=== PATIENT | female | born 1940 | race African-American/Black ===

== ENCOUNTER 2016-10-01 13:56 | Inpatient (IN) | payer MEDICARE, OTHER ==
[~2016-10-01] VITALS: Ht 165.1 cm; Wt 90.7 kg
[~2016-10-01 13:56] MED LIST: ASPIRIN81 MG ORAL; CATAPRES0.1 MG ORAL; CATAPRES0.3 MG ORAL; FUROSEMIDE40 MG ORAL; LANTUS5 UNITS SUBQ; NORVASC5 MG ORAL; NOVOLOG100 UNIT/3 SUBQ; PLAVIX75 MG ORAL
[2016-10-01 14:00] VITALS: BP 182/71
--- NOTE | 2016-10-01 14:10 | Emergency Room Report ---
History of Present Illness General Chief Complaint: Abdominal Pain Source: EMS Present Illness HPI Patient presents from what appears to be a rehabilitation facility Patient herself is a very poor historian Does point to her abdominal region to complain of pain she also has evidence of vomitus on her outfit History of present illness is significantly limited I am attempting to contact the facility along with the patient's PMD There is a medication list showing likely previous diagnoses of heart disease and diabetes Unknown duration of pain Unknown regarding diarrhea Allergies: Coded Allergies: PENICILLINS (Verified Allergy, Severe, 03/10/14) SKIN RASH AMOXICILLIN (Verified Allergy, Mild, 03/09/14) ERYTHROMYCIN BASE (Verified Allergy, Mild, 03/09/14) Patient History Past Medical History: see triage record Pertinent Family History: none Reviewed Nursing Documentation: PMH: Agreed, PSxH: Agreed Nursing Documentation-PMH Past Medical History: No History, Except For Hx Hypertension: Yes Hx Diabetes: Yes Hx Cancer: No Hx Gastrointestinal Problems: Yes Hx Neurological Problems: Yes Hx Cerebrovascular Accident: Yes - 2003 Review of Systems All Other Systems: limited - Other than the ones mentioned in the history of present illness all others are reviewed however they do stay limited due to the patient's mental status Physical Exam Vital Signs Date Time Temp Pulse Resp B/P Pulse Ox O2 Delivery O2 Flow Rate FiO2 10/01/16 13:36 97.9 92 18 184/ 100 Room Air Sp02 EP Interpretation: reviewed, normal General Appearance: mild distress - Patient appears ill, uncomfortable Head: normocephalic, atraumatic Eyes: bilateral eye EOMI, bilateral eye PERRL ENT: hearing grossly normal, normal pharynx, TMs + canals normal, uvula midline Neck: full range of motion, supple, no meningismus, no bony tend Respiratory: no respiratory distress, no retraction, no accessory muscle use, crackles - diffusely Cardiovascular #1: normal peripheral pulses, regular rate, rhythm, no edema, no gallop, no JVD, no murmur Gastrointestinal: no organomegaly, non-distended, no guarding, no hernia, no pulsatile mass, no rebound, other - Patient has a mildly distended abdomen is uncomfortable on palpation Genitourinary: no CVA tenderness Musculoskeletal: other - Patient does not follow commands however moves both upper extremities without focal deficit Neurologic: responsive - To physical and verbal stimuli Psychiatric: mood/affect normal Skin: normal color, no rash, warm/dry, palpation normal Lymphatic: normal inspection, no adenopathy Medical Decision Making Diagnostic Impression: Primary Impression: Hypertensive emergency Additional Impression: Abdominal pain ER Course Patient is a fairly complex patient with multiple differential to consideration including but not limited to cardiac cardiopulmonary and vascular emergencies CAT scan does not show any obvious obstruction the patient received pain medications on significantly better I spoke to the patient's primary physician Who reports of the patient does have gastroparesis And the patient was admitted for further care Labs Test 10/01/16 14:30 10/01/16 15:15 10/01/16 15:18 10/01/16 16:35 White Blood Count 16.2 K/UL (4.8-10.8) Red Blood Count 4.53 M/UL (4.20-5.40) Hemoglobin 13.6 G/DL (12.0-16.0) Hematocrit 41.9 % (37.0-47.0) Mean Corpuscular Volume 93 FL (80-99) Mean Corpuscular Hemoglobin 30.1 PG (27.0-31.0) Mean Corpuscular Hemoglobin Concent 32.5 G/DL (32.0-36.0) Red Cell Distribution Width 14.2 % (11.6-14.8) Platelet Count 416 K/UL (150-450) Mean Platelet Volume 7.0 FL (6.5-10.1) Neutrophils (%) (Auto) % (45.0-75.0) Lymphocytes (%) (Auto) % (20.0-45.0) Monocytes (%) (Auto) % (1.0-10.0) Eosinophils (%) (Auto) % (0.0-3.0) Basophils (%) (Auto) % (0.0-2.0) Differential Total Cells Counted 100 Neutrophils % (Manual) 85 % (45-75) Lymphocytes % (Manual) 9 % (20-45) Monocytes % (Manual) 6 % (1-10) Eosinophils % (Manual) 0 % (0-3) Basophils % (Manual) 0 % (0-2) Band Neutrophils 0 % (0-8) Platelet Estimate Adequate Platelet Morphology Normal Red Blood Cell Morphology Normal Lactic Acid Level 2.70 mmol/L (0.66-2.22) 2.00 mmol/L (0.66-2.22) Prothrombin Time 10.6 SEC (9.30-11.50) Prothromb Time International Ratio 1.0 (0.9-1.1) Activated Partial Thromboplast Time 23 SEC (23-33) Sodium Level 140 mEQ/L (135-145) Potassium Level 3.3 mEQ/L (3.4-4.9) Chloride Level 99 mEQ/L (98-107) Carbon Dioxide Level 20 mEQ/L (20-30) Anion Gap 21 (5-15) Blood Urea Nitrogen 31 mg/dL (7-23) Creatinine 2.0 mg/dL (0.5-0.9) Estimat Glomerular Filtration Rate mL/min (>60) Glucose Level 282 mg/dL (74-106) Calcium Level 9.5 mg/dL (8.6-10.2) Total Bilirubin 0.3 mg/dL (0.0-1.2) Aspartate Amino Transf (AST/SGOT) 47 U/L (5-40) Alanine Aminotransferase (ALT/SGPT) 39 U/L (3-33) Alkaline Phosphatase 126 U/L (35-104) Total Creatine Kinase 280 U/L (26-140) Creatine Kinase MB 6.8 ng/mL (< 3.8) Creatine Kinase MB Relative Index 2.4 Troponin I < 0.30 ng/mL (<=0.30) Pro-B-Type Natriuretic Peptide 4291 pg/mL (0-450) Total Protein 8.0 g/dL (6.6-8.7) Albumin 3.3 g/dL (3.5-5.2) Globulin 4.7 g/dL Albumin/Globulin Ratio 0.7 (1.0-2.7) Triglycerides Level 66 mg/dL (< 150) Cholesterol Level 116 mg/dL (< 200) LDL Cholesterol 41 mg/dL (60-99) HDL Cholesterol 62 mg/dL (> 60) Cholesterol/HDL Ratio 1.9 (3.3-4.4) Lipase 13 U/L (< 60) Arterial Blood pH 7.406 (7.350-7.450) Arterial Blood Partial Pressure CO2 37.0 mmHg (35.0-45.0) Arterial Blood Partial Pressure O2 100.6 mmHg (75.0-100.0) Arterial Blood HCO3 22.7 mmol/L (22.0-26.0) Arterial Blood Oxygen Saturation 97.6 % (92.0-98.0) Arterial Blood Base Excess -1.6 Steve Test Positive Urine Color Yellow Urine Appearance Cloudy Urine pH 8.0 (4.5-8.0) Urine Specific [place] 1.010 (1.005-1.035) Urine Protein 3+ (NEGATIVE) Urine Glucose (UA) 4+ (NEGATIVE) Urine Ketones 1+ (NEGATIVE) Urine Occult Blood 3+ (NEGATIVE) Urine Nitrite Negative (NEGATIVE) Urine Bilirubin Negative (NEGATIVE) Urine Urobilinogen Normal MG/DL (0.0-1.0) Urine Leukocyte Esterase Negative (NEGATIVE) Urine RBC 2-4 /HPF (0 - 2) Urine WBC 0-2 /HPF (0 - 2) Urine Squamous Epithelial Cells Few /LPF (NONE/OCC) Urine Bacteria Many /HPF (NONE) Test 10/02/16 06:50 White Blood Count 13.5 K/UL (4.8-10.8) Red Blood Count 4.10 M/UL (4.20-5.40) Hemoglobin 12.0 G/DL (12.0-16.0) Hematocrit 39.5 % (37.0-47.0) Mean Corpuscular Volume 96 FL (80-99) Mean Corpuscular Hemoglobin 29.4 PG (27.0-31.0) Mean Corpuscular Hemoglobin Concent 30.5 G/DL (32.0-36.0) Red Cell Distribution Width 14.2 % (11.6-14.8) Platelet Count 393 K/UL (150-450) Mean Platelet Volume 6.0 FL (6.5-10.1) Neutrophils (%) (Auto) % (45.0-75.0) Lymphocytes (%) (Auto) % (20.0-45.0) Monocytes (%) (Auto) % (1.0-10.0) Eosinophils (%) (Auto) % (0.0-3.0) Basophils (%) (Auto) % (0.0-2.0) Differential Total Cells Counted 100 Neutrophils % (Manual) 90 % (45-75) Lymphocytes % (Manual) 7 % (20-45) Monocytes % (Manual) 3 % (1-10) Eosinophils % (Manual) 0 % (0-3) Basophils % (Manual) 0 % (0-2) Band Neutrophils 0 % (0-8) Platelet Estimate Adequate Platelet Morphology Normal Red Blood Cell Morphology Normal Sodium Level 142 mEQ/L (135-145) Potassium Level 4.3 mEQ/L (3.4-4.9) Chloride Level 101 mEQ/L (98-107) Carbon Dioxide Level 22 mEQ/L (20-30) Anion Gap 19 (5-15) Blood Urea Nitrogen 30 mg/dL (7-23) Creatinine 2.3 mg/dL (0.5-0.9) Estimat Glomerular Filtration Rate mL/min (>60) Glucose Level 470 mg/dL (74-106) Calcium Level 9.3 mg/dL (8.6-10.2) Total Bilirubin 0.2 mg/dL (0.0-1.2) Aspartate Amino Transf (AST/SGOT) 25 U/L (5-40) Alanine Aminotransferase (ALT/SGPT) 28 U/L (3-33) Alkaline Phosphatase 109 U/L (35-104) Total Protein 6.9 g/dL (6.6-8.7) Albumin 2.9 g/dL (3.5-5.2) Globulin 4.0 g/dL Albumin/Globulin Ratio 0.7 (1.0-2.7) Rhythm Strip Diag. Results EP Interpretation: yes Rate: 76 Rhythm: NSR, no PVC's, no ectopy Chest X-Ray Diagnostic Results EP Interpretation: Yes Findings: no consolidation, no effusion, no pneumothorax Number of Views: 1 CT/MRI/US Diagnostic Results CT/MRI/US Diagnostic Results : Impression CT abdomen pelvis: No obvious acute disease Last Vital Signs Date Time Temp Pulse Resp B/P Pulse Ox O2 Delivery O2 Flow Rate FiO2 10/01/16 13:36 97.9 92 18 184/ 100 Room Air Status: improved Disposition: ADMITTED INPATIENT Condition: Serious CATIA MUÑIZ D.O. Oct 01, 2016 14:10
[2016-10-01] MEDS: Morphine Sulfate 4mg/ml Inj IVP ONE ×2 (14:37→14:45)
[2016-10-01] MEDS ORDERED: LORAZEPAM0.5 MG ORAL (14:48)
[2016-10-01] MEDS ORDERED: LISINOPRIL40 MG ORAL (14:48)
[2016-10-01] MEDS ORDERED: CALCITRIOL0.5 MCG PO (14:48)
[2016-10-01] MEDS ORDERED: AMBIEN5 MG ORAL (14:49)
[2016-10-01 14:51] LABS: MEAN CORPUSCULAR HEMOGLOBIN 30.1 PG (27.0-31.0); MEAN CORPUSCULAR HGB CONC 32.5 G/DL (32.0-36.0); MEAN CORPUSCULAR VOLUME 93 FL (80-99); PLATELET COUNT 416 K/UL (150-450); RED BLOOD COUNT 4.53 M/UL (4.20-5.40); RED CELL DISTRIBUTION WIDTH 14.2 % (11.6-14.8); WHITE BLOOD COUNT 16.2 K/UL (4.8-10.8)
[2016-10-01] MEDS ORDERED: DILAUDID4 MG ORAL (14:54)
[2016-10-01] MEDS ORDERED: LORATADINE10 M2 PO (14:54)
[2016-10-01] MEDS ORDERED: FAMOTIDINE20 MG ORAL (14:54)
[2016-10-01 15:10] LABS: REFLEX LACTIC ACID YES OR NO YES
[2016-10-01] MEDS ORDERED: metroNIDAZOLE 500mg 100 ML IVPB ONE (15:15)
[2016-10-01 15:26] LABS: PROTHROMBIN TIME 10.6 SEC (9.30-11.50)
[2016-10-01 15:26] LABS: ABG BASE EXCESS -1.6
[2016-10-01 15:27] LABS: ABG ALLEN TEST POSITIVE
--- NOTE | 2016-10-01 15:54 | Diagnostic Imaging Report ---
Indication: : Technique: One view of the chest Comparison: none Findings: There is suggestion of mild interstitial congestion. No focal airspace consolidation. No effusions. The heart is borderline enlarged Impression: Mild interstitial congestion. Correlate with clinical findings
[2016-10-01 15:55] LABS: ALANINE AMINOTRANSFERASE 39 U/L (3-33); ALBUMIN/GLOBULIN RATIO 0.7 (1.0-2.7); ANION GAP 21 (5-15); ASPARTATE AMINO TRANSFERASE 47 U/L (5-40); CALCIUM 9.5 mg/dL (8.6-10.2); CARBON DIOXIDE 20 mEQ/L (20-30); CHLORIDE 99 mEQ/L (98-107); CHOLESTEROL 116 mg/dL (< 200); CHOLESTEROL/HDL RATIO 1.9 (3.3-4.4); HEMOLYSIS 24; LDL CHOLESTEROL (CALC.) 41 mg/dL (60-99); LIPASE 13 U/L (< 60); POTASSIUM 3.3 mEQ/L (3.4-4.9); SODIUM 140 mEQ/L (135-145)
[2016-10-01 15:58] LABS: BAND NEUTROPHILS % (MANUAL) 0 % (0-8); BASOPHILS % (MANUAL) 0 % (0-2); EOSINOPHILS % (MANUAL) 0 % (0-3); LYMPHOCYTES % (MANUAL) 9 % (20-45); NEUTROPHILS % (MANUAL) 85 % (45-75); PLATELET ESTIMATE ADEQUATE; TOTAL CELLS COUNTED 100
[2016-10-01 15:59] LABS: PLATELET MORPHOLOGY NORMAL
[2016-10-01 16:06] LABS: CKMB 6.8 ng/mL (< 3.8)
[2016-10-01 16:10] LABS: TROPONIN I < 0.30 ng/mL (<=0.30)
[2016-10-01 16:24] VITALS: BP 167/94
[2016-10-01] MEDS ORDERED: HYDROmorphone 1 MG, DiphenhydrAMINE 25 MG in NS 55 ML IVPB ONE (16:45)
--- NOTE | 2016-10-01 16:45 | Diagnostic Imaging Report ---
Indication: Abdominal pain, nausea, vomiting Technique: Spiral acquisitions obtained through the abdomen and pelvis. No oral contrast utilized, per emergency room physician request No IV contrast utilized, per referring physician request.. Multiplanar reconstructions were generated. Total dose length product 950 mGycm. CTDIvol(s) 19 mGy Comparison: None Findings: There is a slight degree of image degradation due to motion artifact The appendix is normal. There is no evidence of diverticulosis or diverticulitis. No small bowel distention. No free or loculated intraperitoneal air or fluid is evident. There is a small sliding-type hiatal hernia. The stomach is otherwise unremarkable. The duodenum is unremarkable. Lack of IV contrast limits assessment of the solid organs. There are are cholecystectomy clips. These create some streak artifact which may obscure pathology in the adjacent area. There is mild ectasia of the extrahepatic bile ducts, common bile duct measuring 8 mm diameter. The pancreas, spleen, are unremarkable. There is relative atrophy and lobulated contour of the left kidney, suggesting chronic post inflammatory scarring. There is also very slightly lobulated contour of the right kidney. No definite renal or ureteral calculi, hydronephrosis or hydroureter. No definite renal mass. The uterus is absent, presumably postsurgically. The bladder is unremarkable. No pelvic mass or adenopathy. The lung bases demonstrate bilateral diffuse groundglass opacities. The heart is enlarged. The bones demonstrate fairly extensive degenerative proliferative change of the lower thoracic and lower lumbar spine. Impression: Cardiomegaly. Bilateral basilar pulmonary parenchymal parenchymal groundglass opacities are nonspecific, but given the presence of cardiomegaly likely reflect pulmonary edema. With clinical findings No acute abdominal process Small sliding-type hiatal hernia Evidence of prior cholecystectomy. Mild ectasia of the extrahepatic bile ducts is probably related to age and postcholecystectomy state, but correlation with liver function tests is recommended. Evidence of postinflammatory changes of the kidneys, left greater than right Absence of the uterus, presumed prior hysterectomy Degenerative spondylosis The CT scanner at [facility] is accredited by the [employer] and the scans are performed using protocols designed to limit radiation exposure to as low as reasonably achievable to attain images of sufficient resolution adequate for diagnostic evaluation.
[2016-10-01] MEDS ORDERED: DiphenhydrAMINE 50mg/ml Inj ONE (17:00)
[2016-10-01] MEDS ORDERED: HYDROmorphone 1mg/ml Carpuject ONE (17:00)
[2016-10-01 17:53] LABS: APPEARANCE,URINE CLOUDY; KETONES,URINE 1+ (NEGATIVE); LEUKOCYTE ESTERASE ,URINE NEGATIVE (NEGATIVE); NITRITE,URINE NEGATIVE (NEGATIVE); PROTEIN,URINE 3+ (NEGATIVE); UROBILINOGEN,URINE NORMAL MG/DL (0.0-1.0)
[2016-10-01 18:18] LABS: BACTERIA,URINE MANY /HPF; SQUAMOUS EPITHELIAL CELL,UR FEW /LPF (NONE/OCC); WBC,URINE 0-2 /HPF (0 - 2)
[2016-10-01 18:19] VITALS: BP 159/89
[2016-10-01] MEDS: HYDROmorphone 1mg/ml Carpuject IVP PRN (19:57)
--- NOTE | 2016-10-01 19:57 | Consultation ---
Consult Note Assessment/Plan Brief nephrology consult: Impression: 1) MONICO on CKD 2) No clinical msign of CHF 3) Abdominal pain with N/V ? due to gastroparesis, No obvious pancreatitis 4) HX of chronic pancreatitis 5) Leukocytosis R/O Colitis, infectious vs ischemic Plan: IV fluid x 1 L IV ATB Check C.diff, also stool cx FERMIN BRIGHT Oct 01, 2016 19:57
[2016-10-01 20:00] VITALS: BP 159/76
[2016-10-01] MEDS ORDERED: LORazepam 0.5mg tab ORAL PRN (20:45)
[2016-10-01] MEDS ORDERED: Zolpidem 5mg tab ORAL PRN (20:45)
[2016-10-01] MEDS ORDERED: Miralax 17gm pkt ORAL PRN (20:45)
[2016-10-01] MEDS: Heparin 5000 units/ml inj SUBQ SCH (22:23)
[2016-10-01] MEDS: Losartan 50mg tab ORAL SCH (22:28)
[2016-10-01] MEDS ORDERED: NovoLOG Insulin Flexpen SUBQ SCH (22:30)
[2016-10-01] MEDS: metroNIDAZOLE 500mg 100 ML IVPB SCH (22:40)
[2016-10-01] MEDS ORDERED: Nitroglycerin Patch 0.4mg TDERMAL SCH (23:00)
[2016-10-02] VITALS (8 sets, daily range): BP systolic 96–212; BP diastolic 45–126
[2016-10-02] MEDS: HYDROmorphone 1mg/ml Carpuject IVP PRN (00:04)
[2016-10-02] MEDS ORDERED: Levemir Flexpen SUBQ ONE (01:00)
[2016-10-02] MEDS: NS w/KCl 20mEq 1,000 ML IV SCH ×2 (01:33→23:29)
--- NOTE | 2016-10-02 05:09 | Consultation ---
DATE OF CONSULTATION: 10/01/2016 CARDIOLOGY CONSULTATION REQUESTING PHYSICIAN: 1. Pa Acuña M.D. 2. Jim Norwood M.D. REASON FOR CONSULTATION: Coronary artery disease. HISTORY OF PRESENT ILLNESS: The patient is known to me from prior care. This is an elderly female with single-vessel coronary artery disease, who has had multiple coronary stents to the right coronary distribution. She presented to the emergency room today with abdominal pain, nausea and recurring vomiting. She has not been able to tolerate any oral intake or her medications. She is being admitted for further management of pancreatitis and I have been asked to assist with cardiovascular care. The patient was hospitalized approximately a month ago at [facility] with an non-ST elevation myocardial infarction. She had a myocardial perfusion scan revealing a minimal amount of ischemia in the right coronary distribution. She has had multiple prior cardiac catheterizations and stent into the right coronary vessel. It was decided to be managed medically at that time especially in view of her worsening renal failure. She has not had any recurring. The patient has had a stable anginal pattern in the past week requiring nitroglycerin on one to two occasions and responding promptly. PAST MEDICAL HISTORY: 1. Coronary artery disease. 2. History of coronary stent. 3. Hypertensive heart disease. 4. Diastolic dysfunction with history of congestive heart failure. 5. Paroxysmal atrial ectopy. 6. Paroxysmal atrial fibrillation. 7. Premature atrial contractions. 8. Insulin-requiring diabetes mellitus. 9. Diabetic nephropathy. 10. Chronic kidney disease, stage 5. 11. Peripheral artery disease. 12. Obesity. 13. Chronic pancreatitis. 14. Hyperlipidemia. 15. Cerebrovascular disease with history of cerebrovascular accident. MEDICATIONS: Reviewed and reconciled. ALLERGIES: Include penicillin. SOCIAL HISTORY: No active smoking, alcohol, or substance abuse. REVIEW OF SYSTEMS: No fevers. No cough. She does have leg swelling and adjust her diuretic dose accordingly. She has had a prior stroke. She has not had any congestion or wheezing. She has not had any change in bowel habits. She has had progressive renal failure over the past year. PHYSICAL EXAMINATION: VITAL SIGNS: Blood pressure 184/80, heart rate 92, respiratory rate 18, and afebrile. HEENT: Normocephalic and atraumatic. Conjunctivae pink. Arcus senilis. Sclerae are anicteric. Oropharynx is clear. Mucous membranes moist. NECK: Supple. Jugular venous pressure difficult to assess. LUNGS: Coarse breath sounds. No wheezing. CARDIAC: Regular rhythm and rate. Normal S1 and S2 with a fourth heart sound. ABDOMEN: Distended, soft and tender diffusely. EXTREMITIES: Reveal 1+ dependent edema. LABORATORY DATA: White count 16.2 and hemoglobin 13.6. Lactic acid is 2.7. BUN 31, creatinine 2.0, potassium 3.3, and bicarbonate 20. CK is 280. Troponin is negative. Pro-natriuretic peptide is 4291. Total cholesterol is 116. Lipase is 13. IMPRESSION: 1. Lactic acidosis. 2. Leukocytosis. 3. Probable sepsis. 4. Acute on chronic renal failure. 5. Hypokalemia. 6. Acute on chronic diastolic congestive heart failure. 7. Ischemic cardiomyopathy. 8. Chronic stable angina, class II. 9. Mild protein-calorie malnutrition. 10. Transaminitis. PLAN: 1. Panculture. 2. IV fluid hydration. 3. Hold diuretics and angiotensin-converting enzyme inhibitor. 4. Maintain antiplatelet and antianginal regimen otherwise without change. 5. DVT prophylaxis. 6. Hepatobiliary studies. 7. Serial lactic acid levels. 8. Check magnesium. 9. Remains high risk. Amando Blanco M.D. DR: MELVIN JOB#: [id number] CC:
[2016-10-02] MEDS: metroNIDAZOLE 500mg 100 ML IVPB SCH ×3 (06:16→21:21)
[2016-10-02] MEDS: NovoLOG Insulin Flexpen SUBQ SCH ×4 (06:17→21:20)
[2016-10-02 07:46] LABS: MEAN CORPUSCULAR HEMOGLOBIN 29.4 PG (27.0-31.0); MEAN CORPUSCULAR HGB CONC 30.5 G/DL (32.0-36.0); MEAN CORPUSCULAR VOLUME 96 FL (80-99); PLATELET COUNT 393 K/UL (150-450); RED CELL DISTRIBUTION WIDTH 14.2 % (11.6-14.8); WHITE BLOOD COUNT 13.5 K/UL (4.8-10.8)
[2016-10-02 08:16] LABS: ALANINE AMINOTRANSFERASE 28 U/L (3-33); ALBUMIN/GLOBULIN RATIO 0.7 (1.0-2.7); ANION GAP 19 (5-15); ASPARTATE AMINO TRANSFERASE 25 U/L (5-40); CALCIUM 9.3 mg/dL (8.6-10.2); CARBON DIOXIDE 22 mEQ/L (20-30); CHLORIDE 101 mEQ/L (98-107); CREATININE 2.3 mg/dL (0.5-0.9); HEMOLYSIS 1; POTASSIUM 4.3 mEQ/L (3.4-4.9); SODIUM 142 mEQ/L (135-145); TOTAL PROTEIN 6.9 g/dL (6.6-8.7)
[2016-10-02] MEDS: cloNIDine 0.2mg Tab ORAL SCH ×3 (08:24→22:00)
[2016-10-02] MEDS: Aspirin Baby 81mg ORAL SCH (08:24)
[2016-10-02] MEDS: Calcitriol 0.5mcg Cap ORAL SCH (08:24)
[2016-10-02] MEDS: Sucralfate 1gm tab ORAL SCH ×2 (08:25→17:18)
[2016-10-02] MEDS: Nitroglycerin Patch 0.4mg TDERMAL SCH (08:25)
[2016-10-02] MEDS: Losartan 50mg tab ORAL SCH ×2 (08:26→20:41)
[2016-10-02] MEDS: Heparin 5000 units/ml inj SUBQ SCH ×2 (08:27→21:19)
[2016-10-02 08:30] LABS: BAND NEUTROPHILS % (MANUAL) 0 % (0-8); BASOPHILS % (MANUAL) 0 % (0-2); EOSINOPHILS % (MANUAL) 0 % (0-3); LYMPHOCYTES % (MANUAL) 7 % (20-45); NEUTROPHILS % (MANUAL) 90 % (45-75); PLATELET ESTIMATE ADEQUATE; PLATELET MORPHOLOGY NORMAL; TOTAL CELLS COUNTED 100
[2016-10-02] MEDS ORDERED: Pantoprazole Inj IVP SCH (09:00)
--- NOTE | 2016-10-02 16:38 | History and Physical Report ---
DATE OF ADMISSION: 10/01/2016 CHIEF COMPLAINT: Hypertensive urgency and abdominal pain. HISTORY OF PRESENT ILLNESS: The patient is a 76-year-old -[place] female. She has a history of ischemic cardiomyopathy, status post stent; hypertension; chronic kidney disease; paroxysmal atrial fibrillation; diabetes; obesity; and chronic pancreatitis who presented from home with complaints of abdominal pain and hypertensive urgency. The patient currently is moaning. She is unable to give any history. According to the emergency room, the patient was markedly hypertensive. She had an elevated white count. She had a CT scan of the abdomen to further evaluate her abdominal pain, which was relatively unremarkable. She was pancultured and started on antibiotics and is now admitted for further evaluation and care. PAST MEDICAL HISTORY: As above. PAST SURGICAL HISTORY: History of a stent. CURRENT MEDICATIONS: Reconciled and reviewed. ALLERGIES: Penicillin and erythromycin. FAMILY HISTORY: Noncontributory. SOCIAL HISTORY: There is no known history of tobacco, ethanol, or drugs. REVIEW OF SYSTEMS: Unobtainable as the patient is currently moaning and is unable to cooperate with the history. PHYSICAL EXAMINATION: VITAL SIGNS: Temperature is 101, pulse 108, respirations 18, and blood pressure 149/87. GENERAL: The patient is a chronically ill-appearing female. She is awake, but moaning. Her oropharynx shows mucous membranes are dry. NECK: Supple. HEART: Regular rate and rhythm. LUNGS: Clear anteriorly. ABDOMEN: Soft. Mildly tender throughout, but there is no rebound or guarding. EXTREMITIES: No clubbing, cyanosis, or edema. LABORATORY DATA: White count was 16,000, hemoglobin 13, hematocrit 41, and platelets 416,000. Coags are normal. Lactic acid was 2.7. Sodium 140, potassium 3.3, chloride 99, BUN of 31, and creatinine was 2. AST was 47, ALT 39, and alkaline phosphatase of 126. Total CK of 280 and CK-MB of 6.8. Troponin was negative. Natriuretic peptide level was 4200. Lipase was 13. ASSESSMENT: This is a 76-year-old female with multiple medical problems, who complains of hypertensive urgency, abdominal pain, leukocytosis, and fever of unclear etiology. PROBLEM LIST: 1. Abdominal pain, unclear etiology. The patient states that the pain is similar to her prior episodes of pancreatitis though. 2. Fevers and leukocytosis. 3. Ischemic cardiomyopathy. 4. Hypertension. 5. Acute on chronic renal failure. 6. Diabetes. PLAN: Empiric antibiotic therapy for sepsis. ID consultation. GI evaluations. Follow up pending cultures. Continue hydration. Monitor renal function. Monitor Accu-Cheks. Continue anti-platelet therapy. A message has been left to the son to obtain further history and to obtain the patient's status. Jim Norwood M.D. DR: STONE JOB#: [id number] CC:
--- NOTE | 2016-10-02 18:38 | Consultation ---
DATE OF CONSULTATION: 10/02/2016 INFECTIOUS DISEASES CONSULTATION CONSULTING PHYSICIAN: Dennis Rose M.D. REFERRING PHYSICIAN: Jim Norwood M.D. REASON FOR CONSULTATION: Leukocytosis. HISTORY OF PRESENTING ILLNESS: This is a 76-year-old lady with history of coronary artery disease, status post stent placement; hypertension; and congestive heart failure, who came in with nausea, vomiting, as well as abdominal pain. She was recently at [facility] with myocardial infarction. An Infectious Diseases consultation has been obtained for antibiotics and for leukocytosis. PAST MEDICAL HISTORY: 1. History of coronary artery disease, status post stent placement. 2. Hypertension. 3. Congestive heart failure. 4. Atrial fibrillation. 5. Diabetes. 6. Diabetic nephropathy. 7. Chronic kidney disease. 8. Peripheral arterial disease. 9. Chronic pancreatitis. 10. Hyperlipidemia. 11. CVA. SOCIAL HISTORY: No history of smoking, alcohol, or drug use. FAMILY HISTORY: Unknown. REVIEW OF SYSTEMS: Unable to obtain currently. MEDICATIONS: As an inpatient, the patient is on Levaquin, Neurontin, Carafate, clonidine, metoprolol, Protonix, calcitriol, Plavix, Norvasc, aspirin, nitroglycerin, Tylenol, Dilaudid, Reglan, insulin, Zofran, Flagyl, atorvastatin, Cozaar, subcutaneous heparin, MiraLAX, Benadryl, Ambien, and Ativan. ALLERGIES: 1. Amoxicillin 2. Erythromycin. 3. Penicillin. PHYSICAL EXAMINATION: VITAL SIGNS: Temperature of 100 degrees, T-max 101.1, pulse of 124, respiratory rate of 18, blood pressure 149/87, and O2 saturation of 96%. HEENT: Pupils are equally reactive to light and accommodation. Mouth appears clean without thrush. NECK: Supple. No adenopathy. No JVD. CARDIOVASCULAR: Regular rate and rhythm. No murmurs. LUNGS: Clear to auscultation bilaterally. No crackles. No wheezes. ABDOMEN: Soft and nontender. No organomegaly. EXTREMITIES: No cyanosis, no clubbing, no edema. LABORATORY DATA: White count of 16.2 yesterday, white count of 13.5 today, hemoglobin 12, hematocrit 39.5, MCV 96, and platelet count of 393,000 with neutrophils of 90%. Sodium 142, potassium 4.3, chloride 101, bicarbonate 22, BUN 30, creatinine 2.3, glucose 470, and calcium 9.3. Total bilirubin 0.2, AST 25, ALT 28, alkaline phosphatase 109, total protein 6.9, and albumin 2.9. UA showing 0 to 2 white cells. Urine cultures are negative from 10/01/2016. Chest x-ray showed mild interstitial congestion. CT abdomen and pelvis showing cardiomegaly, bilateral bibasilar pulmonary parenchymal ground-glass opacities noted. ASSESSMENT: This is a 76-year-old lady with history of hypertension and diabetes who comes in with, 1. Possible community-acquired pneumonia versus atypical pneumonia. 2. Leukocytosis. 3. Coronary artery disease. 4. Renal failure. 5. We would like to rule out Clostridium difficile colitis as a possibility. PLAN: 1. Continue Levaquin and Flagyl given the patient's penicillin allergy. 2. We will follow up cultures. 3. We will order sputum for Gram stain and culture. 4. We will order stool for C. difficile colitis. 5. We will follow up cultures and adjust antibiotics accordingly. I would like to thank Dr. Norwood for this consultation. Dennis Rose M.D. DR: AYAH JOB#: [id number] CC: Jim Norwood M.D.
[2016-10-02] MEDS: Levemir Flexpen SUBQ SCH (20:38)
--- NOTE | 2016-10-02 21:13 | Nephrology Progress Note ---
Assessment/Plan Assessment 1) HTN 2) Abdominal pain 3) Gastropaeresis 4) Chronic pancreatitis Plan: Will stop Cozaar Will increase clonidine to 0.6 mg po tid Norvasc 5 mg po bid Subjective Subjective She is still having epigastric tenderness, no c/p or sob, started on cozaar, creat is up to 2.3 Objective Objective Last 24 Hour Vital Signs Date Time Temp Pulse Resp B/P Pulse Ox O2 Delivery O2 Flow Rate FiO2 10/02/16 20:41 212/98 10/02/16 20:40 212/98 10/02/16 20:00 97.0 80 21 212/98 98 Nasal Cannula 2.0 10/02/16 16:00 97.5 73 20 157/99 99 Nasal Cannula 2.0 10/02/16 13:26 73 148/63 10/02/16 11:45 82 10/02/16 11:31 98.4 82 18 96/45 99 Nasal Cannula 2.0 10/02/16 09:50 100.0 10/02/16 09:40 98.9 10/02/16 08:26 149/87 10/02/16 08:25 149/87 10/02/16 08:25 124 149/87 10/02/16 08:25 124 149/87 10/02/16 08:24 149/87 10/02/16 08:07 101.1 108 18 149/87 96 Room Air 10/02/16 07:43 105 10/02/16 04:00 98.6 110 22 107/62 99 Room Air 10/02/16 04:00 109 10/02/16 00:00 107 10/02/16 00:00 97.2 108 24 160/68 97 Room Air 10/01/16 22:54 163/58 10/01/16 22:28 159/76 Intake and Output 10/01/16 10/02/16 19:00 07:00 Intake Total 322.5 ml Balance 322.5 ml Intake IV Total 322.5 ml # Voids 1 2 Laboratory Tests 10/02/16 06:50: White Blood Count 13.5H, Red Blood Count 4.10L, Hemoglobin 12.0, Hematocrit 39.5 , Mean Corpuscular Volume 96, Mean Corpuscular Hemoglobin 29.4, Mean Corpuscular Hemoglobin Concent 30.5L, Red Cell Distribution Width 14.2, Platelet Count 393, Mean Platelet Volume 6.0L, Neutrophils (%) (Auto) , Lymphocytes (%) (Auto) , Monocytes (%) (Auto) , Eosinophils (%) (Auto) , Basophils (%) (Auto) , Differential Total Cells Counted 100, Neutrophils % ( Manual) 90H, Lymphocytes % (Manual) 7L, Monocytes % (Manual) 3, Eosinophils % ( Manual) 0, Basophils % (Manual) 0, Band Neutrophils 0, Platelet Estimate Adequate, Platelet Morphology Normal, Red Blood Cell Morphology Normal, Sodium Level 142, Potassium Level 4.3, Chloride Level 101, Carbon Dioxide Level 22, Anion Gap 19H, Blood Urea Nitrogen 30H, Creatinine 2.3H, Estimat Glomerular Filtration Rate , Glucose Level 470#H, Calcium Level 9.3, Total Bilirubin 0.2, Aspartate Amino Transf (AST/SGOT) 25, Alanine Aminotransferase (ALT/SGPT) 28, Alkaline Phosphatase 109H, Total Protein 6.9, Albumin 2.9L, Globulin 4.0, Albumin/Globulin Ratio 0.7L Height (Feet): 5 Height (Inches): 5.00 Weight (Pounds): 200 General Appearance: WD/WN, no apparent distress EENT: PERRL/EOMI, TMs normal Neck: non-tender Cardiovascular: normal rate, regular rhythm Respiratory/Chest: lungs clear Abdomen: tender 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
[2016-10-03] VITALS (7 sets, daily range): BP systolic 92–144; BP diastolic 38–56
--- NOTE | 2016-10-03 01:47 | Progress Note ---
DATE: 10/02/2016 SUBJECTIVE: The patient is awake and alert, more interactive, but still somnolent lethargic compared to her baseline. She remains NPO. Monitored rhythm sinus with atrial and ventricular ectopics. No chest pain or shortness of breath. No vomiting today or diarrhea. OBJECTIVE: VITAL SIGNS: Blood pressure 105/79, earlier up to 212/98, heart rate 80, respiratory rate 21, and afebrile. LUNGS: Bilateral breath sounds. No wheezing or rales. HEART: Regular rhythm and rate. Normal S1 and S2 with a fourth heart sound. ABDOMEN: Distended, but soft. No guarding or rebound. EXTREMITIES: With trace edema. LABORATORY DATA: Urine culture negative. White count 13.5 and hemoglobin 12. Potassium 4.3, BUN 30, creatinine 2.3, glucose 470, and albumin 2.9. IMPRESSION: 1. Abdominal pain, gastroparesis, pancreatitis. 2. Hypertensive heart disease. 3. Ischemic cardiomyopathy. 4. Insulin-requiring diabetes mellitus. 5. Acute on chronic renal failure. 6. Paroxysmal atrial and ventricular ectopy. 7. Accelerated hypertension. PLAN: 1. Hydration. 2. Titrate antihypertensives. 3. Pain control. 4. Antiplatelet therapy. 5. DVT prophylaxis. Amando Blanco M.D. DR: MICHEAL JOB#: [id number] CC:
[2016-10-03] MEDS: metroNIDAZOLE 500mg 100 ML IVPB SCH ×3 (05:46→23:10)
[2016-10-03] MEDS: cloNIDine 0.2mg Tab ORAL SCH ×3 (06:00→22:00)
[2016-10-03] MEDS: NovoLOG Insulin Flexpen SUBQ SCH ×4 (06:30→20:53)
[2016-10-03] MEDS: Levemir Flexpen SUBQ SCH ×2 (06:58→17:48)
--- NOTE | 2016-10-03 08:50 | General Progress Note ---
Assessment/Plan Problem List: (1) Acute renal failure (ARF) ICD Codes: N17.9 - Acute kidney failure, unspecified SNOMED: 58325032 (2) Sepsis ICD Codes: A41.9 - Sepsis, unspecified organism SNOMED: 86738091 (3) Vomiting ICD Codes: R11.10 - Vomiting, unspecified SNOMED: 293676364 (4) Abdominal pain ICD Codes: R10.9 - Unspecified abdominal pain SNOMED: 89461676 (5) Hypertensive emergency ICD Codes: I16.1 - Hypertensive emergency SNOMED: 536350097432187 Status: stable, progressing Assessment/Plan cont iv abx ivf pain rx and antiemetics monitor labs and renal fxn increase insulin rx clears Subjective ROS Limited/Unobtainable: No Constitutional: Reports: malaise, weakness HEENT: Reports: no symptoms Cardiovascular: Reports: no symptoms Respiratory: Reports: no symptoms Gastrointestinal/Abdominal: Reports: abdominal pain, nausea, vomiting Genitourinary: Reports: no symptoms Neurologic/Psychiatric: Reports: no symptoms Endocrine: Reports: no symptoms Hematologic/Lymphatic: Reports: anemia Allergies: Coded Allergies: PENICILLINS (Verified Allergy, Severe, 03/10/14) SKIN RASH AMOXICILLIN (Verified Allergy, Mild, 03/09/14) ERYTHROMYCIN BASE (Verified Allergy, Mild, 03/09/14) All Systems: reviewed and negative except above Subjective abd pain nausea and vomiting last night. pain is improved today. wants to eat. labs noted. deniescp/sob. bp trend improved. Objective Last 24 Hour Vital Signs Date Time Temp Pulse Resp B/P Pulse Ox O2 Delivery O2 Flow Rate FiO2 10/03/16 08:17 97.0 67 20 126/47 96 Nasal Cannula 2.0 10/03/16 06:00 108/55 10/03/16 04:00 63 10/03/16 04:00 97.0 58 18 144/56 96 Room Air 10/03/16 01:17 99 Nasal Cannula 2.0 10/03/16 01:17 Nasal Cannula 2.0 28 10/03/16 00:00 97.5 79 16 92/45 100 Nasal Cannula 2.0 10/03/16 00:00 61 10/02/16 22:00 79 105/39 10/02/16 22:00 105/39 10/02/16 21:15 169/126 10/02/16 20:41 212/98 10/02/16 20:40 212/98 10/02/16 20:00 97.0 80 21 212/98 98 Nasal Cannula 2.0 10/02/16 20:00 77 10/02/16 16:00 79 10/02/16 16:00 97.5 73 20 157/99 99 Nasal Cannula 2.0 10/02/16 13:26 73 148/63 10/02/16 11:45 82 10/02/16 11:31 98.4 82 18 96/45 99 Nasal Cannula 2.0 10/02/16 09:50 100.0 10/02/16 09:40 98.9 Intake and Output 10/02/16 10/03/16 19:00 07:00 Intake Total 600 ml 1015 ml Balance 600 ml 1015 ml Intake Oral 240 ml IV Total 600 ml 775 ml # Voids 1 4 Height (Feet): 5 Height (Inches): 5.00 Weight (Pounds): 200 General Appearance: WD/WN, alert Neck: supple Cardiovascular: regular rhythm Respiratory/Chest: lungs clear, normal breath sounds, no respiratory distress Abdomen: normal bowel sounds, non tender, soft, no organomegaly, no mass Edema: no edema noted Arm (L), no edema noted Arm (R), no edema noted Leg (L), no edema noted Leg (R), no edema noted Pedal (L), no edema noted Pedal (R), no edema noted Generalized MAYITO MARION Oct 03, 2016 08:50
[2016-10-03] MEDS: Pantoprazole Inj IVP SCH ×2 (09:16→17:46)
[2016-10-03] MEDS: Nitroglycerin Patch 0.4mg TDERMAL SCH (09:22)
[2016-10-03] MEDS: Sucralfate 1gm tab ORAL SCH ×2 (09:22→17:47)
[2016-10-03] MEDS: Aspirin Baby 81mg ORAL SCH (09:22)
[2016-10-03] MEDS: Heparin 5000 units/ml inj SUBQ SCH ×2 (09:23→20:53)
[2016-10-03] MEDS: Calcitriol 0.5mcg Cap ORAL SCH (09:24)
--- NOTE | 2016-10-03 09:53 | General Progress Note ---
Assessment/Plan Assessment/Plan Assessment - abd pain - improved - lactic acidosis - resolved - N/V/D - resolved - h/o SOD related recurrent pancreatitis, s/p sphincterotomy Recommendations - NPO - EGD tomorrow - surgical opinion - vascular u/s of mesenteric vessels - check stool cultures - abx per ID - PPI Thank you Dulce Maria Cormier MD Subjective Allergies: Coded Allergies: PENICILLINS (Verified Allergy, Severe, 03/10/14) SKIN RASH AMOXICILLIN (Verified Allergy, Mild, 03/09/14) ERYTHROMYCIN BASE (Verified Allergy, Mild, 03/09/14) Objective Last 24 Hour Vital Signs Date Time Temp Pulse Resp B/P Pulse Ox O2 Delivery O2 Flow Rate FiO2 10/03/16 09:25 67 126/47 10/03/16 09:22 126/47 10/03/16 09:22 67 126/47 10/03/16 08:17 97.0 67 20 126/47 96 Nasal Cannula 2.0 10/03/16 07:49 Nasal Cannula 2.0 28 10/03/16 07:48 99 Nasal Cannula 2.0 10/03/16 06:00 108/55 10/03/16 04:00 63 10/03/16 04:00 97.0 58 18 144/56 96 Room Air 10/03/16 01:17 99 Nasal Cannula 2.0 10/03/16 01:17 Nasal Cannula 2.0 28 10/03/16 00:00 97.5 79 16 92/45 100 Nasal Cannula 2.0 10/03/16 00:00 61 10/02/16 22:00 79 105/39 10/02/16 22:00 105/39 10/02/16 21:15 169/126 10/02/16 20:41 212/98 10/02/16 20:40 212/98 10/02/16 20:00 97.0 80 21 212/98 98 Nasal Cannula 2.0 10/02/16 20:00 77 10/02/16 16:00 79 10/02/16 16:00 97.5 73 20 157/99 99 Nasal Cannula 2.0 10/02/16 13:26 73 148/63 10/02/16 11:45 82 10/02/16 11:31 98.4 82 18 96/45 99 Nasal Cannula 2.0 2/7/17 09:50 100.0 Intake and Output 10/02/16 10/03/16 19:00 07:00 Intake Total 600 ml 1015 ml Balance 600 ml 1015 ml Intake Oral 240 ml IV Total 600 ml 775 ml # Voids 1 4 Height (Feet): 5 Height (Inches): 5.00 Weight (Pounds): 200 DULCE MARIA CORMIER Oct 03, 2016 09:53
--- NOTE | 2016-10-03 11:58 | Infectious Diseases Prog Note ---
Assessment/Plan Assessment/Plan A; Leukocytosis Pneumonia/ congestion DM with hyperglycemia Lactic acidosis Chronic pancreatitis CKD P; continue Levaquin Subjective ROS Limited/Unobtainable: No Constitutional: Reports: no symptoms HEENT: Reports: coryza Respiratory: Reports: no symptoms Cardiovascular: Reports: no symptoms Gastrointestinal/Abdominal: Reports: no symptoms Genitourinary: Reports: no symptoms Neurologic: Reports: no symptoms Musculoskeletal: Reports: no symptoms Allergies: Coded Allergies: PENICILLINS (Verified Allergy, Severe, 03/10/14) SKIN RASH AMOXICILLIN (Verified Allergy, Mild, 03/09/14) ERYTHROMYCIN BASE (Verified Allergy, Mild, 03/09/14) Objective Vital Signs Last 24 Hour Vital Signs Date Time Temp Pulse Resp B/P Pulse Ox O2 Delivery O2 Flow Rate FiO2 10/03/16 10:24 97.0 10/03/16 10:24 97.0 10/03/16 09:25 67 126/47 10/03/16 09:22 126/47 10/03/16 09:22 67 126/47 10/03/16 08:17 97.0 67 20 126/47 96 Nasal Cannula 2.0 10/03/16 08:00 66 10/03/16 07:49 Nasal Cannula 2.0 28 10/03/16 07:48 99 Nasal Cannula 2.0 10/03/16 06:00 108/55 10/03/16 04:00 63 10/03/16 04:00 97.0 58 18 144/56 96 Room Air 10/03/16 01:17 99 Nasal Cannula 2.0 10/03/16 01:17 Nasal Cannula 2.0 28 10/03/16 00:00 97.5 79 16 92/45 100 Nasal Cannula 2.0 10/03/16 00:00 61 10/02/16 22:00 79 105/39 10/02/16 22:00 105/39 10/02/16 21:15 169/126 10/02/16 20:41 212/98 10/02/16 20:40 212/98 10/02/16 20:00 97.0 80 21 212/98 98 Nasal Cannula 2.0 10/02/16 20:00 77 10/02/16 16:00 79 10/02/16 16:00 97.5 73 20 157/99 99 Nasal Cannula 2.0 10/02/16 13:26 73 148/63 Height (Feet): 5 Height (Inches): 5.00 Weight (Pounds): 200 General Appearance: no acute distress HEENT: mucous membranes moist Respiratory/Chest: lungs clear Cardiovascular: normal rate Abdomen: soft, non tender Extremities: no edema, other - scar of bilateral knee surgeries Microbiology Date/Time Source Procedure Growth Status 10/01/16 14:50 Blood Blood Culture - Preliminary NO GROWTH AFTER 24 HOURS Resulted 10/01/16 14:30 Blood Blood Culture - Preliminary NO GROWTH AFTER 24 HOURS Resulted 10/01/16 16:35 Urine,Clean Catch Urine Culture - Preliminary Mixed Urogenital Contaminants Resulted Current Medications Medications (Trade) Dose Ordered Sig/Adelia Route PRN Reason Start Time Stop Time Status Last Admin Dose Admin Acetaminophen (Tylenol) 650 mg Q4H PRN ORAL Mild Pain/Temp > 100.5 10/02/16 08:30 11/01/16 08:29 10/02/16 08:41 Al Hydroxide/Mg Hydroxide (Mylanta) 30 ml TIDPRN PRN ORAL ACID REFLUX 10/02/16 21:00 11/01/16 20:59 10/02/16 21:02 Amlodipine Besylate (Norvasc) 5 mg BID ORAL 10/02/16 22:00 11/01/16 21:59 10/03/16 09:25 Aspirin 81 mg 81 mg DAILY ORAL 10/02/16 09:00 11/01/16 08:59 10/03/16 09:22 Atorvastatin Calcium (Lipitor) 40 mg BEDTIME ORAL 10/01/16 22:30 10/31/16 22:29 10/02/16 20:40 Calcitriol (Rocaltrol) 0.5 mcg DAILY ORAL 10/02/16 09:00 11/01/16 08:59 10/03/16 09:24 Clonidine HCl (Catapres) 0.6 mg Q8HR ORAL 10/02/16 22:00 11/01/16 21:59 Clopidogrel Bisulfate (Plavix) 75 mg DAILY ORAL 10/02/16 09:00 11/01/16 08:59 10/03/16 09:22 Dextrose (Dextrose 50%) STAT PRN IV Hypoglycemia 10/01/16 20:45 10/31/16 20:44 Diphenhydramine HCl (Benadryl) 25 mg Q6H PRN ORAL Itching 10/01/16 20:45 10/31/16 20:44 Gabapentin (Neurontin) 600 mg BID ORAL 10/02/16 09:00 11/01/16 08:59 10/03/16 09:25 Heparin Sodium (Porcine) (Heparin 5000 units/ml) 5,000 units EVERY 12 HOURS SUBQ 10/01/16 22:00 10/31/16 21:59 10/03/16 09:23 Hydralazine HCl (Apresoline) 10 mg Q4H PRN IV for SBP >160 10/02/16 21:15 11/01/16 21:14 Hydromorphone HCl (Dilaudid) 1 mg Q4H PRN IVP Moderate Pain (Pain Scale 4-6) 10/02/16 08:29 10/08/16 19:44 Hydromorphone HCl (Dilaudid) 2 mg Q4H PRN IVP Severe Pain (Pain Scale 7-10) 10/02/16 08:29 10/09/16 03:59 10/03/16 10:12 Insulin Aspart BEFORE MEALS AND HS SUBQ 10/02/16 06:30 11/01/16 06:29 10/03/16 11:37 Insulin Detemir (Levemir) 40 units Q12HR@0630,1830 SUBQ 10/03/16 18:30 11/02/16 18:29 Levofloxacin (Levaquin) 50 ml @ 50 mls/hr Q24H IVPB 10/02/16 16:00 10/08/16 15:59 10/02/16 16:24 Lorazepam (Ativan) 0.5 mg TIDPRN PRN ORAL For Anxiety 10/01/16 20:45 10/08/16 20:44 Metoclopramide HCl (Reglan) 5 mg BEFORE MEALS ORAL 10/02/16 06:30 11/01/16 06:29 10/03/16 11:34 Metoclopramide HCl (Reglan) 5 mg QHS ORAL 10/01/16 22:30 10/31/16 22:29 10/02/16 20:41 Metoprolol Succinate (Toprol XL) 50 mg DAILY ORAL 10/02/16 09:00 11/01/16 08:59 10/03/16 09:22 Metronidazole 100 ml @ 100 mls/hr Q8HR IVPB 10/01/16 23:00 10/08/16 22:59 10/03/16 05:46 Nitroglycerin (Ntg) 1 patch Q24H TDERMAL 10/02/16 09:00 11/01/16 08:59 10/03/16 09:22 Ondansetron HCl (Zofran) 4 mg Q4HR PRN IVP Nausea & Vomiting 10/02/16 05:00 11/01/16 04:59 10/02/16 20:23 Pantoprazole (Protonix) 40 mg BID IVP 10/03/16 09:00 11/02/16 08:59 10/03/16 09:16 Polyethylene Glycol (Miralax) 17 gm DAILY PRN ORAL Constipation 10/01/16 20:45 10/31/16 20:44 Sodium Chloride (NS w/KCl 20mEq) 1,000 ml @ 50 mls/hr Q20H IV 10/02/16 01:00 11/01/16 00:59 10/02/16 23:29 Sucralfate (Carafate) 1 gm BID ORAL 10/02/16 09:00 11/01/16 08:59 10/03/16 09:22 Zolpidem Tartrate (Ambien) 5 mg HSPRN PRN ORAL Insomnia 10/01/16 20:45 10/31/16 20:44 PERFECTO MOREL Oct 03, 2016 11:58
--- NOTE | 2016-10-03 15:45 | Diagnostic Imaging Report ---
Indications: Abdominal pain Technique: Real-time grayscale and duplex Doppler imaging of the abdominal aorta, celiac axis, superior mesenteric artery attempted Findings: Comparison: CT abdomen pelvis 10/01/16 Patient uncooperative, unable to hold breath. Target vessels could not be adequately demonstrated. IMPRESSION: Nondiagnostic exam
[2016-10-03] MEDS: NS w/KCl 20mEq 1,000 ML IV SCH (17:46)
[2016-10-03] MEDS ORDERED: Vancomycin 1250mg in D5W 275ml IVPB ONE (18:00)
--- NOTE | 2016-10-03 23:09 | Nephrology Progress Note ---
Assessment/Plan Assessment 1) HTN 2) Abdominal pain 3) Gastropaeresis 4) Chronic pancreatitis Plan: labs tomorrow Advance diet Subjective Subjective She is feeling better, no more epigastric tenderness, started on clear liquid Objective Objective Last 24 Hour Vital Signs Date Time Temp Pulse Resp B/P Pulse Ox O2 Delivery O2 Flow Rate FiO2 10/03/16 22:00 108/52 10/03/16 20:00 96.8 60 18 110/55 93 Room Air 10/03/16 18:46 96.8 10/03/16 17:50 60 106/49 10/03/16 16:37 106/49 10/03/16 16:00 97.4 60 21 95/38 98 Room Air 10/03/16 14:03 131/44 10/03/16 12:08 98.1 64 20 131/44 96 Nasal Cannula 2.0 10/03/16 10:24 97.0 10/03/16 09:25 67 126/47 10/03/16 09:22 126/47 10/03/16 09:22 67 126/47 10/03/16 08:17 97.0 67 20 126/47 96 Nasal Cannula 2.0 10/03/16 08:00 66 10/03/16 07:49 Nasal Cannula 2.0 28 10/03/16 07:48 99 Nasal Cannula 2.0 10/03/16 06:00 108/55 10/03/16 04:00 63 10/03/16 04:00 97.0 58 18 144/56 96 Room Air 10/03/16 01:17 99 Nasal Cannula 2.0 10/03/16 01:17 Nasal Cannula 2.0 28 10/03/16 00:00 97.5 79 16 92/45 100 Nasal Cannula 2.0 10/03/16 00:00 61 Intake and Output 10/02/16 10/03/16 19:00 07:00 Intake Total 600 ml 1015 ml Balance 600 ml 1015 ml Intake Oral 240 ml IV Total 600 ml 775 ml # Voids 1 4 Height (Feet): 5 Height (Inches): 5.00 Weight (Pounds): 200 General Appearance: WD/WN EENT: PERRL/EOMI Neck: non-tender, normal alignment Cardiovascular: normal peripheral pulses, normal rate Respiratory/Chest: chest wall non-tender, lungs clear Abdomen: normal bowel sounds, non tender 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
--- NOTE | 2016-10-03 23:37 | Consultation ---
DATE OF CONSULTATION: 10/03/2016 NOTE: POOR AUDIO QUALITY GASTROLOGY CONSULTATION CHIEF COMPLAINT: I have asked to see this patient by Dr. Jim Norwood for evaluation of abdominal pain. HISTORY OF PRESENT ILLNESS: The patient is a pleasant 76-year-old woman, who had noticed two days of severe abdominal pain with nausea, vomiting and diarrhea. The pain is somewhat diffuse, but more concentrated in the epigastric region she feels better, but no nausea, vomiting or diarrhea, but is still persistent pain. She was previously seen at [facility] a few years ago for recurrent pancreatitis. She underwent a early sphincterotomy and her symptoms apparently resolved. Prior to that, she had recurrent pancreatitis and her last colonoscopy about 10 years ago and she does not drink alcohol. PAST MEDICAL HISTORY: History of coronary artery disease status post coronary artery stent, hypertension, diastolic dysfunction, history of atrial fibrillation, diabetes and diabetic nephropathy, chronic kidney disease, , obesity, history of recurrent chronic pancreatitis, hyperlipidemia, and history of stroke. PAST SURGICAL HISTORY: Status post , bilateral knee surgery, coronary artery surgery, and pancreatic duct sphincterotomy. ALLERGIES: Penicillin. SOCIAL HISTORY: The patient does not smoke or drink alcohol. FAMILY HISTORY: Noncontributory. REVIEW OF SYSTEMS: Otherwise negative. PHYSICAL EXAMINATION: GENERAL: This is a pleasant woman, seen in her room. HEENT: Normocephalic and atraumatic. Sclerae anicteric. Oropharynx clear. NECK: Supple. CHEST: Clear to auscultation. CARDIOVASCULAR: Regular rate. ABDOMEN: Soft with some mild epigastric tenderness to palpation without guarding or rebound. EXTREMITIES: Revealed no edema. . ASSESSMENT: This patient presents with some epigastric abdominal pain of unclear etiology , which is improved today. She does have possible liver related disorders, however, the patient is not , which makes this likely. The patient also some diarrhea, which is also improved and should be checked for various infectious pathologies. The patient also had some mild degree of lactic acidosis, which is resolved. History of possible or ischemic bowel. The patient however has significantly improved. I would perform an upper endoscopy to see in the upper gastrointestinal tract. Surgical consultation can also be obtained to follow the patient for that matter. The patient has elevated creatinine and therefore CT angio , however, I will order vascular also with the blood supply. RECOMMENDATIONS: Per above discussion and orders written in the chart. Thank you for asking me to participate in care this patient. Dulce Maria Cormier M.D. DR: CHAD JOB#: [id number] CC:
[2016-10-04] VITALS (10 sets, daily range): BP systolic 112–170; BP diastolic 44–83
--- NOTE | 2016-10-04 02:48 | Progress Note ---
DATE: 10/03/2016 CARDIOLOGY PROGRESS NOTE SUBJECTIVE: The patient has no chest pain. No shortness of breath. Abdominal pain has decreased. She is no longer vomiting. OBJECTIVE: GENERAL: Afebrile. VITAL SIGNS: Blood pressure 126/47, pulse 67, and respirations 20. LUNGS: Clear. CARDIAC: Regular rhythm and rate. Normal S1 and S2 with a fourth heart sound. ABDOMEN: Distended and mildly tender. No guarding. EXTREMITIES: No edema. LABORATORY DATA: Labs are pending today. IMPRESSION: 1. Chronic pancreatitis. 2. Resolving nausea, vomiting, and abdominal pain. 3. Ischemic cardiomyopathy with stable angina. 4. Recent myocardial infarction. 5. History of multiple coronary stents to the right coronary distribution. 6. Hypertensive heart disease. 7. Paroxysmal atrial arrhythmias. 8. Nonsustained ventricular arrhythmias. PLAN: 1. Resume diet for GI attending. 2. Holding diuretics. 3. Maintain adequate hydration for now. 4. Monitor volume status and cardiorenal parameters. 5. Follow up electrolytes and replace accordingly. 6. Continue dual anti-platelet therapy. 7. Titrate anti-failure and antianginal regimen based on clinical parameters. 8. Avoid hypotension in this clinical setting. Amando Blanco M.D. DR: MELVIN JOB#: [id number] CC:
[2016-10-04] MEDS: NovoLOG Insulin Flexpen SUBQ SCH ×4 (05:59→21:22)
[2016-10-04] MEDS: Levemir Flexpen SUBQ SCH ×2 (05:59→18:27)
[2016-10-04] MEDS: metroNIDAZOLE 500mg 100 ML IVPB SCH ×3 (06:01→21:19)
--- NOTE | 2016-10-04 08:03 | General Progress Note ---
Assessment/Plan Problem List: (1) Acute renal failure (ARF) ICD Codes: N17.9 - Acute kidney failure, unspecified SNOMED: 72571253 (2) Sepsis ICD Codes: A41.9 - Sepsis, unspecified organism SNOMED: 52638252 (3) Vomiting ICD Codes: R11.10 - Vomiting, unspecified SNOMED: 693262737 (4) Abdominal pain ICD Codes: R10.9 - Unspecified abdominal pain SNOMED: 49002897 (5) Hypertensive emergency ICD Codes: I16.1 - Hypertensive emergency SNOMED: 796086299926155 Status: stable, progressing Assessment/Plan cont iv abx ivf pain rx and antiemetics monitor labs and renal fxn egd message left with surgery to eval for possible ischemic bowel. Subjective ROS Limited/Unobtainable: No Constitutional: Reports: malaise, weakness HEENT: Reports: no symptoms Cardiovascular: Reports: no symptoms Respiratory: Reports: no symptoms Gastrointestinal/Abdominal: Reports: abdominal pain Genitourinary: Reports: no symptoms Neurologic/Psychiatric: Reports: no symptoms Endocrine: Reports: no symptoms Hematologic/Lymphatic: Reports: no symptoms Allergies: Coded Allergies: PENICILLINS (Verified Allergy, Severe, 03/10/14) SKIN RASH AMOXICILLIN (Verified Allergy, Mild, 03/09/14) ERYTHROMYCIN BASE (Verified Allergy, Mild, 03/09/14) All Systems: reviewed and negative except above Subjective pain is improved today. wants to eat. still npo. going for egd. labs noted. deniescp/sob. bp trend improved. Objective Last 24 Hour Vital Signs Date Time Temp Pulse Resp B/P Pulse Ox O2 Delivery O2 Flow Rate FiO2 10/04/16 04:09 98.8 56 19 112/53 99 Nasal Cannula 2.0 10/04/16 04:00 47 10/04/16 00:37 98.4 68 18 113/44 96 Nasal Cannula 2.0 10/04/16 00:00 64 10/03/16 22:00 108/52 10/03/16 20:00 65 10/03/16 20:00 96.8 60 18 110/55 93 Room Air 10/03/16 19:00 98 Nasal Cannula 2.0 10/03/16 19:00 Nasal Cannula 2.0 28 10/03/16 18:46 96.8 10/03/16 17:50 60 106/49 10/03/16 16:37 106/49 10/03/16 16:00 68 10/03/16 16:00 97.4 60 21 95/38 98 Room Air 10/03/16 14:03 131/44 10/03/16 12:08 98.1 64 20 131/44 96 Nasal Cannula 2.0 10/03/16 10:24 97.0 10/03/16 09:25 67 126/47 10/03/16 09:22 126/47 10/03/16 09:22 67 126/47 10/03/16 08:17 97.0 67 20 126/47 96 Nasal Cannula 2.0 10/03/16 08:00 66 Intake and Output 10/03/16 10/04/16 19:00 07:00 Intake Total 120 ml Balance 120 ml Intake Oral 120 ml # Voids 2 Height (Feet): 5 Height (Inches): 5.00 Weight (Pounds): 200 General Appearance: WD/WN, alert Neck: supple Cardiovascular: normal rate, regular rhythm Respiratory/Chest: lungs clear, normal breath sounds Abdomen: normal bowel sounds, non tender, soft, no organomegaly Edema: no edema noted Arm (L), no edema noted Arm (R), no edema noted Leg (L), no edema noted Leg (R), no edema noted Pedal (L), no edema noted Pedal (R), no edema noted Generalized Neurologic: alert, oriented x 3 MAYITO MARION Oct 04, 2016 08:03
[2016-10-04] MEDS: Nitroglycerin Patch 0.4mg TDERMAL SCH (08:10)
[2016-10-04] MEDS: Pantoprazole Inj IVP SCH ×2 (08:10→18:25)
[2016-10-04] MEDS: Heparin 5000 units/ml inj SUBQ SCH ×2 (08:19→21:21)
[2016-10-04 08:20] LABS: BASOPHILS % (AUTO) 1.5 % (0.0-2.0); EOSINOPHILS % (AUTO) 2.6 % (0.0-3.0); LYMPHOCYTES % (AUTO) 19.7 % (20.0-45.0); MEAN CORPUSCULAR HEMOGLOBIN 29.9 PG (27.0-31.0); MEAN CORPUSCULAR HGB CONC 30.5 G/DL (32.0-36.0); MEAN CORPUSCULAR VOLUME 98 FL (80-99); MEAN PLATELET VOLUME 6.1 FL (6.5-10.1); MONOCYTES % (AUTO) 9.6 % (1.0-10.0); NEUTROPHILS % (AUTO) 66.7 % (45.0-75.0); PLATELET COUNT 300 K/UL (150-450); RED BLOOD COUNT 3.51 M/UL (4.20-5.40); RED CELL DISTRIBUTION WIDTH 14.4 % (11.6-14.8)
[2016-10-04 08:34] LABS: ALANINE AMINOTRANSFERASE 18 U/L (3-33); ALBUMIN/GLOBULIN RATIO 0.6 (1.0-2.7); ANION GAP 13 (5-15); ASPARTATE AMINO TRANSFERASE 23 U/L (5-40); CALCIUM 8.6 mg/dL (8.6-10.2); CARBON DIOXIDE 24 mEQ/L (20-30); CHLORIDE 103 mEQ/L (98-107); CREATININE 3.6 mg/dL (0.5-0.9); HEMOLYSIS 20; POTASSIUM 3.7 mEQ/L (3.4-4.9); SODIUM 140 mEQ/L (135-145); TOTAL PROTEIN 6.3 g/dL (6.6-8.7)
[2016-10-04] MEDS: cloNIDine 0.2mg Tab ORAL SCH ×2 (08:37→21:19)
[2016-10-04] MEDS: Aspirin Baby 81mg ORAL SCH (08:37)
[2016-10-04] MEDS: Sucralfate 1gm tab ORAL SCH ×2 (08:37→18:24)
[2016-10-04] MEDS: Calcitriol 0.5mcg Cap ORAL SCH (08:41)
[2016-10-04] MEDS ORDERED: NS 550ML IV ONE (10:15)
--- NOTE | 2016-10-04 10:29 | Anethesia Preoperative Eval ---
Anesthesia Pre-op PMH/ROS General Date of Evaluation: Oct 04, 2016 Time of Evaluation: 10:27 Anesthesiologist: Sanchez ASA Score: ASA 3 Mallampati Score Class I : Soft palate, uvula, fauces, pillars visible Class II: Soft palate, uvula, fauces visible Class III: Soft palate, base of uvula visible Class IV: Only hard plate visible Mallampati Classification: Class III Surgeon: Genia Diagnosis: PUD Surgical Procedure: EGD Anesthesia History: none Allergies: Coded Allergies: PENICILLINS (Verified Allergy, Severe, 03/10/14) SKIN RASH AMOXICILLIN (Verified Allergy, Mild, 03/09/14) ERYTHROMYCIN BASE (Verified Allergy, Mild, 03/09/14) Past Medical History Cardiovascular: Reports: CAD, HTN Pulmonary: Reports: COPD Gastrointestinal/Genitourinary: Reports: GERD Neurologic/Psychiatric: Reports: CVA Endocrine: Reports: DM HEENT: Denies: [place] (L), [place] (R), cataract (L), cataract (R), glaucoma, other Hematology/Immune: Denies: DVT, anemia, bleeding disorder, other Musculoskeletal/Integumentary: Reports: DJD Other: obesity Anesthesia Pre-op Phys. Exam Physician Exam Last Vital Signs Date Time Temp Pulse Resp B/P Pulse Ox O2 Delivery O2 Flow Rate FiO2 10/04/16 08:40 97.0 10/04/16 08:37 140/58 10/04/16 08:12 60 20 99 Nasal Cannula 2.0 10/03/16 19:00 28 Constitutional: NAD Neurologic: CN 2-12 intact Cardiovascular: RRR Gastrointestinal: S/NT/ND Airway Exam Mallampati Score: Class III Anesthesia Pre-op A/P Labs Hematology Test 10/04/16 07:25 White Blood Count 12.0 K/UL (4.8-10.8) H Red Blood Count 3.51 M/UL (4.20-5.40) L Hemoglobin 10.5 G/DL (12.0-16.0) L Hematocrit 34.4 % (37.0-47.0) L Mean Corpuscular Volume 98 FL (80-99) Mean Corpuscular Hemoglobin 29.9 PG (27.0-31.0) Mean Corpuscular Hemoglobin Concent 30.5 G/DL (32.0-36.0) L Red Cell Distribution Width 14.4 % (11.6-14.8) Platelet Count 300 K/UL (150-450) Mean Platelet Volume 6.1 FL (6.5-10.1) L Neutrophils (%) (Auto) 66.7 % (45.0-75.0) Lymphocytes (%) (Auto) 19.7 % (20.0-45.0) L Monocytes (%) (Auto) 9.6 % (1.0-10.0) Eosinophils (%) (Auto) 2.6 % (0.0-3.0) Basophils (%) (Auto) 1.5 % (0.0-2.0) Chemistry Test 10/04/16 07:25 Sodium Level 140 mEQ/L (135-145) Potassium Level 3.7 mEQ/L (3.4-4.9) Chloride Level 103 mEQ/L (98-107) Carbon Dioxide Level 24 mEQ/L (20-30) Anion Gap 13 (5-15) Blood Urea Nitrogen 51 mg/dL (7-23) H Creatinine 3.6 mg/dL (0.5-0.9) H Estimat Glomerular Filtration Rate mL/min (>60) Glucose Level 94 mg/dL (74-106) Lactic Acid Level 1.30 mmol/L (0.66-2.22) Calcium Level 8.6 mg/dL (8.6-10.2) Magnesium Level 2.1 mg/dL (1.7-2.5) Total Bilirubin 0.2 mg/dL (0.0-1.2) Aspartate Amino Transf (AST/SGOT) 23 U/L (5-40) Alanine Aminotransferase (ALT/SGPT) 18 U/L (3-33) Alkaline Phosphatase 81 U/L (35-104) Total Protein 6.3 g/dL (6.6-8.7) L Albumin 2.5 g/dL (3.5-5.2) L Globulin 3.8 g/dL Albumin/Globulin Ratio 0.6 (1.0-2.7) SANDRO WOOD M.D. Oct 04, 2016 10:29
[2016-10-04] MEDS ORDERED: Propofol 10mg/ml 20ml IV ONE (10:30)
[2016-10-04] MEDS ORDERED: Norco 5mg/325mg tab ORAL PRN (10:30)
[2016-10-04] MEDS ORDERED: fentaNYL 100 mcg/2 mL IV PRN (10:30)
[2016-10-04] MEDS ORDERED: Hydromorphone 0.5mg/0.5ml inj IVP PRN (10:30)
[2016-10-04] MEDS ORDERED: Lidocaine 1% MPF 10mg/ml 5ml ONE (10:30)
--- NOTE | 2016-10-04 10:31 | Immediate Post-Op Evaluation ---
Immediate Post-Op Evalulation Immediate Post-Op Evalulation Procedure: EGD Date of Evaluation: Oct 04, 2016 Time of Evaluation: 11:00 IV Fluids: 300 Blood Products: 0 Estimated Blood Loss: 0 Urinary Output: 0 Blood Pressure Systolic: 160 Blood Pressure Diastolic: 85 Pulse Rate: 70 Respiratory Rate: 20 O2 Sat by Pulse Oximetry: 95 Temperature (Fahrenheit): 98 Pain Score (1-10): 1 Nausea: No Vomiting: No Complications na Patient Status: awake Hydration Status: adequate Given Within 1 Hr of Incision: SANDRO Parikh M.D. Oct 04, 2016 10:30
--- NOTE | 2016-10-04 10:32 | 48 Hour Post Anesthesia Eval ---
Post Anesthesia Evaluation Procedure: EGD Date of Evaluation: Oct 04, 2016 Time of Evaluation: 12:00 Blood Pressure Systolic: 160 0: 80 Pulse Rate: 65 Respiratory Rate: 20 Temperature (Fahrenheit): 98 O2 Sat by Pulse Oximetry: 96 Airway: patent Nausea: No Vomiting: No Pain Intensity: 4 Hydration Status: adequate Cardiopulmonary Status: stable Mental Status/LOC: patient returned to baseline Follow-up Care/Observations: na Post-Anesthesia Complications: na Follow-up care needed: N/A SANDRO SUGGS M.D. Oct 04, 2016 10:32
[2016-10-04] MEDS: NS w/KCl 20mEq 1,000 ML IV SCH (13:00)
--- NOTE | 2016-10-04 14:19 | Nephrology Progress Note ---
Assessment/Plan Assessment 1) HTN 2) Abdominal pain 3) Gastropaeresis 4) Chronic pancreatitis 5) MONICO worsening ? due to ATN caused by some hypotension Plan: Will check urine lytes Urine protein to creat ratio and Upep Check renal US Subjective Subjective She is feeling better, no more epigastric tenderness, creatinine up to 3.6, BP from 170-180's dropped to 100's systolic Objective Objective Last 24 Hour Vital Signs Date Time Temp Pulse Resp B/P Pulse Ox O2 Delivery O2 Flow Rate FiO2 10/04/16 12:09 97.7 64 20 129/83 96 Nasal Cannula 2.0 10/04/16 11:13 97.4 62 16 170/52 96 Nasal Cannula 3.0 10/04/16 11:00 58 14 164/44 95 Nasal Cannula 3.0 10/04/16 10:55 61 16 157/46 98 Nasal Cannula 3.0 10/04/16 10:50 97.5 62 14 151/53 99 Simple Mask 6.0 10/04/16 10:32 65 20 96 10/04/16 10:30 70 20 95 10/04/16 08:40 97.0 10/04/16 08:37 140/58 10/04/16 08:12 97.0 60 20 140/58 99 Nasal Cannula 2.0 10/04/16 08:10 112/53 10/04/16 08:00 89 10/04/16 04:09 98.8 56 19 112/53 99 Nasal Cannula 2.0 10/04/16 04:00 47 10/04/16 00:37 98.4 68 18 113/44 96 Nasal Cannula 2.0 10/04/16 00:00 64 10/03/16 22:00 108/52 10/03/16 20:00 65 10/03/16 20:00 96.8 60 18 110/55 93 Room Air 10/03/16 19:00 98 Nasal Cannula 2.0 10/03/16 19:00 Nasal Cannula 2.0 28 10/03/16 18:46 96.8 10/03/16 17:50 60 106/49 10/03/16 16:37 106/49 10/03/16 16:00 68 10/03/16 16:00 97.4 60 21 95/38 98 Room Air Intake and Output 10/03/16 10/04/16 19:00 07:00 Intake Total 120 ml Balance 120 ml Intake Oral 120 ml # Voids 2 Laboratory Tests 10/04/16 07:25: White Blood Count 12.0H, Red Blood Count 3.51L, Hemoglobin 10.5L, Hematocrit 34.4L, Mean Corpuscular Volume 98, Mean Corpuscular Hemoglobin 29.9, Mean Corpuscular Hemoglobin Concent 30.5L, Red Cell Distribution Width 14.4, Platelet Count 300, Mean Platelet Volume 6.1L, Neutrophils (%) (Auto) 66.7, Lymphocytes (%) (Auto) 19.7L, Monocytes (%) (Auto) 9.6, Eosinophils (%) (Auto) 2.6, Basophils (%) (Auto) 1.5, Sodium Level 140, Potassium Level 3.7, Chloride Level 103, Carbon Dioxide Level 24, Anion Gap 13, Blood Urea Nitrogen 51H, Creatinine 3.6H, Estimat Glomerular Filtration Rate , Glucose Level 94, Lactic Acid Level 1.30, Calcium Level 8.6, Magnesium Level 2.1, Total Bilirubin 0.2, Aspartate Amino Transf (AST/SGOT) 23, Alanine Aminotransferase (ALT/SGPT) 18, Alkaline Phosphatase 81, Total Protein 6.3L, Albumin 2.5L, Globulin 3.8, Albumin /Globulin Ratio 0.6L Height (Feet): 5 Height (Inches): 5.00 Weight (Pounds): 200 General Appearance: WD/WN, no apparent distress EENT: PERRL/EOMI Neck: non-tender, normal alignment Cardiovascular: normal rate, regular rhythm Respiratory/Chest: lungs clear Abdomen: normal bowel sounds, non tender, soft Extremities: normal range of motion Neurologic: cigarette making examiner II-XII grossly normal FERMIN BRIGHT Oct 04, 2016 14:19
--- NOTE | 2016-10-04 15:05 | Infectious Diseases Prog Note ---
Assessment/Plan Assessment/Plan A; Positive blood culture/ bacteremia Leukocytosis Pneumonia/ congestion DM with hyperglycemia Lactic acidosis Gastritis CKD P; continue Levaquin & Vancomycin Will f/u cultures Subjective ROS Limited/Unobtainable: No Constitutional: Reports: no symptoms Respiratory: Reports: no symptoms Gastrointestinal/Abdominal: Reports: no symptoms, other - had EGD today Genitourinary: Reports: no symptoms Allergies: Coded Allergies: PENICILLINS (Verified Allergy, Severe, 03/10/14) SKIN RASH AMOXICILLIN (Verified Allergy, Mild, 03/09/14) ERYTHROMYCIN BASE (Verified Allergy, Mild, 03/09/14) Objective Vital Signs Last 24 Hour Vital Signs Date Time Temp Pulse Resp B/P Pulse Ox O2 Delivery O2 Flow Rate FiO2 10/04/16 12:09 97.7 64 20 129/83 96 Nasal Cannula 2.0 10/04/16 11:13 97.4 62 16 170/52 96 Nasal Cannula 3.0 10/04/16 11:00 58 14 164/44 95 Nasal Cannula 3.0 10/04/16 10:55 61 16 157/46 98 Nasal Cannula 3.0 10/04/16 10:50 97.5 62 14 151/53 99 Simple Mask 6.0 10/04/16 10:32 65 20 96 10/04/16 10:30 70 20 95 10/04/16 08:40 97.0 10/04/16 08:37 140/58 10/04/16 08:12 97.0 60 20 140/58 99 Nasal Cannula 2.0 10/04/16 08:10 112/53 10/04/16 08:00 89 10/04/16 04:09 98.8 56 19 112/53 99 Nasal Cannula 2.0 10/04/16 04:00 47 10/04/16 00:37 98.4 68 18 113/44 96 Nasal Cannula 2.0 10/04/16 00:00 64 10/03/16 22:00 108/52 10/03/16 20:00 65 10/03/16 20:00 96.8 60 18 110/55 93 Room Air 10/03/16 19:00 98 Nasal Cannula 2.0 10/03/16 19:00 Nasal Cannula 2.0 28 10/03/16 18:46 96.8 10/03/16 17:50 60 106/49 10/03/16 16:37 106/49 10/03/16 16:00 68 10/03/16 16:00 97.4 60 21 95/38 98 Room Air Height (Feet): 5 Height (Inches): 5.00 Weight (Pounds): 200 General Appearance: no acute distress HEENT: mucous membranes moist Respiratory/Chest: lungs clear, other - O2 by cannula Cardiovascular: normal rate Abdomen: soft, non tender, other - obese Extremities: other - trace edema Neurologic/Psychiatric: alert, oriented x 3, responsive Microbiology Date/Time Source Procedure Growth Status 10/03/16 06:19 Sputum Gram Stain - Final Resulted 10/03/16 06:19 Sputum Sputum Culture Pending Resulted 10/01/16 16:35 Urine,Clean Catch Urine Culture - Final Mixed Urogenital Contaminants Complete Laboratory Tests Test 10/04/16 07:25 White Blood Count 12.0 K/UL (4.8-10.8) H Red Blood Count 3.51 M/UL (4.20-5.40) L Hemoglobin 10.5 G/DL (12.0-16.0) L Hematocrit 34.4 % (37.0-47.0) L Mean Corpuscular Volume 98 FL (80-99) Mean Corpuscular Hemoglobin 29.9 PG (27.0-31.0) Mean Corpuscular Hemoglobin Concent 30.5 G/DL (32.0-36.0) L Red Cell Distribution Width 14.4 % (11.6-14.8) Platelet Count 300 K/UL (150-450) Mean Platelet Volume 6.1 FL (6.5-10.1) L Neutrophils (%) (Auto) 66.7 % (45.0-75.0) Lymphocytes (%) (Auto) 19.7 % (20.0-45.0) L Monocytes (%) (Auto) 9.6 % (1.0-10.0) Eosinophils (%) (Auto) 2.6 % (0.0-3.0) Basophils (%) (Auto) 1.5 % (0.0-2.0) Sodium Level 140 mEQ/L (135-145) Potassium Level 3.7 mEQ/L (3.4-4.9) Chloride Level 103 mEQ/L (98-107) Carbon Dioxide Level 24 mEQ/L (20-30) Anion Gap 13 (5-15) Blood Urea Nitrogen 51 mg/dL (7-23) H Creatinine 3.6 mg/dL (0.5-0.9) H Estimat Glomerular Filtration Rate mL/min (>60) Glucose Level 94 mg/dL (74-106) Lactic Acid Level 1.30 mmol/L (0.66-2.22) Calcium Level 8.6 mg/dL (8.6-10.2) Magnesium Level 2.1 mg/dL (1.7-2.5) Total Bilirubin 0.2 mg/dL (0.0-1.2) Aspartate Amino Transf (AST/SGOT) 23 U/L (5-40) Alanine Aminotransferase (ALT/SGPT) 18 U/L (3-33) Alkaline Phosphatase 81 U/L (35-104) Total Protein 6.3 g/dL (6.6-8.7) L Albumin 2.5 g/dL (3.5-5.2) L Globulin 3.8 g/dL Albumin/Globulin Ratio 0.6 (1.0-2.7) L Current Medications Medications (Trade) Dose Ordered Sig/Adelia Route PRN Reason Start Time Stop Time Status Last Admin Dose Admin Acetaminophen (Tylenol) 650 mg Q4H PRN ORAL Mild Pain/Temp > 100.5 10/02/16 08:30 11/01/16 08:29 10/02/16 08:41 Al Hydroxide/Mg Hydroxide (Mylanta) 30 ml TIDPRN PRN ORAL ACID REFLUX 10/02/16 21:00 11/01/16 20:59 10/02/16 21:02 Amlodipine Besylate (Norvasc) 5 mg BID ORAL 10/02/16 22:00 11/01/16 21:59 10/03/16 09:25 Aspirin 81 mg 81 mg DAILY ORAL 10/02/16 09:00 11/01/16 08:59 10/03/16 09:22 Atorvastatin Calcium (Lipitor) 40 mg BEDTIME ORAL 10/01/16 22:30 10/31/16 22:29 10/03/16 20:41 Calcitriol (Rocaltrol) 0.5 mcg DAILY ORAL 10/02/16 09:00 11/01/16 08:59 10/03/16 09:24 Clonidine HCl (Catapres) 0.6 mg BID@0900,2100 ORAL 10/04/16 09:00 11/03/16 08:59 Clopidogrel Bisulfate (Plavix) 75 mg DAILY ORAL 10/02/16 09:00 11/01/16 08:59 10/03/16 09:22 Dextrose (Dextrose 50%) STAT PRN IV Hypoglycemia 10/01/16 20:45 10/31/16 20:44 10/04/16 05:55 Diphenhydramine HCl (Benadryl) 25 mg Q6H PRN ORAL Itching 10/01/16 20:45 10/31/16 20:44 Gabapentin (Neurontin) 600 mg BID ORAL 10/02/16 09:00 11/01/16 08:59 10/03/16 17:47 Heparin Sodium (Porcine) (Heparin 5000 units/ml) 5,000 units EVERY 12 HOURS SUBQ 10/01/16 22:00 10/31/16 21:59 10/04/16 08:19 Hydralazine HCl (Apresoline) 10 mg Q4H PRN IV for SBP >160 10/02/16 21:15 11/01/16 21:14 Hydromorphone HCl (Dilaudid) 1 mg Q4H PRN IVP Moderate Pain (Pain Scale 4-6) 10/02/16 08:29 10/08/16 19:44 Hydromorphone HCl (Dilaudid) 2 mg Q4H PRN IVP Severe Pain (Pain Scale 7-10) 10/02/16 08:29 10/09/16 03:59 10/04/16 08:10 Insulin Aspart BEFORE MEALS AND HS SUBQ 10/02/16 06:30 11/01/16 06:29 10/03/16 20:53 Insulin Detemir (Levemir) 40 units Q12HR@0630,1830 SUBQ 10/03/16 18:30 11/02/16 18:29 10/03/16 17:48 Levofloxacin (Levaquin) 50 ml @ 50 mls/hr Q24H IVPB 10/02/16 16:00 10/08/16 15:59 10/03/16 16:22 Lorazepam (Ativan) 0.5 mg TIDPRN PRN ORAL For Anxiety 10/01/16 20:45 10/08/16 20:44 Metoclopramide HCl (Reglan) 5 mg BEFORE MEALS ORAL 10/02/16 06:30 11/01/16 06:29 10/04/16 06:01 Metoclopramide HCl (Reglan) 5 mg QHS ORAL 10/01/16 22:30 10/31/16 22:29 10/03/16 20:41 Metoprolol Succinate (Toprol XL) 50 mg DAILY ORAL 10/02/16 09:00 11/01/16 08:59 10/03/16 09:22 Metronidazole 100 ml @ 100 mls/hr Q8HR IVPB 10/01/16 23:00 10/08/16 22:59 10/04/16 13:21 Nitroglycerin (Ntg) 1 patch Q24H TDERMAL 10/02/16 09:00 11/01/16 08:59 10/04/16 08:10 Ondansetron HCl (Zofran) 4 mg Q4HR PRN IVP Nausea & Vomiting 10/02/16 05:00 11/01/16 04:59 10/02/16 20:23 Pantoprazole (Protonix) 40 mg BID IVP 10/03/16 09:00 11/02/16 08:59 10/04/16 08:10 Polyethylene Glycol (Miralax) 17 gm DAILY PRN ORAL Constipation 10/01/16 20:45 10/31/16 20:44 Sodium Chloride (NS w/KCl 20mEq) 1,000 ml @ 50 mls/hr Q20H IV 10/02/16 01:00 11/01/16 00:59 10/03/16 17:46 Sucralfate (Carafate) 1 gm BID ORAL 10/02/16 09:00 11/01/16 08:59 10/03/16 17:47 Vancomycin HCl (Vanco rx to dose) 1 ea DAILY PRN MISC Per rx protocol 10/03/16 16:15 11/02/16 16:14 Zolpidem Tartrate (Ambien) 5 mg HSPRN PRN ORAL Insomnia 10/01/16 20:45 10/31/16 20:44 PERFECTO MOREL Oct 04, 2016 15:05
[2016-10-04] MEDS ORDERED: Tubing IV Secondary IV ONE (15:42)
[2016-10-04] MEDS ORDERED: NS 275ml ONE (15:42)
--- NOTE | 2016-10-04 17:08 | Procedure Note ---
DATE OF PROCEDURE: 10/04/2016 SURGEON: Dulce Maria Cormier M.D. PROCEDURE: Upper gastrointestinal endoscopy with biopsy. ANESTHESIA: Please see the separate anesthesiologist notes for details. PRE-ENDOSCOPIC DIAGNOSIS: Abdominal pain. POST-ENDOSCOPIC DIAGNOSIS: Normal upper endoscopy, status post random biopsy of the antrum. DESCRIPTION OF PROCEDURE: The procedure, its risks, indications, alternatives, and possible complications were explained to the patient and informed consent was obtained. The patient was then sedated. A diagnostic upper endoscope was introduced through the oropharynx and advanced to the fourth portion of duodenum without difficulty. The endoscope was then gradually withdrawn and the mucosa was examined carefully. Examination of the upper gastric mucosa did not reveal any abnormalities. Photo documentation was obtained. Biopsy of the antrum was sent to pathology for review. The endoscope was removed. The patient was sent to recovery in good condition. COMPLICATIONS: None. RECOMMENDATIONS: 1. Follow up biopsy results. 2. Resume oral diet. 3. Follow the patient's symptoms. 4. Further recommendations per chart notes. Dulce Maria Cormier M.D. DR: JEN JOB#: [id number] CC:
--- NOTE | 2016-10-04 17:35 | General Progress Note ---
Assessment/Plan Assessment/Plan Assessment - abd pain - improved - lactic acidosis - resolved - abnormal LFT - ? ischemic injury - improved - N/V/D - resolved - h/o SOD related recurrent pancreatitis, s/p sphincterotomy Recommendations - po diet - vascular u/s of mesenteric vessels - not possible - check stool cultures - abx per ID - PPI Subjective Allergies: Coded Allergies: PENICILLINS (Verified Allergy, Severe, 03/10/14) SKIN RASH AMOXICILLIN (Verified Allergy, Mild, 03/09/14) ERYTHROMYCIN BASE (Verified Allergy, Mild, 03/09/14) Subjective Feels better abd pain much less seen earlier this am Objective Last 24 Hour Vital Signs Date Time Temp Pulse Resp B/P Pulse Ox O2 Delivery O2 Flow Rate FiO2 10/04/16 16:00 98.8 82 18 127/50 91 Room Air 10/04/16 15:33 97.7 10/04/16 12:09 97.7 64 20 129/83 96 Nasal Cannula 2.0 10/04/16 11:13 97.4 62 16 170/52 96 Nasal Cannula 3.0 10/04/16 11:00 58 14 164/44 95 Nasal Cannula 3.0 10/04/16 10:55 61 16 157/46 98 Nasal Cannula 3.0 10/04/16 10:50 97.5 62 14 151/53 99 Simple Mask 6.0 10/04/16 10:32 65 20 96 10/04/16 10:30 70 20 95 10/04/16 08:37 140/58 10/04/16 08:12 97.0 60 20 140/58 99 Nasal Cannula 2.0 10/04/16 08:10 112/53 10/04/16 08:00 89 10/04/16 04:09 98.8 56 19 112/53 99 Nasal Cannula 2.0 10/04/16 04:00 47 10/04/16 00:37 98.4 68 18 113/44 96 Nasal Cannula 2.0 10/04/16 00:00 64 10/03/16 22:00 108/52 10/03/16 20:00 65 10/03/16 20:00 96.8 60 18 110/55 93 Room Air 10/03/16 19:00 98 Nasal Cannula 2.0 10/03/16 19:00 Nasal Cannula 2.0 28 10/03/16 18:46 96.8 2/8/17 17:50 60 106/49 Intake and Output 10/03/16 10/04/16 19:00 07:00 Intake Total 120 ml Balance 120 ml Intake Oral 120 ml # Voids 2 Laboratory Tests 10/04/16 07:25: White Blood Count 12.0H, Red Blood Count 3.51L, Hemoglobin 10.5L, Hematocrit 34.4L, Mean Corpuscular Volume 98, Mean Corpuscular Hemoglobin 29.9, Mean Corpuscular Hemoglobin Concent 30.5L, Red Cell Distribution Width 14.4, Platelet Count 300, Mean Platelet Volume 6.1L, Neutrophils (%) (Auto) 66.7, Lymphocytes (%) (Auto) 19.7L, Monocytes (%) (Auto) 9.6, Eosinophils (%) (Auto) 2.6, Basophils (%) (Auto) 1.5, Sodium Level 140, Potassium Level 3.7, Chloride Level 103, Carbon Dioxide Level 24, Anion Gap 13, Blood Urea Nitrogen 51H, Creatinine 3.6H, Estimat Glomerular Filtration Rate , Glucose Level 94, Lactic Acid Level 1.30, Calcium Level 8.6, Magnesium Level 2.1, Total Bilirubin 0.2, Aspartate Amino Transf (AST/SGOT) 23, Alanine Aminotransferase (ALT/SGPT) 18, Alkaline Phosphatase 81, Total Protein 6.3L, Albumin 2.5L, Globulin 3.8, Albumin /Globulin Ratio 0.6L Height (Feet): 5 Height (Inches): 5.00 Weight (Pounds): 200 Objective WDWN NCAT Supple CTA RRR Soft NT ND No edema non focal KIKI AGUSTIN Oct 04, 2016 17:35
[2016-10-04] MEDS ORDERED: Vancomycin 500mg/D5W 110ml IVPB ONE ×2 (20:00)
[2016-10-04 21:09] LABS: CREATININE, RANDOM URINE 77.4 mg/dL
--- NOTE | 2016-10-04 21:17 | Consultation ---
DATE OF CONSULTATION: 10/04/2016 NEPHROLOGY CONSULTATION CONSULTING PHYSICIAN: Collin Hsu M.D. REFERRING PHYSICIAN: Jim Norwood M.D. REASON FOR CONSULT: Underlying kidney dysfunction and hypertensive urgency. HISTORY OF PRESENT ILLNESS: This is a very pleasant 76-year-old, female with a history of ischemic cardiomyopathy, status post previous stent, hypertension, chronic kidney disease, and paroxysmal atrial fibrillation, also has had chronic pancreatitis has been brought to the emergency room of [facility] with significant abdominal pain. This started on 10/01/2016 associated with some nausea, vomiting, and diarrhea. CAT scan of the abdomen and pelvis in the emergency room did not show any signs of acute pancreatitis. Lipase was negative. However, her white counts were elevated in the range of 16,000 has been empirically started on Levaquin and Flagyl, and admitted to the hospital. She had a serum creatinine has been in the range of 2.0 mg/dL. I have been asked to see her and follow her during the course of hospitalization. She is not able to give me a very good and fruitful history at this point, she is in a lot of pain in the abdomen. PAST MEDICAL HISTORY: Significant for type 2 diabetes mellitus, obesity, chronic kidney disease, paroxysmal atrial fibrillation, hypertension, hyperlipidemia, chronic pancreatitis, and ischemic cardiomyopathy status post cardiac stent placement. MEDICATIONS: Prior to admission has been on amlodipine, aspirin, calcitriol, clonidine, Plavix, famotidine, Lasix, Dilaudid, NovoLog insulin, Lantus insulin, lisinopril, loratadine, lorazepam and Ambien. SOCIAL HISTORY: Does not smoke. Does not drink alcohol. No drugs. REVIEW OF SYSTEMS: She is somewhat sketchy. She is not able to give me much history at this point. PHYSICAL EXAMINATION: GENERAL: This is an obese lady does not seem to be in much acute. She is complaining of a lot of pain. VITAL SIGNS: Blood pressure is 149/87, pulse 108, respiration 18, and temperature 98.6 degrees. HEENT: Head is atraumatic. Eyes, pupils reactive to light. No evidence of papilledema. Ears canals are clear. Tympanic membranes are intact. Nose, nares are patent without any nasal discharge. Throat without inflammation or exudate. NECK: Supple. Jugular venous distention is low normal. No cervical adenopathy. No thyromegaly. HEART: Irregularly irregular. LUNGS: Decreased air excursion bilaterally. ABDOMEN: Diffusely tender mostly in the epigastric area. Some guarding. EXTREMITIES: Lower extremity shows trace pedal edema. NEUROLOGICAL: Cranial nerves grossly intact. Deep tendon reflexes are symmetrically decreased in both lower extremities. LABORATORY DATA: Showing a sodium of 140, potassium 3.3, chloride 99, carbon dioxide 20, BUN 31, creatinine 2.0, and glucose 282. Lactic acid is 2.7. Albumin is 3.3. AST 47, ALT 39, and alkaline phosphate is 126. Troponin is less than 0.30 and a lipase of 13. CBC showing a WBC of 16.2, hemoglobin 13.6, hematocrit 41.9, and platelets of 416,000. Urinalysis showing a specific gravity of 1.010, 3+ protein, 4+ glucose, 2 to 4 RBCs and 0 to 2 WBCs per high-power field. IMPRESSION: 1. Acute kidney injury on chronic kidney disease. 2. No clinical signs of congestive heart failure at this point. 3. Abdominal pain with nausea, vomiting, questionably due to gastroparesis. No obvious pancreatitis at this point. 4. History of chronic pancreatitis. 5. Leukocytosis. We need to rule out colitis infectious versus ischemic. PLAN: Intravenous fluids for 1 liter is going to be instituted. Intravenous antibiotics is in order. We will check a C. difficile of the stool and we will go from there. Collin Hsu M.D. DR: BABITA JOB#: [id number] CC:
[2016-10-04] MEDS: HYDROmorphone 1mg/ml Carpuject IVP PRN (21:23)
--- NOTE | 2016-10-04 23:18 | Progress Note ---
DATE: 10/04/2016 CARDIOLOGY PROGRESS NOTE: SUBJECTIVE: The patient is status post endoscopy today. Her abdominal pain has improved. Liver function test elevations are resolving. OBJECTIVE: VITAL SIGNS: Blood pressure is 127/50, pulse rate 82, and respiratory rate 18. HEENT AND NECK: Endoscopy was unremarkable. LUNGS: Clear. ABDOMEN: Slightly distended, but soft. CARDIAC: Regular rhythm and rate. Normal S1 and S2 with a fourth heart sound. EXTREMITIES: Trace edema. LABORATORY DATA: White count is 12 and hemoglobin 10.5. Potassium is 3.7, BUN 51, creatinine 3.6, and lactic acid 1.3. Albumin is 2.5. IMPRESSION: 1. Acute on chronic renal failure. 2. Hypertensive heart disease. 3. Chronic pancreatitis with pain. 4. Paroxysmal atrial ectopy. 5. Insulin-requiring diabetes mellitus. PLAN: 1. Discontinue all diuretics. 2. Hydrate. 3. Optimize blood pressure control. 4. Advance diet as tolerated. 5. Deep venous thrombosis prophylaxis. 6. Dual anti-platelet therapy. Amando Blanco M.D. DR: Osito JOB#: [id number] CC:
[2016-10-05] VITALS: BP 127/49
[2016-10-05 04:00] VITALS: BP 122/47
[2016-10-05] MEDS: NS w/KCl 20mEq 1,000 ML IV SCH (04:00)
[2016-10-05] MEDS: metroNIDAZOLE 500mg 100 ML IVPB SCH ×3 (05:07→22:27)
[2016-10-05] MEDS: Levemir Flexpen SUBQ SCH ×3 (06:21→18:48)
[2016-10-05] MEDS: NovoLOG Insulin Flexpen SUBQ SCH ×5 (06:21→21:22)
--- NOTE | 2016-10-05 07:01 | General Progress Note ---
Assessment/Plan Problem List: (1) Acute renal failure (ARF) ICD Codes: N17.9 - Acute kidney failure, unspecified SNOMED: 82310801 (2) Sepsis ICD Codes: A41.9 - Sepsis, unspecified organism SNOMED: 83103441 (3) Vomiting ICD Codes: R11.10 - Vomiting, unspecified SNOMED: 987345927 (4) Abdominal pain ICD Codes: R10.9 - Unspecified abdominal pain SNOMED: 22177046 (5) Hypertensive emergency ICD Codes: I16.1 - Hypertensive emergency SNOMED: 137300251892525 Status: stable, progressing Assessment/Plan cont iv abx po's as tolerated ivf pain rx and antiemetics monitor labs and renal fxn not seen by surgery yet- will call again. possible outpt surgery eval. will cont to monitor Subjective ROS Limited/Unobtainable: No Constitutional: Reports: malaise, weakness HEENT: Reports: no symptoms Cardiovascular: Reports: no symptoms Respiratory: Reports: no symptoms Gastrointestinal/Abdominal: Reports: abdominal pain Genitourinary: Reports: no symptoms Neurologic/Psychiatric: Reports: no symptoms Endocrine: Reports: no symptoms Hematologic/Lymphatic: Reports: anemia Allergies: Coded Allergies: PENICILLINS (Verified Allergy, Severe, 03/10/14) SKIN RASH AMOXICILLIN (Verified Allergy, Mild, 03/09/14) ERYTHROMYCIN BASE (Verified Allergy, Mild, 03/09/14) All Systems: reviewed and negative except above Subjective pain is improved today. egd with gastritis. last pain meds given last 8pm last night. Objective Last 24 Hour Vital Signs Date Time Temp Pulse Resp B/P Pulse Ox O2 Delivery O2 Flow Rate FiO2 10/05/16 04:00 97.9 66 20 122/47 97 Room Air 10/05/16 04:00 63 10/05/16 00:00 98.2 72 18 127/49 98 Room Air 10/05/16 00:00 67 10/04/16 21:27 98 Nasal Cannula 2.0 10/04/16 21:27 Nasal Cannula 2.0 28 10/04/16 21:19 127/50 10/04/16 20:00 85 10/04/16 20:00 99.3 87 20 153/56 97 Room Air 10/04/16 18:24 82 127/50 10/04/16 16:00 98.8 82 18 127/50 91 Room Air 10/04/16 16:00 80 10/04/16 15:33 97.7 10/04/16 12:09 97.7 64 20 129/83 96 Nasal Cannula 2.0 10/04/16 11:13 97.4 62 16 170/52 96 Nasal Cannula 3.0 10/04/16 11:00 58 14 164/44 95 Nasal Cannula 3.0 10/04/16 10:55 61 16 157/46 98 Nasal Cannula 3.0 10/04/16 10:50 97.5 62 14 151/53 99 Simple Mask 6.0 10/04/16 10:32 65 20 96 10/04/16 10:30 70 20 95 10/04/16 08:37 140/58 10/04/16 08:12 97.0 60 20 140/58 99 Nasal Cannula 2.0 10/04/16 08:10 112/53 10/04/16 08:00 89 Intake and Output 10/04/16 10/05/16 19:00 07:00 Intake Total 420 ml 1260 ml Output Total 0 ml Balance 420 ml 1260 ml Intake Oral 120 ml IV Total 300 ml 1260 ml Output Estimated Blood Loss 0 ml # Voids 3 Laboratory Tests 10/04/16 07:25: White Blood Count 12.0H, Red Blood Count 3.51L, Hemoglobin 10.5L, Hematocrit 34.4L, Mean Corpuscular Volume 98, Mean Corpuscular Hemoglobin 29.9, Mean Corpuscular Hemoglobin Concent 30.5L, Red Cell Distribution Width 14.4, Platelet Count 300, Mean Platelet Volume 6.1L, Neutrophils (%) (Auto) 66.7, Lymphocytes (%) (Auto) 19.7L, Monocytes (%) (Auto) 9.6, Eosinophils (%) (Auto) 2.6, Basophils (%) (Auto) 1.5, Sodium Level 140, Potassium Level 3.7, Chloride Level 103, Carbon Dioxide Level 24, Anion Gap 13, Blood Urea Nitrogen 51H, Creatinine 3.6H, Estimat Glomerular Filtration Rate , Glucose Level 94, Lactic Acid Level 1.30, Calcium Level 8.6, Magnesium Level 2.1, Total Bilirubin 0.2, Aspartate Amino Transf (AST/SGOT) 23, Alanine Aminotransferase (ALT/SGPT) 18, Alkaline Phosphatase 81, Total Protein 6.3L, Albumin 2.5L, Globulin 3.8, Albumin /Globulin Ratio 0.6L 10/04/16 17:25: Random Vancomycin Level 13.0 10/04/16 19:40: Urine Random Total Protein 194, Urine Random Sodium 17, Urine Creatinine 77.4, Urine Total Protein [Pending], Urine Albumin (%) [Pending], Urine Alpha-1- Globulins (%) [Pending], Urine Jwziw-5-Btbgcbmlb (%) [Pending], Urine Beta- Globulin (%) [Pending], Urine Gamma Globulin (%) [Pending], Ur Protein Electrophoresis M-Dylan [Pending], Urine Protein Electrophoresis Intrp [Pending] 10/05/16 05:10: White Blood Count [Pending], Red Blood Count [Pending], Hemoglobin [Pending], Hematocrit [Pending], Mean Corpuscular Volume [Pending], Mean Corpuscular Hemoglobin [Pending], Mean Corpuscular Hemoglobin Concent [Pending], Red Cell Distribution Width [Pending], Platelet Count [Pending], Mean Platelet Volume [ Pending], Neutrophils (%) (Auto) [Pending], Lymphocytes (%) (Auto) [Pending], Monocytes (%) (Auto) [Pending], Eosinophils (%) (Auto) [Pending], Basophils (%) (Auto) [Pending], Sodium Level [Pending], Potassium Level [Pending], Chloride Level [Pending], Carbon Dioxide Level [Pending], Blood Urea Nitrogen [Pending], Creatinine [Pending], Estimat Glomerular Filtration Rate [Pending], Glucose Level [Pending], Calcium Level [Pending], Total Bilirubin [Pending], Aspartate Amino Transf (AST/SGOT) [Pending], Alanine Aminotransferase (ALT/SGPT) [Pending] , Alkaline Phosphatase [Pending], Total Protein [Pending], Albumin [Pending], Globulin [Pending] Height (Feet): 5 Height (Inches): 5.00 Weight (Pounds): 200 General Appearance: WD/WN, alert Neck: supple Cardiovascular: regular rhythm Respiratory/Chest: lungs clear Abdomen: normal bowel sounds, non tender, soft, no organomegaly Edema: no edema noted Arm (L), no edema noted Arm (R), no edema noted Leg (L), no edema noted Leg (R), no edema noted Pedal (L), no edema noted Pedal (R), no edema noted 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
[2016-10-05 07:05] LABS: BASOPHILS % (AUTO) 1.9 % (0.0-2.0); EOSINOPHILS % (AUTO) 3.1 % (0.0-3.0); LYMPHOCYTES % (AUTO) 24.4 % (20.0-45.0); MEAN CORPUSCULAR HEMOGLOBIN 29.7 PG (27.0-31.0); MEAN CORPUSCULAR HGB CONC 30.6 G/DL (32.0-36.0); MEAN CORPUSCULAR VOLUME 97 FL (80-99); MEAN PLATELET VOLUME 6.3 FL (6.5-10.1); MONOCYTES % (AUTO) 10.3 % (1.0-10.0); NEUTROPHILS % (AUTO) 60.4 % (45.0-75.0); PLATELET COUNT 245 K/UL (150-450); RED BLOOD COUNT 3.11 M/UL (4.20-5.40); RED CELL DISTRIBUTION WIDTH 14.2 % (11.6-14.8); WHITE BLOOD COUNT 9.2 K/UL (4.8-10.8)
[2016-10-05 07:46] LABS: ALANINE AMINOTRANSFERASE 13 U/L (3-33); ALBUMIN/GLOBULIN RATIO 0.6 (1.0-2.7); ANION GAP 15 (5-15); ASPARTATE AMINO TRANSFERASE 17 U/L (5-40); CALCIUM 8.2 mg/dL (8.6-10.2); CARBON DIOXIDE 20 mEQ/L (20-30); CHLORIDE 103 mEQ/L (98-107); CREATININE 2.9 mg/dL (0.5-0.9); HEMOLYSIS 15; POTASSIUM 4.1 mEQ/L (3.4-4.9); SODIUM 138 mEQ/L (135-145); TOTAL PROTEIN 5.2 g/dL (6.6-8.7)
[2016-10-05 08:00] VITALS: BP 131/48
[2016-10-05] MEDS: Sucralfate 1gm tab ORAL SCH ×2 (08:47→18:38)
[2016-10-05] MEDS: Aspirin Baby 81mg ORAL SCH (08:48)
[2016-10-05] MEDS: cloNIDine 0.2mg Tab ORAL SCH ×2 (08:48→21:00)
[2016-10-05] MEDS: Calcitriol 0.5mcg Cap ORAL SCH (08:48)
[2016-10-05] MEDS: Nitroglycerin Patch 0.4mg TDERMAL SCH (08:48)
[2016-10-05] MEDS: Pantoprazole Inj IVP SCH ×2 (08:49→18:38)
[2016-10-05] MEDS: HYDROmorphone 1mg/ml Carpuject IVP PRN ×3 (08:49→21:23)
[2016-10-05] MEDS: Heparin 5000 units/ml inj SUBQ SCH ×2 (08:50→21:21)
--- NOTE | 2016-10-05 10:39 | Infectious Diseases Prog Note ---
Assessment/Plan Assessment/Plan antibiotics : vancomycin iv, levoquin, flagyl A 1. gram positive sepsis 2. pneumonia 3. renal failure 4. leucocytosis improving 5. DM P 1. continue levoquin, flagyl 2. d/c iv vancomycin 3. start linezolid 4. will follow up cultures Subjective ROS Limited/Unobtainable: Yes Allergies: Coded Allergies: PENICILLINS (Verified Allergy, Severe, 03/10/14) SKIN RASH AMOXICILLIN (Verified Allergy, Mild, 03/09/14) ERYTHROMYCIN BASE (Verified Allergy, Mild, 03/09/14) Objective Vital Signs Last 24 Hour Vital Signs Date Time Temp Pulse Resp B/P Pulse Ox O2 Delivery O2 Flow Rate FiO2 10/05/16 08:48 131/48 10/05/16 08:48 72 131/48 10/05/16 08:48 131/48 10/05/16 08:47 72 131/48 10/05/16 08:00 81 10/05/16 08:00 96.8 61 18 131/48 97 Room Air 72 10/05/16 07:56 Room Air 10/05/16 07:55 95 Room Air 10/05/16 04:00 97.9 66 20 122/47 97 Room Air 10/05/16 04:00 63 10/05/16 00:00 98.2 72 18 127/49 98 Room Air 10/05/16 00:00 67 10/04/16 21:27 98 Nasal Cannula 2.0 10/04/16 21:27 Nasal Cannula 2.0 28 10/04/16 21:19 127/50 10/04/16 20:00 85 10/04/16 20:00 99.3 87 20 153/56 97 Room Air 10/04/16 18:24 82 127/50 10/04/16 16:00 98.8 82 18 127/50 91 Room Air 10/04/16 16:00 80 10/04/16 15:33 97.7 10/04/16 12:09 97.7 64 20 129/83 96 Nasal Cannula 2.0 10/04/16 11:13 97.4 62 16 170/52 96 Nasal Cannula 3.0 10/04/16 11:00 58 14 164/44 95 Nasal Cannula 3.0 10/04/16 10:55 61 16 157/46 98 Nasal Cannula 3.0 10/04/16 10:50 97.5 62 14 151/53 99 Simple Mask 6.0 Height (Feet): 5 Height (Inches): 5.00 Weight (Pounds): 200 Respiratory/Chest: lungs clear Cardiovascular: normal rate, regular rhythm, no gallop/murmur Abdomen: soft, non tender Extremities: no edema Microbiology Date/Time Source Procedure Growth Status 10/03/16 06:19 Sputum Gram Stain - Final Complete 10/03/16 06:19 Sputum Sputum Culture - Final NORMAL UPPER RESPIRATORY BRUCE AT 48 ... Complete Laboratory Tests Test 10/04/16 17:25 10/04/16 19:40 10/05/16 05:10 Random Vancomycin Level 13.0 ug/mL Urine Random Total Protein 194 mg/dL Urine Random Sodium 17 mmol/L Urine Creatinine 77.4 mg/dL Urine Total Protein Pending Urine Albumin (%) Pending Urine Nkkxt-7-Okxvcmocx (%) Pending Urine Ltwoy-8-Aqluyiwez (%) Pending Urine Beta-Globulin (%) Pending Urine Gamma Globulin (%) Pending Ur Protein Electrophoresis M-Dylan Pending Urine Protein Electrophoresis Intrp Pending White Blood Count 9.2 K/UL (4.8-10.8) Red Blood Count 3.11 M/UL (4.20-5.40) L Hemoglobin 9.2 G/DL (12.0-16.0) L Hematocrit 30.1 % (37.0-47.0) L Mean Corpuscular Volume 97 FL (80-99) Mean Corpuscular Hemoglobin 29.7 PG (27.0-31.0) Mean Corpuscular Hemoglobin Concent 30.6 G/DL (32.0-36.0) L Red Cell Distribution Width 14.2 % (11.6-14.8) Platelet Count 245 K/UL (150-450) Mean Platelet Volume 6.3 FL (6.5-10.1) L Neutrophils (%) (Auto) 60.4 % (45.0-75.0) Lymphocytes (%) (Auto) 24.4 % (20.0-45.0) Monocytes (%) (Auto) 10.3 % (1.0-10.0) H Eosinophils (%) (Auto) 3.1 % (0.0-3.0) H Basophils (%) (Auto) 1.9 % (0.0-2.0) Sodium Level 138 mEQ/L (135-145) Potassium Level 4.1 mEQ/L (3.4-4.9) Chloride Level 103 mEQ/L (98-107) Carbon Dioxide Level 20 mEQ/L (20-30) Anion Gap 15 (5-15) Blood Urea Nitrogen 43 mg/dL (7-23) H Creatinine 2.9 mg/dL (0.5-0.9) H Estimat Glomerular Filtration Rate mL/min (>60) Glucose Level 176 mg/dL (74-106) H Calcium Level 8.2 mg/dL (8.6-10.2) L Total Bilirubin < 0.2 mg/dL (0.0-1.2) Aspartate Amino Transf (AST/SGOT) 17 U/L (5-40) Alanine Aminotransferase (ALT/SGPT) 13 U/L (3-33) Alkaline Phosphatase 80 U/L (35-104) Total Protein 5.2 g/dL (6.6-8.7) L Albumin 2.1 g/dL (3.5-5.2) L Globulin 3.1 g/dL Albumin/Globulin Ratio 0.6 (1.0-2.7) L ADARSH PASCAL Oct 05, 2016 10:38
[2016-10-05 12:00] VITALS: BP 113/54
[2016-10-05 15:13] LABS: ALBUMIN 60.6 % (.); ALPHA-2 GLOB URINE 7.1 % (.); BETA GLOBULIN URINE 9.9 % (.); GAMMA GLOBULIN URINE 14.1 % (.)
[2016-10-05 16:00] VITALS: BP 123/65
--- NOTE | 2016-10-05 17:30 | Nephrology Progress Note ---
Assessment/Plan Assessment 1) HTN 2) Abdominal pain 3) Gastropaeresis 4) Chronic pancreatitis 5) MONICO worsening due to prerenal state, improving Plan: Continue current measures No new changes Subjective Subjective She is feeling better, no more epigastric tenderness, creatinine is down to 2.9 , no c/p or sob, urine NA was 17 Objective Objective Last 24 Hour Vital Signs Date Time Temp Pulse Resp B/P Pulse Ox O2 Delivery O2 Flow Rate FiO2 10/05/16 16:00 97.9 63 18 123/65 98 Room Air 10/05/16 12:00 98.2 64 18 113/54 95 Room Air 64 10/05/16 08:48 131/48 10/05/16 08:48 72 131/48 10/05/16 08:48 131/48 10/05/16 08:47 72 131/48 10/05/16 08:00 81 10/05/16 08:00 96.8 61 18 131/48 97 Room Air 72 10/05/16 07:56 Room Air 10/05/16 07:55 95 Room Air 10/05/16 04:00 97.9 66 20 122/47 97 Room Air 10/05/16 04:00 63 10/05/16 00:00 98.2 72 18 127/49 98 Room Air 10/05/16 00:00 67 10/04/16 21:27 98 Nasal Cannula 2.0 10/04/16 21:27 Nasal Cannula 2.0 28 10/04/16 21:19 127/50 10/04/16 20:00 85 10/04/16 20:00 99.3 87 20 153/56 97 Room Air 10/04/16 18:24 82 127/50 Intake and Output 10/04/16 10/05/16 19:00 07:00 Intake Total 420 ml 1310 ml Output Total 0 ml Balance 420 ml 1310 ml Intake Oral 120 ml IV Total 300 ml 1310 ml Output Estimated Blood Loss 0 ml # Voids 3 Laboratory Tests 10/04/16 19:40: Urine Random Total Protein 194, Urine Random Sodium 17, Urine Creatinine 77.4, Urine Total Protein 188.5, Urine Albumin (%) 60.6, Urine Hvqbc-3-Ykedapoao (%) 8.3, Urine Berjr-2-Mjvaixdrx (%) 7.1, Urine Beta-Globulin (%) 9.9, Urine Gamma Globulin (%) 14.1, Ur Protein Electrophoresis M-Dylan 0.0, Urine Protein Electrophoresis Intrp Comment 10/05/16 05:10: White Blood Count 9.2, Red Blood Count 3.11L, Hemoglobin 9.2L, Hematocrit 30.1L , Mean Corpuscular Volume 97, Mean Corpuscular Hemoglobin 29.7, Mean Corpuscular Hemoglobin Concent 30.6L, Red Cell Distribution Width 14.2, Platelet Count 245, Mean Platelet Volume 6.3L, Neutrophils (%) (Auto) 60.4, Lymphocytes (%) (Auto) 24.4, Monocytes (%) (Auto) 10.3H, Eosinophils (%) (Auto) 3.1H, Basophils (%) (Auto) 1.9, Sodium Level 138, Potassium Level 4.1, Chloride Level 103, Carbon Dioxide Level 20, Anion Gap 15, Blood Urea Nitrogen 43H, Creatinine 2.9H, Estimat Glomerular Filtration Rate , Glucose Level 176H, Calcium Level 8.2L, Total Bilirubin < 0.2, Aspartate Amino Transf (AST/SGOT) 17 , Alanine Aminotransferase (ALT/SGPT) 13, Alkaline Phosphatase 80, Total Protein 5.2L, Albumin 2.1L, Globulin 3.1, Albumin/Globulin Ratio 0.6L Height (Feet): 5 Height (Inches): 5.00 Weight (Pounds): 200 General Appearance: WD/WN, no apparent distress EENT: PERRL/EOMI Neck: non-tender, normal alignment Cardiovascular: normal peripheral pulses, normal rate, JVD - nl high Respiratory/Chest: lungs clear Abdomen: non tender, soft Extremities: trace edema 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
[2016-10-05 20:00] VITALS: BP 94/73
--- NOTE | 2016-10-05 23:03 | General Progress Note ---
Assessment/Plan Assessment/Plan Assessment - abd pain - improved - lactic acidosis - resolved - abnormal LFT - ? ischemic injury - improved - N/V/D - resolved - h/o SOD related recurrent pancreatitis, s/p sphincterotomy Recommendations - po diet - vascular u/s of mesenteric vessels - not possible - check stool cultures - abx per ID - PPI Subjective Allergies: Coded Allergies: PENICILLINS (Verified Allergy, Severe, 03/10/14) SKIN RASH AMOXICILLIN (Verified Allergy, Mild, 03/09/14) ERYTHROMYCIN BASE (Verified Allergy, Mild, 03/09/14) Subjective Feels better tolerating PO intake seen earlier this am Objective Last 24 Hour Vital Signs Date Time Temp Pulse Resp B/P Pulse Ox O2 Delivery O2 Flow Rate FiO2 10/05/16 21:00 94/73 10/05/16 20:00 98.2 55 18 94/73 94 Room Air 10/05/16 20:00 68 10/05/16 19:59 Room Air 10/05/16 19:59 96 Room Air 10/05/16 18:38 63 123/65 10/05/16 16:00 63 10/05/16 16:00 97.9 63 18 123/65 98 Room Air 10/05/16 12:00 98.2 64 18 113/54 95 Room Air 64 10/05/16 08:48 131/48 10/05/16 08:48 72 131/48 10/05/16 08:48 131/48 10/05/16 08:47 72 131/48 10/05/16 08:00 81 10/05/16 08:00 96.8 61 18 131/48 97 Room Air 72 10/05/16 07:56 Room Air 10/05/16 07:55 95 Room Air 10/05/16 04:00 97.9 66 20 122/47 97 Room Air 10/05/16 04:00 63 10/05/16 00:00 98.2 72 18 127/49 98 Room Air 10/05/16 00:00 67 Intake and Output 10/04/16 10/05/16 19:00 07:00 Intake Total 420 ml 1310 ml Output Total 0 ml Balance 420 ml 1310 ml Intake Oral 120 ml IV Total 300 ml 1310 ml Output Estimated Blood Loss 0 ml # Voids 3 Laboratory Tests 10/05/16 05:10: White Blood Count 9.2, Red Blood Count 3.11L, Hemoglobin 9.2L, Hematocrit 30.1L , Mean Corpuscular Volume 97, Mean Corpuscular Hemoglobin 29.7, Mean Corpuscular Hemoglobin Concent 30.6L, Red Cell Distribution Width 14.2, Platelet Count 245, Mean Platelet Volume 6.3L, Neutrophils (%) (Auto) 60.4, Lymphocytes (%) (Auto) 24.4, Monocytes (%) (Auto) 10.3H, Eosinophils (%) (Auto) 3.1H, Basophils (%) (Auto) 1.9, Sodium Level 138, Potassium Level 4.1, Chloride Level 103, Carbon Dioxide Level 20, Anion Gap 15, Blood Urea Nitrogen 43H, Creatinine 2.9H, Estimat Glomerular Filtration Rate , Glucose Level 176H, Calcium Level 8.2L, Total Bilirubin < 0.2, Aspartate Amino Transf (AST/SGOT) 17 , Alanine Aminotransferase (ALT/SGPT) 13, Alkaline Phosphatase 80, Total Protein 5.2L, Albumin 2.1L, Globulin 3.1, Albumin/Globulin Ratio 0.6L Height (Feet): 5 Height (Inches): 5.00 Weight (Pounds): 200 Objective WDWN NCAT Supple CTA RRR Soft NT ND No edema non focal KIKI AGUSTIN Oct 05, 2016 23:03
[2016-10-06] VITALS: BP 142/56
[2016-10-06] MEDS: NS w/KCl 20mEq 1,000 ML IV SCH (00:17)
[2016-10-06] MEDS: HYDROmorphone 1mg/ml Carpuject IVP PRN (02:46)
--- NOTE | 2016-10-06 03:19 | Progress Note ---
DATE: 10/05/2016 CARDIOLOGY PROGRESS NOTE SUBJECTIVE: The patient has less abdominal pain. No nausea or vomiting. Appetite is fair. OBJECTIVE: VITAL SIGNS: Afebrile. Blood pressure 122/47, pulse 66, and respirations 20. LUNGS: Diminished breath sounds. No wheezing or rales. HEART: Regular rhythm and rate. Normal S1 and S2 with a fourth heart sound. ABDOMEN: Distended, mildly tender in the midepigastric region. EXTREMITIES: With 1+ dependent edema. LABORATORY DATA: Endoscopy revealed gastritis. White count 9.2, hemoglobin 9.2. Potassium 4.1, BUN 43, creatinine 2.9, and albumin 2.1. IMPRESSION: 1. Acute on chronic renal failure, improved with hydration. 2. Ischemic cardiomyopathy with chronic stable angina. 3. Chronic pancreatitis with acute pain improved. 4. Severe protein-calorie malnutrition. 5. Hypertensive heart disease. 6. Paroxysmal atrial ectopy. PLAN: 1. No diuretics. Continue cautious hydration. 2. Protein supplement. 3. Antiplatelet therapy. 4. Remainder of cardiovascular regimen for now without change. Amando Blanco M.D. DR: FINA JOB#: [id number] CC:
[2016-10-06 04:00] VITALS: BP 114/52
[2016-10-06] MEDS: metroNIDAZOLE 500mg 100 ML IVPB SCH (05:53)
[2016-10-06] MEDS: Levemir Flexpen SUBQ SCH ×2 (05:53→18:15)
[2016-10-06] MEDS: NovoLOG Insulin Flexpen SUBQ SCH ×4 (05:54→21:22)
[2016-10-06 07:58] VITALS: BP 142/50
[2016-10-06] MEDS: Pantoprazole Inj IVP SCH (09:00)
--- NOTE | 2016-10-06 09:03 | General Progress Note ---
Assessment/Plan Problem List: (1) Acute renal failure (ARF) ICD Codes: N17.9 - Acute kidney failure, unspecified SNOMED: 37710861 (2) Sepsis ICD Codes: A41.9 - Sepsis, unspecified organism SNOMED: 68092438 (3) Vomiting ICD Codes: R11.10 - Vomiting, unspecified SNOMED: 510481800 (4) Abdominal pain ICD Codes: R10.9 - Unspecified abdominal pain SNOMED: 81115959 (5) Hypertensive emergency ICD Codes: I16.1 - Hypertensive emergency SNOMED: 764740416593823 Status: stable, progressing Assessment/Plan cont iv abx po's as tolerated ivf pain rx and antiemetics monitor labs and renal fxn to med surg will cont to monitor Subjective ROS Limited/Unobtainable: No Constitutional: Reports: malaise, weakness HEENT: Reports: no symptoms Cardiovascular: Reports: no symptoms Respiratory: Reports: no symptoms Gastrointestinal/Abdominal: Reports: abdominal pain, nausea Genitourinary: Reports: no symptoms Neurologic/Psychiatric: Reports: no symptoms Endocrine: Reports: no symptoms Hematologic/Lymphatic: Reports: anemia Allergies: Coded Allergies: PENICILLINS (Verified Allergy, Severe, 03/10/14) SKIN RASH AMOXICILLIN (Verified Allergy, Mild, 03/09/14) ERYTHROMYCIN BASE (Verified Allergy, Mild, 03/09/14) All Systems: reviewed and negative except above Subjective less pain. +nausea.. egd with gastritis. gi noted. Objective Last 24 Hour Vital Signs Date Time Temp Pulse Resp B/P Pulse Ox O2 Delivery O2 Flow Rate FiO2 10/06/16 07:58 97.9 70 20 142/50 97 Room Air 10/06/16 04:00 97.2 65 18 114/52 96 Room Air 10/06/16 04:00 62 10/06/16 00:00 64 10/06/16 00:00 98.1 81 20 142/56 100 Room Air 10/05/16 21:00 94/73 10/05/16 20:00 98.2 55 18 94/73 94 Room Air 10/05/16 20:00 68 10/05/16 19:59 Room Air 10/05/16 19:59 96 Room Air 10/05/16 18:38 63 123/65 10/05/16 16:00 63 10/05/16 16:00 97.9 63 18 123/65 98 Room Air 10/05/16 12:00 98.2 64 18 113/54 95 Room Air 64 Intake and Output 10/05/16 10/06/16 19:00 07:00 Intake Total 1160 ml 1190 ml Balance 1160 ml 1190 ml Intake Oral 560 ml 240 ml IV Total 600 ml 950 ml # Voids 2 2 Height (Feet): 5 Height (Inches): 5.00 Weight (Pounds): 200 Objective General Appearance: WD/WN, alert Neck: supple Cardiovascular: regular rhythm Respiratory/Chest: lungs clear Abdomen: normal bowel sounds, non tender, soft, no organomegaly Edema: no edema noted Arm (L), no edema noted Arm (R), no edema noted Leg (L), no edema noted Leg (R), no edema noted Pedal (L), no edema noted Pedal (R), no edema noted 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
[2016-10-06] MEDS ORDERED: Ondansetron ODT 8mg tab ORAL PRN ×2 (09:15→17:00)
[2016-10-06] MEDS: Nitroglycerin Patch 0.4mg TDERMAL SCH (10:44)
[2016-10-06] MEDS: Sucralfate 1gm tab ORAL SCH ×2 (10:44→18:12)
[2016-10-06] MEDS: Heparin 5000 units/ml inj SUBQ SCH ×2 (10:46→21:17)
[2016-10-06] MEDS: Aspirin Baby 81mg ORAL SCH (10:46)
[2016-10-06] MEDS: Calcitriol 0.5mcg Cap ORAL SCH (10:47)
[2016-10-06] MEDS: cloNIDine 0.2mg Tab ORAL SCH ×2 (10:54→21:16)
--- NOTE | 2016-10-06 10:58 | Infectious Diseases Prog Note ---
Assessment/Plan Assessment/Plan antibiotics : linezolid, levoquin, flagyl A 1. + blood cultures with coag neg staph likely contaminated 2. pneumonia 3. renal failure improving 4. leucocytosis improving 5. DM P 1. continue levoquin, flagyl, change to po, continue 4 more days 2. d/c linezolid 3. will follow up cultures Subjective ROS Limited/Unobtainable: Yes Allergies: Coded Allergies: PENICILLINS (Verified Allergy, Severe, 03/10/14) SKIN RASH AMOXICILLIN (Verified Allergy, Mild, 03/09/14) ERYTHROMYCIN BASE (Verified Allergy, Mild, 03/09/14) Objective Vital Signs Last 24 Hour Vital Signs Date Time Temp Pulse Resp B/P Pulse Ox O2 Delivery O2 Flow Rate FiO2 10/06/16 10:54 142/50 10/06/16 10:47 78 142/50 10/06/16 10:47 78 142/50 10/06/16 10:44 142/50 10/06/16 08:03 78 10/06/16 07:58 97.9 70 20 142/50 97 Room Air 10/06/16 06:38 97 Room Air 10/06/16 06:38 Room Air 10/06/16 04:00 97.2 65 18 114/52 96 Room Air 10/06/16 04:00 62 10/06/16 00:00 64 10/06/16 00:00 98.1 81 20 142/56 100 Room Air 10/05/16 21:00 94/73 10/05/16 20:00 98.2 55 18 94/73 94 Room Air 10/05/16 20:00 68 10/05/16 19:59 Room Air 10/05/16 19:59 96 Room Air 10/05/16 18:38 63 123/65 10/05/16 16:00 63 10/05/16 16:00 97.9 63 18 123/65 98 Room Air 10/05/16 12:00 98.2 64 18 113/54 95 Room Air 64 Height (Feet): 5 Height (Inches): 5.00 Weight (Pounds): 200 Respiratory/Chest: lungs clear Cardiovascular: normal rate, regular rhythm, no gallop/murmur Abdomen: soft, non tender Extremities: other - + edema bilaterally ADARSH PASCAL Oct 06, 2016 10:58
[2016-10-06 12:15] VITALS: BP 134/72
[2016-10-06] MEDS ORDERED: HYDROmorphone 2mg tab ORAL PRN ×2 (12:15)
[2016-10-06] MEDS ORDERED: HYDROmorphone 1mg/ml Carpuject SUBQ PRN (13:30)
[2016-10-06] MEDS: metroNIDAZOLE 500mg tab ORAL SCH ×2 (14:00→21:16)
--- NOTE | 2016-10-06 14:07 | Nephrology Progress Note ---
Assessment/Plan Assessment 1) HTN 2) Abdominal pain 3) Gastroparesis 4) Chronic pancreatitis 5) MONICO worsening due to prerenal state, improving 6) R/O ischemic bowel Plan: May need MRA of abdomen Check labs in AM Subjective Subjective She has recurrence of abdominal pain, some n/v Objective Objective Last 24 Hour Vital Signs Date Time Temp Pulse Resp B/P Pulse Ox O2 Delivery O2 Flow Rate FiO2 10/06/16 12:15 97.0 88 20 134/72 98 Room Air 10/06/16 11:45 97.0 10/06/16 10:54 142/50 10/06/16 10:47 78 142/50 10/06/16 10:47 78 142/50 10/06/16 10:44 142/50 10/06/16 08:03 78 10/06/16 07:58 97.9 70 20 142/50 97 Room Air 10/06/16 06:38 97 Room Air 10/06/16 06:38 Room Air 10/06/16 04:00 97.2 65 18 114/52 96 Room Air 10/06/16 04:00 62 10/06/16 00:00 64 10/06/16 00:00 98.1 81 20 142/56 100 Room Air 10/05/16 21:00 94/73 10/05/16 20:00 98.2 55 18 94/73 94 Room Air 10/05/16 20:00 68 10/05/16 19:59 Room Air 10/05/16 19:59 96 Room Air 10/05/16 18:38 63 123/65 10/05/16 16:00 63 10/05/16 16:00 97.9 63 18 123/65 98 Room Air Intake and Output 10/05/16 10/06/16 19:00 07:00 Intake Total 1160 ml 1190 ml Balance 1160 ml 1190 ml Intake Oral 560 ml 240 ml IV Total 600 ml 950 ml # Voids 2 2 Height (Feet): 5 Height (Inches): 5.00 Weight (Pounds): 200 General Appearance: WD/WN, lethargic EENT: PERRL/EOMI Neck: non-tender, normal alignment Cardiovascular: normal rate, regular rhythm, no JVD Respiratory/Chest: lungs clear Abdomen: tender - diffusely Extremities: normal range of motion Neurologic: no motor/sensory deficits FERMIN BRIGHT Oct 06, 2016 14:07
[2016-10-06 16:00] VITALS: BP 165/99
[2016-10-06] MEDS ORDERED: 1/2 NS 1000ml IV ONE (16:57)
[2016-10-06] MEDS ORDERED: Tubing IV Secondary IV ONE (16:57)
--- NOTE | 2016-10-06 19:29 | General Progress Note ---
Assessment/Plan Assessment/Plan Assessment - abd pain - recurrent - lactic acidosis - abnormal LFT - ? ischemic injury - N/Vm - recurrent - h/o SOD related recurrent pancreatitis, s/p sphincterotomy Recommendations - NPO - recheck labs, lactate - rec surgical opinion - non contrast MRA - abx per ID - PPI Subjective Allergies: Coded Allergies: PENICILLINS (Verified Allergy, Severe, 03/10/14) SKIN RASH AMOXICILLIN (Verified Allergy, Mild, 03/09/14) ERYTHROMYCIN BASE (Verified Allergy, Mild, 03/09/14) Subjective patient with recurrent epigastric pain (+) N/V d/w renal rec imaging --> rec non contrast mesenteric MRA Objective Last 24 Hour Vital Signs Date Time Temp Pulse Resp B/P Pulse Ox O2 Delivery O2 Flow Rate FiO2 10/06/16 18:13 94 165/99 10/06/16 16:00 97.0 94 19 165/99 98 Room Air 10/06/16 14:11 97.0 10/06/16 12:15 97.0 88 20 134/72 98 Room Air 10/06/16 11:45 97.0 10/06/16 10:54 142/50 10/06/16 10:47 78 142/50 10/06/16 10:47 78 142/50 10/06/16 10:44 142/50 10/06/16 08:03 78 10/06/16 07:58 97.9 70 20 142/50 97 Room Air 10/06/16 06:38 97 Room Air 10/06/16 06:38 Room Air 10/06/16 04:00 97.2 65 18 114/52 96 Room Air 10/06/16 04:00 62 10/06/16 00:00 64 10/06/16 00:00 98.1 81 20 142/56 100 Room Air 10/05/16 21:00 94/73 10/05/16 20:00 98.2 55 18 94/73 94 Room Air 10/05/16 20:00 68 10/05/16 19:59 Room Air 10/05/16 19:59 96 Room Air Intake and Output 10/05/16 10/06/16 19:00 07:00 Intake Total 1160 ml 1190 ml Balance 1160 ml 1190 ml Intake Oral 560 ml 240 ml IV Total 600 ml 950 ml # Voids 2 2 Height (Feet): 5 Height (Inches): 5.00 Weight (Pounds): 200 Objective WDWN NCAT Supple CTA RRR Soft obese (+) epigastric TTP No edema non focal KIKI AGUSTIN Oct 06, 2016 19:29
[2016-10-06 20:00] VITALS: BP 132/62
[2016-10-06] MEDS: D5 1/2NS 1,000 ML IV SCH (20:00)
[2016-10-06 21:21] LABS: MEAN CORPUSCULAR HEMOGLOBIN 29.5 PG (27.0-31.0); MEAN CORPUSCULAR HGB CONC 30.2 G/DL (32.0-36.0); MEAN CORPUSCULAR VOLUME 97 FL (80-99); MEAN PLATELET VOLUME 6.5 FL (6.5-10.1); PLATELET COUNT 346 K/UL (150-450); RED BLOOD COUNT 4.03 M/UL (4.20-5.40); RED CELL DISTRIBUTION WIDTH 14.4 % (11.6-14.8); WHITE BLOOD COUNT 11.6 K/UL (4.8-10.8)
[2016-10-06 21:42] LABS: ALANINE AMINOTRANSFERASE 17 U/L (3-33); ALBUMIN/GLOBULIN RATIO 0.6 (1.0-2.7); ANION GAP 18 (5-15); ASPARTATE AMINO TRANSFERASE 21 U/L (5-40); CALCIUM 9.2 mg/dL (8.6-10.2); CARBON DIOXIDE 22 mEQ/L (20-30); CHLORIDE 98 mEQ/L (98-107); CREATININE 2.1 mg/dL (0.5-0.9); HEMOLYSIS 5; POTASSIUM 4.3 mEQ/L (3.4-4.9); SODIUM 138 mEQ/L (135-145); TOTAL PROTEIN 7.1 g/dL (6.6-8.7)
[2016-10-06 22:32] LABS: LYMPHOCYTES % (AUTO) 6.3 % (20.0-45.0); MONOCYTES % (AUTO) 2.6 % (1.0-10.0); NEUTROPHILS % (AUTO) 90.2 % (45.0-75.0)
[2016-10-07 00:20] VITALS: BP 137/66
[2016-10-07 04:25] VITALS: BP 164/84
[2016-10-07] MEDS: D5 1/2NS 1,000 ML IV SCH (05:59)
[2016-10-07] MEDS: metroNIDAZOLE 500mg tab ORAL SCH ×3 (06:00→22:33)
[2016-10-07] MEDS: Levemir Flexpen SUBQ SCH ×2 (06:30→17:34)
[2016-10-07] MEDS: NovoLOG Insulin Flexpen SUBQ SCH ×4 (06:30→22:40)
[2016-10-07 07:58] LABS: EOSINOPHILS % (AUTO) 1.3 % (0.0-3.0); LYMPHOCYTES % (AUTO) 17.2 % (20.0-45.0); MEAN CORPUSCULAR HEMOGLOBIN 29.3 PG (27.0-31.0); MEAN CORPUSCULAR HGB CONC 30.6 G/DL (32.0-36.0); MEAN CORPUSCULAR VOLUME 96 FL (80-99); MEAN PLATELET VOLUME 6.6 FL (6.5-10.1); MONOCYTES % (AUTO) 9.9 % (1.0-10.0); NEUTROPHILS % (AUTO) 70.6 % (45.0-75.0); PLATELET COUNT 353 K/UL (150-450); RED BLOOD COUNT 3.41 M/UL (4.20-5.40); RED CELL DISTRIBUTION WIDTH 14.3 % (11.6-14.8); WHITE BLOOD COUNT 10.1 K/UL (4.8-10.8)
[2016-10-07 08:02] VITALS: BP 141/72
[2016-10-07] MEDS: Aspirin Baby 81mg ORAL SCH (08:16)
[2016-10-07] MEDS: Sucralfate 1gm tab ORAL SCH ×2 (08:17→17:35)
[2016-10-07] MEDS: cloNIDine 0.2mg Tab ORAL SCH ×2 (08:17→22:34)
[2016-10-07 08:19] LABS: ALANINE AMINOTRANSFERASE 14 U/L (3-33); ALBUMIN/GLOBULIN RATIO 0.6 (1.0-2.7); ANION GAP 12 (5-15); ASPARTATE AMINO TRANSFERASE 19 U/L (5-40); CALCIUM 9.1 mg/dL (8.6-10.2); CARBON DIOXIDE 26 mEQ/L (20-30); CHLORIDE 103 mEQ/L (98-107); CREATININE 2.2 mg/dL (0.5-0.9); HEMOLYSIS 7; POTASSIUM 3.9 mEQ/L (3.4-4.9); SODIUM 141 mEQ/L (135-145); TOTAL PROTEIN 6.2 g/dL (6.6-8.7)
[2016-10-07] MEDS: Calcitriol 0.5mcg Cap ORAL SCH (08:19)
[2016-10-07] MEDS: Nitroglycerin Patch 0.4mg TDERMAL SCH (08:19)
[2016-10-07] MEDS: Heparin 5000 units/ml inj SUBQ SCH ×2 (08:19→22:36)
--- NOTE | 2016-10-07 08:25 | General Progress Note ---
Assessment/Plan Problem List: (1) Acute renal failure (ARF) ICD Codes: N17.9 - Acute kidney failure, unspecified SNOMED: 91522919 (2) Sepsis ICD Codes: A41.9 - Sepsis, unspecified organism SNOMED: 59642244 (3) Vomiting ICD Codes: R11.10 - Vomiting, unspecified SNOMED: 503050722 (4) Abdominal pain ICD Codes: R10.9 - Unspecified abdominal pain SNOMED: 86922945 (5) Hypertensive emergency ICD Codes: I16.1 - Hypertensive emergency SNOMED: [id number] Status: stable, not improved Assessment/Plan cont iv abx per if npo ivf pain rx and antiemetics monitor labs and renal fxn d/w surgery. to see pt today will cont to monitor Subjective ROS Limited/Unobtainable: No Constitutional: Reports: malaise, weakness HEENT: Reports: no symptoms Cardiovascular: Reports: no symptoms Respiratory: Reports: no symptoms Gastrointestinal/Abdominal: Reports: abdominal pain, vomiting Genitourinary: Reports: no symptoms Neurologic/Psychiatric: Reports: no symptoms Endocrine: Reports: no symptoms Allergies: Coded Allergies: PENICILLINS (Verified Allergy, Severe, 03/10/14) SKIN RASH AMOXICILLIN (Verified Allergy, Mild, 03/09/14) ERYTHROMYCIN BASE (Verified Allergy, Mild, 03/09/14) All Systems: reviewed and negative except above Subjective had wrosening abd pain and vomiting after breakfast yesterday am. now npo. feels better this am. labs noted. + BMs Objective Last 24 Hour Vital Signs Date Time Temp Pulse Resp B/P Pulse Ox O2 Delivery O2 Flow Rate FiO2 10/07/16 08:02 97.5 60 20 141/72 97 Room Air 10/07/16 07:20 Room Air 10/07/16 07:19 97 Room Air 10/07/16 04:25 97.0 58 20 164/84 100 10/07/16 04:00 48 10/07/16 00:20 98.0 80 20 137/66 96 Nasal Cannula 2.0 10/07/16 00:00 72 10/06/16 21:16 132/62 10/06/16 20:00 97.5 78 21 132/62 97 Room Air 10/06/16 20:00 89 10/06/16 18:13 94 165/99 10/06/16 16:00 97.0 94 19 165/99 98 Room Air 10/06/16 16:00 95 10/06/16 14:11 97.0 10/06/16 12:15 97.0 88 20 134/72 98 Room Air 10/06/16 11:45 97.0 10/06/16 10:54 142/50 10/06/16 10:47 78 142/50 10/06/16 10:47 78 142/50 10/06/16 10:44 142/50 Intake and Output 10/06/16 10/07/16 19:00 07:00 Intake Total 240 ml Output Total 400 ml Balance -400 ml 240 ml Intake Oral 240 ml Output Urine Total 100 ml Emesis 300 ml # Voids 2 3 # Bowel Movements 2 Laboratory Tests 10/06/16 21:00: White Blood Count 11.6H, Red Blood Count 4.03L, Hemoglobin 11.9L, Hematocrit 39.3, Mean Corpuscular Volume 97, Mean Corpuscular Hemoglobin 29.5, Mean Corpuscular Hemoglobin Concent 30.2L, Red Cell Distribution Width 14.4, Platelet Count 346, Mean Platelet Volume 6.5, Neutrophils (%) (Auto) 90.2H, Lymphocytes (%) (Auto) 6.3L, Monocytes (%) (Auto) 2.6, Eosinophils (%) (Auto) 0.0, Basophils (%) (Auto) 1.0, Sodium Level 138, Potassium Level 4.3, Chloride Level 98, Carbon Dioxide Level 22, Anion Gap 18H, Blood Urea Nitrogen 27H, Creatinine 2.1H, Estimat Glomerular Filtration Rate , Glucose Level 230H, Lactic Acid Level 1.80, Calcium Level 9.2, Total Bilirubin 0.3, Aspartate Amino Transf (AST/SGOT) 21, Alanine Aminotransferase (ALT/SGPT) 17, Alkaline Phosphatase 86, Total Protein 7.1, Albumin 2.9L, Globulin 4.2, Albumin/Globulin Ratio 0.6L 10/07/16 07:45: White Blood Count 10.1, Red Blood Count 3.41L, Hemoglobin 10.0L, Hematocrit 32.7L, Mean Corpuscular Volume 96, Mean Corpuscular Hemoglobin 29.3, Mean Corpuscular Hemoglobin Concent 30.6L, Red Cell Distribution Width 14.3, Platelet Count 353, Mean Platelet Volume 6.6, Neutrophils (%) (Auto) 70.6, Lymphocytes (%) (Auto) 17.2L, Monocytes (%) (Auto) 9.9, Eosinophils (%) (Auto) 1.3, Basophils (%) (Auto) 1.0, Sodium Level 141, Potassium Level 3.9, Chloride Level 103, Carbon Dioxide Level 26, Anion Gap 12, Blood Urea Nitrogen 29H, Creatinine 2.2H, Estimat Glomerular Filtration Rate , Glucose Level 126#H, Calcium Level 9.1, Total Bilirubin 0.3, Aspartate Amino Transf (AST/SGOT) 19, Alanine Aminotransferase (ALT/SGPT) 14, Alkaline Phosphatase 69, Total Protein 6.2L, Albumin 2.5L, Globulin 3.7, Albumin/Globulin Ratio 0.6L Height (Feet): 5 Height (Inches): 5.00 Weight (Pounds): 200 Objective General Appearance: WD/WN, alert Neck: supple Cardiovascular: regular rhythm Respiratory/Chest: lungs clear Abdomen: normal bowel sounds, non tender, soft, no organomegaly Edema: no edema noted Arm (L), no edema noted Arm (R), no edema noted Leg (L), no edema noted Leg (R), no edema noted Pedal (L), no edema noted Pedal (R), no edema noted Generalized 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
--- NOTE | 2016-10-07 09:47 | Infectious Diseases Prog Note ---
Assessment/Plan Assessment/Plan A; Positive blood culture/ contamination Leukocytosis Pneumonia/ congestion DM with hyperglycemia Lactic acidosis Gastritis CKD P; continue Levaquin & Flagyl Will f/u cultures Subjective ROS Limited/Unobtainable: No Constitutional: Reports: no symptoms Respiratory: Reports: no symptoms Gastrointestinal/Abdominal: Reports: other - epigastric pain Genitourinary: Reports: no symptoms Allergies: Coded Allergies: PENICILLINS (Verified Allergy, Severe, 03/10/14) SKIN RASH AMOXICILLIN (Verified Allergy, Mild, 03/09/14) ERYTHROMYCIN BASE (Verified Allergy, Mild, 03/09/14) Objective Vital Signs Last 24 Hour Vital Signs Date Time Temp Pulse Resp B/P Pulse Ox O2 Delivery O2 Flow Rate FiO2 10/07/16 08:48 97.5 10/07/16 08:02 97.5 60 20 141/72 97 Room Air 10/07/16 08:00 62 10/07/16 07:20 Room Air 10/07/16 07:19 97 Room Air 10/07/16 04:25 97.0 58 20 164/84 100 10/07/16 04:00 48 10/07/16 00:20 98.0 80 20 137/66 96 Nasal Cannula 2.0 10/07/16 00:00 72 10/06/16 21:16 132/62 10/06/16 20:00 97.5 78 21 132/62 97 Room Air 10/06/16 20:00 89 10/06/16 18:13 94 165/99 10/06/16 16:00 97.0 94 19 165/99 98 Room Air 10/06/16 16:00 95 10/06/16 12:15 97.0 88 20 134/72 98 Room Air 10/06/16 11:45 97.0 10/06/16 10:54 142/50 10/06/16 10:47 78 142/50 10/06/16 10:47 78 142/50 10/06/16 10:44 142/50 Height (Feet): 5 Height (Inches): 5.00 Weight (Pounds): 200 General Appearance: no acute distress HEENT: mucous membranes moist Respiratory/Chest: lungs clear Cardiovascular: normal rate Abdomen: soft, non tender Extremities: no edema Neurologic/Psychiatric: alert, oriented x 3, responsive Laboratory Tests Test 10/06/16 21:00 10/07/16 07:45 White Blood Count 11.6 K/UL (4.8-10.8) H 10.1 K/UL (4.8-10.8) Red Blood Count 4.03 M/UL (4.20-5.40) L 3.41 M/UL (4.20-5.40) L Hemoglobin 11.9 G/DL (12.0-16.0) L 10.0 G/DL (12.0-16.0) L Hematocrit 39.3 % (37.0-47.0) 32.7 % (37.0-47.0) L Mean Corpuscular Volume 97 FL (80-99) 96 FL (80-99) Mean Corpuscular Hemoglobin 29.5 PG (27.0-31.0) 29.3 PG (27.0-31.0) Mean Corpuscular Hemoglobin Concent 30.2 G/DL (32.0-36.0) L 30.6 G/DL (32.0-36.0) L Red Cell Distribution Width 14.4 % (11.6-14.8) 14.3 % (11.6-14.8) Platelet Count 346 K/UL (150-450) 353 K/UL (150-450) Mean Platelet Volume 6.5 FL (6.5-10.1) 6.6 FL (6.5-10.1) Neutrophils (%) (Auto) 90.2 % (45.0-75.0) H 70.6 % (45.0-75.0) Lymphocytes (%) (Auto) 6.3 % (20.0-45.0) L 17.2 % (20.0-45.0) L Monocytes (%) (Auto) 2.6 % (1.0-10.0) 9.9 % (1.0-10.0) Eosinophils (%) (Auto) 0.0 % (0.0-3.0) 1.3 % (0.0-3.0) Basophils (%) (Auto) 1.0 % (0.0-2.0) 1.0 % (0.0-2.0) Sodium Level 138 mEQ/L (135-145) 141 mEQ/L (135-145) Potassium Level 4.3 mEQ/L (3.4-4.9) 3.9 mEQ/L (3.4-4.9) Chloride Level 98 mEQ/L (98-107) 103 mEQ/L (98-107) Carbon Dioxide Level 22 mEQ/L (20-30) 26 mEQ/L (20-30) Anion Gap 18 (5-15) H 12 (5-15) Blood Urea Nitrogen 27 mg/dL (7-23) H 29 mg/dL (7-23) H Creatinine 2.1 mg/dL (0.5-0.9) H 2.2 mg/dL (0.5-0.9) H Estimat Glomerular Filtration Rate mL/min (>60) mL/min (>60) Glucose Level 230 mg/dL (74-106) H 126 mg/dL (74-106) #H Lactic Acid Level 1.80 mmol/L (0.66-2.22) Calcium Level 9.2 mg/dL (8.6-10.2) 9.1 mg/dL (8.6-10.2) Total Bilirubin 0.3 mg/dL (0.0-1.2) 0.3 mg/dL (0.0-1.2) Aspartate Amino Transf (AST/SGOT) 21 U/L (5-40) 19 U/L (5-40) Alanine Aminotransferase (ALT/SGPT) 17 U/L (3-33) 14 U/L (3-33) Alkaline Phosphatase 86 U/L (35-104) 69 U/L (35-104) Total Protein 7.1 g/dL (6.6-8.7) 6.2 g/dL (6.6-8.7) L Albumin 2.9 g/dL (3.5-5.2) L 2.5 g/dL (3.5-5.2) L Globulin 4.2 g/dL 3.7 g/dL Albumin/Globulin Ratio 0.6 (1.0-2.7) L 0.6 (1.0-2.7) L Current Medications Medications (Trade) Dose Ordered Sig/Adelia Route PRN Reason Start Time Stop Time Status Last Admin Dose Admin Acetaminophen (Tylenol) 650 mg Q4H PRN ORAL Mild Pain/Temp > 100.5 10/02/16 08:30 11/01/16 08:29 10/02/16 08:41 Al Hydroxide/Mg Hydroxide (Mylanta) 30 ml TIDPRN PRN ORAL ACID REFLUX 10/02/16 21:00 11/01/16 20:59 10/06/16 16:43 Amlodipine Besylate (Norvasc) 5 mg BID ORAL 10/02/16 22:00 11/01/16 21:59 10/06/16 18:13 Aspirin (ASA) 81 mg DAILY ORAL 10/02/16 09:00 11/01/16 08:59 10/06/16 10:46 Atorvastatin Calcium (Lipitor) 40 mg BEDTIME ORAL 10/01/16 22:30 10/31/16 22:29 10/06/16 21:16 Calcitriol (Rocaltrol) 0.5 mcg DAILY ORAL 10/02/16 09:00 11/01/16 08:59 10/06/16 10:47 Clonidine HCl (Catapres) 0.6 mg BID@0900,2100 ORAL 10/04/16 09:00 11/03/16 08:59 10/06/16 21:16 Clopidogrel Bisulfate (Plavix) 75 mg DAILY ORAL 10/02/16 09:00 11/01/16 08:59 10/06/16 10:47 Dextrose (Dextrose 50%) STAT PRN IV Hypoglycemia 10/01/16 20:45 10/31/16 20:44 10/04/16 05:55 Dextrose/Sodium Chloride (D5 0.45% NS) 1,000 ml @ 100 mls/hr Q10H IV 10/06/16 20:00 11/05/16 19:59 Diphenhydramine HCl (Benadryl) 25 mg Q6H PRN ORAL Itching 10/01/16 20:45 10/31/16 20:44 Gabapentin (Neurontin) 600 mg BID ORAL 10/02/16 09:00 11/01/16 08:59 10/06/16 18:13 Heparin Sodium (Porcine) (Heparin 5000 units/ml) 5,000 units EVERY 12 HOURS SUBQ 10/01/16 22:00 10/31/16 21:59 10/06/16 21:17 Hydralazine HCl (Apresoline) 10 mg Q4H PRN IV for SBP >160 10/02/16 21:15 11/01/16 21:14 Hydromorphone HCl (Dilaudid) 1 mg Q4H PRN SUBQ Moderate Pain (Pain Scale 4-6) 10/06/16 13:30 10/13/16 13:29 Hydromorphone HCl 2 mg 2 mg Q4H PRN SUBQ Severe Pain (Pain Scale 7-10) 10/06/16 13:30 10/13/16 13:29 10/07/16 08:16 Insulin Aspart (NovoLOG) BEFORE MEALS AND HS SUBQ 10/02/16 06:30 11/01/16 06:29 10/06/16 21:22 Insulin Detemir (Levemir) 40 units Q12HR@0630,1830 SUBQ 10/03/16 18:30 11/02/16 18:29 10/06/16 18:15 Levofloxacin (Levaquin) 250 mg DAILY@1600 ORAL 10/06/16 16:00 10/13/16 15:59 10/06/16 16:19 Lorazepam (Ativan) 0.5 mg TIDPRN PRN ORAL For Anxiety 10/01/16 20:45 10/08/16 20:44 Metoclopramide HCl (Reglan) 5 mg BEFORE MEALS ORAL 10/02/16 06:30 11/01/16 06:29 10/06/16 16:32 Metoclopramide HCl (Reglan) 5 mg QHS ORAL 10/01/16 22:30 10/31/16 22:29 10/06/16 21:15 Metoprolol Succinate (Toprol XL) 50 mg DAILY ORAL 10/02/16 09:00 11/01/16 08:59 10/06/16 10:47 Metronidazole (Flagyl) 500 mg Q8HR ORAL 10/06/16 14:00 10/13/16 13:59 10/06/16 21:16 Nitroglycerin (Ntg) 1 patch Q24H TDERMAL 10/02/16 09:00 11/01/16 08:59 10/06/16 10:44 Ondansetron HCl (Zofran ODT) 8 mg Q4HR PRN ORAL Nausea & Vomiting 10/06/16 17:00 11/05/16 16:59 10/06/16 16:31 Ondansetron HCl (Zofran) 4 mg Q4HR PRN IVP Nausea & Vomiting 10/06/16 09:34 11/01/16 04:59 Pantoprazole (Protonix) 40 mg EVERY 12 HOURS ORAL 10/06/16 12:15 11/05/16 12:14 10/06/16 21:16 Polyethylene Glycol (Miralax) 17 gm DAILY PRN ORAL Constipation 10/01/16 20:45 10/31/16 20:44 Sucralfate (Carafate) 1 gm BID ORAL 10/02/16 09:00 11/01/16 08:59 10/06/16 18:12 Zolpidem Tartrate (Ambien) 5 mg HSPRN PRN ORAL Insomnia 10/01/16 20:45 10/31/16 20:44 PERFECTO MOREL Oct 07, 2016 09:47
[2016-10-07 11:19] VITALS: BP 146/63
--- NOTE | 2016-10-07 12:43 | Nephrology Progress Note ---
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 (3) ASCVD (arteriosclerotic cardiovascular disease) (4) CKD (chronic kidney disease) stage 4, GFR 15-29 ml/min (5) Abdominal pain (6) Vomiting (7) Acute renal failure (ARF) Plan starting on solids, stop iv fluids, mobilize Subjective Constitutional: Reports: weakness HEENT: Reports: no symptoms Genitourinary: Reports: no symptoms Neurologic/Psychiatric: Reports: no symptoms Subjective abdominal pain and diarrhrea, a bit less today Objective Objective Last 24 Hour Vital Signs Date Time Temp Pulse Resp B/P Pulse Ox O2 Delivery O2 Flow Rate FiO2 10/07/16 11:19 97.3 70 20 146/63 96 Room Air 10/07/16 08:48 97.5 10/07/16 08:02 97.5 60 20 141/72 97 Room Air 10/07/16 08:00 62 10/07/16 07:20 Room Air 10/07/16 07:19 97 Room Air 10/07/16 04:25 97.0 58 20 164/84 100 10/07/16 04:00 48 10/07/16 00:20 98.0 80 20 137/66 96 Nasal Cannula 2.0 10/07/16 00:00 72 10/06/16 21:16 132/62 10/06/16 20:00 97.5 78 21 132/62 97 Room Air 10/06/16 20:00 89 10/06/16 18:13 94 165/99 10/06/16 16:00 97.0 94 19 165/99 98 Room Air 10/06/16 16:00 95 Intake and Output 10/06/16 10/07/16 19:00 07:00 Intake Total 240 ml Output Total 400 ml Balance -400 ml 240 ml Intake Oral 240 ml Output Urine Total 100 ml Emesis 300 ml # Voids 2 3 # Bowel Movements 2 Laboratory Tests 10/06/16 21:00: White Blood Count 11.6H, Red Blood Count 4.03L, Hemoglobin 11.9L, Hematocrit 39.3, Mean Corpuscular Volume 97, Mean Corpuscular Hemoglobin 29.5, Mean Corpuscular Hemoglobin Concent 30.2L, Red Cell Distribution Width 14.4, Platelet Count 346, Mean Platelet Volume 6.5, Neutrophils (%) (Auto) 90.2H, Lymphocytes (%) (Auto) 6.3L, Monocytes (%) (Auto) 2.6, Eosinophils (%) (Auto) 0.0, Basophils (%) (Auto) 1.0, Sodium Level 138, Potassium Level 4.3, Chloride Level 98, Carbon Dioxide Level 22, Anion Gap 18H, Blood Urea Nitrogen 27H, Creatinine 2.1H, Estimat Glomerular Filtration Rate , Glucose Level 230H, Lactic Acid Level 1.80, Calcium Level 9.2, Total Bilirubin 0.3, Aspartate Amino Transf (AST/SGOT) 21, Alanine Aminotransferase (ALT/SGPT) 17, Alkaline Phosphatase 86, Total Protein 7.1, Albumin 2.9L, Globulin 4.2, Albumin/Globulin Ratio 0.6L 10/07/16 07:45: White Blood Count 10.1, Red Blood Count 3.41L, Hemoglobin 10.0L, Hematocrit 32.7L, Mean Corpuscular Volume 96, Mean Corpuscular Hemoglobin 29.3, Mean Corpuscular Hemoglobin Concent 30.6L, Red Cell Distribution Width 14.3, Platelet Count 353, Mean Platelet Volume 6.6, Neutrophils (%) (Auto) 70.6, Lymphocytes (%) (Auto) 17.2L, Monocytes (%) (Auto) 9.9, Eosinophils (%) (Auto) 1.3, Basophils (%) (Auto) 1.0, Sodium Level 141, Potassium Level 3.9, Chloride Level 103, Carbon Dioxide Level 26, Anion Gap 12, Blood Urea Nitrogen 29H, Creatinine 2.2H, Estimat Glomerular Filtration Rate , Glucose Level 126#H, Calcium Level 9.1, Total Bilirubin 0.3, Aspartate Amino Transf (AST/SGOT) 19, Alanine Aminotransferase (ALT/SGPT) 14, Alkaline Phosphatase 69, Total Protein 6.2L, Albumin 2.5L, Globulin 3.7, Albumin/Globulin Ratio 0.6L Height (Feet): 5 Height (Inches): 5.00 Weight (Pounds): 200 General Appearance: no apparent distress, obese EENT: PERRL/EOMI, normal ENT inspection Neck: normal alignment Cardiovascular: normal rate, regular rhythm Respiratory/Chest: lungs clear Abdomen: non tender, no organomegaly Extremities: trace edema 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
--- NOTE | 2016-10-07 14:17 | General Progress Note ---
Progress Note Progress Note Chart reviewed, pt examined,consult dictated. Impression: episodic abdominal pain, possibly recurring pancreatitis. There is no need for surgical intervention at this point. Aung Schreiber MD Oct 07, 2016 14:17
--- NOTE | 2016-10-07 15:24 | General Progress Note ---
Assessment/Plan Assessment/Plan Assessment - abd pain - recurrent - lactic acidosis - abnormal LFT - ? ischemic injury - N/Vm - recurrent - h/o SOD related recurrent pancreatitis, s/p sphincterotomy Recommendations - NPO - recheck labs, lactate - rec surgical opinion - non contrast MRA - abx per ID - PPI Subjective Allergies: Coded Allergies: PENICILLINS (Verified Allergy, Severe, 03/10/14) SKIN RASH AMOXICILLIN (Verified Allergy, Mild, 03/09/14) ERYTHROMYCIN BASE (Verified Allergy, Mild, 03/09/14) Subjective Better today no vomiting, but NPO pain substantially diminished Objective Last 24 Hour Vital Signs Date Time Temp Pulse Resp B/P Pulse Ox O2 Delivery O2 Flow Rate FiO2 10/07/16 13:00 97.3 10/07/16 12:00 77 10/07/16 11:19 97.3 70 20 146/63 96 Room Air 10/07/16 08:02 97.5 60 20 141/72 97 Room Air 10/07/16 08:00 62 10/07/16 07:20 Room Air 10/07/16 07:19 97 Room Air 10/07/16 04:25 97.0 58 20 164/84 100 10/07/16 04:00 48 10/07/16 00:20 98.0 80 20 137/66 96 Nasal Cannula 2.0 10/07/16 00:00 72 10/06/16 21:16 132/62 10/06/16 20:00 97.5 78 21 132/62 97 Room Air 10/06/16 20:00 89 10/06/16 18:13 94 165/99 10/06/16 16:00 97.0 94 19 165/99 98 Room Air 10/06/16 16:00 95 Intake and Output 10/06/16 10/07/16 19:00 07:00 Intake Total 240 ml Output Total 400 ml Balance -400 ml 240 ml Intake Oral 240 ml Output Urine Total 100 ml Emesis 300 ml # Voids 2 3 # Bowel Movements 2 Laboratory Tests 10/06/16 21:00: White Blood Count 11.6H, Red Blood Count 4.03L, Hemoglobin 11.9L, Hematocrit 39.3, Mean Corpuscular Volume 97, Mean Corpuscular Hemoglobin 29.5, Mean Corpuscular Hemoglobin Concent 30.2L, Red Cell Distribution Width 14.4, Platelet Count 346, Mean Platelet Volume 6.5, Neutrophils (%) (Auto) 90.2H, Lymphocytes (%) (Auto) 6.3L, Monocytes (%) (Auto) 2.6, Eosinophils (%) (Auto) 0.0, Basophils (%) (Auto) 1.0, Sodium Level 138, Potassium Level 4.3, Chloride Level 98, Carbon Dioxide Level 22, Anion Gap 18H, Blood Urea Nitrogen 27H, Creatinine 2.1H, Estimat Glomerular Filtration Rate , Glucose Level 230H, Lactic Acid Level 1.80, Calcium Level 9.2, Total Bilirubin 0.3, Aspartate Amino Transf (AST/SGOT) 21, Alanine Aminotransferase (ALT/SGPT) 17, Alkaline Phosphatase 86, Total Protein 7.1, Albumin 2.9L, Globulin 4.2, Albumin/Globulin Ratio 0.6L 10/07/16 07:45: White Blood Count 10.1, Red Blood Count 3.41L, Hemoglobin 10.0L, Hematocrit 32.7L, Mean Corpuscular Volume 96, Mean Corpuscular Hemoglobin 29.3, Mean Corpuscular Hemoglobin Concent 30.6L, Red Cell Distribution Width 14.3, Platelet Count 353, Mean Platelet Volume 6.6, Neutrophils (%) (Auto) 70.6, Lymphocytes (%) (Auto) 17.2L, Monocytes (%) (Auto) 9.9, Eosinophils (%) (Auto) 1.3, Basophils (%) (Auto) 1.0, Sodium Level 141, Potassium Level 3.9, Chloride Level 103, Carbon Dioxide Level 26, Anion Gap 12, Blood Urea Nitrogen 29H, Creatinine 2.2H, Estimat Glomerular Filtration Rate , Glucose Level 126#H, Calcium Level 9.1, Total Bilirubin 0.3, Aspartate Amino Transf (AST/SGOT) 19, Alanine Aminotransferase (ALT/SGPT) 14, Alkaline Phosphatase 69, Total Protein 6.2L, Albumin 2.5L, Globulin 3.7, Albumin/Globulin Ratio 0.6L Height (Feet): 5 Height (Inches): 5.00 Weight (Pounds): 200 Objective WDWN NCAT Supple CTA RRR Soft obese (+) minimal epigastric TTP No edema non focal KIKI AGUSTIN Oct 07, 2016 15:24
[2016-10-07 16:00] VITALS: BP 150/50
[2016-10-07 20:00] VITALS: BP 152/59
--- NOTE | 2016-10-07 21:09 | Consultation ---
DATE OF CONSULTATION: 10/07/2016 SURGICAL CONSULTATION REASON FOR CONSULTATION: History of abdominal pain. HISTORY OF PRESENT ILLNESS: This 76-year-old female developed problems with abdominal pain six days ago accompanied by nausea and vomiting. The patient has a history of recurring pancreatitis. She denies any recent history of fever or chills. She has a history of atherosclerotic cardiovascular disease and diabetes as well as some elements of renal compromise. PAST MEDICAL HISTORY: Previous surgery includes a cholecystectomy 30 years ago. Other surgeries includes a total abdominal hysterectomy and a unilateral salpingo-oophorectomy. She has also had bilateral knee replacements. The patient underwent an ERCP with sphincterotomy including a sphincterotomy of the pancreatic duct four [address] Maikol Pastor. SOCIAL HISTORY: Tobacco was limited to three-year period in her teens. Alcohol, none. FAMILY HISTORY: Positive for diabetes mellitus and hypertension as well as heart disease. REVIEW OF SYSTEMS: Essentially negative. She denies any history of angina. She denies any problems with postprandial abdominal pain. She does report leg pain with prolonged ambulation. PHYSICAL EXAMINATION: GENERAL: Reveals a slightly obese female, in no acute distress. VITAL SIGNS: Temperature 97.3 degrees, blood pressure 146/63, pulse 70, and respirations 20. HEENT: Normocephalic. Pupils are equal and reactive to light. There was no scleral icterus. NECK: Supple without adenopathy. LUNGS: Clear. HEART: Regular rhythm. ABDOMEN: Abdomen was protuberant. There was no tenderness or guarding in any quadrant. There were no palpable masses. EXTREMITIES: No clubbing, cyanosis, or edema. Peripheral pulses are decreased in both feet. There is a bandage in the left distal calf, which the patient states is due to a chronic ulcer. LABORATORY AND DIAGNOSTIC DATA: CBC today shows a white blood count of 10,100, hemoglobin 10.0, hematocrit 32.7, and platelet count 353,000. Serum electrolytes showed a sodium of 141, potassium 3.9, chloride 103, bicarbonate 26, BUN 29, creatinine 2.2 and glucose 126. Liver panel showed a normal total bilirubin of 0.3, SGOT 14, 19, and alkaline phosphatase normal at 69. IMPRESSION: 1. History of episodic abdominal pain, possibly due to pancreatitis. 2. Intestinal angina, unlikely due to the absence of postprandial abdominal pain. PLAN: There is nothing to do from a surgical standpoint on the patient. Thank you for allowing us to see this patient in consultation. Aung Schreiber M.D. DR: TABITHA JOB#: [id number] CC:
--- NOTE | 2016-10-07 22:29 | Progress Note ---
DATE: 10/07/2016 CARDIOLOGY PROGRESS NOTE SUBJECTIVE: The patient is much better today with regard to her abdominal pain. No nausea or vomiting noted. She was evaluated with the surgeon at bedside. She denies chest pain or shortness of breath. OBJECTIVE: VITAL SIGNS: Blood pressure 146/63, heart rate 70, and respirations 20. No fevers. NECK: Supple. LUNGS: Clear. CARDIAC: Regular rhythm and rate. Normal S1 and S2 with a fourth heart sound. ABDOMEN: Distended, soft and mildly tender in the midepigastric region. EXTREMITIES: Trace lower extremity edema. LABORATORY DATA: White count 10 and hemoglobin 10. Lactic acid yesterday was normal. BUN 29 and creatinine 2.2. Albumin is 2.5. Potassium is 3.9. IMPRESSION: 1. Chronic kidney disease now at baseline. 2. Ischemic cardiomyopathy with stable angina. 3. Acute and chronic diastolic congestive heart failure, clinically compensated. 4. Severe protein-calorie malnutrition. 5. Recurring pancreatitis now stabilizing. 6. Insulin-requiring diabetes mellitus with complications. PLAN: 1. No diuretics for now. 2. Titrate antihypertensives. 3. Continue dual anti-platelet therapy. 4. Symptom guided pain control. 5. Insulin titration, per sliding scale. 6. Monitor volume status and cardiorenal parameters. Amando Blanco M.D. DR: MELVIN JOB#: [id number] CC:
[2016-10-08] VITALS: BP 91/54
[2016-10-08] MEDS: NovoLOG Insulin Flexpen SUBQ SCH ×5 (01:00→16:43)
--- NOTE | 2016-10-08 02:29 | Progress Note ---
DATE: 10/06/2016 NOTE: INCOMPLETE DICTATION CARDIOLOGY PROGRESS NOTE SUBJECTIVE: She was this morning with abdominal pain and nausea progressing after breakfast. She is now NPO. She has not had any chest pain or shortness of breath. OBJECTIVE: VITAL SIGNS: Blood pressure 134/72, pulse 88, respiration 20, and afebrile. NECK: Supple. LUNGS: Clear. CARDIAC: Regular rhythm and rate. Normal S1 and S2 with a fourth heart sound. ABDOMEN: Distended but soft. Mild midepigastric pain. EXTREMITIES: With trace edema. LABORATORY DATA: White count 11.6 and hemoglobin 11.9. Lactic acid 1.8. BUN 27, creatinine 2.1, and potassium 4.3. Albumin 2.9. Amando Blanco M.D. DR: BRYAN JOB#: [id number] CC:
[2016-10-08 04:11] VITALS: BP 111/51
[2016-10-08] MEDS: metroNIDAZOLE 500mg tab ORAL SCH ×2 (05:51→13:07)
[2016-10-08] MEDS: Levemir Flexpen SUBQ SCH (06:30)
[2016-10-08 07:33] LABS: BASOPHILS % (AUTO) 1.4 % (0.0-2.0); EOSINOPHILS % (AUTO) 2.8 % (0.0-3.0); LYMPHOCYTES % (AUTO) 29.9 % (20.0-45.0); MEAN CORPUSCULAR HEMOGLOBIN 29.8 PG (27.0-31.0); MEAN CORPUSCULAR HGB CONC 30.9 G/DL (32.0-36.0); MEAN CORPUSCULAR VOLUME 96 FL (80-99); MEAN PLATELET VOLUME 6.2 FL (6.5-10.1); MONOCYTES % (AUTO) 11.7 % (1.0-10.0); NEUTROPHILS % (AUTO) 54.2 % (45.0-75.0); PLATELET COUNT 290 K/UL (150-450); RED BLOOD COUNT 3.11 M/UL (4.20-5.40); RED CELL DISTRIBUTION WIDTH 14.9 % (11.6-14.8); WHITE BLOOD COUNT 9.6 K/UL (4.8-10.8)
[2016-10-08 07:37] LABS: ANION GAP 12 (5-15); CALCIUM 8.6 mg/dL (8.6-10.2); CARBON DIOXIDE 23 mEQ/L (20-30); CHLORIDE 104 mEQ/L (98-107); CREATININE 2.2 mg/dL (0.5-0.9); HEMOLYSIS 16; SODIUM 139 mEQ/L (135-145)
[2016-10-08 08:00] VITALS: BP 119/56
--- NOTE | 2016-10-08 08:31 | General Progress Note ---
Assessment/Plan Problem List: (1) Acute renal failure (ARF) ICD Codes: N17.9 - Acute kidney failure, unspecified SNOMED: 44072106 (2) Sepsis ICD Codes: A41.9 - Sepsis, unspecified organism SNOMED: 55691516 (3) Vomiting ICD Codes: R11.10 - Vomiting, unspecified SNOMED: 818748338 (4) Abdominal pain ICD Codes: R10.9 - Unspecified abdominal pain SNOMED: 25341138 (5) Hypertensive emergency ICD Codes: I16.1 - Hypertensive emergency SNOMED: 626232616673381 Status: stable, progressing Assessment/Plan cont iv abx per if npo ivf mra per gi pain rx and antiemetics picc line- Rn cant get access monitor labs and renal fxn d/w surgery. to see pt today will cont to monitor Subjective ROS Limited/Unobtainable: No Constitutional: Reports: malaise, weakness HEENT: Reports: no symptoms Cardiovascular: Reports: no symptoms Respiratory: Reports: no symptoms Gastrointestinal/Abdominal: Reports: abdominal pain Genitourinary: Reports: no symptoms Neurologic/Psychiatric: Reports: no symptoms Endocrine: Reports: no symptoms Hematologic/Lymphatic: Reports: no symptoms Allergies: Coded Allergies: PENICILLINS (Verified Allergy, Severe, 03/10/14) SKIN RASH AMOXICILLIN (Verified Allergy, Mild, 03/09/14) ERYTHROMYCIN BASE (Verified Allergy, Mild, 03/09/14) All Systems: reviewed and negative except above Subjective surgery noted. still with complaints of abd pain. mild nausea. no vomiting last night. Objective Last 24 Hour Vital Signs Date Time Temp Pulse Resp B/P Pulse Ox O2 Delivery O2 Flow Rate FiO2 10/08/16 08:00 97.7 75 18 119/56 96 Room Air 10/08/16 04:11 98.3 65 19 111/51 98 Room Air 10/08/16 04:00 60 10/08/16 00:00 98.7 84 18 91/54 97 Room Air 10/08/16 00:00 74 10/07/16 22:34 152/59 10/07/16 20:00 98.2 79 19 152/59 95 Room Air 10/07/16 20:00 87 10/07/16 18:07 97.9 10/07/16 18:07 97.9 10/07/16 17:32 84 150/50 10/07/16 16:00 90 10/07/16 16:00 97.9 84 18 150/50 99 Room Air 10/07/16 12:00 77 10/07/16 11:19 97.3 70 20 146/63 96 Room Air Intake and Output 10/07/16 10/08/16 19:00 07:00 Intake Total 120 ml 300 ml Balance 120 ml 300 ml Intake Oral 120 ml 300 ml # Voids 2 8 # Bowel Movements 2 Laboratory Tests 10/08/16 05:25: White Blood Count 9.6, Red Blood Count 3.11L, Hemoglobin 9.3L, Hematocrit 30.0L , Mean Corpuscular Volume 96, Mean Corpuscular Hemoglobin 29.8, Mean Corpuscular Hemoglobin Concent 30.9L, Red Cell Distribution Width 14.9H, Platelet Count 290, Mean Platelet Volume 6.2L, Neutrophils (%) (Auto) 54.2, Lymphocytes (%) (Auto) 29.9, Monocytes (%) (Auto) 11.7H, Eosinophils (%) (Auto) 2.8, Basophils (%) (Auto) 1.4, Sodium Level 139, Potassium Level 4.0, Chloride Level 104, Carbon Dioxide Level 23, Anion Gap 12, Blood Urea Nitrogen 24H, Creatinine 2.2H, Estimat Glomerular Filtration Rate , Glucose Level 58L, Calcium Level 8.6 Height (Feet): 5 Height (Inches): 5.00 Weight (Pounds): 200 Objective General Appearance: WD/WN, alert Neck: supple Cardiovascular: regular rhythm Respiratory/Chest: lungs clear Abdomen: normal bowel sounds, non tender, soft, no organomegaly Edema: no edema noted Arm (L), no edema noted Arm (R), no edema noted Leg (L), no edema noted Leg (R), no edema noted Pedal (L), no edema noted Pedal (R), no edema noted 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
[2016-10-08] MEDS: Nitroglycerin Patch 0.4mg TDERMAL SCH (09:00)
[2016-10-08] MEDS: Aspirin Baby 81mg ORAL SCH (09:08)
[2016-10-08] MEDS: Calcitriol 0.5mcg Cap ORAL SCH (09:08)
[2016-10-08] MEDS: Sucralfate 1gm tab ORAL SCH (09:09)
[2016-10-08] MEDS: Heparin 5000 units/ml inj SUBQ SCH (09:10)
[2016-10-08] MEDS: cloNIDine 0.2mg Tab ORAL SCH (09:13)
--- NOTE | 2016-10-08 10:52 | Diagnostic Imaging Report ---
Clinical history: Abdominal pain. Technique: Single frontal abdominal radiograph was obtained. Comparisons: CT dated 10/01/16. Findings: Postcholecystectomy clips are noted in the right upper abdomen. There is a general paucity of small and large bowel gas which may be seen with fluid-filled bowel loops in the setting of ileus or partial obstruction. Exam sensitivity is diminished due to patient's body habitus. Degenerative changes of the lower lumbar spine and scattered atherosclerotic vascular disease noted. Impression: Generalized paucity of bowel gas suggesting fluid-filled bowel loops which may be seen with ileus or bowel obstruction. Status post cholecystectomy.
--- NOTE | 2016-10-08 10:54 | General Progress Note ---
Progress Note Progress Note Patient seen and examined at bedside. No acute events. Was experiencing some abdominal pain prior so Surgery consulted. When seen this morning patient states that her abdominal pain resolved. She is feeling well without any pain. no n/v/f/c. has appetite. Okay for diet from surgical standpoint. Juan Diego Rosa Oct 08, 2016 10:54
[2016-10-08 11:28] VITALS: BP 108/56
--- NOTE | 2016-10-08 11:39 | Infectious Diseases Prog Note ---
Assessment/Plan Assessment/Plan antibiotics : levoquin, flagyl A 1. + blood cultures with coag neg staph likely contaminated 2. pneumonia 3. renal failure improving 4. leucocytosis improving 5. DM P 1. continue levoquin, flagyl 2 more days 2. will follow up cultures Subjective ROS Limited/Unobtainable: Yes Allergies: Coded Allergies: PENICILLINS (Verified Allergy, Severe, 03/10/14) SKIN RASH AMOXICILLIN (Verified Allergy, Mild, 03/09/14) ERYTHROMYCIN BASE (Verified Allergy, Mild, 03/09/14) Objective Vital Signs Last 24 Hour Vital Signs Date Time Temp Pulse Resp B/P Pulse Ox O2 Delivery O2 Flow Rate FiO2 10/08/16 11:28 97.9 66 18 108/56 94 Room Air 10/08/16 09:13 119/56 10/08/16 09:09 75 119/56 10/08/16 09:08 75 119/56 10/08/16 09:00 119/56 10/08/16 08:17 64 10/08/16 08:00 97.7 75 18 119/56 96 Room Air 10/08/16 04:11 98.3 65 19 111/51 98 Room Air 10/08/16 04:00 60 10/08/16 00:00 98.7 84 18 91/54 97 Room Air 10/08/16 00:00 74 10/07/16 22:34 152/59 10/07/16 20:00 98.2 79 19 152/59 95 Room Air 10/07/16 20:00 87 10/07/16 18:07 97.9 10/07/16 18:07 97.9 10/07/16 17:32 84 150/50 10/07/16 16:00 90 10/07/16 16:00 97.9 84 18 150/50 99 Room Air 10/07/16 12:00 77 Height (Feet): 5 Height (Inches): 5.00 Weight (Pounds): 200 Respiratory/Chest: lungs clear Cardiovascular: normal rate, regular rhythm, no gallop/murmur Abdomen: soft, non tender Extremities: other - + edema Laboratory Tests Test 10/08/16 05:25 White Blood Count 9.6 K/UL (4.8-10.8) Red Blood Count 3.11 M/UL (4.20-5.40) L Hemoglobin 9.3 G/DL (12.0-16.0) L Hematocrit 30.0 % (37.0-47.0) L Mean Corpuscular Volume 96 FL (80-99) Mean Corpuscular Hemoglobin 29.8 PG (27.0-31.0) Mean Corpuscular Hemoglobin Concent 30.9 G/DL (32.0-36.0) L Red Cell Distribution Width 14.9 % (11.6-14.8) H Platelet Count 290 K/UL (150-450) Mean Platelet Volume 6.2 FL (6.5-10.1) L Neutrophils (%) (Auto) 54.2 % (45.0-75.0) Lymphocytes (%) (Auto) 29.9 % (20.0-45.0) Monocytes (%) (Auto) 11.7 % (1.0-10.0) H Eosinophils (%) (Auto) 2.8 % (0.0-3.0) Basophils (%) (Auto) 1.4 % (0.0-2.0) Sodium Level 139 mEQ/L (135-145) Potassium Level 4.0 mEQ/L (3.4-4.9) Chloride Level 104 mEQ/L (98-107) Carbon Dioxide Level 23 mEQ/L (20-30) Anion Gap 12 (5-15) Blood Urea Nitrogen 24 mg/dL (7-23) H Creatinine 2.2 mg/dL (0.5-0.9) H Estimat Glomerular Filtration Rate mL/min (>60) Glucose Level 58 mg/dL (74-106) L Calcium Level 8.6 mg/dL (8.6-10.2) ADARSH PASCAL Oct 08, 2016 11:39
[2016-10-08 16:00] VITALS: BP 114/50
[2016-10-08] MEDS ORDERED: LASIX80 MG ORAL (17:10)
[2016-10-08] MEDS ORDERED: ROCALTROL0.5 MCG ORAL (17:10)
[2016-10-08] MEDS ORDERED: LANTUS SOL100 UNIT/1 SUBQ (17:10)
[2016-10-08] MEDS ORDERED: CLONIDINE 0.2M0.2 MG ORAL (17:10)
[2016-10-08] MEDS ORDERED: CARAFATE1 GM/10 M1 ORAL (17:10)
[2016-10-08] MEDS ORDERED: D5 1/2NS 1000ml IV ONE (19:04)
[2016-10-08] MEDS ORDERED: 1/2 NS 1000ml IV ONE (19:04)
--- NOTE | 2016-10-08 22:32 | General Progress Note ---
Assessment/Plan Assessment/Plan Assessment - abd pain - recurrent - lactic acidosis - abnormal LFT - ? ischemic injury - N/Vm - recurrent - h/o SOD related recurrent pancreatitis, s/p sphincterotomy Recommendations -Monitor lab / exam - patient declines the recommended next step (MRI) - accepts risks Subjective Allergies: Coded Allergies: PENICILLINS (Verified Allergy, Severe, 03/10/14) SKIN RASH AMOXICILLIN (Verified Allergy, Mild, 03/09/14) ERYTHROMYCIN BASE (Verified Allergy, Mild, 03/09/14) Subjective seen early am today declined MRI says symptoms are gone understands risks of refusal, including ischemic bowel and Objective Last 24 Hour Vital Signs Date Time Temp Pulse Resp B/P Pulse Ox O2 Delivery O2 Flow Rate FiO2 10/08/16 16:00 97.6 63 20 114/50 97 Room Air 10/08/16 16:00 63 10/08/16 11:36 61 10/08/16 11:28 97.9 66 18 108/56 94 Room Air 10/08/16 09:13 119/56 10/08/16 09:09 75 119/56 10/08/16 09:08 75 119/56 10/08/16 09:00 119/56 10/08/16 08:17 64 10/08/16 08:00 97.7 75 18 119/56 96 Room Air 10/08/16 04:11 98.3 65 19 111/51 98 Room Air 10/08/16 04:00 60 10/08/16 00:00 98.7 84 18 91/54 97 Room Air 10/08/16 00:00 74 10/07/16 22:34 152/59 Intake and Output 10/07/16 10/08/16 19:00 07:00 Intake Total 120 ml 300 ml Balance 120 ml 300 ml Intake Oral 120 ml 300 ml # Voids 2 8 # Bowel Movements 2 Laboratory Tests 10/08/16 05:25: White Blood Count 9.6, Red Blood Count 3.11L, Hemoglobin 9.3L, Hematocrit 30.0L , Mean Corpuscular Volume 96, Mean Corpuscular Hemoglobin 29.8, Mean Corpuscular Hemoglobin Concent 30.9L, Red Cell Distribution Width 14.9H, Platelet Count 290, Mean Platelet Volume 6.2L, Neutrophils (%) (Auto) 54.2, Lymphocytes (%) (Auto) 29.9, Monocytes (%) (Auto) 11.7H, Eosinophils (%) (Auto) 2.8, Basophils (%) (Auto) 1.4, Sodium Level 139, Potassium Level 4.0, Chloride Level 104, Carbon Dioxide Level 23, Anion Gap 12, Blood Urea Nitrogen 24H, Creatinine 2.2H, Estimat Glomerular Filtration Rate , Glucose Level 58L, Calcium Level 8.6 Height (Feet): 5 Height (Inches): 5.00 Weight (Pounds): 200 Objective WDWN NCAT Supple CTA RRR Soft obese (+) minimal epigastric TTP No edema non focal KIKI AGUSTIN Oct 08, 2016 22:32
--- NOTE | 2016-10-09 03:09 | Progress Note ---
DATE: 10/08/2016 CARDIOLOGY PROGRESS NOTE SUBJECTIVE: The patient has no chest pain. No shortness of breath. Abdominal pain has improved and nearly resolved. She is also tolerating a diet. OBJECTIVE: VITAL SIGNS: Blood pressure 119/56, pulse 75, respiration 18, afebrile. HEENT: Oropharynx is clear. NECK: Supple. LUNGS: Clear. CARDIAC: Regular rhythm and rate. Normal S1 and S2 with a fourth heart sound. ABDOMEN: Soft, but distended with mild tenderness in the mid epigastric region. EXTREMITIES: With trace edema. LABORATORY AND DIAGNOSTIC STUDIES: 9.6 hemoglobin 9.3. Potassium 4, BUN 24, creatinine 2.2. IMPRESSION: 1. Stable angina. 2. Chronic pancreatitis . 3. Chronic kidney disease, at baseline. 4. Renal parameters, presently. 5. Hypertensive heart disease with controlled blood pressure. 6. Diastolic dysfunction with acute and chronic congestive heart failure, clinically compensated. 7. Paroxysmal atrial ectopy with no signs of atrial fibrillation at this time. PLAN: Dual anti-platelet therapy. Maintain current cardiovascular regimen. Outpatient cardiovascular followup in place. Amando Blanco M.D. DR: MALLORY JOB#: [id number] CC:
--- NOTE | 2016-10-09 04:59 | Discharge Summary ---
DATE OF ADMISSION: 10/01/2016 DATE OF DISCHARGE: 10/08/2016 PERTINENT HISTORY: The patient is a 76-year-old lady with a long history of insulin-dependent diabetes, hypertension, coronary artery disease, obesity, gastritis, pancreatitis on multiple ERCPs, chronic pain syndrome, and osteoarthritis. She presented with abdominal pain and severe hypertension. PERTINENT PHYSICAL FINDINGS: GENERAL: She is alert and ill appearing. NECK: No adenopathy. LUNGS: Clear. HEART: Regular rhythm. ABDOMEN: Mild tenderness throughout no rebound or guarding. EXTREMITIES: No edema. COURSE IN THE HOSPITAL: On admission, she had a white count of 16,000 and troponin was negative. She had an elevated BNP. She has abdominal pain. She is given symptomatic care and had imaging including abdominal pelvic CT and ultrasound, which revealed no acute abnormality, but chronic changes. The patient had intermittent diarrhea and has a history of prior constipation. She had blood cultures that were positive, but were contaminated with coag-negative Staph. She had acute kidney injury, which resolved with hydration. Her diabetes was poorly controlled and the control was improved with a hospital care and adjustment of her insulin. On the day of discharge, her vital signs are stable. Lungs were clear. Heart, regular rhythm. Abdomen is soft and nontender. Extremities show trace edema. She had a healing stage I sore on the left leg with a chronic scar. She is alert and ambulatory and was able to tolerate a diet. She had no nausea, vomiting, and was discharged home in stable condition. FINAL DIAGNOSES: 1. Abdominal pain, multifactorial secondary to gastritis, diabetic enteropathy, chronic pancreatitis, chronic opiate use, and irritable bowel syndrome. 2. Insulin-dependent diabetes with hyperglycemia. 3. Diabetic nephropathy. 4. Chronic kidney disease, stage IV. 5. Dehydration. 6. Hypertensive urgency. 7. Anemia of chronic disease. 8. Chronic pain syndrome. 9. Osteoarthritis. 10. History of cerebrovascular accident. 11. History of coronary disease with multiple angioplasties and stents. 12. History of peripheral vascular disease. 13. Healing sore, left leg. DISCHARGE DISPOSITION: She is discharged on a diabetic low-salt diet. DISCHARGE MEDICATIONS: Per the discharge medication list. She will follow up in the office with Dr. Acuña and consultants as needed. Pa Acuña M.D. DR: HARIS JOB#: [id number] CC:
--- NOTE | 2016-10-09 14:58 | Cardiology Report ---
APPROVED REPORT EKG Measurement Heart [id number] [place] [id number] Sinus rhythm with marked sinus arrhythmia Possible Left atrial enlargement Nonspecific ST and T wave abnormality Abnormal ECG
== END 2016-10-08 19:05 | disposition home or self-care (01) | DRG 391 ==
LOC: EDBD 13:56 → EMR 14:25 → 2E 14:53 → EDBEDREQ 14:54 → 2E 19:03
PROC: 0DB68ZX Excision of Stomach, Via Natural or Artificial Opening Endoscopic, Diagnostic (ICD-10-PCS; principal; 2016-10-04 10:30)
DX: R10.9 Unspecified abdominal pain (principal); J18.9 Pneumonia, unspecified organism; E43 Unspecified severe protein-calorie malnutrition; I50.33 Acute on chronic diastolic (congestive) heart failure; K55.1 Chronic vascular disorders of intestine; N18.4 Chronic kidney disease, stage 4 (severe); N17.9 Acute kidney failure, unspecified; E10.21 Type 1 diabetes mellitus with diabetic nephropathy; I13.0 Hypertensive heart and chronic kidney disease with heart failure and stage 1 through stage 4 chronic kidney disease, or unspecified chronic kidney disease; K86.1 Other chronic pancreatitis; I16.0 Hypertensive urgency; E10.65 Type 1 diabetes mellitus with hyperglycemia; K31.84 Gastroparesis; I48.0 Paroxysmal atrial fibrillation; E87.6 Hypokalemia; Z68.33 Body mass index [BMI] 33.0-33.9, adult; Z88.1 Allergy status to other antibiotic agents; Z88.0 Allergy status to penicillin; I25.5 Ischemic cardiomyopathy; Z79.4 Long term (current) use of insulin; K29.70 Gastritis, unspecified, without bleeding; K58.9 Irritable bowel syndrome, unspecified; E86.0 Dehydration; D63.8 Anemia in other chronic diseases classified elsewhere; G89.4 Chronic pain syndrome; M19.90 Unspecified osteoarthritis, unspecified site; Z86.73 Personal history of transient ischemic attack (TIA), and cerebral infarction without residual deficits; Z95.5 Presence of coronary angioplasty implant and graft; I73.9 Peripheral vascular disease, unspecified; E78.5 Hyperlipidemia, unspecified; I25.2 Old myocardial infarction; I49.1 Atrial premature depolarization; I49.3 Ventricular premature depolarization; E10.43 Type 1 diabetes mellitus with diabetic autonomic (poly)neuropathy; E10.42 Type 1 diabetes mellitus with diabetic polyneuropathy; I25.118 Atherosclerotic heart disease of native coronary artery with other forms of angina pectoris
CPT/HCPCS: 36415; 36600; 71010; 74000; 74176; 76705; 80048; 80053; 80061; 80202; 81003; 82044; 82550; 82553; 82570; 82803; 82962; 83605; 83690; 83735; 83880; 84165; 84300; 84484; 85007; 85025; 85610; 85730; 87040; 87070; 87086; 87181; 87205; 93005; 94003; 94150; 94760; J1815; J2405; S5561

== ENCOUNTER 2018-05-15 16:35 | Inpatient (IN) | payer MEDICARE, OTHER ==
[~2018-05-15] VITALS: Ht 160 cm; Wt 85.1 kg
[~2018-05-15 16:35] MED LIST changes: +AMBIEN5 MG ORAL; +CALCITRIOL0.5 MCG PO; +CARAFATE1 GM/10 M1 ORAL; +CLONIDINE 0.2M0.2 MG ORAL; +DILAUDID4 MG ORAL; +FAMOTIDINE20 MG ORAL; +LANTUS SOL100 UNIT/1 SUBQ; +LASIX80 MG ORAL; +LISINOPRIL40 MG ORAL; +LORATADINE10 M2 PO; +LORAZEPAM0.5 MG ORAL; +PLAVIX75 MG GT; -PLAVIX75 MG ORAL; +ROCALTROL0.5 MCG ORAL
[2018-05-15] MEDS ORDERED: Pantoprazole Inj IVP ONE (16:45)
--- NOTE | 2018-05-15 16:51 | Emergency Room Report ---
History of Present Illness General Chief Complaint: Altered Level of Consciousness Source: Medical Record Present Illness HPI 77-year-old female, coming from snf, has an extensive history such as CHF, CAD with 6 stents, failure to thrive, PEG tube recently placed on Saturday , bedbound, nonverbal for the last 3 months, presenting with hyperglycemia. Daughter says that she came to the snf, patient was less active than her normal, they checked her glucose and it was 600. States that they gave 12 units of insulin but when he retracted it was still high. Patient is currently nonverbal at this time, the daughter says that only sometimes will she say words , she does not answer yes or no questions, and currently says her she is at her baseline right now. She had a recent admission to [facility], at that time they did CT and MRI as patient was not eating, he said no acute stroke, PEG tube was placed due to patient not being able to eat. Patient is full code Daughter also says that she had one episode of coffee-ground emesis at the snf, had a recently placed PEG tube on Saturday, is on aspirin and Plavix Allergies: Coded Allergies: PENICILLINS (Verified Allergy, Severe, 03/10/14) SKIN RASH AMOXICILLIN (Verified Allergy, Mild, 03/09/14) ERYTHROMYCIN BASE (Verified Allergy, Mild, 03/09/14) Uncoded Allergies: ERYTHROMYCIN (Allergy, Unknown, 05/15/18) PENICILLIN (Allergy, Unknown, 05/15/18) ZITHROMYCIN (Allergy, Unknown, 05/15/18) Patient History Past Medical History: see triage record Past Surgical History: none Pertinent Family History: none Reviewed Nursing Documentation: PMH: Agreed; PSxH: Agreed Nursing Documentation-PM Past Medical History: No History, Except For Hx Hypertension: Yes Hx Diabetes: Yes Hx Cancer: No Hx Gastrointestinal Problems: Yes Hx Neurological Problems: Yes Hx Cerebrovascular Accident: Yes - 2003 Review of Systems All Other Systems: limited - nonverbal Physical Exam Vital Signs Date Time Temp Pulse Resp B/P (MAP) Pulse Ox O2 Delivery O2 Flow Rate FiO2 05/15/18 16:35 66 18 100/47 99 Room Air Sp02 EP Interpretation: reviewed, normal General Appearance: mild distress, other - Chronically ill-appearing elderly woman, nonverbal, appears slightly short of breath Head: normocephalic, atraumatic Eyes: bilateral eye normal inspection, bilateral eye PERRL, bilateral eye EOMI ENT: other - Tongue is out, abnormal facial droop which daughter says is normal , no angioedema Neck: normal inspection, full range of motion, supple Respiratory: normal inspection, lungs clear, normal breath sounds, no respiratory distress, no retraction, no wheezing, speaking full sentences, chest symmetrical Cardiovascular #1: normal inspection, regular rate, rhythm, no edema, normal capillary refill Cardiovascular #2: 2+ radial (R), 2+ radial (L) Gastrointestinal: other - PEG tube in place, no guarding no rigidity, no grimace to deep palpation Musculoskeletal: normal inspection, back normal, normal range of motion, non- tender Neurologic: other - Nonverbal but moving all four ext spontaneously Skin: normal inspection, normal color, no rash, warm/dry, well hydrated, normal turgor Procedures Critical Care Time Critical Care Time 45-50 minutes of CC time 77-year-old female, found to be in DKA, requiring very close cardiac point monitoring excludes all billable procedures CC time also includes review of labs, review of EMR, discussion with family and paperwork from SNF, d/w hospitalist CC could include dosing of pressors, additional Abx CC time does not include procedures Medical Decision Making Diagnostic Impression: Primary Impression: DKA (diabetic ketoacidoses) Additional Impressions: Hyperkalemia Renal failure Altered mental status Elevated troponin ER Course 77-year-old female with altered mental status, found to be hyperglycemic DDX: Dehydration allegedly disturbance rule out DKA infection, UTI, pneumonia, ACS, intracranial Plan: Obtain labs, ua, EKG, CXR CT head ER course: Patient has been monitored during ED stay calcium given for hyperK +DKA, started on insulin drip Disposition: Patient is to be admitted to ICU D/W hospitalist Dr Acuña Please note that this Emergency Department Report was dictated using [employer] telemetry technology software, occasionally this can lead to erroneous entry secondary to interpretation by the dictation equipment. EKG Diagnostic Results EP Interpretation: Yes Rate: normal Rhythm: NSR ST Segments: T-wave inversion and ST depression 1 and aVL ASA given to patient: No Rhythm Strip EP Interpretation: Yes Rate: 71 Rhythm: NSR, no PVCs, no ectopy Chest X-ray CXR: Ordered: Yes 1 view Indication: Shortness of breath EP interpretation: Yes Interpretation: cardiomegaly with mild pvc Impression: cardiomegaly with mild pvc Electronically signed by Pillo Gregorio MD Laboratory Tests Test 05/15/18 16:40 05/15/18 16:55 05/15/18 18:30 White Blood Count 13.7 K/UL (4.8-10.8) H Red Blood Count 3.08 M/UL (4.20-5.40) L Hemoglobin 9.6 G/DL (12.0-16.0) L Hematocrit 31.9 % (37.0-47.0) L Mean Corpuscular Volume 104 FL (80-99) H Mean Corpuscular Hemoglobin 31.1 PG (27.0-31.0) H Mean Corpuscular Hemoglobin Concent 30.0 G/DL (32.0-36.0) L Red Cell Distribution Width 19.3 % (11.6-14.8) H Platelet Count 284 K/UL (150-450) Mean Platelet Volume 6.5 FL (6.5-10.1) Neutrophils (%) (Auto) 93.3 % (45.0-75.0) H Lymphocytes (%) (Auto) 3.5 % (20.0-45.0) L Monocytes (%) (Auto) 3.0 % (1.0-10.0) Eosinophils (%) (Auto) 0.1 % (0.0-3.0) Basophils (%) (Auto) 0.2 % (0.0-2.0) Prothrombin Time 11.6 SEC (9.30-11.50) H Prothrombin Time INR 1.1 (0.9-1.1) PTT 35 SEC (23-33) H Sodium Level 130 MMOL/L (136-145) L Potassium Level 5.7 MMOL/L (3.5-5.1) H Chloride Level 98 MMOL/L (98-107) Carbon Dioxide Level 18 MMOL/L (21-32) L Anion Gap 14 mmol/L (5-15) Blood Urea Nitrogen 47 mg/dL (7-18) H Creatinine 2.8 MG/DL (0.55-1.30) H Estimate Glomerular Filtration Rate mL/min (>60) Glucose Level 727 MG/DL (74-106) *H Lactic Acid Level 3.40 mmol/L (0.4-2.0) H Calcium Level 9.4 MG/DL (8.5-10.1) Magnesium Level 3.7 MG/DL (1.8-2.4) H Total Bilirubin 0.7 MG/DL (0.2-1.0) Aspartate Amino Transferase (AST) 33 U/L (15-37) Alanine Aminotransferase (ALT) 8 U/L (12-78) L Alkaline Phosphatase 214 U/L (46-116) H Troponin I 0.262 ng/mL (0.000-0.056) Pro-B-Type Natriuretic Peptide 7754 pg/mL (0-125) H Total Protein 7.4 G/DL (6.4-8.2) Albumin 1.3 G/DL (3.4-5.0) L Globulin 6.1 g/dL Albumin/Globulin Ratio 0.2 (1.0-2.7) L Acetone Level Positive-moderate (NEGATIVE) Venous Blood pH Pending Venous Blood Partial Pressure CO2 Pending Venous Blood Partial Pressure O2 Pending Venous Blood HCO3 Pending Venous Blood Total Carbon Dioxide Pending Venous Bld O2 Saturation (Measured) Venous Blood Oxygen Saturation Pending Venous Blood Base Excess Pending Methemoglobin Pending Sodium (Blood Gas) Pending Urine Color Yellow Urine Appearance Cloudy Urine pH 5 (4.5-8.0) Urine Specific [place] 1.015 (1.005-1.035) Urine Protein 3+ (NEGATIVE) H Urine Glucose (UA) 4+ (NEGATIVE) H Urine Ketones 1+ (NEGATIVE) H Urine Blood Negative (NEGATIVE) Urine Nitrite Negative (NEGATIVE) Urine Bilirubin Negative (NEGATIVE) Urine Urobilinogen Normal MG/DL (0.0-1.0) Urine Leukocyte Esterase 1+ (NEGATIVE) H Urine RBC 0-2 /HPF (0 - 2) Urine WBC 0-2 /HPF (0 - 2) Urine Squamous Epithelial Cells None /LPF (NONE/OCC) Urine Bacteria Few /HPF (NONE) CT/MRI/US Diagnostic Results CT/MRI/US Diagnostic Results : Imaging Test Ordered: ct head Impression CT HEAD Without Contrast: 10 mm hypodensity in the region of the head of the caudate on the right which is likely related to a small lacunar infarct the age of which is indeterminant. If indicated, MRI can be performed for further evaluation if the patient can tolerate MRI. No evidence for acute intracranial hemorrhage. No evidence for significant mass effect or midline shift. Cerebral atrophy with small vessel ischemic changes. Area of encephalomalacia in the right occipital lobe. Soft tissue swelling in the left frontal region. Areas of mucosal thickening in the paranasal sinuses. Opacification of the mastoid air cells bilaterally. Last Vital Signs Date Time Temp Pulse Resp B/P (MAP) Pulse Ox O2 Delivery O2 Flow Rate FiO2 05/15/18 16:35 66 18 100/47 99 Room Air Disposition: ADMITTED INPATIENT Condition: Critical Pillo Gregorio M.D. May 15, 2018 16:51
[2018-05-15 17:21] LABS: HEMATOCRIT 31.9 % (37.0-47.0); HEMOGLOBIN 9.6 G/DL (12.0-16.0); MEAN CORPUSCULAR VOLUME 104 FL (80-99); PLATELET COUNT 284 K/UL (150-450); RED BLOOD COUNT 3.08 M/UL (4.20-5.40); RED CELL DISTRIBUTION WIDTH 19.3 % (11.6-14.8); WHITE BLOOD COUNT 13.7 K/UL (4.8-10.8)
[2018-05-15 17:31] LABS: BASOPHILS % (AUTO) 0.2 % (0.0-2.0); EOSINOPHILS % (AUTO) 0.1 % (0.0-3.0); INR 1.1 (0.9-1.1); LYMPHOCYTES % (AUTO) 3.5 % (20.0-45.0); NEUTROPHILS % (AUTO) 93.3 % (45.0-75.0)
[2018-05-15 18:04] LABS: ALANINE AMINOTRANSFERASE 8 U/L (12-78); ALBUMIN 1.3 G/DL (3.4-5.0); ALBUMIN/GLOBULIN RATIO 0.2 (1.0-2.7); ALKALINE PHOSPHATASE 214 U/L (46-116); ANION GAP 14 mmol/L (5-15); ASPARTATE AMINO TRANSFERASE 33 U/L (15-37); BILIRUBIN,TOTAL 0.7 MG/DL (0.2-1.0); BLOOD UREA NITROGEN 47 mg/dL (7-18); CALCIUM 9.4 MG/DL (8.5-10.1); CARBON DIOXIDE 18 MMOL/L (21-32); CHLORIDE 98 MMOL/L (98-107); CREATININE 2.8 MG/DL (0.55-1.30); POTASSIUM 5.7 MMOL/L (3.5-5.1); SODIUM 130 MMOL/L (136-145)
[2018-05-15 18:33] VITALS: BP 126/44
[2018-05-15] MEDS ORDERED: Calcium Gluconate 1gm/10ml vial IVP ONE (18:45)
[2018-05-15 18:51] LABS: APPEARANCE,URINE CLOUDY; BILIRUBIN, URINE NEGATIVE (NEGATIVE); GLUCOSE, URINE (UA) 4+ (NEGATIVE); KETONES,URINE 1+ (NEGATIVE); LEUKOCYTE ESTERASE ,URINE 1+ (NEGATIVE); NITRITE,URINE NEGATIVE (NEGATIVE); PH,URINE 5 (4.5-8.0); PROTEIN,URINE 3+ (NEGATIVE); UROBILINOGEN,URINE NORMAL MG/DL (0.0-1.0)
[2018-05-15 18:54] LABS: COLOR,URINE YELLOW
[2018-05-15] MEDS ORDERED: VITAMIN C500 M1 GT (19:15)
[2018-05-15] MEDS ORDERED: AMLODIPINE BESYL5 MG GT (19:15)
[2018-05-15] MEDS ORDERED: COREG6.25 MG GT (19:15)
[2018-05-15] MEDS ORDERED: EPOGEN10000 UNIT SUBQ (19:17)
[2018-05-15] MEDS ORDERED: DOCUSATE SODIU250 MG GT (19:17)
[2018-05-15] MEDS ORDERED: HYDRALAZINE HCL50 MG ORAL (19:18)
[2018-05-15] MEDS ORDERED: ISOSORBIDE MONO30 M1 PO (19:18)
[2018-05-15] MEDS ORDERED: LANTUS SOL100 UNIT/1 SUBQ (19:18)
[2018-05-15] MEDS ORDERED: HUMALOG100 UNIT/4 SUBQ ×2 (19:18→19:45)
[2018-05-15] MEDS ORDERED: MAG-OX 400400 MG GT (19:20)
[2018-05-15] MEDS ORDERED: CRESTOR20 MG GT (19:20)
[2018-05-15] MEDS ORDERED: METOCLOPRA10 MG/10 M ORAL (19:20)
[2018-05-15] MEDS ORDERED: NITROSTAT0.4 M1 SL (19:45)
[2018-05-15] MEDS ORDERED: ZOFRAN4 M3 GT (19:45)
[2018-05-15] MEDS ORDERED: ACETAMINOPHEN325 M1 ORAL (19:45)
[2018-05-15] MEDS ORDERED: DOCUSATE S50 MG/5 ML GT (19:45)
[2018-05-15] MEDS ORDERED: REGLAN10 MG ORAL (19:45)
[2018-05-15] MEDS ORDERED: CATAPRES-TTS 11 EACH TDERMAL (19:45)
[2018-05-15] MEDS ORDERED: HUMALOG100 UNIT/3 SUBQ (19:45)
[2018-05-15] MEDS ORDERED: GLUCAGEN1 MG IJ (19:45)
[2018-05-15] MEDS ORDERED: POLYETHYLENE GL17 GM ORAL (19:45)
[2018-05-15 20:18] VITALS: BP 94/36
[2018-05-15 21:00] VITALS: BP 112/35
[2018-05-15] MEDS: D5 1/2NS 1,000 ML IV SCH (21:45)
[2018-05-15 22:00] VITALS: BP 93/35
[2018-05-15] MEDS ORDERED: Cefepime HCl 1 GM in D5W 55 ML IVPB SCH (22:00)
[2018-05-15] MEDS: NovoLOG Insulin Flexpen SUBQ SCH (22:16)
--- NOTE | 2018-05-15 22:45 | History and Physical Report ---
DATE OF ADMISSION: 05/15/2018 CHIEF COMPLAINT AND REASON FOR HOSPITALIZATION: The patient admitted with uncontrolled diabetes, possible diabetic ketoacidosis and multiple medical problems. HISTORY OF PRESENT ILLNESS: The patient is well known to me with progressive dementia, labile insulin-dependent diabetes, diabetic retinopathy, coronary artery disease, history of CVAs, and progressive dementia. She was at [facility] 04/28/2018 through 05/13/2018 and after detailed discussion, she had a gastrostomy placed. 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 The patient went to the long-term, but today developed emesis and possible hematemesis and came to the emergency room. She had a glucose of 727 and some acidosis and likely ketoacidosis on top of renal acidosis. She is admitted to the hospital. I discussed multiple times with family Code Status and her daughter, Laxmi would prefer DNR with 2 of her siblings have not yet agreed to DNR. However, I have discussed hospice also with Laxmi. ALLERGIES: Questionable allergies to erythromycin, penicillin and Zithromax with these maybe mild intolerance. PAST SURGICAL HISTORY: Prior surgeries, bilateral total knees, multiple ERCP's and stenting and removal of stents, multiple PTCA's for coronary artery disease, and eye surgery for diabetic retinopathy. REVIEW OF SYSTEMS: The patient is unable taken for many years, caring for her. HEAD, EYES, EARS, NOSE, AND THROAT: She has diabetic retinopathy with stable vision. She has moderate to severe hearing loss. ENDOCRINE: History of obesity and diabetes. No thyroid disease. PULMONARY: History of COPD and prior smoking and prior bronchospasm. No known TB. CARDIAC: History of multiple MIs, multiple PTCAs, I believe most all to the right coronary. She had diastolic CHF and severe hypertension. GASTROINTESTINAL: History of gastritis and prior pancreatitis. No pancreatitis for many years. GENITOURINARY: She has had recurrent UTIs and neurogenic bladder and proteinuria. NEUROLOGIC: History of CVA's, history of progressive dementia. PSYCHIATRIC: History of delirium and agitated behavior. MUSCULOSKELETAL: History of osteoarthritis and back pain. VASCULAR: History of peripheral vascular disease. PHYSICAL EXAMINATION: GENERAL: The patient seen in the emergency department. VITAL SIGNS: Temperature 98.3 degrees, pulse 78, respirations 18, and blood pressure 126/44, and pulse oximetry 99%. HEAD, EYES, EARS, NOSE, AND THROAT: Sclerae are nonicteric. Ocular motions intact in all directions. Oral mucosa slightly dry. NECK: No adenopathy. LUNGS: She is using abdominal muscles respirations, is tachypneic. No rales or rhonchi. HEART: Rhythm is regular and tachycardic. No murmur. ABDOMEN: Soft without organomegaly or masses. NG tube is in place. EXTREMITIES: No edema, cyanosis or clubbing. SKIN: Shows a stage III sacral and also heel irritation on the left. NEUROLOGIC: She opens her eyes, looks above, but is disoriented and babbles a few words. She moves all extremities. PERTINENT LABORATORY AND DIAGNOSTIC DATA: Sodium 138, potassium 5.7, chloride 98, CO2 18, BUN 47, creatinine 2.8, and glucose . White count 13.7 and hemoglobin 9.6. IMPRESSION: 1. Diabetic ketoacidosis. 2. History of dysphagia, G tube feedings. 3. History of hematemesis x1. 4. History of gastritis. 5. Insulin-dependent diabetes with diabetic retinopathy, neuropathy and nephropathy. 6. CKD 4. 7. Anemia of chronic kidney disease. 8. Severe dementia. PLAN: The patient will be hydrated, insulin management. We will watch her closely in view of her multiple comorbidities. Further discussions regarding Code Status ongoing. Pa Acuña M.D. DR: LOVE JOB#: [id number] CC:
[2018-05-15 23:00] VITALS: BP 113/37
[2018-05-16] VITALS (57 sets, daily range): BP systolic 52–141; BP diastolic 26–73
[2018-05-16] MEDS: NovoLOG Insulin Flexpen SUBQ SCH ×7 (01:22→21:11)
[2018-05-16] MEDS: Sucralfate 1gm tab GT SCH ×4 (01:29→17:48)
[2018-05-16] MEDS ORDERED: Sodium Bicarbonate 50ml Carp ONE (04:00)
[2018-05-16] MEDS ORDERED: Atropine Inj 1mg/10ml Syr ONE (04:00)
--- NOTE | 2018-05-16 05:00 | Emergency Room Report ---
History of Present Illness General Chief Complaint: Altered Level of Consciousness Source: Medical Record Present Illness Allergies: Coded Allergies: PENICILLINS (Verified Allergy, Severe, 03/10/14) SKIN RASH AMOXICILLIN (Verified Allergy, Mild, 03/09/14) ERYTHROMYCIN BASE (Verified Allergy, Mild, 03/09/14) Uncoded Allergies: ERYTHROMYCIN (Allergy, Unknown, 05/15/18) PENICILLIN (Allergy, Unknown, 05/15/18) ZITHROMYCIN (Allergy, Unknown, 05/15/18) Patient History Now: No Nursing Documentation-[facility] Past Medical History: No History, Except For Hx Cardiac Problems: Yes Hx Hypertension: Yes Hx COPD: Yes Hx Diabetes: Yes Hx Cancer: No Hx Gastrointestinal Problems: Yes - gastritis,nasopharyngeal mass Hx Neurological Problems: Yes Hx Cerebrovascular Accident: Yes Hx Dementia: Yes Physical Exam Vital Signs Date Time Temp Pulse Resp B/P (MAP) Pulse Ox O2 Delivery O2 Flow Rate FiO2 05/15/18 16:35 66 18 100/47 99 Room Air 05/15/18 18:33 15.0 05/15/18 21:40 28 Procedures Intubation Intubation : Consent: Emergent Time of Intubation: 04:40 Tube Size (cm): 7.0 Breath Sounds after Intubation: equal Intubation Complications: no complications Post Intubation Xray: Yes Attempts: Other - two Patient Tolerated: Well Complications: None Medical Decision Making Diagnostic Impression: Primary Impression: DKA (diabetic ketoacidoses) Additional Impressions: Renal failure Elevated troponin Altered mental status Hyperkalemia ER Course Patient was noted to have have bradycardic arrest. Patient was noted to be apneic. She had a recent admission for diabetic ketoacidosis. The patient was given IV bicarbonate and other medications as per code sheet. The patient was intubated for airway protection. The patient was noted to have return of spontaneous circulation. The patient was intubated without medications after direct laryngoscopy 2.Patient is noted to have adequate blood pressure. Last Vital Signs Date Time Temp Pulse Resp B/P (MAP) Pulse Ox O2 Delivery O2 Flow Rate FiO2 05/16/18 04:00 Nasal Cannula 3.0 05/16/18 02:00 88 30 97/34 (55) 93 05/16/18 00:00 95.0 95.0 05/15/18 21:40 28 Disposition: ADMITTED INPATIENT Condition: Critical Referrals: EZEQUIEL BAÑUELOS (PCP) Francisco Barfield MD May 16, 2018 05:00
[2018-05-16] MEDS ORDERED: Lidocaine 1% Plain 30 ml INJ ONE ×2 (05:14→05:15)
[2018-05-16] MEDS ORDERED: DOPamine 400mg/250ml 250 ML IV SCH (05:15)
--- NOTE | 2018-05-16 05:43 | Emergency Room Report ---
History of Present Illness General Chief Complaint: Altered Level of Consciousness Source: Medical Record Present Illness Allergies: Coded Allergies: PENICILLINS (Verified Allergy, Severe, 03/10/14) SKIN RASH AMOXICILLIN (Verified Allergy, Mild, 03/09/14) ERYTHROMYCIN BASE (Verified Allergy, Mild, 03/09/14) Uncoded Allergies: ERYTHROMYCIN (Allergy, Unknown, 05/15/18) PENICILLIN (Allergy, Unknown, 05/15/18) ZITHROMYCIN (Allergy, Unknown, 05/15/18) Patient History Now: No Nursing Documentation-[facility] Past Medical History: No History, Except For Hx Cardiac Problems: Yes Hx Hypertension: Yes Hx COPD: Yes Hx Diabetes: Yes Hx Cancer: No Hx Gastrointestinal Problems: Yes - gastritis,nasopharyngeal mass Hx Neurological Problems: Yes Hx Cerebrovascular Accident: Yes Hx Dementia: Yes Physical Exam Vital Signs Date Time Temp Pulse Resp B/P (MAP) Pulse Ox O2 Delivery O2 Flow Rate FiO2 05/15/18 16:35 66 18 100/47 99 Room Air 05/15/18 18:33 15.0 05/15/18 21:40 28 Procedures Central Line Central Line : Consent: Emergent Central Line Lumen: triple Maximal Sterile Barrier Tech: yes cap, yes mask, yes sterile gown, yes sterile gloves, yes large sterile sheet, yes hand hygiene, yes chlorhexidine prep No Max Barrier Tech Because: emergency insertion Central Line Postion: internal jugular (L) Anesthesia: local cc's of anesthesia: 3 Complications: none Central Line Post Position: sutured, good blood return, position confirmed w / CXR Attempts: One Patient Tolerated: Well Complications: None Medical Decision Making Diagnostic Impression: Primary Impression: DKA (diabetic ketoacidoses) Additional Impressions: Renal failure Elevated troponin Altered mental status Hyperkalemia Last Vital Signs Date Time Temp Pulse Resp B/P (MAP) Pulse Ox O2 Delivery O2 Flow Rate FiO2 05/16/18 04:54 111 20 100 05/16/18 04:00 Nasal Cannula 3.0 05/16/18 02:00 97/34 (55) 93 05/16/18 00:00 95.0 95.0 Disposition: ADMITTED INPATIENT Condition: Critical Referrals: EZEQUIEL BAÑUELOS (PCP) Francisco Barfield MD May 16, 2018 05:43
[2018-05-16] MEDS: D5 1/2NS 1,000 ML IV SCH ×3 (05:45→21:23)
[2018-05-16] MEDS: HydrALAZINE 50mg tab ORAL SCH ×2 (06:00)
[2018-05-16 06:45] LABS: HEMOGLOBIN 7.4 G/DL (12.0-16.0); MEAN CORPUSCULAR VOLUME 96 FL (80-99); PLATELET COUNT 233 K/UL (150-450); RED CELL DISTRIBUTION WIDTH 18.5 % (11.6-14.8); WHITE BLOOD COUNT 8.2 K/UL (4.8-10.8)
[2018-05-16 06:49] LABS: ANION GAP 9 mmol/L (5-15); BLOOD UREA NITROGEN 46 mg/dL (7-18); CALCIUM 8.8 MG/DL (8.5-10.1); CARBON DIOXIDE 23 MMOL/L (21-32); CHLORIDE 106 MMOL/L (98-107); CREATININE 2.8 MG/DL (0.55-1.30); POTASSIUM 4.1 MMOL/L (3.5-5.1); SODIUM 138 MMOL/L (136-145)
[2018-05-16 07:05] LABS: ALANINE AMINOTRANSFERASE 10 U/L (12-78); ALBUMIN 0.9 G/DL (3.4-5.0); ALBUMIN/GLOBULIN RATIO 0.2 (1.0-2.7); ALKALINE PHOSPHATASE 143 U/L (46-116); ASPARTATE AMINO TRANSFERASE 16 U/L (15-37); BILIRUBIN,TOTAL 0.2 MG/DL (0.2-1.0)
[2018-05-16] MEDS ORDERED: Lidocaine 1% MPF 10mg/ml 5ml INJ ONE (08:45)
--- NOTE | 2018-05-16 09:29 | General Progress Note ---
Assessment/Plan Problem List: (1) Respiratory failure ICD Codes: J96.90 - Respiratory failure, unspecified, unspecified whether with hypoxia or hypercapnia SNOMED: 901327768 (2) Hypotension ICD Codes: I95.9 - Hypotension, unspecified SNOMED: 41089060 (3) GI bleed ICD Codes: K92.2 - Gastrointestinal hemorrhage, unspecified SNOMED: 64460929 (4) DKA (diabetic ketoacidoses) ICD Codes: E13.10 - Other specified diabetes mellitus with ketoacidosis without coma SNOMED: 098697257, 63282832 (5) CKD (chronic kidney disease) stage 4, GFR 15-29 ml/min ICD Codes: N18.4 - Chronic kidney disease, stage 4 (severe) SNOMED: 833235466 (6) Hyperkalemia ICD Codes: E87.5 - Hyperkalemia SNOMED: 12222851, 03125956 (7) Altered mental status ICD Codes: R41.82 - Altered mental status, unspecified SNOMED: 448122039 (8) Elevated troponin ICD Codes: R74.8 - Abnormal levels of other serum enzymes SNOMED: 490275923, 960165638, 032150150 Assessment/Plan icu care, 40 min now intubated, adjust meds, insulin, fluid bolus, Subjective ROS Limited/Unobtainable: Yes Allergies: Coded Allergies: PENICILLINS (Verified Allergy, Severe, 03/10/14) SKIN RASH AMOXICILLIN (Verified Allergy, Mild, 03/09/14) ERYTHROMYCIN BASE (Verified Allergy, Mild, 03/09/14) Uncoded Allergies: ERYTHROMYCIN (Allergy, Unknown, 05/15/18) PENICILLIN (Allergy, Unknown, 05/15/18) ZITHROMYCIN (Allergy, Unknown, 05/15/18) Objective Last 24 Hour Vital Signs Date Time Temp Pulse Resp B/P (MAP) Pulse Ox O2 Delivery O2 Flow Rate FiO2 05/16/18 07:29 83 16 100 05/16/18 07:00 114/39 05/16/18 07:00 97.0 85 16 114/39 (64) 100 97.0 05/16/18 06:30 88 16 101/73 (82) 100 05/16/18 06:30 101/73 05/16/18 06:15 116/51 05/16/18 06:03 80/34 05/16/18 06:00 93 16 91/34 (53) 100 05/16/18 06:00 91/34 05/16/18 05:45 96 16 80/36 (51) 100 05/16/18 05:30 98 16 71/30 (44) 100 05/16/18 05:15 103 16 76/41 (53) 100 05/16/18 05:00 113 20 71/28 (42) 96 05/16/18 04:54 111 20 100 05/16/18 04:45 120 18 114/44 (67) 95 05/16/18 04:30 100 19 52/35 (41) 73 05/16/18 04:15 60 10 56/30 (39) 84 05/16/18 04:00 81 18 94/45 (61) 88 05/16/18 04:00 84 05/16/18 04:00 Nasal Cannula 3.0 05/16/18 03:00 83 26 95/31 (52) 92 05/16/18 02:00 88 30 97/34 (55) 93 05/16/18 01:00 88 34 101/38 (59) 93 05/16/18 00:00 95.0 84 33 105/37 (59) 93 95.0 05/16/18 00:00 101/38 05/16/18 00:00 Nasal Cannula 3.0 05/15/18 23:00 76 31 113/37 (62) 93 05/15/18 22:00 74 28 93/35 (54) 93 05/15/18 21:40 Nasal Cannula 2.0 28 05/15/18 21:40 94 Nasal Cannula 2.0 28 05/15/18 21:30 93/37 05/15/18 21:15 75 05/15/18 21:06 98.3 75 33 94/36 90 Nasal Cannula 2.0 98.3 05/15/18 21:00 Nasal Cannula 3.0 05/15/18 21:00 94.5 76 29 112/35 (60) 93 94.5 05/15/18 20:18 75 33 94/36 90 Nasal Cannula 2.0 05/15/18 18:33 98.3 78 18 126/44 99 Non-Rebreather 15.0 98.3 05/15/18 16:35 66 18 100/47 99 Room Air Intake and Output 9/20/18 9/21/18 19:00 07:00 Intake Total 1186.9375 ml Output Total 171 ml Balance 1015.9375 ml Intake Oral 0 ml IV Total 1126.9375 ml Other 60 ml Output Urine Total 171 ml # Voids 1 Laboratory Tests 05/15/18 16:40: White Blood Count 13.7H, Red Blood Count 3.08L, Hemoglobin 9.6L, Hematocrit 31.9L, Mean Corpuscular Volume 104H, Mean Corpuscular Hemoglobin 31.1H, Mean Corpuscular Hemoglobin Concent 30.0L, Red Cell Distribution Width 19.3H, Platelet Count 284, Mean Platelet Volume 6.5, Neutrophils (%) (Auto) 93.3H, Lymphocytes (%) (Auto) 3.5L, Monocytes (%) (Auto) 3.0, Eosinophils (%) (Auto) 0.1, Basophils (%) (Auto) 0.2, Prothrombin Time 11.6H, Prothromb Time International Ratio 1.1, Activated Partial Thromboplast Time 35H, Sodium Level 130L, Potassium Level 5.7H, Chloride Level 98, Carbon Dioxide Level 18L, Anion Gap 14, Blood Urea Nitrogen 47H, Creatinine 2.8H, Estimat Glomerular Filtration Rate , Glucose Level 727*H, Lactic Acid Level 3.40H, Calcium Level 9.4, Magnesium Level 3.7H, Total Bilirubin 0.7, Aspartate Amino Transf (AST/SGOT) 33 , Alanine Aminotransferase (ALT/SGPT) 8L, Alkaline Phosphatase 214H, Troponin I 0.262H, Pro-B-Type Natriuretic Peptide 7754H, Total Protein 7.4, Albumin 1.3L, Globulin 6.1, Albumin/Globulin Ratio 0.2L, Acetone Level Positive-moderate 05/15/18 16:55: Venous Blood pH [Pending], Venous Blood Partial Pressure CO2 [Pending], Venous Blood Partial Pressure O2 [Pending], Venous Blood HCO3 [Pending], Venous Blood Total Carbon Dioxide [Pending], Venous Bld O2 Saturation (Measured) , Venous Blood Oxygen Saturation [Pending], Venous Blood Base Excess [Pending], Methemoglobin [Pending], Sodium (Blood Gas) [Pending] 05/15/18 18:30: Urine Color Yellow, Urine Appearance Cloudy, Urine pH 5, Urine Specific [place] 1.015, Urine Protein 3+H, Urine Glucose (UA) 4+H, Urine Ketones 1+H, Urine Blood Negative, Urine Nitrite Negative, Urine Bilirubin Negative, Urine Urobilinogen Normal, Urine Leukocyte Esterase 1+H, Urine RBC 0-2, Urine WBC 0-2 , Urine Squamous Epithelial Cells None, Urine Bacteria Few 05/15/18 20:00: Lactic Acid Level 4.00H 05/16/18 06:00: White Blood Count 8.2, Red Blood Count 2.50L, Hemoglobin 7.4L, Hematocrit 24.0L , Mean Corpuscular Volume 96, Mean Corpuscular Hemoglobin 29.6, Mean Corpuscular Hemoglobin Concent 30.8L, Red Cell Distribution Width 18.5H, Platelet Count 233, Mean Platelet Volume 6.4L, Neutrophils (%) (Auto) , Lymphocytes (%) (Auto) , Monocytes (%) (Auto) , Eosinophils (%) (Auto) , Basophils (%) (Auto) , Neutrophils % (Manual) [Pending], Lymphocytes % (Manual) [Pending], Platelet Estimate [Pending], Platelet Morphology [Pending], Sodium Level 138, Potassium Level 4.1, Chloride Level 106, Carbon Dioxide Level 23, Anion Gap 9, Blood Urea Nitrogen 46H, Creatinine 2.8H, Estimat Glomerular Filtration Rate , Glucose Level 196#H, Lactic Acid Level 4.30H, Calcium Level 8.8, Total Bilirubin 0.2, Aspartate Amino Transf (AST/SGOT) 16, Alanine Aminotransferase (ALT/SGPT) 10L, Alkaline Phosphatase 143H, Troponin I 0.202H, Total Protein 5.7L, Albumin 0.9L, Globulin 4.8, Albumin/Globulin Ratio 0.2L 05/16/18 08:37: Arterial Blood pH 7.430, Arterial Blood Partial Pressure CO2 33.4L, Arterial Blood Partial Pressure O2 176.6H, Arterial Blood HCO3 21.7L, Arterial Blood Oxygen Saturation 99.1H, Arterial Blood Base Excess -2.3, Steve Test Positive Height (Feet): 5 Height (Inches): 3.00 Weight (Pounds): 168 General Appearance: obese, other - intubated, obtunded EENT: other - nonicteric Neck: normal alignment Cardiovascular: normal rate, regular rhythm Respiratory/Chest: lungs clear Abdomen: non tender, soft Extremities: no calf tenderness Edema: trace edema Neurologic: unresponsive EZEQUIEL BAÑUELOS May 16, 2018 09:29
[2018-05-16] MEDS ORDERED: Metoclopramide 10mg/2ml Inj IVP PRN (09:30)
[2018-05-16] MEDS: Pantoprazole Inj IVP SCH ×2 (09:51→21:09)
--- NOTE | 2018-05-16 09:53 | Diagnostic Imaging Report ---
Indication: Altered mental status Technique: Contiguous 5 mm thick transaxial imaging of the head obtained in a Siemens Sensation [address] scanner. Soft tissue and bone windows generated. Automatic Exposure Control was utilized. Total Dose length Product (DLP): 1365.[address] Dose Index Volume (CTDIvol): 70.38 mGy Comparison: none Findings: There is a vague focus of low attenuation in the right caudate region noted, likely age-indeterminate lacunar infarct. Correlate clinically. Multiple old lacunar infarcts present within the deep white matter bilaterally. There is a focus of encephalomalacia within the right occipital lobe consistent with an old infarct. There is moderate prominence of the ventricles, basal cisterns, and cerebral sulci consistent with atrophy. Moderate, nonspecific, white matter hypoattenuation is noted throughout the brain consistent with chronic small vessel disease. There is no midline shift, edema, acute hemorrhage, mass effect, or abnormal extra-axial fluid collections. There is sclerosis and opacification of the mastoid air cells bilaterally consistent chronic mastoiditis. Impression: Small age-indeterminate right caudate infarct. Multiple low-attenuation foci in the brandon radiata/white matter consistent with old lacunar infarcts. Old right occipital infarct. No acute intracranial bleed, mass effect or edema. Moderate atrophy of the brain. Evidence of chronic small vessel disease involving white matter tracts. Chronic mastoiditis The CT scanner at [facility] is accredited by the [employer] and the scans are performed using dose optimization techniques as appropriate to a performed exam including Automatic Exposure control.
[2018-05-16 10:18] LABS: % IRON SATURATION 22 % (15-50); IRON 21 ug/dL (50-175); TOTAL IRON BINDING CAPACITY 95 ug/dL (250-450)
[2018-05-16 10:31] LABS: FERRITIN 517 NG/ML (8-388)
--- NOTE | 2018-05-16 10:33 | Diagnostic Imaging Report ---
Indication: Dyspnea Comparison: 05/16/2018 one hour earlier A single view chest radiograph was obtained. Findings: Left jugular line has been placed. The tip projects over the SVC in good position. No change otherwise. IMPRESSION: Left jugular line in good position. No pneumothorax
--- NOTE | 2018-05-16 10:33 | Diagnostic Imaging Report ---
Indication: Dyspnea Comparison: None A single view chest radiograph was obtained. Findings: There are patchy infiltrates in the right upper and lower lung crowell. Heart is enlarged mildly. Endotracheal tube is in good position 4 cm above the isacc. Bones are osteopenic. IMPRESSION: Pulmonary infiltrates. Endotracheal tube in good position
--- NOTE | 2018-05-16 10:47 | Diagnostic Imaging Report ---
Indication: Dyspnea Comparison: 10/01/2016 A single view chest radiograph was obtained. Findings: Heart is enlarged. Aorta is calcified. Mild central pulmonary vascular prominence demonstrated, but unchanged from the last exam. Bones are osteopenic. IMPRESSION: No change. Prominent central vascularity without overt CHF. Correlate clinically.
--- NOTE | 2018-05-16 15:13 | Consultation ---
Consult Note Assessment/Plan pulm consult dict resp failure s/p dorian arrest pneumonia, aspiration DKA encephalopathy vent mgmt sputum c/s abx prognosis poor Adam Willis MD May 16, 2018 15:13
--- NOTE | 2018-05-16 15:14 | Cardiology Report ---
APPROVED REPORT EKG Measurement Heart [id number] Normal sinus rhythm Possible Inferior infarct, age undetermined Prolonged QT Abnormal ECG
[2018-05-16] MEDS ORDERED: Vancomycin 1250mg/D5W 250ml IVPB SCH (17:00)
[2018-05-16] MEDS: Albuterol/Ipratropium 3ml neb HHN SCH (19:15)
--- NOTE | 2018-05-16 19:45 | Consultation ---
DATE OF CONSULTATION: 05/16/2018 PULMONARY CONSULTATION CONSULTING PHYSICIAN: Adam Willis M.D. CHIEF COMPLAINT: Respiratory failure. HISTORY OF PRESENT ILLNESS: This elderly shelter patient with severe dementia was admitted with diabetic ketoacidosis to intensive care yesterday. Overnight, she became bradycardic and hypotensive and was intubated and placed on ventilator support. Dr. Acuña asked me to see her for ventilator management. PAST MEDICAL HISTORY: Progressive dementia, diabetes with retinopathy, coronary heart disease, strokes and recently placed gastric tube. This was done last week at [facility] and she was discharged on 05/13/2018 back to her shelter. CODE STATUS: The patient is Full Code. Dr. Acuña is discussing this with the family. ALLERGIES: 1. Erythromycin. 2. Penicillin. 3. Zithromax. SURGICAL HISTORY: Noted. REVIEW OF SYSTEMS: Cannot be obtained. PHYSICAL EXAMINATION: GENERAL: The patient is unresponsive on vasopressors with an orotracheal tube in place, lying in bed. She does not respond to deep pain. HEENT: Head is normocephalic. NECK: No jugular venous distention. CHEST: Has rhonchi. CARDIAC: Rhythm is regular. ABDOMEN: Soft and nontender with gastric tube in place. EXTREMITIES: No clubbing, cyanosis, or edema. LABORATORY AND DIAGNOSTIC DATA: Laboratory studies are reviewed. IMPRESSION: 1. Acute respiratory failure status post bradycardic arrest. 2. Acute diabetic ketoacidosis. 3. Dysphagia with G-tube feeding. 4. Encephalopathy superimposed on severe dementia. 5. Severe diabetes with diabetic ketoacidosis. 6. Chronic kidney disease stage 4. 7. Anemia. 8. Pneumonia. PLAN: The patient will be maintained on ventilator support at the present time. We will culture the sputum and blood and initiate antibiotics in view of the right upper lobe infiltrate on chest x-ray. I will be happy to follow her in the hospital with you. Adam Willis M.D. DR: YUE JOB#: [id number] CC: Pa Acuña M.D.; Fax#: [phone]
[2018-05-16] MEDS: Dyna-Hex 2% Top Sol 2oz TOPIC SCH (20:18)
[2018-05-16] MEDS: Iron Sucrose 100 MG in NS 55 ML IV SCH (21:09)
[2018-05-16] MEDS: Epogen (for ESRD on dialysis) SUBQ SCH (21:10)
[2018-05-16] MEDS: Levemir Flexpen SUBQ SCH (21:12)
[2018-05-16] MEDS: Cefepime HCl 1 GM in D5W 55 ML IVPB SCH (21:46)
[2018-05-17] VITALS (48 sets, daily range): BP systolic 105–150; BP diastolic 29–47
[2018-05-17] MEDS: Sucralfate 1gm tab GT SCH ×4 (00:15→18:19)
[2018-05-17] MEDS: NovoLOG Insulin Flexpen SUBQ SCH ×8 (00:17→20:58)
[2018-05-17] MEDS: Albuterol/Ipratropium 3ml neb HHN SCH ×4 (00:46→19:15)
[2018-05-17] MEDS ORDERED: Acetaminophen 650mg/20.3ml NG PRN (03:45)
[2018-05-17] MEDS: D5 1/2NS 1,000 ML IV SCH ×3 (05:45→21:45)
[2018-05-17 05:58] LABS: HEMATOCRIT 21.9 % (37.0-47.0); MEAN CORPUSCULAR VOLUME 96 FL (80-99); PLATELET COUNT 187 K/UL (150-450); RED BLOOD COUNT 2.28 M/UL (4.20-5.40); RED CELL DISTRIBUTION WIDTH 19.8 % (11.6-14.8); WHITE BLOOD COUNT 12.4 K/UL (4.8-10.8)
[2018-05-17 06:31] LABS: ANION GAP 10 mmol/L (5-15); BLOOD UREA NITROGEN 48 mg/dL (7-18); CALCIUM 7.8 MG/DL (8.5-10.1); CARBON DIOXIDE 20 MMOL/L (21-32); CHLORIDE 104 MMOL/L (98-107); CREATININE 2.6 MG/DL (0.55-1.30); POTASSIUM 4.5 MMOL/L (3.5-5.1); SODIUM 134 MMOL/L (136-145)
[2018-05-17 06:33] LABS: HEMOGLOBIN 6.7 G/DL (12.0-16.0)
--- NOTE | 2018-05-17 08:04 | General Progress Note ---
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 ICD Codes: E10.29 - Type 1 diabetes mellitus with other diabetic kidney complication SNOMED: 41225905, 558046449 Qualifiers: Qualified Codes: E10.22 - Type 1 diabetes mellitus with diabetic chronic kidney disease; N18.3 - Chronic kidney disease, stage 3 (moderate) (5) Altered mental status ICD Codes: R41.82 - Altered mental status, unspecified SNOMED: 883171258, 05333606 Qualifiers: Qualified Codes: R41.0 - Disorientation, unspecified (6) Hyperglycemia ICD Codes: R73.9 - Hyperglycemia, unspecified SNOMED: 44829963 (7) Elevated troponin ICD Codes: R74.8 - Abnormal levels of other serum enzymes SNOMED: 165933898, 329803964, 091567194 (8) CKD (chronic kidney disease) stage 4, GFR 15-29 ml/min ICD Codes: N18.4 - Chronic kidney disease, stage 4 (severe) SNOMED: 613495115 Status: stable, not improved Assessment/Plan wean pressors iv abx follow up cultures vent support transfuse check iron panel and stool ob trend troponin critical and guarded Subjective ROS Limited/Unobtainable: Yes Constitutional: Reports: malaise, weakness HEENT: Reports: no symptoms Cardiovascular: Reports: no symptoms Respiratory: Reports: no symptoms Gastrointestinal/Abdominal: Reports: no symptoms Genitourinary: Reports: no symptoms Neurologic/Psychiatric: Reports: pre-existing deficit Endocrine: Reports: no symptoms Hematologic/Lymphatic: Reports: anemia Allergies: Coded Allergies: PENICILLINS (Verified Allergy, Severe, 03/10/14) SKIN RASH AMOXICILLIN (Verified Allergy, Mild, 03/09/14) ERYTHROMYCIN BASE (Verified Allergy, Mild, 03/09/14) Uncoded Allergies: ERYTHROMYCIN (Allergy, Unknown, 05/15/18) PENICILLIN (Allergy, Unknown, 05/15/18) ZITHROMYCIN (Allergy, Unknown, 05/15/18) All Systems: reviewed and negative except above Subjective no events. on the vent. poorly responsive. on levophed at 10. GPC+ in blood. decrease h/h noted. no bleeding. Objective Last 24 Hour Vital Signs Date Time Temp Pulse Resp B/P (MAP) Pulse Ox O2 Delivery O2 Flow Rate FiO2 05/17/18 07:29 81 17 99 Mechanical Ventilator 30 05/17/18 07:24 30 05/17/18 07:23 84 16 95 Mechanical Ventilator 30 05/17/18 07:21 84 16 30 05/17/18 07:00 99.7 87 20 120/39 (66) 95 99.7 05/17/18 06:17 100.0 05/17/18 06:00 87 20 120/43 (68) 95 05/17/18 06:00 120/43 05/17/18 05:21 87 16 30 05/17/18 05:00 122/40 05/17/18 05:00 100.0 86 20 122/40 (67) 96 100.0 05/17/18 04:00 81 05/17/18 04:00 Endotracheal Tube 05/17/18 04:00 105/45 05/17/18 04:00 100.5 87 20 105/45 (65) 95 100.5 05/17/18 03:57 100.5 05/17/18 03:45 123/31 05/17/18 03:00 86 20 123/31 (61) 95 05/17/18 03:00 123/31 05/17/18 02:53 89 16 30 05/17/18 02:00 114/32 05/17/18 02:00 84 20 114/32 (59) 94 05/17/18 01:00 127/33 05/17/18 01:00 99.1 81 20 117/33 (61) 94 99.1 05/17/18 00:48 81 16 100 Mechanical Ventilator 30 05/17/18 00:46 81 18 30 05/17/18 00:40 80 16 96 Mechanical Ventilator 30 05/17/18 00:40 30 05/17/18 00:00 Endotracheal Tube 05/17/18 00:00 81 20 116/32 (60) 94 05/17/18 00:00 116/34 05/16/18 23:00 80 20 113/30 (57) 94 9/21/18 23:00 113/30 18 22:53 81 18 30 18 22:00 121/27 18 22:00 80 20 110/30 (56) 94 18 21:30 79 20 121/27 (58) 94 18 21:00 133/28 18 21:00 78 21 133/28 (63) 94 18 20:44 76 18 30 18 20:30 77 20 125/29 (61) 94 18 20:00 Endotracheal Tube 05/16/18 20:00 99.0 77 19 113/31 (58) 94 99.0 05/16/18 20:00 77 05/16/18 19:30 78 18 117/29 (58) 94 05/16/18 19:17 76 16 100 Mechanical Ventilator 30 05/16/18 19:09 30 05/16/18 19:09 76 16 100 Mechanical Ventilator 30 05/16/18 19:00 76 16 121/35 (63) 99 18 19:00 124/31 05/16/18 18:54 77 16 30 18 18:45 75 16 111/31 (57) 99 18 18:30 76 16 113/28 (56) 99 18 18:15 77 16 115/30 (58) 99 18 18:00 98.7 77 16 105/35 (58) 99 98.7 05/16/18 18:00 115/30 18 17:25 30 18 17:22 75 16 30 18 17:15 75 16 121/29 (59) 99 18 17:00 121/29 18 17:00 74 16 109/26 (53) 99 18 16:45 77 16 102/31 (54) 97 18 16:30 81 16 141/37 (71) 97 18 16:15 86 16 123/38 (66) 97 18 16:00 Endotracheal Tube 05/16/18 16:00 86 05/16/18 16:00 99.0 82 16 116/48 (70) 99 99.0 05/16/18 16:00 128/38 05/16/18 15:45 83 16 123/46 (71) 99 05/16/18 15:30 82 16 132/34 (66) 99 05/16/18 15:15 75 16 138/34 (68) 99 05/16/18 15:03 79 18 50 05/16/18 15:00 80 16 129/41 (70) 100 05/16/18 15:00 138/35 05/16/18 15:00 50 05/16/18 14:45 80 16 123/45 (71) 100 05/16/18 14:30 80 16 129/41 (70) 100 05/16/18 14:16 137/37 05/16/18 14:15 81 16 131/28 (62) 100 05/16/18 14:00 81 16 120/37 (64) 100 05/16/18 14:00 120/37 05/16/18 13:45 83 16 130/29 (62) 100 05/16/18 13:30 83 16 130/44 (72) 100 05/16/18 13:15 83 16 130/44 (72) 100 05/16/18 13:13 82 17 80 05/16/18 13:00 136/35 05/16/18 13:00 72 16 136/35 (68) 100 05/16/18 12:45 99.7 72 16 126/36 (66) 100 99.7 05/16/18 12:30 72 16 117/58 (77) 100 05/16/18 12:00 80 05/16/18 12:00 Endotracheal Tube 05/16/18 12:00 69 16 121/48 (72) 100 05/16/18 12:00 85 05/16/18 12:00 119/45 05/16/18 11:30 88 16 122/47 (72) 100 05/16/18 11:00 80 05/16/18 11:00 85 16 112/53 (72) 100 05/16/18 11:00 131/41 05/16/18 10:56 85 17 80 05/16/18 10:30 88 16 116/53 (74) 100 05/16/18 10:00 118/51 05/16/18 10:00 88 16 110/42 (64) 100 05/16/18 09:30 88 16 101/55 (70) 100 05/16/18 09:00 87 16 80 05/16/18 09:00 88 16 117/44 (68) 100 05/16/18 09:00 118/41 05/16/18 08:30 88 16 106/40 (62) 100 Intake and Output 05/16/18 05/17/18 19:00 07:00 Intake Total 1866.75 ml 2012.50 ml Output Total 216 ml 70 ml Balance 1650.75 ml 1942.50 ml Intake Oral 0 ml IV Total 1706.75 ml 1652.50 ml Tube Feeding 160 ml 240 ml Other 120 ml Output Urine Total 216 ml 70 ml Laboratory Tests 05/16/18 08:37: Arterial Blood pH 7.430, Arterial Blood Partial Pressure CO2 33.4L, Arterial Blood Partial Pressure O2 176.6H, Arterial Blood HCO3 21.7L, Arterial Blood Oxygen Saturation 99.1H, Arterial Blood Base Excess -2.3, Steve Test Positive 05/16/18 10:00: Lactic Acid Level 2.40H 05/16/18 11:10: Lactic Acid Level 2.00 05/16/18 12:00: Troponin I 0.278H 05/16/18 20:00: Troponin I 0.462H 05/17/18 04:00: Troponin I 0.585H, White Blood Count 12.4#H, Red Blood Count 2.28L, Hemoglobin 6.7*L, Hematocrit 21.9L, Mean Corpuscular Volume 96, Mean Corpuscular Hemoglobin 29.4, Mean Corpuscular Hemoglobin Concent 30.7L, Red Cell Distribution Width 19.8H, Platelet Count 187, Mean Platelet Volume 6.9, Neutrophils (%) (Auto) , Lymphocytes (%) (Auto) , Monocytes (%) (Auto) , Eosinophils (%) (Auto) , Basophils (%) (Auto) , Neutrophils % (Manual) [Pending] , Lymphocytes % (Manual) [Pending], Platelet Estimate [Pending], Platelet Morphology [Pending], Sodium Level 134L, Potassium Level 4.5, Chloride Level 104 , Carbon Dioxide Level 20L, Anion Gap 10, Blood Urea Nitrogen 48H, Creatinine 2.6H, Estimat Glomerular Filtration Rate , Glucose Level 117H, Calcium Level 7.8L, Random Vancomycin Level 14.5 Height (Feet): 5 Height (Inches): 3.00 Weight (Pounds): 175 General Appearance: WD/WN, lethargic Neck: supple Cardiovascular: regular rhythm Respiratory/Chest: lungs clear Abdomen: normal bowel sounds, non tender, soft, no organomegaly Neurologic: unresponsive Jim Norwood MD May 17, 2018 08:04
--- NOTE | 2018-05-17 08:05 | General Progress Note ---
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 ICD Codes: E10.29 - Type 1 diabetes mellitus with other diabetic kidney complication SNOMED: 47878035, 560443999 Qualifiers: Qualified Codes: E10.22 - Type 1 diabetes mellitus with diabetic chronic kidney disease; N18.3 - Chronic kidney disease, stage 3 (moderate) (5) Altered mental status ICD Codes: R41.82 - Altered mental status, unspecified SNOMED: 185815594, 24291991 Qualifiers: Qualified Codes: R41.0 - Disorientation, unspecified (6) Hyperglycemia ICD Codes: R73.9 - Hyperglycemia, unspecified SNOMED: 66548355 (7) Elevated troponin ICD Codes: R74.8 - Abnormal levels of other serum enzymes SNOMED: 504023659, 938470098, 959402698 (8) CKD (chronic kidney disease) stage 4, GFR 15-29 ml/min ICD Codes: N18.4 - Chronic kidney disease, stage 4 (severe) SNOMED: 560702499 Assessment/Plan wean pressors iv abx follow up cultures vent support transfuse check iron panel and stool ob trend troponin critical and guarded Subjective Allergies: Coded Allergies: PENICILLINS (Verified Allergy, Severe, 03/10/14) SKIN RASH AMOXICILLIN (Verified Allergy, Mild, 03/09/14) ERYTHROMYCIN BASE (Verified Allergy, Mild, 03/09/14) Uncoded Allergies: ERYTHROMYCIN (Allergy, Unknown, 05/15/18) PENICILLIN (Allergy, Unknown, 05/15/18) ZITHROMYCIN (Allergy, Unknown, 05/15/18) Subjective no events. on the vent. poorly responsive. on levophed at 10. GPC+ in blood. decrease h/h noted. no bleeding. Objective Last 24 Hour Vital Signs Date Time Temp Pulse Resp B/P (MAP) Pulse Ox O2 Delivery O2 Flow Rate FiO2 05/17/18 07:29 81 17 99 Mechanical Ventilator 30 9/22/18 07:24 30 05/17/18 07:23 84 16 95 Mechanical Ventilator 30 05/17/18 07:21 84 16 30 05/17/18 07:00 99.7 87 20 120/39 (66) 95 99.7 05/17/18 06:17 100.0 05/17/18 06:00 87 20 120/43 (68) 95 05/17/18 06:00 120/43 05/17/18 05:21 87 16 30 05/17/18 05:00 122/40 05/17/18 05:00 100.0 86 20 122/40 (67) 96 100.0 05/17/18 04:00 81 05/17/18 04:00 Endotracheal Tube 05/17/18 04:00 105/45 05/17/18 04:00 100.5 87 20 105/45 (65) 95 100.5 05/17/18 03:57 100.5 05/17/18 03:45 123/31 05/17/18 03:00 86 20 123/31 (61) 95 05/17/18 03:00 123/31 05/17/18 02:53 89 16 30 05/17/18 02:00 114/32 05/17/18 02:00 84 20 114/32 (59) 94 05/17/18 01:00 127/33 05/17/18 01:00 99.1 81 20 117/33 (61) 94 99.1 05/17/18 00:48 81 16 100 Mechanical Ventilator 30 05/17/18 00:46 81 18 30 05/17/18 00:40 80 16 96 Mechanical Ventilator 30 05/17/18 00:40 30 05/17/18 00:00 Endotracheal Tube 05/17/18 00:00 81 20 116/32 (60) 94 05/17/18 00:00 116/34 05/16/18 23:00 80 20 113/30 (57) 94 18 23:00 113/30 05/16/18 22:53 81 18 30 05/16/18 22:00 121/27 05/16/18 22:00 80 20 110/30 (56) 94 18 21:30 79 20 121/27 (58) 94 05/16/18 21:00 133/28 05/16/18 21:00 78 21 133/28 (63) 94 18 20:44 76 18 30 18 20:30 77 20 125/29 (61) 94 18 20:00 Endotracheal Tube 05/16/18 20:00 99.0 77 19 113/31 (58) 94 99.0 05/16/18 20:00 77 18 19:30 78 18 117/29 (58) 94 18 19:17 76 16 100 Mechanical Ventilator 30 05/16/18 19:09 30 05/16/18 19:09 76 16 100 Mechanical Ventilator 30 05/16/18 19:00 76 16 121/35 (63) 99 18 19:00 124/31 05/16/18 18:54 77 16 30 05/16/18 18:45 75 16 111/31 (57) 99 05/16/18 18:30 76 16 113/28 (56) 99 18 18:15 77 16 115/30 (58) 99 18 18:00 98.7 77 16 105/35 (58) 99 98.7 18 18:00 115/30 18 17:25 30 05/16/18 17:22 75 16 30 05/16/18 17:15 75 16 121/29 (59) 99 18 17:00 121/29 05/16/18 17:00 74 16 109/26 (53) 99 05/16/18 16:45 77 16 102/31 (54) 97 05/16/18 16:30 81 16 141/37 (71) 97 18 16:15 86 16 123/38 (66) 97 18 16:00 Endotracheal Tube 05/16/18 16:00 86 05/16/18 16:00 99.0 82 16 116/48 (70) 99 99.0 05/16/18 16:00 128/38 05/16/18 15:45 83 16 123/46 (71) 99 18 15:30 82 16 132/34 (66) 99 18 15:15 75 16 138/34 (68) 99 05/16/18 15:03 79 18 50 05/16/18 15:00 80 16 129/41 (70) 100 9/21/18 15:00 138/35 05/16/18 15:00 50 05/16/18 14:45 80 16 123/45 (71) 100 05/16/18 14:30 80 16 129/41 (70) 100 05/16/18 14:16 137/37 05/16/18 14:15 81 16 131/28 (62) 100 05/16/18 14:00 81 16 120/37 (64) 100 05/16/18 14:00 120/37 05/16/18 13:45 83 16 130/29 (62) 100 05/16/18 13:30 83 16 130/44 (72) 100 05/16/18 13:15 83 16 130/44 (72) 100 05/16/18 13:13 82 17 80 05/16/18 13:00 136/35 05/16/18 13:00 72 16 136/35 (68) 100 05/16/18 12:45 99.7 72 16 126/36 (66) 100 99.7 05/16/18 12:30 72 16 117/58 (77) 100 05/16/18 12:00 80 05/16/18 12:00 Endotracheal Tube 05/16/18 12:00 69 16 121/48 (72) 100 05/16/18 12:00 85 05/16/18 12:00 119/45 05/16/18 11:30 88 16 122/47 (72) 100 05/16/18 11:00 80 05/16/18 11:00 85 16 112/53 (72) 100 05/16/18 11:00 131/41 05/16/18 10:56 85 17 80 05/16/18 10:30 88 16 116/53 (74) 100 05/16/18 10:00 118/51 05/16/18 10:00 88 16 110/42 (64) 100 05/16/18 09:30 88 16 101/55 (70) 100 05/16/18 09:00 87 16 80 05/16/18 09:00 88 16 117/44 (68) 100 05/16/18 09:00 118/41 05/16/18 08:30 88 16 106/40 (62) 100 Intake and Output 05/16/18 05/17/18 19:00 07:00 Intake Total 1866.75 ml 2012.50 ml Output Total 216 ml 70 ml Balance 1650.75 ml 1942.50 ml Intake Oral 0 ml IV Total 1706.75 ml 1652.50 ml Tube Feeding 160 ml 240 ml Other 120 ml Output Urine Total 216 ml 70 ml Laboratory Tests 05/16/18 08:37: Arterial Blood pH 7.430, Arterial Blood Partial Pressure CO2 33.4L, Arterial Blood Partial Pressure O2 176.6H, Arterial Blood HCO3 21.7L, Arterial Blood Oxygen Saturation 99.1H, Arterial Blood Base Excess -2.3, Steve Test Positive 05/16/18 10:00: Lactic Acid Level 2.40H 05/16/18 11:10: Lactic Acid Level 2.00 05/16/18 12:00: Troponin I 0.278H 05/16/18 20:00: Troponin I 0.462H 05/17/18 04:00: Troponin I 0.585H, White Blood Count 12.4#H, Red Blood Count 2.28L, Hemoglobin 6.7*L, Hematocrit 21.9L, Mean Corpuscular Volume 96, Mean Corpuscular Hemoglobin 29.4, Mean Corpuscular Hemoglobin Concent 30.7L, Red Cell Distribution Width 19.8H, Platelet Count 187, Mean Platelet Volume 6.9, Neutrophils (%) (Auto) , Lymphocytes (%) (Auto) , Monocytes (%) (Auto) , Eosinophils (%) (Auto) , Basophils (%) (Auto) , Neutrophils % (Manual) [Pending] , Lymphocytes % (Manual) [Pending], Platelet Estimate [Pending], Platelet Morphology [Pending], Sodium Level 134L, Potassium Level 4.5, Chloride Level 104 , Carbon Dioxide Level 20L, Anion Gap 10, Blood Urea Nitrogen 48H, Creatinine 2.6H, Estimat Glomerular Filtration Rate , Glucose Level 117H, Calcium Level 7.8L, Random Vancomycin Level 14.5 Height (Feet): 5 Height (Inches): 3.00 Weight (Pounds): 175 Jim Norwood MD May 17, 2018 08:05
[2018-05-17] MEDS: Pantoprazole Inj IVP SCH ×2 (08:53→20:49)
[2018-05-17] MEDS ORDERED: Vancomycin 750mg/NS 250ml IVPB SCH (09:00)
--- NOTE | 2018-05-17 11:56 | Diagnostic Imaging Report ---
INDICATION: Shortness of breath COMPARISON: Chest x-ray dated 05/16/18 FINDINGS: Single frontal view demonstrates a normal cardiomediastinal silhouette. Endotracheal tube 2.7 cm above the isacc. Left internal jugular catheter with tip in the proximal superior vena cava. Radiopaque density seen overlying the right heart border, grossly unchanged. Increasing bilateral pulmonary opacities. No pleural effusions. The visualized osseous structures are within normal limits. IMPRESSION: Stable tubes and lines with increasing bilateral pulmonary opacities.
[2018-05-17] MEDS ORDERED: 1/2 NS 1000ml IV ONE ×2 (13:17→13:18)
[2018-05-17] MEDS ORDERED: NS 275ml ONE (13:18)
[2018-05-17] MEDS ORDERED: Tubing IV Secondary IV ONE (13:18)
--- NOTE | 2018-05-17 13:48 | Pulmonolgy Critical Care Note ---
Critical Care - Asmt/Plan Assessment/Plan: 1. Acute respiratory failure status post bradycardic arrest. 2. Acute diabetic ketoacidosis. 3. Dysphagia with G-tube feeding. 4. Encephalopathy superimposed on severe dementia. 5. Severe diabetes with diabetic ketoacidosis. 6. Chronic kidney disease stage 4. 7. Anemia. 8. Pneumonia. no weaning at thsitime titrate pressors for MAP greater; than 65 mmgn nebs and suction Tf wound care prbc if hbg less than 7 check stool for ob iv abx and tailor to cs from bus pending no family critically ill cotnin ICU level of care gereater than 35 minutes of crtical care time spent with the pt, revieweing the records, images, labs,cultures and dw nursing. orders given. Critical Care - Objective Last 24 Hour Vital Signs Date Time Temp Pulse Resp B/P (MAP) Pulse Ox O2 Delivery O2 Flow Rate FiO2 05/17/18 13:05 74 16 100 Mechanical Ventilator 30 05/17/18 13:00 72 16 95 Mechanical Ventilator 30 05/17/18 13:00 30 05/17/18 13:00 71 15 119/39 (65) 95 05/17/18 12:57 71 16 30 05/17/18 12:30 71 16 120/32 (61) 96 05/17/18 12:00 Endotracheal Tube 05/17/18 12:00 98.4 71 16 113/32 (59) 96 98.4 05/17/18 11:49 78 16 30 05/17/18 11:30 65 16 115/38 (63) 96 05/17/18 11:00 68 16 114/31 (58) 95 05/17/18 10:30 75 16 119/29 (59) 96 05/17/18 10:00 76 16 109/39 (62) 96 05/17/18 09:47 78 16 30 05/17/18 09:30 78 16 110/37 (61) 96 05/17/18 09:00 81 16 116/36 (62) 96 05/17/18 08:30 81 16 117/36 (63) 95 05/17/18 08:06 80 05/17/18 08:00 Endotracheal Tube 05/17/18 08:00 98.9 82 15 122/43 (69) 95 98.9 9/22/18 07:30 84 16 112/38 (62) 98 05/17/18 07:29 81 17 99 Mechanical Ventilator 30 05/17/18 07:24 30 05/17/18 07:23 84 16 95 Mechanical Ventilator 30 05/17/18 07:21 84 16 30 05/17/18 07:00 99.7 87 20 120/39 (66) 95 99.7 05/17/18 06:17 100.0 05/17/18 06:00 87 20 120/43 (68) 95 05/17/18 06:00 120/43 05/17/18 05:21 87 16 30 05/17/18 05:00 122/40 05/17/18 05:00 100.0 86 20 122/40 (67) 96 100.0 05/17/18 04:00 81 05/17/18 04:00 Endotracheal Tube 05/17/18 04:00 105/45 05/17/18 04:00 100.5 87 20 105/45 (65) 95 100.5 05/17/18 03:57 100.5 05/17/18 03:45 123/31 05/17/18 03:00 86 20 123/31 (61) 95 05/17/18 03:00 123/31 05/17/18 02:53 89 16 30 05/17/18 02:00 114/32 05/17/18 02:00 84 20 114/32 (59) 94 05/17/18 01:00 127/33 05/17/18 01:00 99.1 81 20 117/33 (61) 94 99.1 05/17/18 00:48 81 16 100 Mechanical Ventilator 30 05/17/18 00:46 81 18 30 05/17/18 00:40 80 16 96 Mechanical Ventilator 30 05/17/18 00:40 30 05/17/18 00:00 Endotracheal Tube 05/17/18 00:00 81 20 116/32 (60) 94 05/17/18 00:00 116/34 05/16/18 23:00 80 20 113/30 (57) 94 18 23:00 113/30 18 22:53 81 18 30 05/16/18 22:00 121/27 05/16/18 22:00 80 20 110/30 (56) 94 9/21/18 21:30 79 20 121/27 (58) 94 18 21:00 133/28 18 21:00 78 21 133/28 (63) 94 18 20:44 76 18 30 18 20:30 77 20 125/29 (61) 94 18 20:00 Endotracheal Tube 05/16/18 20:00 99.0 77 19 113/31 (58) 94 99.0 05/16/18 20:00 77 18 19:30 78 18 117/29 (58) 94 18 19:17 76 16 100 Mechanical Ventilator 30 05/16/18 19:09 30 05/16/18 19:09 76 16 100 Mechanical Ventilator 30 05/16/18 19:00 76 16 121/35 (63) 99 18 19:00 124/31 05/16/18 18:54 77 16 30 05/16/18 18:45 75 16 111/31 (57) 99 18 18:30 76 16 113/28 (56) 99 18 18:15 77 16 115/30 (58) 99 18 18:00 98.7 77 16 105/35 (58) 99 98.7 18 18:00 115/30 18 17:25 30 05/16/18 17:22 75 16 30 05/16/18 17:15 75 16 121/29 (59) 99 18 17:00 121/29 05/16/18 17:00 74 16 109/26 (53) 99 05/16/18 16:45 77 16 102/31 (54) 97 18 16:30 81 16 141/37 (71) 97 18 16:15 86 16 123/38 (66) 97 05/16/18 16:00 Endotracheal Tube 05/16/18 16:00 86 05/16/18 16:00 99.0 82 16 116/48 (70) 99 99.0 05/16/18 16:00 128/38 05/16/18 15:45 83 16 123/46 (71) 99 05/16/18 15:30 82 16 132/34 (66) 99 18 15:15 75 16 138/34 (68) 99 05/16/18 15:03 79 18 50 05/16/18 15:00 80 16 129/41 (70) 100 05/16/18 15:00 138/35 05/16/18 15:00 50 05/16/18 14:45 80 16 123/45 (71) 100 05/16/18 14:30 80 16 129/41 (70) 100 05/16/18 14:16 137/37 05/16/18 14:15 81 16 131/28 (62) 100 05/16/18 14:00 81 16 120/37 (64) 100 05/16/18 14:00 120/37 Status: obtunded Condition: critical Lungs: rhonchi Heart: HR/BP unstable Extremities: edema Decubiti: stage Micro: Microbiology Date/Time Source Procedure Growth Status 05/16/18 15:49 Blood Blood Culture - Preliminary Resulted 05/16/18 15:44 Blood Blood Culture - Preliminary Resulted 05/15/18 16:50 Blood Blood Culture - Preliminary NO GROWTH AFTER 24 HOURS Resulted 05/15/18 16:40 Blood Blood Culture - Preliminary NO GROWTH AFTER 24 HOURS Resulted 05/16/18 19:30 Sputum Gram Stain - Final Resulted 05/16/18 19:30 Sputum Sputum Culture Pending Resulted 05/16/18 23:30 Sacral Wound Gram Stain - Final Resulted 05/16/18 23:30 Wound Culture - Preliminary Gram Positive Cocci Resulted Accucheck: 123 Critical Care - Subjective ROS Limited/Unobtainable: Yes Condition: critical FI02: 30 Vent Support Breath Rate: 16 Vent Support Mode: AC Vent Tidal Volume: 600 Sputum Amount: Small PEEP: 5.0 PIP: 33 Tube Feeding Amount: 20 I&O: Intake and Output 05/16/18 05/17/18 19:00 07:00 Intake Total 1866.75 ml 2156.25 ml Output Total 216 ml 70 ml Balance 1650.75 ml 2086.25 ml Intake Oral 0 ml IV Total 1706.75 ml 1796.25 ml Tube Feeding 160 ml 240 ml Other 120 ml Output Urine Total 216 ml 70 ml Subjective: sedated on hte v ent sync set rate 16 no dsitress pRBC x 2 today for reduced hgb no reports of cp nv or bleeding secretions noted positive uop on pressors on hypotension CXR: increased bilateral opacities ET-Tube: 7.5 ET Position: 22 Labs: Current Medications Medications (Trade) Dose Ordered Sig/Adelia Route PRN Reason Start Time Stop Time Status Last Admin Dose Admin Acetaminophen (Tylenol) 650 mg Q6H PRN NG Fever/Headache/Mild Pain 05/17/18 03:45 06/16/18 03:44 05/17/18 03:57 Albuterol/ Ipratropium (Albuterol/ Ipratropium) 3 ml Q6HRT HHN 05/16/18 19:15 05/21/18 19:14 05/17/18 12:57 Cefepime HCl 1 gm/ Dextrose 55 ml @ 110 mls/hr Q24H IVPB 05/16/18 22:00 05/23/18 21:59 05/16/18 21:46 Chlorhexidine Gluconate (Khadijah-Hex 2%) 1 applic DAILY@2000 TOPIC 05/16/18 20:00 06/15/18 19:59 05/16/18 20:18 Clopidogrel Bisulfate (Plavix) 75 mg DAILY GT 05/16/18 09:00 06/15/18 08:59 05/16/18 09:33 Dextrose (Dextrose 50%) 50 ml Q1H PRN IV Hypoglycemia 05/15/18 21:15 Dextrose/Sodium Chloride 1,000 ml @ 125 mls/hr Q8H IV 05/15/18 21:45 06/14/18 21:44 Epoetin Jarocho (Procrit (for ESRD on dialysis)) 10,000 units SAT-WED-SAT SUBQ 05/16/18 21:00 06/15/18 20:59 05/16/18 21:10 Insulin Aspart (NovoLOG) EVERY 3 HOURS SUBQ 05/16/18 00:00 06/15/18 00:00 05/17/18 11:59 Insulin Detemir (Levemir) 12 units BEDTIME SUBQ 05/16/18 21:00 06/15/18 20:59 05/16/18 21:12 Iron Sucrose 100 mg/Sodium Chloride 60 ml @ 240 mls/hr BEDTIME IV 05/16/18 21:00 05/20/18 21:14 05/16/18 21:09 Metoclopramide HCl (Reglan) 10 mg Q6H PRN IVP Nausea & Vomiting 05/16/18 09:30 06/15/18 09:29 Metronidazole 100 ml @ 100 mls/hr Q8HR IVPB 05/16/18 22:00 05/23/18 21:59 05/17/18 06:12 Norepinephrine Bitartrate 8 mg/ Sodium Chloride 250 ml @ 0 mls/hr Q24H IV 05/16/18 05:30 06/15/18 05:29 05/17/18 03:45 Ondansetron HCl (Zofran) 4 mg Q6H PRN IVP Nausea & Vomiting 05/15/18 21:45 06/14/18 21:44 Pantoprazole (Protonix) 40 mg EVERY 12 HOURS IVP 05/16/18 10:00 06/15/18 09:59 05/17/18 08:53 Sodium Chloride 1,000 ml @ 125 mls/hr Q8H IV 05/15/18 21:15 06/14/18 21:14 05/17/18 11:28 Sucralfate (Carafate) 1 gm EVERY 6 HOURS GT 05/16/18 00:00 06/15/18 00:00 05/17/18 11:58 Vancomycin HCl (Vanco rx to dose) 1 ea DAILY PRN MISC Per rx protocol 05/16/18 15:15 06/15/18 15:14 Laboratory Tests Test 05/16/18 20:00 05/17/18 04:00 Troponin I 0.462 ng/mL (0.000-0.056) 0.585 ng/mL (0.000-0.056) White Blood Count 12.4 K/UL (4.8-10.8) #H Red Blood Count 2.28 M/UL (4.20-5.40) L Hemoglobin 6.7 G/DL (12.0-16.0) *L Hematocrit 21.9 % (37.0-47.0) L Mean Corpuscular Volume 96 FL (80-99) Mean Corpuscular Hemoglobin 29.4 PG (27.0-31.0) Mean Corpuscular Hemoglobin Concent 30.7 G/DL (32.0-36.0) L Red Cell Distribution Width 19.8 % (11.6-14.8) H Platelet Count 187 K/UL (150-450) Mean Platelet Volume 6.9 FL (6.5-10.1) Neutrophils (%) (Auto) % (45.0-75.0) Lymphocytes (%) (Auto) % (20.0-45.0) Monocytes (%) (Auto) % (1.0-10.0) Eosinophils (%) (Auto) % (0.0-3.0) Basophils (%) (Auto) % (0.0-2.0) Differential Total Cells Counted 100 Neutrophils % (Manual) 25 % (45-75) L Lymphocytes % (Manual) 13 % (20-45) L Monocytes % (Manual) 8 % (1-10) Eosinophils % (Manual) 0 % (0-3) Basophils % (Manual) 0 % (0-2) Band Neutrophils 54 % (0-8) H Nucleated Red Blood Cells 2 /100 WBC Platelet Estimate Adequate Platelet Morphology Normal Anisocytosis 1+ Sodium Level 134 MMOL/L (136-145) L Potassium Level 4.5 MMOL/L (3.5-5.1) Chloride Level 104 MMOL/L (98-107) Carbon Dioxide Level 20 MMOL/L (21-32) L Anion Gap 10 mmol/L (5-15) Blood Urea Nitrogen 48 mg/dL (7-18) H Creatinine 2.6 MG/DL (0.55-1.30) H Estimat Glomerular Filtration Rate mL/min (>60) Glucose Level 117 MG/DL (74-106) H Calcium Level 7.8 MG/DL (8.5-10.1) L Random Vancomycin Level 14.5 ug/mL Omayra Patiño DO May 17, 2018 13:48
[2018-05-17] MEDS: Dyna-Hex 2% Top Sol 2oz TOPIC SCH (19:40)
[2018-05-17] MEDS: Iron Sucrose 100 MG in NS 55 ML IV SCH (20:49)
[2018-05-17] MEDS: Levemir Flexpen SUBQ SCH (20:59)
[2018-05-17] MEDS: Cefepime HCl 1 GM in D5W 55 ML IVPB SCH (21:55)
[2018-05-18] VITALS (29 sets, daily range): BP systolic 103–137; BP diastolic 30–55
[2018-05-18] MEDS: Sucralfate 1gm tab GT SCH ×4 (00:22→17:57)
[2018-05-18] MEDS: NovoLOG Insulin Flexpen SUBQ SCH ×8 (00:23→21:00)
[2018-05-18] MEDS: Albuterol/Ipratropium 3ml neb HHN SCH ×4 (01:18→20:32)
--- NOTE | 2018-05-18 02:30 | Progress Note ---
DATE: 05/16/2018 CARDIOLOGY PROGRESS NOTE Late entry for 05/16/2018. SUBJECTIVE: Condition has deteriorated. The patient has required intubation and mechanical ventilation. Central venous access was obtained. Her blood pressure has dropped and she has been started on pressors. OBJECTIVE: HEENT: Orally intubated. Mechanically ventilated. LUNGS: Bilateral breath sounds with rhonchi. HEART: Regular rhythm and rate. Normal S1, S2. ABDOMEN: Soft. G-tube intact. EXTREMITIES: No edema. Distal perfusion is adequate. LABORATORY DATA: White count 8 and hemoglobin 7.4. Troponin 0.278. IMPRESSION: 1. Respiratory failure. 2. Shock. 3. Acute myocardial infarction. 4. Diabetic ketoacidosis. 5. Bradycardic arrest due to inadequate ventilation and acidosis. 6. Acute on chronic renal failure. 7. Worsening anemia. PLAN: 1. Ventilator support. 2. Broad-spectrum antimicrobials. 3. Hold beta-kade. 4. Hold anti-platelet therapy. 5. Serial hemoglobin. 6. Volume support. 7. Insulin titration. 8. Pressors as needed. 9. Condition critical. Prognosis guarded. Amando Blanco M.D. DR: LIZZY JOB#: [id number] CC:
--- NOTE | 2018-05-18 02:30 | Progress Note ---
DATE: 05/17/2018 CARDIOLOGY PROGRESS NOTE SUBJECTIVE: The patient seen in the intensive care unit. She remains critical and guarded. She remains on full ventilator support via endotracheal tube. Case has been discussed with the ICU nurse. She remains on pressors. OBJECTIVE: VITAL SIGNS: Blood pressure 119/39, pulse 71, respiratory rate 16, and afebrile. LUNGS: Bilateral breath sounds. HEART: Regular rhythm rate. Normal S1, S2. ABDOMEN: Soft. G-tube intact. EXTREMITIES: No edema. Capillary refill diminished. LABORATORY AND DIAGNOSTIC DATA: Sodium 134, potassium 4.5, bicarbonate 20, BUN 48, creatinine 2.6. Troponin is 0.585. White count 12.4 and hemoglobin 6.7. IMPRESSION: 1. Respiratory failure. 2. Aspiration pneumonia. 3. Sepsis with shock. 4. Acute myocardial infarction. 5. Diabetic ketoacidosis. 6. Acute on chronic renal failure. 7. Worsening anemia. 8. Status post bradycardic arrest due to respiratory insufficiency. PLAN: 1. Continue to hold beta-kade. 2. Packed red blood cell transfusion. 3. Taper pressors as discussed with nurse. 4. Volume support. 5. Insulin titration. 6. Broad-spectrum antibiotics. 7. Ventilator support. 8. Remains critical and guarded. 9. We will continue to hold anti-platelet therapy until gastrointestinal blood loss is excluded. Amando Blanco M.D. DR: CAITLYN JOB#: [id number] CC:
--- NOTE | 2018-05-18 02:30 | Consultation ---
DATE OF CONSULTATION: 05/15/2018 CONSULTING PHYSICIAN: Amando Blanco M.D. REQUESTING PHYSICIAN: Pa Acuña M.D. REASON FOR CONSULTATION: Elevated troponin level in the setting of ischemic cardiomyopathy with diabetic ketoacidosis. HISTORY OF PRESENT ILLNESS: This is a 77-year-old female is known to me from prior care. She has a known history of ischemic cardiomyopathy with prior myocardial infarctions and multiple prior coronary stents to her right coronary circulation. She has mild diffuse disease of her left coronary circulation as well. She has been declining in health for the past 6 to 8 months. She was recently hospitalized at [facility] and had a G-tube placed. She was discharged to a [facility] facility, but transferred here today because of a glucose level over 700 with some signs of ketoacidosis prompting this. The patient was also noted to have an elevated troponin level and elevated natriuretic peptide level prompting this consultation. The patient is not able to give any information at this time due to the severity of her illness. PAST MEDICAL HISTORY: 1. Insulin-requiring diabetes mellitus. 2. History of pancreatitis. 3. Diabetic retinopathy. 4. Chronic kidney disease. 5. Microangiopathy. 6. Diabetic neuropathy. 7. Coronary artery disease as described above. 8. History of coronary stenting. 9. Paroxysmal atrial arrhythmias. 10. Sinus node disease. 11. Cerebrovascular disease with history of cerebrovascular accidents and dementia. 12. Dysphagia with G-tube. 13. Hypertensive heart disease. 14. Osteoarthritis. 15. Bilateral knee replacements. 16. History of ERCP. 17. Degenerative disk disease. 18. Chronic obstructive pulmonary disease. ALLERGIES: Penicillin ____. FAMILY HISTORY: Noncontributory. MEDICATIONS: Prior to admission, reviewed and reconciled. SOCIAL HISTORY: Positive for smoking. Moderate alcohol. No substance abuse. REVIEW OF SYSTEMS: She has had recent echocardiogram revealing normal ejection fraction. She has a history of diastolic congestive heart failure. She has a history of nonsustained atrial arrhythmias and sinus node disease. She has a history of labile hypertension. There is no history of ventricular arrhythmias. She does have prior strokes. She has poor hearing and vision. She has a history of chronic obstructive pulmonary disease, but has not been on steroids for sometime. There is no history of abnormal blood clotting. She does have peripheral artery disease, but has not required any interventions in the past. PHYSICAL EXAMINATION: VITAL SIGNS: Afebrile, blood pressure 126/44, pulse 78, and respiratory rate 18. HEENT: Normocephalic and atraumatic. Conjunctivae pink. Oropharynx clear. Mucous membranes dry. NECK: Supple. No jugular venous distention. LUNGS: With bilateral breath sounds. Paradoxical abdominal breathing pattern. HEART: Regular rhythm and rate. Normal S1 and S2 with a fourth heart sound. No guarding or rebound. G-tube in place. EXTREMITIES: No edema. LABORATORY DATA: EKG, sinus rhythm, inferior infarction of indeterminate age, prolonged QT interval. Sodium 130, potassium 5.7, chloride 98, glucose 727, bicarbonate 18, BUN, 47, creatinine 2.8, pro-natriuretic peptide 7700, troponin 0.262, and lactic acid 3.4. ABG pending. IMPRESSION: 1. Diabetic ketoacidosis. 2. Acute myocardial infarction. 3. Metabolic acidosis. 4. Acute on chronic kidney injury. 5. Chronic diastolic congestive heart failure. 6. Dysphagia with G-tube. PLAN: 1. Intravenous fluid hydration. 2. Insulin titration. 3. Antiplatelet therapy. 4. Maintain statin drug once hydrated slowly. 5. Hold cardiovascular regimen in view of tenuous blood pressure parameters. 6. Maintain anti-platelet therapy. 7. Monitor acid-based status closely. 8. Once volume repleted, can restart beta-blockade. Amando Blanco M.D. DR: MICHEAL JOB#: [id number] CC:
[2018-05-18 05:13] LABS: HEMATOCRIT 29.7 % (37.0-47.0); HEMOGLOBIN 9.8 G/DL (12.0-16.0); MEAN CORPUSCULAR VOLUME 92 FL (80-99); PLATELET COUNT 120 K/UL (150-450); RED BLOOD COUNT 3.23 M/UL (4.20-5.40); RED CELL DISTRIBUTION WIDTH 19.2 % (11.6-14.8); WHITE BLOOD COUNT 10.5 K/UL (4.8-10.8)
[2018-05-18] MEDS: D5 1/2NS 1,000 ML IV SCH ×3 (05:15→21:45)
[2018-05-18 05:52] LABS: ALANINE AMINOTRANSFERASE 18 U/L (12-78); ALBUMIN 0.7 G/DL (3.4-5.0); ALBUMIN/GLOBULIN RATIO 0.1 (1.0-2.7); ALKALINE PHOSPHATASE 204 U/L (46-116); ANION GAP 10 mmol/L (5-15); ASPARTATE AMINO TRANSFERASE 79 U/L (15-37); BILIRUBIN,TOTAL 0.4 MG/DL (0.2-1.0); BLOOD UREA NITROGEN 51 mg/dL (7-18); CARBON DIOXIDE 20 MMOL/L (21-32); CHLORIDE 105 MMOL/L (98-107); CREATININE 2.3 MG/DL (0.55-1.30); POTASSIUM 3.9 MMOL/L (3.5-5.1); SODIUM 135 MMOL/L (136-145)
[2018-05-18] MEDS: Pantoprazole Inj IVP SCH ×2 (08:58→21:01)
[2018-05-18] MEDS ORDERED: 1/2 NS 1000ml IV ONE (09:16)
[2018-05-18] MEDS ORDERED: Tubing IV Blood Pump IV ONE (09:16)
[2018-05-18] MEDS ORDERED: Tubing IV Secondary IV ONE (09:16)
[2018-05-18] MEDS ORDERED: NS 275ml ONE (09:16)
--- NOTE | 2018-05-18 11:28 | Pulmonolgy Critical Care Note ---
Critical Care - Asmt/Plan Assessment/Plan: 1. Acute respiratory failure status post bradycardic arrest. 2. Acute diabetic ketoacidosis. 3. Dysphagia with G-tube feeding. 4. Encephalopathy superimposed on severe dementia. 5. Severe diabetes with diabetic ketoacidosis. 6. Chronic kidney disease stage 4. 7. Anemia. 8. Pneumonia. no weaning at this time titrate pressors for MAP greater; than 65 mmgh nebs and suction Tf wound care BScontrol prbc if hbg less than 7 check stool for ob iv abx and tailor to cs from bus pending no family labs and cxr and abg in am critically ill continue ICU level of care greater than 35 minutes of crtical care time spent with the pt, reviewing the records, images, labs,cultures and dw nursing. orders given. Critical Care - Objective Last 24 Hour Vital Signs Date Time Temp Pulse Resp B/P (MAP) Pulse Ox O2 Delivery O2 Flow Rate FiO2 05/18/18 10:00 80 22 130/45 (73) 98 05/18/18 09:00 78 19 125/42 (69) 98 05/18/18 08:12 78 05/18/18 08:00 30 05/18/18 08:00 Endotracheal Tube 05/18/18 08:00 97.5 78 18 131/42 (71) 98 97.5 05/18/18 07:19 76 16 100 Mechanical Ventilator 30 05/18/18 07:11 30 05/18/18 07:11 76 17 98 Mechanical Ventilator 30 05/18/18 07:05 76 14 30 05/18/18 07:00 98.9 76 21 120/46 (70) 98 98.9 05/18/18 06:00 74 21 128/45 (72) 98 05/18/18 05:20 81 24 30 05/18/18 05:00 98.8 81 20 126/48 (74) 98 98.8 05/18/18 04:00 80 05/18/18 04:00 80 21 130/46 (74) 97 05/18/18 04:00 30 05/18/18 04:00 Endotracheal Tube 05/18/18 03:14 77 23 30 05/18/18 03:00 78 19 119/40 (66) 97 05/18/18 02:00 75 18 120/44 (69) 97 05/18/18 01:30 73 16 117/42 (67) 99 05/18/18 01:30 78 15 99 Mechanical Ventilator 30 05/18/18 01:18 30 05/18/18 01:18 75 19 30 05/18/18 01:18 75 19 97 Mechanical Ventilator 30 05/18/18 01:15 77 20 125/44 (71) 97 05/18/18 01:00 77 22 124/45 (71) 97 05/18/18 00:45 77 19 119/47 (71) 97 05/18/18 00:30 77 18 124/47 (72) 97 05/18/18 00:15 79 20 125/52 (76) 97 05/18/18 00:00 75 05/18/18 00:00 98.7 80 21 121/42 (68) 97 98.7 05/18/18 00:00 30 05/18/18 00:00 Endotracheal Tube 05/17/18 22:53 79 20 30 05/17/18 22:45 78 19 122/40 (67) 97 05/17/18 22:30 78 20 119/41 (67) 97 05/17/18 22:15 77 18 119/39 (65) 97 05/17/18 22:00 119/39 05/17/18 22:00 77 19 130/39 (69) 97 05/17/18 21:55 79 20 128/39 (68) 97 05/17/18 21:45 76 18 136/42 (73) 97 05/17/18 21:30 136/42 05/17/18 21:30 78 19 144/45 (78) 97 05/17/18 21:15 76 20 130/40 (70) 96 05/17/18 21:10 76 19 30 05/17/18 21:00 77 18 141/41 (74) 96 05/17/18 21:00 130/40 05/17/18 20:45 76 20 132/43 (72) 96 05/17/18 20:30 131/38 05/17/18 20:30 74 19 131/38 (69) 96 05/17/18 20:15 76 20 143/42 (75) 96 05/17/18 20:00 74 18 131/40 (70) 96 05/17/18 20:00 Endotracheal Tube 05/17/18 20:00 131/40 9/22/18 20:00 75 18 19:45 74 19 130/42 (71) 97 05/17/18 19:30 149/47 05/17/18 19:30 78 15 149/47 (81) 100 05/17/18 19:25 73 16 99 Mechanical Ventilator 30 05/17/18 19:15 30 05/17/18 19:15 77 17 98 Mechanical Ventilator 30 05/17/18 19:15 75 17 129/43 (71) 97 05/17/18 19:14 77 17 30 05/17/18 19:00 125/45 05/17/18 19:00 72 17 125/45 (71) 96 05/17/18 18:54 126/41 05/17/18 18:30 71 18 150/39 (76) 97 05/17/18 18:00 30 05/17/18 18:00 125/39 05/17/18 18:00 73 17 125/39 (67) 96 05/17/18 17:30 73 17 134/39 (70) 97 05/17/18 17:00 126/39 05/17/18 17:00 72 18 126/39 (68) 96 05/17/18 16:45 69 17 30 05/17/18 16:30 70 17 132/36 (68) 97 05/17/18 16:00 Endotracheal Tube 05/17/18 16:00 70 16 129/38 (68) 95 05/17/18 16:00 129/38 05/17/18 15:34 70 05/17/18 15:30 98.2 68 16 136/38 (70) 95 98.2 05/17/18 15:00 72 16 132/40 (70) 94 05/17/18 15:00 132/40 05/17/18 14:55 66 16 30 05/17/18 14:30 70 16 127/37 (67) 95 05/17/18 14:00 69 16 131/37 (68) 96 05/17/18 14:00 131/37 05/17/18 13:30 67 16 136/40 (72) 96 05/17/18 13:05 74 16 100 Mechanical Ventilator 30 05/17/18 13:00 72 16 95 Mechanical Ventilator 30 05/17/18 13:00 30 05/17/18 13:00 71 15 119/39 (65) 95 05/17/18 13:00 119/39 05/17/18 12:57 71 16 30 05/17/18 12:51 70 05/17/18 12:30 71 16 120/32 (61) 96 05/17/18 12:00 Endotracheal Tube 05/17/18 12:00 98.4 71 16 113/32 (59) 96 98.4 05/17/18 12:00 113/32 05/17/18 12:00 30 05/17/18 11:49 78 16 30 05/17/18 11:30 65 16 115/38 (63) 96 Status: obtunded Condition: critical Lungs: rhonchi Heart: HR/BP unstable Abdomen: soft, non-tender Extremities: edema Micro: Microbiology Date/Time Source Procedure Growth Status 05/16/18 15:49 Blood Blood Culture - Preliminary Resulted 05/16/18 15:44 Blood Blood Culture - Preliminary Gram Positive Cocci Resulted 05/15/18 16:50 Blood Blood Culture - Preliminary NO GROWTH AFTER 48 HOURS Resulted 05/15/18 16:40 Blood Blood Culture - Preliminary NO GROWTH AFTER 48 HOURS Resulted 05/16/18 19:30 Sputum Gram Stain - Final Resulted 05/16/18 19:30 Sputum Sputum Culture - Preliminary NORMAL UPPER RESPIRATORY BRUCE AT 24 ... Resulted 05/15/18 20:00 Nasal Nares MRSA Culture - Final Staphylococcus Aureus - Mrsa Complete 05/16/18 23:30 Sacral Wound Gram Stain - Final Resulted 05/16/18 23:30 Wound Culture - Preliminary Enterococcus Faecalis Resulted 05/15/18 20:00 Rectum VRE Culture - Final Enterococcus Faecalis - Vre Complete Accucheck: 94 Critical Care - Subjective ROS Limited/Unobtainable: Yes Condition: critical FI02: 30 Vent Support Breath Rate: 16 Vent Support Mode: AC Vent Tidal Volume: 600 Sputum Amount: Small PEEP: 5.0 PIP: 32 Tube Feeding Amount: 20 I&O: Intake and Output 05/17/18 05/18/18 19:00 07:00 Intake Total 2687.917 ml 1851.250 ml Output Total 855 ml 1480 ml Balance 1832.917 ml 371.250 ml IV Total 1947.917 ml 1491.250 ml Tube Feeding 240 ml 240 ml Blood Product 500 ml Other 120 ml Output Urine Total 855 ml 1480 ml Subjective: no evetns noted sedated on hte vent sync set rate 16 no dsitress no fever no reports of cp nv or bleeding secretions noted positive uop on pressors on hypotension CXR: no new cxr ET-Tube: 7.5 ET Position: 23 Labs: Current Medications Medications (Trade) Dose Ordered Sig/Adelia Route PRN Reason Start Time Stop Time Status Last Admin Dose Admin Acetaminophen (Tylenol) 650 mg Q6H PRN NG Fever/Headache/Mild Pain 05/17/18 03:45 06/16/18 03:44 05/17/18 03:57 Albuterol/ Ipratropium (Albuterol/ Ipratropium) 3 ml Q6HRT HHN 05/16/18 19:15 05/21/18 19:14 05/18/18 07:11 Cefepime HCl 1 gm/ Dextrose 55 ml @ 110 mls/hr Q24H IVPB 05/16/18 22:00 05/23/18 21:59 05/17/18 21:55 Chlorhexidine Gluconate (Khadijah-Hex 2%) 1 applic DAILY@2000 TOPIC 05/16/18 20:00 06/15/18 19:59 05/17/18 19:40 Clopidogrel Bisulfate (Plavix) 75 mg DAILY GT 05/16/18 09:00 06/15/18 08:59 05/18/18 08:58 Dextrose (Dextrose 50%) 50 ml Q1H PRN IV Hypoglycemia 05/15/18 21:15 Dextrose/Sodium Chloride 1,000 ml @ 125 mls/hr Q8H IV 05/15/18 21:45 06/14/18 21:44 Docusate Sodium (Colace) 250 mg BID ORAL 05/18/18 10:17 06/17/18 10:16 Epoetin Jarocho (Procrit (for ESRD on dialysis)) 10,000 units SAT-WED-SAT SUBQ 05/16/18 21:00 06/15/18 20:59 05/16/18 21:10 Insulin Aspart (NovoLOG) EVERY 3 HOURS SUBQ 05/16/18 00:00 06/15/18 00:00 05/18/18 06:21 Insulin Detemir (Levemir) 12 units BEDTIME SUBQ 05/16/18 21:00 06/15/18 20:59 05/17/18 20:59 Iron Sucrose 100 mg/Sodium Chloride 60 ml @ 240 mls/hr BEDTIME IV 05/16/18 21:00 05/20/18 21:14 05/17/18 20:49 Metoclopramide HCl (Reglan) 10 mg Q6H PRN IVP Nausea & Vomiting 05/16/18 09:30 06/15/18 09:29 Metronidazole 100 ml @ 100 mls/hr Q8HR IVPB 05/16/18 22:00 05/23/18 21:59 05/18/18 06:17 Ondansetron HCl (Zofran) 4 mg Q6H PRN IVP Nausea & Vomiting 05/15/18 21:45 06/14/18 21:44 Pantoprazole (Protonix) 40 mg EVERY 12 HOURS IVP 05/16/18 10:00 06/15/18 09:59 05/18/18 08:58 Sodium Chloride 1,000 ml @ 125 mls/hr Q8H IV 05/15/18 21:15 06/14/18 21:14 05/18/18 05:14 Sucralfate (Carafate) 1 gm EVERY 6 HOURS GT 05/16/18 00:00 06/15/18 00:00 05/18/18 06:17 Vancomycin HCl (Vanco rx to dose) 1 ea DAILY PRN MISC Per rx protocol 05/16/18 15:15 06/15/18 15:14 Laboratory Tests Test 05/18/18 04:00 White Blood Count 10.5 K/UL (4.8-10.8) Red Blood Count 3.23 M/UL (4.20-5.40) L Hemoglobin 9.8 G/DL (12.0-16.0) #L Hematocrit 29.7 % (37.0-47.0) #L Mean Corpuscular Volume 92 FL (80-99) Mean Corpuscular Hemoglobin 30.4 PG (27.0-31.0) Mean Corpuscular Hemoglobin Concent 33.1 G/DL (32.0-36.0) Red Cell Distribution Width 19.2 % (11.6-14.8) H Platelet Count 120 K/UL (150-450) L Mean Platelet Volume 7.7 FL (6.5-10.1) Neutrophils (%) (Auto) % (45.0-75.0) Lymphocytes (%) (Auto) % (20.0-45.0) Monocytes (%) (Auto) % (1.0-10.0) Eosinophils (%) (Auto) % (0.0-3.0) Basophils (%) (Auto) % (0.0-2.0) Differential Total Cells Counted 100 Neutrophils % (Manual) 76 % (45-75) H Lymphocytes % (Manual) 6 % (20-45) L Monocytes % (Manual) 6 % (1-10) Eosinophils % (Manual) 0 % (0-3) Basophils % (Manual) 0 % (0-2) Band Neutrophils 12 % (0-8) H Platelet Estimate Decreased L Platelet Morphology Normal Anisocytosis 2+ Sodium Level 135 MMOL/L (136-145) L Potassium Level 3.9 MMOL/L (3.5-5.1) Chloride Level 105 MMOL/L (98-107) Carbon Dioxide Level 20 MMOL/L (21-32) L Anion Gap 10 mmol/L (5-15) Blood Urea Nitrogen 51 mg/dL (7-18) H Creatinine 2.3 MG/DL (0.55-1.30) H Estimat Glomerular Filtration Rate mL/min (>60) Glucose Level 119 MG/DL (74-106) H Calcium Level 8.0 MG/DL (8.5-10.1) L Total Bilirubin 0.4 MG/DL (0.2-1.0) Aspartate Amino Transf (AST/SGOT) 79 U/L (15-37) H Alanine Aminotransferase (ALT/SGPT) 18 U/L (12-78) Alkaline Phosphatase 204 U/L (46-116) H Troponin I 0.610 ng/mL (0.000-0.056) Total Protein 5.4 G/DL (6.4-8.2) L Albumin 0.7 G/DL (3.4-5.0) L Globulin 4.7 g/dL Albumin/Globulin Ratio 0.1 (1.0-2.7) L Omayra Patiño DO May 18, 2018 11:28
[2018-05-18] MEDS: Docusate 250mg cap ORAL SCH ×2 (11:38→17:57)
--- NOTE | 2018-05-18 14:00 | Cardiology Report ---
APPROVED REPORT EKG Measurement Heart [id number] ID [id number] Unusual P axis and short ID, probable junctional tachycardia Abnormal ECG
--- NOTE | 2018-05-18 16:43 | General Progress Note ---
Assessment/Plan Problem List: (1) Respiratory failure ICD Codes: J96.90 - Respiratory failure, unspecified, unspecified whether with hypoxia or hypercapnia SNOMED: 658005478 (2) Hypotension ICD Codes: I95.9 - Hypotension, unspecified SNOMED: 75329413 (3) GI bleed ICD Codes: K92.2 - Gastrointestinal hemorrhage, unspecified SNOMED: 04547434 (4) DKA (diabetic ketoacidoses) ICD Codes: E13.10 - Other specified diabetes mellitus with ketoacidosis without coma SNOMED: 092087561, 47927402 (5) CKD (chronic kidney disease) stage 4, GFR 15-29 ml/min ICD Codes: N18.4 - Chronic kidney disease, stage 4 (severe) SNOMED: 752750083 (6) Hyperkalemia ICD Codes: E87.5 - Hyperkalemia SNOMED: 17780566, 63395606 (7) Altered mental status ICD Codes: R41.82 - Altered mental status, unspecified SNOMED: 270471943 (8) Elevated troponin ICD Codes: R74.8 - Abnormal levels of other serum enzymes SNOMED: 507336375, 258160033, 270436590 (9) Toxic metabolic encephalopathy ICD Codes: G92 - Toxic encephalopathy SNOMED: 492584907 (10) MRSA (methicillin resistant staph aureus) culture positive ICD Codes: Z22.322 - Carrier or suspected carrier of Methicillin resistant Staphylococcus aureus SNOMED: 847229509 (11) VRE (vancomycin resistant enterococcus) culture positive ICD Codes: Z22.39 - Carrier of other specified bacterial diseases SNOMED: 478211193 (12) Bacteremia ICD Codes: R78.81 - Bacteremia SNOMED: 3962401 (13) Sepsis ICD Codes: A41.9 - Sepsis, unspecified organism SNOMED: 75113482 Qualifiers: Qualified Codes: A41.9 - Sepsis, unspecified organism (14) Shock ICD Codes: R57.9 - Shock, unspecified SNOMED: 13195578 Assessment/Plan icu care, 35 min now intubated, adjust meds, insulin, reduce fluids, increase feeding, linezolid as G+ cocci in blood Subjective ROS Limited/Unobtainable: Yes Allergies: Coded Allergies: PENICILLINS (Verified Allergy, Severe, 03/10/14) SKIN RASH AMOXICILLIN (Verified Allergy, Mild, 03/09/14) ERYTHROMYCIN BASE (Verified Allergy, Mild, 03/09/14) Uncoded Allergies: ERYTHROMYCIN (Allergy, Unknown, 05/15/18) PENICILLIN (Allergy, Unknown, 05/15/18) ZITHROMYCIN (Allergy, Unknown, 05/15/18) Objective Last 24 Hour Vital Signs Date Time Temp Pulse Resp B/P (MAP) Pulse Ox O2 Delivery O2 Flow Rate FiO2 05/18/18 16:00 Endotracheal Tube 05/18/18 16:00 97.7 80 22 132/54 (80) 98 97.7 05/18/18 15:36 79 05/18/18 15:00 78 18 122/48 (72) 98 05/18/18 14:00 80 17 120/45 (70) 99 05/18/18 13:09 76 18 99 Mechanical Ventilator 30 05/18/18 13:00 75 16 120/37 (64) 100 05/18/18 12:58 30 05/18/18 12:58 79 16 98 Mechanical Ventilator 30 05/18/18 12:58 76 17 30 05/18/18 12:20 78 05/18/18 12:00 97.6 78 20 137/49 (78) 98 97.6 05/18/18 12:00 Endotracheal Tube 05/18/18 12:00 30 05/18/18 11:20 74 17 30 05/18/18 11:00 77 21 129/45 (73) 98 05/18/18 10:00 80 22 130/45 (73) 98 05/18/18 09:00 78 19 125/42 (69) 98 05/18/18 08:59 78 14 30 05/18/18 08:12 78 05/18/18 08:00 30 05/18/18 08:00 Endotracheal Tube 05/18/18 08:00 97.5 78 18 131/42 (71) 98 97.5 05/18/18 07:19 76 16 100 Mechanical Ventilator 30 05/18/18 07:11 30 05/18/18 07:11 76 17 98 Mechanical Ventilator 30 05/18/18 07:05 76 14 30 05/18/18 07:00 98.9 76 21 120/46 (70) 98 98.9 05/18/18 06:00 74 21 128/45 (72) 98 05/18/18 05:20 81 24 30 05/18/18 05:00 98.8 81 20 126/48 (74) 98 98.8 05/18/18 04:00 80 05/18/18 04:00 80 21 130/46 (74) 97 05/18/18 04:00 30 05/18/18 04:00 Endotracheal Tube 05/18/18 03:14 77 23 30 05/18/18 03:00 78 19 119/40 (66) 97 05/18/18 02:00 75 18 120/44 (69) 97 05/18/18 01:30 73 16 117/42 (67) 99 05/18/18 01:30 78 15 99 Mechanical Ventilator 30 05/18/18 01:18 30 05/18/18 01:18 75 19 30 05/18/18 01:18 75 19 97 Mechanical Ventilator 30 05/18/18 01:15 77 20 125/44 (71) 97 05/18/18 01:00 77 22 124/45 (71) 97 05/18/18 00:45 77 19 119/47 (71) 97 05/18/18 00:30 77 18 124/47 (72) 97 05/18/18 00:15 79 20 125/52 (76) 97 05/18/18 00:00 75 05/18/18 00:00 98.7 80 21 121/42 (68) 97 98.7 05/18/18 00:00 30 05/18/18 00:00 Endotracheal Tube 05/17/18 22:53 79 20 30 05/17/18 22:45 78 19 122/40 (67) 97 05/17/18 22:30 78 20 119/41 (67) 97 05/17/18 22:15 77 18 119/39 (65) 97 05/17/18 22:00 119/39 05/17/18 22:00 77 19 130/39 (69) 97 05/17/18 21:55 79 20 128/39 (68) 97 05/17/18 21:45 76 18 136/42 (73) 97 05/17/18 21:30 136/42 05/17/18 21:30 78 19 144/45 (78) 97 05/17/18 21:15 76 20 130/40 (70) 96 05/17/18 21:10 76 19 30 05/17/18 21:00 77 18 141/41 (74) 96 05/17/18 21:00 130/40 05/17/18 20:45 76 20 132/43 (72) 96 05/17/18 20:30 131/38 05/17/18 20:30 74 19 131/38 (69) 96 05/17/18 20:15 76 20 143/42 (75) 96 05/17/18 20:00 74 18 131/40 (70) 96 05/17/18 20:00 Endotracheal Tube 05/17/18 20:00 131/40 05/17/18 20:00 75 05/17/18 19:45 74 19 130/42 (71) 97 05/17/18 19:30 149/47 05/17/18 19:30 78 15 149/47 (81) 100 05/17/18 19:25 73 16 99 Mechanical Ventilator 30 05/17/18 19:15 30 05/17/18 19:15 77 17 98 Mechanical Ventilator 30 05/17/18 19:15 75 17 129/43 (71) 97 05/17/18 19:14 77 17 30 05/17/18 19:00 125/45 05/17/18 19:00 72 17 125/45 (71) 96 05/17/18 18:54 126/41 05/17/18 18:30 71 18 150/39 (76) 97 05/17/18 18:00 30 05/17/18 18:00 125/39 05/17/18 18:00 73 17 125/39 (67) 96 05/17/18 17:30 73 17 134/39 (70) 97 05/17/18 17:00 126/39 05/17/18 17:00 72 18 126/39 (68) 96 05/17/18 16:45 69 17 30 Intake and Output 05/17/18 05/18/18 19:00 07:00 Intake Total 2687.917 ml 1851.250 ml Output Total 855 ml 1480 ml Balance 1832.917 ml 371.250 ml IV Total 1947.917 ml 1491.250 ml Tube Feeding 240 ml 240 ml Blood Product 500 ml Other 120 ml Output Urine Total 855 ml 1480 ml Laboratory Tests 05/18/18 04:00: White Blood Count 10.5, Red Blood Count 3.23L, Hemoglobin 9.8#L, Hematocrit 29.7 #L, Mean Corpuscular Volume 92, Mean Corpuscular Hemoglobin 30.4, Mean Corpuscular Hemoglobin Concent 33.1, Red Cell Distribution Width 19.2H, Platelet Count 120L, Mean Platelet Volume 7.7, Neutrophils (%) (Auto) , Lymphocytes (%) (Auto) , Monocytes (%) (Auto) , Eosinophils (%) (Auto) , Basophils (%) (Auto) , Differential Total Cells Counted 100, Neutrophils % ( Manual) 76H, Lymphocytes % (Manual) 6L, Monocytes % (Manual) 6, Eosinophils % ( Manual) 0, Basophils % (Manual) 0, Band Neutrophils 12H, Platelet Estimate DecreasedL, Platelet Morphology Normal, Anisocytosis 2+, Sodium Level 135L, Potassium Level 3.9, Chloride Level 105, Carbon Dioxide Level 20L, Anion Gap 10 , Blood Urea Nitrogen 51H, Creatinine 2.3H, Estimat Glomerular Filtration Rate , Glucose Level 119H, Calcium Level 8.0L, Total Bilirubin 0.4, Aspartate Amino Transf (AST/SGOT) 79H, Alanine Aminotransferase (ALT/SGPT) 18, Alkaline Phosphatase 204H, Troponin I 0.610H, Total Protein 5.4L, Albumin 0.7L, Globulin 4.7, Albumin/Globulin Ratio 0.1L Height (Feet): 5 Height (Inches): 3.00 Weight (Pounds): 180 General Appearance: obese, other - obtunded, vent EENT: normal ENT inspection Neck: normal alignment Cardiovascular: normal rate, regular rhythm Respiratory/Chest: rhonchi - bilaterally Abdomen: non tender, soft Edema: trace edema Neurologic: unresponsive, other - grimace to pain, dolls eyes intact EZEQUIEL BAÑUELOS May 18, 2018 16:43
[2018-05-18] MEDS: Dyna-Hex 2% Top Sol 2oz TOPIC SCH (19:53)
[2018-05-18] MEDS: Iron Sucrose 100 MG in NS 55 ML IV SCH (21:01)
[2018-05-18] MEDS: Levemir Flexpen SUBQ SCH (21:27)
[2018-05-19] VITALS (24 sets, daily range): BP systolic 98–128; BP diastolic 37–47
[2018-05-19] MEDS: Sucralfate 1gm tab GT SCH ×4 (00:21→17:19)
--- NOTE | 2018-05-19 00:30 | Progress Note ---
DATE: 05/18/2018 CARDIOLOGY PROGRESS NOTE SUBJECTIVE: The patient remains in the intensive care unit. Condition remains critical with guarded prognosis. She remains orally intubated and mechanically ventilated. She continues on antibiotics for bacteremia with gram-positive cocci in the blood. She is off pressors. OBJECTIVE: VITAL SIGNS: Blood pressure 132/54, pulse 80, respiratory rate 22 and afebrile. Monitored rhythm sinus and sinus tachycardia with atrial ectopy. Orally intubated. LUNGS: Bilateral breath sounds. Scattered rhonchi. HEART: Regular rhythm and rate. Normal S1 and S2. Fourth heart sound. ABDOMEN: Soft. EXTREMITIES: Trace edema. LABORATORY AND DIAGNOSTIC DATA: White count 10 and hemoglobin 9.8. Sodium 135, potassium 3.9, bicarbonate 20, BUN 51, and creatinine 2.3. Troponin 0.6. IMPRESSION: 1. Acute myocardial infarction. 2. Sepsis with shock. 3. Diabetes mellitus, uncontrolled. 4. Acute on chronic renal failure. 5. Metabolic acidosis. 6. Respiratory failure. 7. Severe protein-calorie malnutrition. 8. Anemia status post transfusion. PLAN: 1. Transfuse for hemoglobin less than 7 g. 2. Insulin titration. 3. Off pressors. 4. Holding anti-anginal at this time. 5. Antibiotics per Infectious Disease legal consultant. 6. Cautious hydration. 7. Avoid resumption of pressors. 8. Cautious use of anti-platelet therapy. 9. Observing for secondary bleeding complications. 10. Not weanable at this time. Amando Blanco M.D. DR: VALDEZ JOB#: [id number] CC:
[2018-05-19] MEDS: Albuterol/Ipratropium 3ml neb HHN SCH ×4 (01:16→19:02)
[2018-05-19] MEDS: NovoLOG Insulin Flexpen SUBQ SCH ×8 (03:00→21:05)
[2018-05-19] MEDS: D5 1/2NS 1,000 ML IV SCH ×2 (05:36→13:38)
[2018-05-19 05:52] LABS: HEMATOCRIT 30.5 % (37.0-47.0); HEMOGLOBIN 9.8 G/DL (12.0-16.0); MEAN CORPUSCULAR VOLUME 91 FL (80-99); PLATELET COUNT 88 K/UL (150-450); RED BLOOD COUNT 3.35 M/UL (4.20-5.40); RED CELL DISTRIBUTION WIDTH 19.3 % (11.6-14.8); WHITE BLOOD COUNT 8.1 K/UL (4.8-10.8)
[2018-05-19 06:25] LABS: ANION GAP 9 mmol/L (5-15); BLOOD UREA NITROGEN 46 mg/dL (7-18); CALCIUM 8.3 MG/DL (8.5-10.1); CARBON DIOXIDE 20 MMOL/L (21-32); CHLORIDE 111 MMOL/L (98-107); CREATININE 2.2 MG/DL (0.55-1.30); POTASSIUM 3.5 MMOL/L (3.5-5.1); SODIUM 140 MMOL/L (136-145)
[2018-05-19] MEDS: Docusate 250mg cap ORAL SCH ×2 (08:01→17:18)
[2018-05-19] MEDS: Pantoprazole Inj IVP SCH ×2 (08:03→20:59)
[2018-05-19] MEDS ORDERED: Rx Monitoring Vancomycin MISC PRN (12:15)
--- NOTE | 2018-05-19 12:44 | Pulmonolgy Critical Care Note ---
Critical Care - Asmt/Plan Assessment/Plan: 1. Acute respiratory failure status post bradycardic arrest. 2. Acute diabetic ketoacidosis. 3. Dysphagia with G-tube feeding. 4. Encephalopathy superimposed on severe dementia. 5. Severe diabetes with diabetic ketoacidosis. 6. Chronic kidney disease stage 4. 7. Anemia. 8. Pneumonia with sepsis, MRSA + BC weaning parameters better, start trial off pressors nebs and suction tube feeds held due to high residuals wound care iv abx Respiratory: weaning trial Cardiac: continue to monitor HR/BP Critical Care - Objective Last 24 Hour Vital Signs Date Time Temp Pulse Resp B/P (MAP) Pulse Ox O2 Delivery O2 Flow Rate FiO2 05/19/18 12:00 Endotracheal Tube 05/19/18 12:00 30 05/19/18 12:00 72 23 115/41 (65) 99 05/19/18 11:00 72 23 115/44 (67) 99 05/19/18 10:52 81 18 30 05/19/18 10:00 80 21 128/43 (71) 99 05/19/18 09:09 80 20 30 05/19/18 09:00 78 21 110/47 (68) 98 05/19/18 08:00 Endotracheal Tube 05/19/18 08:00 74 21 116/43 (67) 98 05/19/18 08:00 71 05/19/18 08:00 30 05/19/18 07:58 75 16 100 Mechanical Ventilator 30 05/19/18 07:51 75 18 100 Mechanical Ventilator 30 05/19/18 07:51 30 05/19/18 07:25 74 20 30 05/19/18 07:00 76 21 116/44 (68) 98 05/19/18 06:00 98.4 77 21 118/45 (69) 98 98.4 05/19/18 05:12 76 20 30 05/19/18 05:00 76 21 115/42 (66) 98 05/19/18 04:00 30 05/19/18 04:00 Endotracheal Tube 05/19/18 04:00 72 05/19/18 04:00 72 21 110/43 (65) 98 05/19/18 03:10 72 19 30 05/19/18 03:00 73 20 112/44 (66) 98 05/19/18 02:00 98.0 74 19 110/40 (63) 98 98.0 05/19/18 01:19 72 16 100 Mechanical Ventilator 30 05/19/18 01:19 30 05/19/18 01:17 71 18 30 05/19/18 01:10 69 17 99 Mechanical Ventilator 30 05/19/18 01:00 74 19 110/45 (66) 98 05/19/18 00:00 71 05/19/18 00:00 Endotracheal Tube 05/19/18 00:00 74 19 108/43 (64) 98 05/19/18 00:00 30 05/18/18 23:00 74 19 103/43 (63) 98 05/18/18 22:44 74 18 30 05/18/18 22:00 76 19 110/36 (60) 98 05/18/18 21:00 73 17 108/30 (56) 98 05/18/18 20:54 74 18 30 05/18/18 20:00 97.9 73 17 104/39 (60) 98 97.9 05/18/18 20:00 82 16 98 Mechanical Ventilator 30 05/18/18 20:00 79 05/18/18 20:00 84 16 100 Mechanical Ventilator 30 05/18/18 20:00 30 05/18/18 20:00 Endotracheal Tube 05/18/18 20:00 30 05/18/18 19:30 72 19 30 05/18/18 19:00 73 17 110/55 (73) 98 05/18/18 18:00 75 17 112/40 (64) 98 18 18:00 75 17 111/44 (66) 98 05/18/18 17:05 83 18 30 05/18/18 17:00 80 19 124/45 (71) 98 05/18/18 17:00 80 19 124/45 (71) 98 18 16:00 Endotracheal Tube 05/18/18 16:00 97.7 80 22 132/54 (80) 98 97.7 05/18/18 15:36 79 05/18/18 15:22 78 17 30 05/18/18 15:00 78 18 122/48 (72) 98 05/18/18 14:00 80 17 120/45 (70) 99 05/18/18 13:09 76 18 99 Mechanical Ventilator 30 05/18/18 13:00 75 16 120/37 (64) 100 9/23/18 12:58 30 05/18/18 12:58 79 16 98 Mechanical Ventilator 30 05/18/18 12:58 76 17 30 Status: somnolent Condition: improving Lungs: clear Heart: HR/BP stable Abdomen: soft Micro: Microbiology Date/Time Source Procedure Growth Status 05/16/18 15:49 Blood Blood Culture - Final Staphylococcus Aureus - Mrsa Complete 05/16/18 15:44 Blood Blood Culture - Final Staphylococcus Aureus - Mrsa Complete 05/16/18 19:30 Sputum Gram Stain - Final Resulted 05/16/18 19:30 Sputum Sputum Culture - Preliminary NORMAL UPPER RESPIRATORY BRUCE AT 24 ... Resulted 05/16/18 23:30 Sacral Wound Gram Stain - Final Complete 05/16/18 23:30 Wound Culture - Final Enterococcus Faecalis Wen Albicans Complete Accucheck: 124 Critical Care - Subjective ROS Limited/Unobtainable: Yes Condition: improving EKG Rhythm: Sinus Rhythm FI02: 30 Vent Support Breath Rate: 16 Vent Support Mode: AC Vent Tidal Volume: 600 Sputum Amount: Small PEEP: 5.0 PIP: 31 Drips: no pressors Tube Feeding Amount: 40 I&O: Intake and Output 05/18/18 05/19/18 19:00 07:00 Intake Total 1941.5 ml 1440 ml Output Total 1885 ml 1750 ml Balance 56.5 ml -310 ml Free Water 150 ml IV Total 1511.5 ml 960 ml Tube Feeding 280 ml 480 ml Output Urine Total 1885 ml 1750 ml # Bowel Movements 1 ET-Tube: 7.5 ET Position: 23 Adam Willis MD May 19, 2018 12:44
--- NOTE | 2018-05-19 15:28 | Diagnostic Imaging Report ---
Indication: Dyspnea, respiratory failure Technique: XRAY Chest 1v Comparison: 05/17/2018 Findings: Endotracheal tube and left transjugular central venous line unchanged in position. Again noted are multiple coronary arterial stents. Surgical clips noted in the right upper quadrant. There is bilateral interstitial and airspace disease, increased slightly from the prior exam. No evidence of pneumothorax. Osseous structures stable. Impression: * Slight interval worsening of bilateral interstitial and airspace disease. * Support lines/tubes stable.
[2018-05-19] MEDS ORDERED: 1/2 NS 1000ml IV ONE (15:41)
[2018-05-19] MEDS ORDERED: Vancomycin 1gm/D5W 275ml IVPB ONE ×2 (16:00)
--- NOTE | 2018-05-19 19:09 | General Progress Note ---
Assessment/Plan Problem List: (1) Respiratory failure ICD Codes: J96.90 - Respiratory failure, unspecified, unspecified whether with hypoxia or hypercapnia SNOMED: 348592222 (2) Hypotension ICD Codes: I95.9 - Hypotension, unspecified SNOMED: 80021246 (3) GI bleed ICD Codes: K92.2 - Gastrointestinal hemorrhage, unspecified SNOMED: 81989766 (4) DKA (diabetic ketoacidoses) ICD Codes: E13.10 - Other specified diabetes mellitus with ketoacidosis without coma SNOMED: 104681114, 29094596 (5) CKD (chronic kidney disease) stage 4, GFR 15-29 ml/min ICD Codes: N18.4 - Chronic kidney disease, stage 4 (severe) SNOMED: 792289392 (6) Hyperkalemia ICD Codes: E87.5 - Hyperkalemia SNOMED: 35468634, 96443463 (7) Altered mental status ICD Codes: R41.82 - Altered mental status, unspecified SNOMED: 335201704 (8) Elevated troponin ICD Codes: R74.8 - Abnormal levels of other serum enzymes SNOMED: 823330184, 819708839, 940928202 (9) Toxic metabolic encephalopathy ICD Codes: G92 - Toxic encephalopathy SNOMED: 804101941 (10) MRSA (methicillin resistant staph aureus) culture positive ICD Codes: Z22.322 - Carrier or suspected carrier of Methicillin resistant Staphylococcus aureus SNOMED: 580640649 (11) VRE (vancomycin resistant enterococcus) culture positive ICD Codes: Z22.39 - Carrier of other specified bacterial diseases SNOMED: 098786243 (12) Bacteremia ICD Codes: R78.81 - Bacteremia SNOMED: 0687125 (13) Sepsis ICD Codes: A41.9 - Sepsis, unspecified organism SNOMED: 28043202 Qualifiers: Qualified Codes: A41.9 - Sepsis, unspecified organism (14) Shock ICD Codes: R57.9 - Shock, unspecified SNOMED: 65740522 Assessment/Plan icu care, 40 min now intubated, adjust meds, insulin, dc iv fluids, increase feeding, vanco as G+ cocci in blood --mrsa, start diuresis for chf Subjective ROS Limited/Unobtainable: Yes Allergies: Coded Allergies: PENICILLINS (Verified Allergy, Severe, 03/10/14) SKIN RASH AMOXICILLIN (Verified Allergy, Mild, 03/09/14) ERYTHROMYCIN BASE (Verified Allergy, Mild, 03/09/14) Uncoded Allergies: ERYTHROMYCIN (Allergy, Unknown, 05/15/18) PENICILLIN (Allergy, Unknown, 05/15/18) ZITHROMYCIN (Allergy, Unknown, 05/15/18) Objective Last 24 Hour Vital Signs Date Time Temp Pulse Resp B/P (MAP) Pulse Ox O2 Delivery O2 Flow Rate FiO2 05/19/18 19:03 74 20 100 Mechanical Ventilator 30 05/19/18 19:02 74 20 30 05/19/18 18:00 78 23 103/37 (59) 98 05/19/18 17:00 73 23 106/37 (60) 97 05/19/18 16:48 78 20 30 05/19/18 16:00 97.2 77 22 98/42 (60) 98 97.2 05/19/18 16:00 30 05/19/18 16:00 Endotracheal Tube 05/19/18 16:00 69 05/19/18 15:00 72 23 103/41 (61) 98 05/19/18 14:47 73 19 30 05/19/18 14:00 72 23 103/41 (61) 98 05/19/18 13:00 96.4 68 22 110/39 (62) 98 96.4 05/19/18 12:48 73 16 100 Mechanical Ventilator 30 05/19/18 12:41 77 16 30 05/19/18 12:41 71 16 100 Mechanical Ventilator 30 05/19/18 12:41 30 05/19/18 12:00 74 05/19/18 12:00 Endotracheal Tube 05/19/18 12:00 30 05/19/18 12:00 72 23 115/41 (65) 99 05/19/18 11:00 72 23 115/44 (67) 99 05/19/18 10:52 81 18 30 05/19/18 10:00 80 21 128/43 (71) 99 05/19/18 09:09 80 20 30 05/19/18 09:00 78 21 110/47 (68) 98 05/19/18 08:00 Endotracheal Tube 05/19/18 08:00 74 21 116/43 (67) 98 05/19/18 08:00 71 05/19/18 08:00 30 05/19/18 07:58 75 16 100 Mechanical Ventilator 30 05/19/18 07:51 75 18 100 Mechanical Ventilator 30 05/19/18 07:51 30 05/19/18 07:25 74 20 30 05/19/18 07:00 76 21 116/44 (68) 98 05/19/18 06:00 98.4 77 21 118/45 (69) 98 98.4 05/19/18 05:12 76 20 30 05/19/18 05:00 76 21 115/42 (66) 98 05/19/18 04:00 30 05/19/18 04:00 Endotracheal Tube 05/19/18 04:00 72 05/19/18 04:00 72 21 110/43 (65) 98 05/19/18 03:10 72 19 30 05/19/18 03:00 73 20 112/44 (66) 98 05/19/18 02:00 98.0 74 19 110/40 (63) 98 98.0 05/19/18 01:19 72 16 100 Mechanical Ventilator 30 05/19/18 01:19 30 05/19/18 01:17 71 18 30 05/19/18 01:10 69 17 99 Mechanical Ventilator 30 05/19/18 01:00 74 19 110/45 (66) 98 05/19/18 00:00 71 05/19/18 00:00 Endotracheal Tube 05/19/18 00:00 74 19 108/43 (64) 98 05/19/18 00:00 30 05/18/18 23:00 74 19 103/43 (63) 98 05/18/18 22:44 74 18 30 05/18/18 22:00 76 19 110/36 (60) 98 05/18/18 21:00 73 17 108/30 (56) 98 05/18/18 20:54 74 18 30 05/18/18 20:00 97.9 73 17 104/39 (60) 98 97.9 05/18/18 20:00 82 16 98 Mechanical Ventilator 30 05/18/18 20:00 79 05/18/18 20:00 84 16 100 Mechanical Ventilator 30 05/18/18 20:00 30 05/18/18 20:00 Endotracheal Tube 05/18/18 20:00 30 05/18/18 19:30 72 19 30 Intake and Output 05/18/18 05/19/18 19:00 07:00 Intake Total 1941.5 ml 1440 ml Output Total 1885 ml 1750 ml Balance 56.5 ml -310 ml Free Water 150 ml IV Total 1511.5 ml 960 ml Tube Feeding 280 ml 480 ml Output Urine Total 1885 ml 1750 ml # Bowel Movements 1 Laboratory Tests 05/19/18 05:26: White Blood Count 8.1, Red Blood Count 3.35L, Hemoglobin 9.8L, Hematocrit 30.5L , Mean Corpuscular Volume 91, Mean Corpuscular Hemoglobin 29.4, Mean Corpuscular Hemoglobin Concent 32.3, Red Cell Distribution Width 19.3H, Platelet Count 88L, Mean Platelet Volume 7.4, Neutrophils (%) (Auto) , Lymphocytes (%) (Auto) , Monocytes (%) (Auto) , Eosinophils (%) (Auto) , Basophils (%) (Auto) , Differential Total Cells Counted 100, Neutrophils % ( Manual) 71, Lymphocytes % (Manual) 7L, Monocytes % (Manual) 1, Eosinophils % ( Manual) 4H, Basophils % (Manual) 0, Band Neutrophils 17H, Nucleated Red Blood Cells 1, Platelet Estimate DecreasedL, Platelet Morphology Normal, Anisocytosis 2+, Sodium Level 140, Potassium Level 3.5, Chloride Level 111H, Carbon Dioxide Level 20L, Anion Gap 9, Blood Urea Nitrogen 46H, Creatinine 2.2H, Estimat Glomerular Filtration Rate , Glucose Level 101, Calcium Level 8.3L, Troponin I 0.421H, Pro-B-Type Natriuretic Peptide 41407Y, Lipase 53L 05/19/18 07:25: Arterial Blood pH 7.405, Arterial Blood Partial Pressure CO2 28.3L, Arterial Blood Partial Pressure O2 72.5L, Arterial Blood HCO3 17.3L, Arterial Blood Oxygen Saturation 94.6, Arterial Blood Base Excess -6.2, Steve Test Positive 05/19/18 13:45: Random Vancomycin Level 12.2 Height (Feet): 5 Height (Inches): 3.00 Weight (Pounds): 183 General Appearance: other - intubated EENT: normal ENT inspection Neck: normal alignment Cardiovascular: regular rhythm Respiratory/Chest: decreased breath sounds, rhonchi - bilaterally Abdomen: non tender, soft Edema: 1+ Arm (L), 1+ Arm (R), 1+ Leg (L), 1+ Leg (R), 1+ Pedal (L), 1+ Pedal ( R), 1+ Generalized Neurologic: unresponsive EZEQUIEL BAÑUELOS May 19, 2018 19:09
[2018-05-19] MEDS: Dyna-Hex 2% Top Sol 2oz TOPIC SCH (19:58)
[2018-05-19] MEDS: Epogen (for ESRD on dialysis) SUBQ SCH (21:00)
[2018-05-19] MEDS: Iron Sucrose 100 MG in NS 55 ML IV SCH (21:01)
[2018-05-19] MEDS: Levemir Flexpen SUBQ SCH (21:04)
--- NOTE | 2018-05-19 22:30 | Progress Note ---
DATE: 05/19/2018 CARDIOLOGY PROGRESS NOTE SUBJECTIVE: Condition remains critical. Prognosis guarded. The patient is on full ventilator support. Pressors have been discontinued. OBJECTIVE: VITAL SIGNS: Blood pressure remains marginal 115/41, pulse 72, respirations 23. No fevers. HEENT: Orally intubated. LUNGS: Bilateral breath sounds with rhonchi and rales. HEART: Regular rhythm and rate. Normal S1 and S2 with a fourth heart sound. ABDOMEN: Soft. EXTREMITIES: Trace edema. LABORATORY DATA: White count 8.1 and hemoglobin 9.8. ABG - 7.40, 28, and 72. Potassium 3.5, BUN 46, and creatinine 2.2. Troponin 0.421. Pro-natriuretic peptide 31,000. IMPRESSION: 1. Respiratory failure. 2. Acute on chronic diastolic congestive heart failure. 3. Acute myocardial infarction. 4. Metabolic acidosis. 5. Acute on chronic renal failure. 6. Anemia. 7. Sepsis, recovered shock. 8. Bacteremia with increased risk for endocarditis in this clinical setting. PLAN: 1. Antimicrobials. 2. Ventilator support. 3. Wean as able. 4. Respiratory hygiene. 5. Cautious diuresis. 6. Replace potassium as needed. 7. Insulin titration by sliding scale. 8. Antimicrobials per Infectious Disease [employer] consultant. 9. DVT prophylaxis. 10. Nutrition by feeding G-tube. 11. Await final cultures. 12. Consider further diagnostic studies for heart valves if clinically indicated. Amando Blanco M.D. DR: BRITTANIE JOB#: [id number] CC:
[2018-05-20] VITALS (23 sets, daily range): BP systolic 93–128; BP diastolic 29–50
[2018-05-20] MEDS: Sucralfate 1gm tab GT SCH ×4 (00:04→18:12)
[2018-05-20] MEDS: NovoLOG Insulin Flexpen SUBQ SCH ×8 (00:05→21:00)
[2018-05-20] MEDS: Albuterol/Ipratropium 3ml neb HHN SCH ×4 (01:27→19:25)
[2018-05-20 05:49] LABS: HEMATOCRIT 29.8 % (37.0-47.0); HEMOGLOBIN 9.5 G/DL (12.0-16.0); MEAN CORPUSCULAR VOLUME 92 FL (80-99); PLATELET COUNT 77 K/UL (150-450); RED BLOOD COUNT 3.24 M/UL (4.20-5.40); RED CELL DISTRIBUTION WIDTH 19.4 % (11.6-14.8); WHITE BLOOD COUNT 11.6 K/UL (4.8-10.8)
[2018-05-20 06:08] LABS: ANION GAP 11 mmol/L (5-15); BLOOD UREA NITROGEN 47 mg/dL (7-18); CALCIUM 8.4 MG/DL (8.5-10.1); CARBON DIOXIDE 20 MMOL/L (21-32); CHLORIDE 113 MMOL/L (98-107); CREATININE 2.3 MG/DL (0.55-1.30); POTASSIUM 3.5 MMOL/L (3.5-5.1); SODIUM 144 MMOL/L (136-145)
[2018-05-20] MEDS: Pantoprazole Inj IVP SCH ×2 (08:53→21:20)
[2018-05-20] MEDS: Docusate 250mg cap ORAL SCH ×2 (08:57→18:12)
--- NOTE | 2018-05-20 09:08 | Diagnostic Imaging Report ---
Indication: Shortness of breath Technique: One view of the chest Comparison: 05/19/2018 Findings: . Satisfactory position of endotracheal tube, left jugular central venous catheter. Diffuse bilateral interstitial and airspace disease, slightly worse on the right than on the left, appears unchanged. Impression: Unchanged, over one day, findings as above.
--- NOTE | 2018-05-20 14:34 | Pulmonolgy Critical Care Note ---
Critical Care - Asmt/Plan Assessment/Plan: 1. Acute respiratory failure status post bradycardic arrest. 2. Acute diabetic ketoacidosis. 3. Dysphagia with G-tube feeding. 4. Encephalopathy superimposed on severe dementia. 5. Severe diabetes with diabetic ketoacidosis. 6. Chronic kidney disease stage 4. 7. Anemia. 8. Pneumonia with sepsis, MRSA + BC weaning parameters poor, RR >40 extensive infiltrates on CXR nebs and suction wound care iv abx prognosis poor Critical Care - Objective Last 24 Hour Vital Signs Date Time Temp Pulse Resp B/P (MAP) Pulse Ox O2 Delivery O2 Flow Rate FiO2 05/20/18 13:24 84 18 100 Mechanical Ventilator 30 05/20/18 13:15 94 16 40 05/20/18 13:15 94 16 98 Mechanical Ventilator 40 05/20/18 11:18 86 24 40 05/20/18 11:00 85 23 107/45 (65) 93 05/20/18 10:00 88 22 98/37 (57) 92 05/20/18 09:46 96 05/20/18 09:22 93 22 30 05/20/18 09:00 89 25 108/40 (62) 93 05/20/18 08:00 Endotracheal Tube 05/20/18 08:00 30 05/20/18 08:00 99.1 90 23 101/37 (58) 92 99.1 05/20/18 07:26 87 18 100 Mechanical Ventilator 30 05/20/18 07:19 30 05/20/18 07:19 92 16 97 Mechanical Ventilator 30 05/20/18 07:00 94 22 124/44 (70) 97 05/20/18 06:50 93 22 30 05/20/18 06:00 88 22 113/46 (68) 97 05/20/18 05:00 86 20 123/38 (66) 97 05/20/18 04:56 94 19 30 05/20/18 04:00 85 05/20/18 04:00 30 05/20/18 04:00 Endotracheal Tube 05/20/18 04:00 98.2 87 20 110/35 (60) 98 98.2 05/20/18 03:18 94 19 30 05/20/18 03:00 85 20 127/38 (67) 97 05/20/18 02:00 80 20 110/35 (60) 98 05/20/18 01:34 83 17 100 Mechanical Ventilator 30 05/20/18 01:29 30 05/20/18 01:28 85 17 100 Mechanical Ventilator 30 05/20/18 01:00 81 20 111/40 (63) 98 05/20/18 00:57 95 18 30 05/20/18 00:00 84 05/20/18 00:00 98.2 86 23 114/44 (67) 98 98.2 05/20/18 00:00 30 05/20/18 00:00 Endotracheal Tube 05/19/18 23:08 90 17 30 05/19/18 23:00 86 25 114/44 (67) 98 05/19/18 22:00 86 25 116/45 (68) 98 05/19/18 21:00 80 23 114/38 (63) 98 05/19/18 20:56 88 17 30 05/19/18 20:00 30 05/19/18 20:00 Endotracheal Tube 05/19/18 20:00 97.8 81 22 116/41 (66) 98 97.8 05/19/18 20:00 76 05/19/18 19:18 79 17 100 Mechanical Ventilator 30 05/19/18 19:18 30 05/19/18 19:03 74 20 100 Mechanical Ventilator 30 05/19/18 19:02 74 20 30 05/19/18 19:00 76 23 112/38 (62) 98 05/19/18 18:00 78 23 103/37 (59) 98 05/19/18 17:00 73 23 106/37 (60) 97 05/19/18 16:48 78 20 30 05/19/18 16:00 97.2 77 22 98/42 (60) 98 97.2 05/19/18 16:00 30 05/19/18 16:00 Endotracheal Tube 05/19/18 16:00 69 05/19/18 15:00 72 23 103/41 (61) 98 05/19/18 14:47 73 19 30 Accucheck: 108 Critical Care - Subjective ROS Limited/Unobtainable: Yes Condition: critical EKG Rhythm: Sinus Rhythm FI02: 30 Vent Support Breath Rate: 16 Vent Support Mode: AC Vent Tidal Volume: 600 Sputum Amount: Scant PEEP: 5.0 PIP: 34 Tube Feeding Amount: 60 I&O: Intake and Output 05/19/18 05/20/18 19:00 07:00 Intake Total 1655 ml 795 ml Output Total 2060 ml 2100 ml Balance -405 ml -1305 ml IV Total 1175 ml 85 ml Tube Feeding 480 ml 710 ml Output Urine Total 2060 ml 2100 ml # Bowel Movements 2 4 ET-Tube: 7.5 ET Position: 23 Adam Willis MD May 20, 2018 14:34
[2018-05-20] MEDS ORDERED: NS 275ml ONE (16:33)
[2018-05-20] MEDS ORDERED: Tubing IV Secondary IV ONE (16:33)
--- NOTE | 2018-05-20 18:44 | General Progress Note ---
Assessment/Plan Problem List: (1) Respiratory failure ICD Codes: J96.90 - Respiratory failure, unspecified, unspecified whether with hypoxia or hypercapnia SNOMED: 932395613 (2) Hypotension ICD Codes: I95.9 - Hypotension, unspecified SNOMED: 94357081 (3) GI bleed ICD Codes: K92.2 - Gastrointestinal hemorrhage, unspecified SNOMED: 03115838 (4) DKA (diabetic ketoacidoses) ICD Codes: E13.10 - Other specified diabetes mellitus with ketoacidosis without coma SNOMED: 353768453, 73032106 (5) CKD (chronic kidney disease) stage 4, GFR 15-29 ml/min ICD Codes: N18.4 - Chronic kidney disease, stage 4 (severe) SNOMED: 132982701 (6) Hyperkalemia ICD Codes: E87.5 - Hyperkalemia SNOMED: 49310273, 72073636 (7) Altered mental status ICD Codes: R41.82 - Altered mental status, unspecified SNOMED: 297713220 (8) Elevated troponin ICD Codes: R74.8 - Abnormal levels of other serum enzymes SNOMED: 352267226, 574953510, 142737017 (9) Toxic metabolic encephalopathy ICD Codes: G92 - Toxic encephalopathy SNOMED: 206271908 (10) MRSA (methicillin resistant staph aureus) culture positive ICD Codes: Z22.322 - Carrier or suspected carrier of Methicillin resistant Staphylococcus aureus SNOMED: 149895070 (11) VRE (vancomycin resistant enterococcus) culture positive ICD Codes: Z22.39 - Carrier of other specified bacterial diseases SNOMED: 377408507 (12) Bacteremia ICD Codes: R78.81 - Bacteremia SNOMED: 6746316 (13) Sepsis ICD Codes: A41.9 - Sepsis, unspecified organism SNOMED: 62694255 Qualifiers: Qualified Codes: A41.9 - Sepsis, unspecified organism (14) Shock ICD Codes: R57.9 - Shock, unspecified SNOMED: 66537094 (15) Diarrhea ICD Codes: R19.7 - Diarrhea, unspecified SNOMED: 44989029 (16) Coma ICD Codes: R40.20 - Unspecified coma SNOMED: 904080844 (17) CHF exacerbation ICD Codes: I50.9 - Heart failure, unspecified SNOMED: 76769855 (18) Aspiration pneumonia ICD Codes: J69.0 - Pneumonitis due to inhalation of food and vomit SNOMED: 271554349 Assessment/Plan icu care, 33 min now intubated, adjust meds, insulin, dc iv fluids, increase feeding, vanco as G+ cocci in blood --mrsa, start diuresis for chf, check c diff , eeg , not weanable now Subjective ROS Limited/Unobtainable: Yes Allergies: Coded Allergies: PENICILLINS (Verified Allergy, Severe, 03/10/14) SKIN RASH AMOXICILLIN (Verified Allergy, Mild, 03/09/14) ERYTHROMYCIN BASE (Verified Allergy, Mild, 03/09/14) Uncoded Allergies: ERYTHROMYCIN (Allergy, Unknown, 05/15/18) PENICILLIN (Allergy, Unknown, 05/15/18) ZITHROMYCIN (Allergy, Unknown, 05/15/18) Objective Last 24 Hour Vital Signs Date Time Temp Pulse Resp B/P (MAP) Pulse Ox O2 Delivery O2 Flow Rate FiO2 05/20/18 17:25 91 22 40 05/20/18 16:00 30 05/20/18 16:00 Endotracheal Tube 05/20/18 15:28 88 20 40 05/20/18 14:00 89 22 128/31 (63) 96 05/20/18 13:24 84 18 100 Mechanical Ventilator 30 05/20/18 13:15 94 16 40 05/20/18 13:15 94 16 98 Mechanical Ventilator 40 05/20/18 13:00 91 16 97/31 (53) 98 05/20/18 12:00 90 05/20/18 12:00 88 22 115/41 (65) 95 05/20/18 12:00 30 05/20/18 12:00 Endotracheal Tube 05/20/18 11:18 86 24 40 05/20/18 11:00 85 23 107/45 (65) 93 05/20/18 10:00 88 22 98/37 (57) 92 05/20/18 09:46 96 05/20/18 09:22 93 22 30 05/20/18 09:00 89 25 108/40 (62) 93 05/20/18 08:00 86 05/20/18 08:00 Endotracheal Tube 05/20/18 08:00 30 05/20/18 08:00 99.1 90 23 101/37 (58) 92 99.1 05/20/18 07:26 87 18 100 Mechanical Ventilator 30 05/20/18 07:19 30 05/20/18 07:19 92 16 97 Mechanical Ventilator 30 05/20/18 07:00 94 22 124/44 (70) 97 05/20/18 06:50 93 22 30 05/20/18 06:00 88 22 113/46 (68) 97 05/20/18 05:00 86 20 123/38 (66) 97 05/20/18 04:56 94 19 30 05/20/18 04:00 85 05/20/18 04:00 30 05/20/18 04:00 Endotracheal Tube 05/20/18 04:00 98.2 87 20 110/35 (60) 98 98.2 05/20/18 03:18 94 19 30 05/20/18 03:00 85 20 127/38 (67) 97 05/20/18 02:00 80 20 110/35 (60) 98 05/20/18 01:34 83 17 100 Mechanical Ventilator 30 05/20/18 01:29 30 05/20/18 01:28 85 17 100 Mechanical Ventilator 30 05/20/18 01:00 81 20 111/40 (63) 98 05/20/18 00:57 95 18 30 05/20/18 00:00 84 05/20/18 00:00 98.2 86 23 114/44 (67) 98 98.2 05/20/18 00:00 30 05/20/18 00:00 Endotracheal Tube 05/19/18 23:08 90 17 30 05/19/18 23:00 86 25 114/44 (67) 98 05/19/18 22:00 86 25 116/45 (68) 98 05/19/18 21:00 80 23 114/38 (63) 98 05/19/18 20:56 88 17 30 05/19/18 20:00 30 05/19/18 20:00 Endotracheal Tube 05/19/18 20:00 97.8 81 22 116/41 (66) 98 97.8 05/19/18 20:00 76 05/19/18 19:18 79 17 100 Mechanical Ventilator 30 05/19/18 19:18 30 05/19/18 19:03 74 20 100 Mechanical Ventilator 30 05/19/18 19:02 74 20 30 05/19/18 19:00 76 23 112/38 (62) 98 Intake and Output 05/19/18 05/20/18 19:00 07:00 Intake Total 1655 ml 795 ml Output Total 2060 ml 2100 ml Balance -405 ml -1305 ml IV Total 1175 ml 85 ml Tube Feeding 480 ml 710 ml Output Urine Total 2060 ml 2100 ml # Bowel Movements 2 4 Laboratory Tests 05/20/18 04:20: White Blood Count 11.6H, Red Blood Count 3.24L, Hemoglobin 9.5L, Hematocrit 29.8L, Mean Corpuscular Volume 92, Mean Corpuscular Hemoglobin 29.4, Mean Corpuscular Hemoglobin Concent 32.0, Red Cell Distribution Width 19.4H, Platelet Count 77L, Mean Platelet Volume 8.0, Neutrophils (%) (Auto) , Lymphocytes (%) (Auto) , Monocytes (%) (Auto) , Eosinophils (%) (Auto) , Basophils (%) (Auto) , Differential Total Cells Counted 100, Neutrophils % ( Manual) 69, Lymphocytes % (Manual) 15L, Monocytes % (Manual) 6, Eosinophils % ( Manual) 6H, Basophils % (Manual) 1, Band Neutrophils 3, Nucleated Red Blood Cells 2, Platelet Estimate DecreasedL, Platelet Morphology Normal, Hypochromasia 2+, Anisocytosis 2+, Spherocytes 1+, Sodium Level 144, Potassium Level 3.5, Chloride Level 113H, Carbon Dioxide Level 20L, Anion Gap 11, Blood Urea Nitrogen 47H, Creatinine 2.3H, Estimat Glomerular Filtration Rate , Glucose Level 71L, Calcium Level 8.4L Height (Feet): 5 Height (Inches): 3.00 Weight (Pounds): 183 General Appearance: obese EENT: other - intubated Neck: normal alignment Cardiovascular: normal rate Respiratory/Chest: crackles/rales, rhonchi - bilaterally Abdomen: non tender, soft Edema: mild edema Neurologic: unresponsive EZEQUIEL BAÑUELOS May 20, 2018 18:44
[2018-05-20] MEDS: Dyna-Hex 2% Top Sol 2oz TOPIC SCH (20:24)
[2018-05-20] MEDS: Levemir Flexpen SUBQ SCH (21:00)
[2018-05-20] MEDS: Iron Sucrose 100 MG in NS 55 ML IV SCH (21:20)
[2018-05-21] VITALS (26 sets, daily range): BP systolic 96–172; BP diastolic 24–66
[2018-05-21] MEDS: Sucralfate 1gm tab GT SCH ×4 (00:28→18:28)
[2018-05-21] MEDS: NovoLOG Insulin Flexpen SUBQ SCH ×7 (00:29→18:36)
--- NOTE | 2018-05-21 01:00 | Progress Note ---
DATE: 05/20/2018 CARDIOLOGY PROGRESS NOTE SUBJECTIVE: The patient remains in the intensive care unit with critical condition and guarded prognosis. She remains on full ventilator support with endotracheal tube. Blood pressure parameters remain tenuous. OBJECTIVE: VITAL SIGNS: Blood pressure 98/37, pulse 88, respirations 22, and afebrile. T-max 99.1. HEENT: Orally intubated. LUNGS: Bilateral rhonchi. HEART: Regular rhythm and rate. Normal S1, S2 with a fourth heart sound. ABDOMEN: Soft and distended. EXTREMITIES: With trace dependent edema. LABORATORY DATA: White count 11.6 and hemoglobin 9.5. Sodium 144, potassium 3.5, BUN 47, and creatinine 2.3. Troponin yesterday was 0.421. IMPRESSION: 1. Respiratory failure. 2. Healthcare-acquired pneumonia. 3. Sepsis with shock. 4. Acute on chronic renal failure. 5. Anemia status post transfusion. 6. Acute myocardial infarction. 7. Ischemic cardiomyopathy. 8. Paroxysmal atrial ectopy. 9. Sinus node disease. 10. Acute on chronic diastolic congestive heart failure. 11. History of relapsing pancreatitis. 12. Chronic obstructive pulmonary disease. 13. Dysphagia with G-tube. PLAN: 1. Antimicrobials. 2. Respiratory hygiene. 3. Weaning efforts. 4. Cautious diuresis. 5. Maximize anti-failure regimen. 6. Cautious use of anti-platelet drugs and observe for recurring bleeding with transfusions as needed of packed red blood cells. Amando Blanco M.D. DR: LIZZY JOB#: [id number] CC:
[2018-05-21] MEDS: Albuterol/Ipratropium 3ml neb HHN SCH ×4 (01:05→19:20)
[2018-05-21 06:49] LABS: HEMATOCRIT 29.5 % (37.0-47.0); HEMOGLOBIN 9.4 G/DL (12.0-16.0); MEAN CORPUSCULAR VOLUME 93 FL (80-99); PLATELET COUNT 82 K/UL (150-450); RED BLOOD COUNT 3.17 M/UL (4.20-5.40); RED CELL DISTRIBUTION WIDTH 19.7 % (11.6-14.8); WHITE BLOOD COUNT 17.2 K/UL (4.8-10.8)
[2018-05-21 07:18] LABS: ALANINE AMINOTRANSFERASE 12 U/L (12-78); ALBUMIN 0.6 G/DL (3.4-5.0); ALBUMIN/GLOBULIN RATIO 0.1 (1.0-2.7); ALKALINE PHOSPHATASE 277 U/L (46-116); ANION GAP 11 mmol/L (5-15); ASPARTATE AMINO TRANSFERASE 56 U/L (15-37); BILIRUBIN,TOTAL 0.4 MG/DL (0.2-1.0); BLOOD UREA NITROGEN 48 mg/dL (7-18); CALCIUM 9.1 MG/DL (8.5-10.1); CARBON DIOXIDE 21 MMOL/L (21-32); CHLORIDE 118 MMOL/L (98-107); CREATININE 2.3 MG/DL (0.55-1.30); POTASSIUM 3.5 MMOL/L (3.5-5.1); SODIUM 149 MMOL/L (136-145)
[2018-05-21] MEDS: Pantoprazole Inj IVP SCH ×2 (09:31→20:57)
[2018-05-21] MEDS: Lomotil 2.5mg tab ORAL PRN (12:42)
--- NOTE | 2018-05-21 16:35 | Pulmonolgy Critical Care Note ---
Critical Care - Asmt/Plan Assessment/Plan: 1. Acute respiratory failure status post bradycardic arrest. 2. Acute diabetic ketoacidosis. 3. Dysphagia with G-tube feeding. 4. Encephalopathy superimposed on severe dementia. 5. Severe diabetes with diabetic ketoacidosis. 6. Chronic kidney disease stage 4. 7. Anemia. 8. Pneumonia with sepsis, MRSA + BC diarrhea - c diff neg placed rectaal tube cannot wean unresponsive repeat CXR nebs and suction wound care iv abx prognosis poor Infectious Disease: continue antibiotics Disposition: keep in ICU Time Spent (Minutes): 30 Notes Reviewed: cardio, renal Discussed with: nurses Critical Care - Objective Last 24 Hour Vital Signs Date Time Temp Pulse Resp B/P (MAP) Pulse Ox O2 Delivery O2 Flow Rate FiO2 05/21/18 16:00 98.4 81 19 119/37 (64) 97 98.4 05/21/18 16:00 Endotracheal Tube 05/21/18 16:00 89 05/21/18 16:00 40 05/21/18 15:00 81 17 172/66 (101) 98 05/21/18 14:58 89 18 40 05/21/18 14:45 82 17 145/57 (86) 98 05/21/18 14:30 82 18 148/63 (91) 99 05/21/18 14:15 82 17 155/64 (94) 99 05/21/18 14:00 86 16 119/37 (64) 97 05/21/18 13:25 98 05/21/18 13:19 88 18 98 Mechanical Ventilator 40 05/21/18 13:10 40 05/21/18 13:10 82 21 40 05/21/18 13:09 82 21 96 Mechanical Ventilator 40 05/21/18 13:00 86 16 112/35 (60) 97 05/21/18 12:00 98.9 80 18 99/24 (49) 99 98.9 05/21/18 12:00 40 05/21/18 12:00 Endotracheal Tube 05/21/18 12:00 78 05/21/18 11:00 82 18 125/30 (61) 97 05/21/18 10:56 85 17 40 05/21/18 10:00 84 18 105/38 (60) 97 05/21/18 09:00 85 18 119/33 (61) 96 05/21/18 08:35 86 17 40 05/21/18 08:00 40 05/21/18 08:00 Endotracheal Tube 05/21/18 08:00 85 05/21/18 08:00 98.7 85 16 115/43 (67) 97 98.7 05/21/18 07:47 85 17 98 Mechanical Ventilator 40 05/21/18 07:39 40 05/21/18 07:37 84 17 97 Mechanical Ventilator 40 05/21/18 07:18 85 17 40 05/21/18 07:00 86 18 111/39 (63) 96 05/21/18 06:00 80 18 120/38 (65) 96 05/21/18 05:20 84 17 40 05/21/18 05:00 86 18 111/47 (68) 96 05/21/18 04:00 30 05/21/18 04:00 98.2 87 18 119/53 (75) 96 98.2 05/21/18 04:00 90 05/21/18 04:00 Endotracheal Tube 05/21/18 03:19 88 17 40 05/21/18 03:00 88 18 105/49 (67) 96 05/21/18 02:00 88 18 105/49 (67) 96 05/21/18 01:17 89 16 100 Mechanical Ventilator 40 05/21/18 01:05 40 05/21/18 01:04 90 21 95 Mechanical Ventilator 40 05/21/18 01:03 90 21 40 05/21/18 01:00 88 20 109/40 (63) 95 05/21/18 00:00 98.0 90 20 110/35 (60) 95 98.0 05/21/18 00:00 Endotracheal Tube 05/21/18 00:00 90 05/21/18 00:00 30 05/20/18 23:15 90 19 40 05/20/18 23:00 90 20 109/35 (59) 95 05/20/18 22:00 88 20 123/40 (67) 96 05/20/18 21:09 93 22 40 05/20/18 21:00 88 20 125/45 (71) 96 05/20/18 20:00 Endotracheal Tube 05/20/18 20:00 30 05/20/18 20:00 98.5 90 20 121/50 (73) 95 98.5 9/25/18 20:00 88 05/20/18 19:34 91 16 100 Mechanical Ventilator 40 05/20/18 19:25 40 05/20/18 19:24 90 21 97 Mechanical Ventilator 40 05/20/18 19:23 91 22 40 05/20/18 18:00 98.7 90 22 93/32 (52) 96 98.7 05/20/18 17:25 91 22 40 05/20/18 17:00 92 21 126/32 (63) 96 Status: obtunded Condition: critical Lungs: clear Heart: HR/BP unstable Abdomen: non-tender, not tolerating feeding - high residuals, other - rectal tube Extremities: no C/C/E Micro: Microbiology Date/Time Source Procedure Growth Status 05/21/18 05:30 Stool Clostridium difficile Toxin Assay - Final Complete Accucheck: 120 Critical Care - Subjective ROS Limited/Unobtainable: Yes Condition: critical FI02: 40 Vent Support Breath Rate: 16 Vent Support Mode: AC Vent Tidal Volume: 600 Sputum Amount: Moderate PEEP: 5.0 PIP: 29 Tube Feeding Amount: 0 I&O: Intake and Output 05/20/18 05/21/18 19:00 07:00 Intake Total 730 ml 570 ml Output Total 1400 ml 1210 ml Balance -670 ml -640 ml Free Water 70 ml 30 ml Tube Feeding 660 ml 540 ml Output Urine Total 1400 ml 1210 ml # Bowel Movements 2 8 Subjective: diarrhea ET-Tube: 7.5 ET Position: 23 Adam Willis MD May 21, 2018 16:35
--- NOTE | 2018-05-21 19:00 | General Progress Note ---
Assessment/Plan Problem List: (1) Respiratory failure ICD Codes: J96.90 - Respiratory failure, unspecified, unspecified whether with hypoxia or hypercapnia SNOMED: 564099358 (2) Hypotension ICD Codes: I95.9 - Hypotension, unspecified SNOMED: 44983095 (3) GI bleed ICD Codes: K92.2 - Gastrointestinal hemorrhage, unspecified SNOMED: 47637402 (4) DKA (diabetic ketoacidoses) ICD Codes: E13.10 - Other specified diabetes mellitus with ketoacidosis without coma SNOMED: 876284274, 85755840 (5) CKD (chronic kidney disease) stage 4, GFR 15-29 ml/min ICD Codes: N18.4 - Chronic kidney disease, stage 4 (severe) SNOMED: 170449629 (6) Hyperkalemia ICD Codes: E87.5 - Hyperkalemia SNOMED: 49407535, 34073064 (7) Altered mental status ICD Codes: R41.82 - Altered mental status, unspecified SNOMED: 392056254 (8) Elevated troponin ICD Codes: R74.8 - Abnormal levels of other serum enzymes SNOMED: 648391543, 240715614, 355534138 (9) Toxic metabolic encephalopathy ICD Codes: G92 - Toxic encephalopathy SNOMED: 205685184 (10) MRSA (methicillin resistant staph aureus) culture positive ICD Codes: Z22.322 - Carrier or suspected carrier of Methicillin resistant Staphylococcus aureus SNOMED: 237221217 (11) VRE (vancomycin resistant enterococcus) culture positive ICD Codes: Z22.39 - Carrier of other specified bacterial diseases SNOMED: 158727960 (12) Bacteremia ICD Codes: R78.81 - Bacteremia SNOMED: 3867603 (13) Sepsis ICD Codes: A41.9 - Sepsis, unspecified organism SNOMED: 52968413 Qualifiers: Qualified Codes: A41.9 - Sepsis, unspecified organism (14) Shock ICD Codes: R57.9 - Shock, unspecified SNOMED: 59668064 (15) Diarrhea ICD Codes: R19.7 - Diarrhea, unspecified SNOMED: 58821831 (16) Coma ICD Codes: R40.20 - Unspecified coma SNOMED: 734760358 (17) CHF exacerbation ICD Codes: I50.9 - Heart failure, unspecified SNOMED: 49682218 (18) Aspiration pneumonia ICD Codes: J69.0 - Pneumonitis due to inhalation of food and vomit SNOMED: 529594169 Assessment/Plan icu care, 40 min now intubated, adjust meds, insulin, dc iv fluids, increase feeding, vanco as G+ cocci in blood --mrsa, start diuresis for chf, check c diff ,neg eeg , not weanable now discuss GOC with family Subjective ROS Limited/Unobtainable: Yes Allergies: Coded Allergies: PENICILLINS (Verified Allergy, Severe, 03/10/14) SKIN RASH AMOXICILLIN (Verified Allergy, Mild, 03/09/14) ERYTHROMYCIN BASE (Verified Allergy, Mild, 03/09/14) Uncoded Allergies: ERYTHROMYCIN (Allergy, Unknown, 05/15/18) PENICILLIN (Allergy, Unknown, 05/15/18) ZITHROMYCIN (Allergy, Unknown, 05/15/18) Objective Last 24 Hour Vital Signs Date Time Temp Pulse Resp B/P (MAP) Pulse Ox O2 Delivery O2 Flow Rate FiO2 05/21/18 16:53 85 17 40 05/21/18 16:00 98.4 81 19 119/37 (64) 97 98.4 05/21/18 16:00 Endotracheal Tube 05/21/18 16:00 89 05/21/18 16:00 40 05/21/18 15:00 81 17 172/66 (101) 98 05/21/18 14:58 89 18 40 05/21/18 14:45 82 17 145/57 (86) 98 05/21/18 14:30 82 18 148/63 (91) 99 05/21/18 14:15 82 17 155/64 (94) 99 05/21/18 14:00 86 16 119/37 (64) 97 05/21/18 13:25 98 05/21/18 13:19 88 18 98 Mechanical Ventilator 40 05/21/18 13:10 40 05/21/18 13:10 82 21 40 05/21/18 13:09 82 21 96 Mechanical Ventilator 40 05/21/18 13:00 86 16 112/35 (60) 97 05/21/18 12:00 98.9 80 18 99/24 (49) 99 98.9 05/21/18 12:00 40 05/21/18 12:00 Endotracheal Tube 05/21/18 12:00 78 05/21/18 11:00 82 18 125/30 (61) 97 05/21/18 10:56 85 17 40 05/21/18 10:00 84 18 105/38 (60) 97 05/21/18 09:00 85 18 119/33 (61) 96 05/21/18 08:35 86 17 40 05/21/18 08:00 40 05/21/18 08:00 Endotracheal Tube 05/21/18 08:00 85 05/21/18 08:00 98.7 85 16 115/43 (67) 97 98.7 05/21/18 07:47 85 17 98 Mechanical Ventilator 40 05/21/18 07:39 40 05/21/18 07:37 84 17 97 Mechanical Ventilator 40 05/21/18 07:18 85 17 40 05/21/18 07:00 86 18 111/39 (63) 96 05/21/18 06:00 80 18 120/38 (65) 96 05/21/18 05:20 84 17 40 05/21/18 05:00 86 18 111/47 (68) 96 05/21/18 04:00 30 05/21/18 04:00 98.2 87 18 119/53 (75) 96 98.2 05/21/18 04:00 90 05/21/18 04:00 Endotracheal Tube 05/21/18 03:19 88 17 40 05/21/18 03:00 88 18 105/49 (67) 96 05/21/18 02:00 88 18 105/49 (67) 96 05/21/18 01:17 89 16 100 Mechanical Ventilator 40 05/21/18 01:05 40 05/21/18 01:04 90 21 95 Mechanical Ventilator 40 05/21/18 01:03 90 21 40 05/21/18 01:00 88 20 109/40 (63) 95 05/21/18 00:00 98.0 90 20 110/35 (60) 95 98.0 05/21/18 00:00 Endotracheal Tube 05/21/18 00:00 90 05/21/18 00:00 30 05/20/18 23:15 90 19 40 05/20/18 23:00 90 20 109/35 (59) 95 05/20/18 22:00 88 20 123/40 (67) 96 05/20/18 21:09 93 22 40 05/20/18 21:00 88 20 125/45 (71) 96 05/20/18 20:00 Endotracheal Tube 05/20/18 20:00 30 05/20/18 20:00 98.5 90 20 121/50 (73) 95 98.5 05/20/18 20:00 88 05/20/18 19:34 91 16 100 Mechanical Ventilator 40 05/20/18 19:25 40 05/20/18 19:24 90 21 97 Mechanical Ventilator 40 05/20/18 19:23 91 22 40 Intake and Output 05/20/18 05/21/18 19:00 07:00 Intake Total 730 ml 570 ml Output Total 1400 ml 1210 ml Balance -670 ml -640 ml Free Water 70 ml 30 ml Tube Feeding 660 ml 540 ml Output Urine Total 1400 ml 1210 ml # Bowel Movements 2 8 Laboratory Tests 05/21/18 05:00: White Blood Count 17.2H, Red Blood Count 3.17L, Hemoglobin 9.4L, Hematocrit 29.5L, Mean Corpuscular Volume 93, Mean Corpuscular Hemoglobin 29.6, Mean Corpuscular Hemoglobin Concent 31.9L, Red Cell Distribution Width 19.7H, Platelet Count 82L, Mean Platelet Volume 8.0, Neutrophils (%) (Auto) , Lymphocytes (%) (Auto) , Monocytes (%) (Auto) , Eosinophils (%) (Auto) , Basophils (%) (Auto) , Differential Total Cells Counted 100, Neutrophils % ( Manual) 65, Lymphocytes % (Manual) 10L, Monocytes % (Manual) 6, Eosinophils % ( Manual) 2, Basophils % (Manual) 0, Band Neutrophils 17H, Platelet Estimate DecreasedL, Platelet Morphology Normal, Polychromasia 1+, Hypochromasia 1+, Anisocytosis 2+, Macrocytosis 1+, Sodium Level 149H, Potassium Level 3.5, Chloride Level 118H, Carbon Dioxide Level 21, Anion Gap 11, Blood Urea Nitrogen 48H, Creatinine 2.3H, Estimat Glomerular Filtration Rate , Glucose Level 80, Calcium Level 9.1, Magnesium Level 2.1, Total Bilirubin 0.4, Aspartate Amino Transf (AST/SGOT) 56H, Alanine Aminotransferase (ALT/SGPT) 12, Alkaline Phosphatase 277H, Troponin I 0.344H, Pro-B-Type Natriuretic Peptide 72544L, Total Protein 5.3L, Albumin 0.6L, Globulin 4.7, Albumin/Globulin Ratio 0.1L, Random Vancomycin Level 17.0 Height (Feet): 5 Height (Inches): 3.00 Weight (Pounds): 181 General Appearance: other - coma, vent EENT: other Neck: normal alignment Cardiovascular: regular rhythm Respiratory/Chest: rhonchi - bilaterally Abdomen: non tender Edema: 1+ Arm (L), 1+ Arm (R), 1+ Leg (L), 1+ Leg (R), 1+ Pedal (L), 1+ Pedal ( R), 1+ Generalized Neurologic: unresponsive, other - no response to pain EZEQUIEL BAÑUELOS May 21, 2018 19:00
[2018-05-21] MEDS: Dyna-Hex 2% Top Sol 2oz TOPIC SCH (19:58)
[2018-05-21] MEDS: Levemir Flexpen SUBQ SCH (20:58)
[2018-05-21] MEDS: Epogen (for ESRD on dialysis) SUBQ SCH (20:58)
--- NOTE | 2018-05-21 23:30 | Electroencephalogram ---
DATE OF PROCEDURE: 05/20/2018 REQUESTING PHYSICIAN: Pa Acuña M.D. HISTORY: This EEG was performed on a 77-year-old lady with a history of an alteration in mental state associated with a stroke. The purpose of this EEG was to evaluate the patient for the degree and type of cerebral dysfunction. TECHNICAL NOTE: This EEG was performed on a [employer] with electrodes placed on the scalp according to the International 10-20 system. [id number] and [id number] montages were used. The EEG was technically satisfactory and was performed while the patient was in a comatose state. OBSERVATIONS: In the reportedly comatose state, the background activity consisted of 4-5 Hz theta with a moderate amount of intermixed delta frequencies over the right hemisphere, and 1-2 Hz delta with a small amount of theta activity over the left hemisphere. Throughout the tracing, left frontocentrotemporal polymorphic delta activity was also noted. No definite epileptiform discharges were seen. IMPRESSION: This is an abnormal EEG characterized by: 1. Slowing of the background in the 4-5 Hz theta with intermixed delta range over the right hemisphere, and 1-2 Hz delta with some intermixed theta activity over the left hemisphere. 2. Left frontocentrotemporal polymorphic delta activity. COMMENT: This study is consistent with: 1. An encephalopathy of a moderately severe degree. 2. Left hemispheric dysfunction. 3. Left frontocentrotemporal focal dysfunction. Andrew Garcia M.D., M.S.P.H. DR: DIANE JOB#: [id number] CC: SOLOMON
[2018-05-22] VITALS (24 sets, daily range): BP systolic 100–128; BP diastolic 32–55
[2018-05-22] MEDS: Sucralfate 1gm tab GT SCH ×5 (00:07→23:51)
--- NOTE | 2018-05-22 03:00 | Progress Note ---
DATE: 05/21/2018 CARDIOLOGY PROGRESS NOTE SUBJECTIVE: The patient remains in the intensive care unit. Condition remains critical with guarded prognosis. The patient is on full ventilator support and poorly responsive. Monitored rhythm, sinus arrhythmia with PACs. OBJECTIVE: VITAL SIGNS: Blood pressure 119/37 to 172/66, heart rate 81, respiratory rate 17, and afebrile. HEENT: Orally intubated. LUNGS: Bilateral breath sounds with rhonchi. HEART: Regular rhythm and rate. Normal S1, S2 with a fourth heart sound. ABDOMEN: Obese and soft. EXTREMITIES: With 1+ dependent edema. LABORATORY DATA: White count 17.2 and hemoglobin 9.4. Sodium 149, potassium 3.5, BUN 48, and creatinine 2.3. Troponin 0.344. Pro-natriuretic peptide 16,000. IMPRESSION: 1. Respiratory failure. 2. Sepsis with recovered shock. 3. Dehydration. 4. Hypernatremia. 5. Acute on chronic renal failure. 6. Acute on chronic diastolic congestive heart failure. 7. Acute myocardial infarction. 8. Ischemic cardiomyopathy. 9. Anemia of chronic kidney disease. 10. Healthcare-acquired pneumonia. 11. Chronic obstructive pulmonary disease. PLAN: 1. Antimicrobials. 2. Respiratory hygiene. 3. Weaning efforts. 4. Hold diuresis. 5. Replace free water. 6. Continue anti-platelet therapy. 7. Transfuse for hemoglobin less than 8 g. 8. Remains extremely high risk at this time. Amando Blanco M.D. DR: LIZZY JOB#: [id number] CC:
[2018-05-22 06:09] LABS: ALANINE AMINOTRANSFERASE 11 U/L (12-78); ALBUMIN 0.6 G/DL (3.4-5.0); ALBUMIN/GLOBULIN RATIO 0.1 (1.0-2.7); ALKALINE PHOSPHATASE 230 U/L (46-116); ANION GAP 12 mmol/L (5-15); ASPARTATE AMINO TRANSFERASE 49 U/L (15-37); BILIRUBIN,TOTAL 0.4 MG/DL (0.2-1.0); BLOOD UREA NITROGEN 50 mg/dL (7-18); CALCIUM 9.3 MG/DL (8.5-10.1); CARBON DIOXIDE 19 MMOL/L (21-32); CHLORIDE 119 MMOL/L (98-107); CREATININE 2.3 MG/DL (0.55-1.30); POTASSIUM 3.3 MMOL/L (3.5-5.1); SODIUM 150 MMOL/L (136-145)
[2018-05-22 06:29] LABS: HEMATOCRIT 28.4 % (37.0-47.0); HEMOGLOBIN 8.9 G/DL (12.0-16.0); MEAN CORPUSCULAR VOLUME 93 FL (80-99); PLATELET COUNT 81 K/UL (150-450); RED BLOOD COUNT 3.05 M/UL (4.20-5.40); WHITE BLOOD COUNT 18.8 K/UL (4.8-10.8)
[2018-05-22] MEDS: Pantoprazole Inj IVP SCH ×2 (08:41→20:21)
[2018-05-22] MEDS: NovoLOG Insulin Flexpen SUBQ SCH ×3 (08:57→17:24)
--- NOTE | 2018-05-22 10:44 | Diagnostic Imaging Report ---
Indication: Dyspnea Comparison: 05/20/2018 A single view chest radiograph was obtained. Findings: Patchy interstitial and alveolar opacities noted throughout the lungs fairly extensive in degree. Heart is enlarged. Tubes and lines are satisfactory and stable. IMPRESSION: Stable appearance. Suspect pulmonary edema versus pneumonia.
[2018-05-22] MEDS: Vancomycin 1gm/D5W 275ml IVPB SCH ×2 (13:20)
--- NOTE | 2018-05-22 15:23 | General Progress Note ---
Assessment/Plan Problem List: (1) Respiratory failure ICD Codes: J96.90 - Respiratory failure, unspecified, unspecified whether with hypoxia or hypercapnia SNOMED: 493189213 (2) Hypotension ICD Codes: I95.9 - Hypotension, unspecified SNOMED: 70739304 (3) GI bleed ICD Codes: K92.2 - Gastrointestinal hemorrhage, unspecified SNOMED: 16598959 (4) DKA (diabetic ketoacidoses) ICD Codes: E13.10 - Other specified diabetes mellitus with ketoacidosis without coma SNOMED: 989483311, 65852019 (5) CKD (chronic kidney disease) stage 4, GFR 15-29 ml/min ICD Codes: N18.4 - Chronic kidney disease, stage 4 (severe) SNOMED: 576406339 (6) Hyperkalemia ICD Codes: E87.5 - Hyperkalemia SNOMED: 13173060, 07630212 (7) Altered mental status ICD Codes: R41.82 - Altered mental status, unspecified SNOMED: 218520660 (8) Elevated troponin ICD Codes: R74.8 - Abnormal levels of other serum enzymes SNOMED: 659640583, 881476915, 267158959 (9) Toxic metabolic encephalopathy ICD Codes: G92 - Toxic encephalopathy SNOMED: 396868908 (10) MRSA (methicillin resistant staph aureus) culture positive ICD Codes: Z22.322 - Carrier or suspected carrier of Methicillin resistant Staphylococcus aureus SNOMED: 760779803 (11) VRE (vancomycin resistant enterococcus) culture positive ICD Codes: Z22.39 - Carrier of other specified bacterial diseases SNOMED: 273211083 (12) Bacteremia ICD Codes: R78.81 - Bacteremia SNOMED: 5502946 (13) Sepsis ICD Codes: A41.9 - Sepsis, unspecified organism SNOMED: 25736216 Qualifiers: Qualified Codes: A41.9 - Sepsis, unspecified organism (14) Shock ICD Codes: R57.9 - Shock, unspecified SNOMED: 04114356 (15) Diarrhea ICD Codes: R19.7 - Diarrhea, unspecified SNOMED: 56097219 (16) Coma ICD Codes: R40.20 - Unspecified coma SNOMED: 829088563 (17) CHF exacerbation ICD Codes: I50.9 - Heart failure, unspecified SNOMED: 39119976 (18) Aspiration pneumonia ICD Codes: J69.0 - Pneumonitis due to inhalation of food and vomit SNOMED: 387724881 Assessment/Plan icu care, 40 min now intubated, adjust meds, insulin, dc iv fluids, increase feeding, vanco as G+ cocci in blood --mrsa, start diuresis for chf, check c diff ,neg eeg , not weanable now discuss GOC with family-daughter aware of grave condition, not weanable, she is discussing with sibs palliative care. hypernatremia and hypokalemia rx given Subjective ROS Limited/Unobtainable: Yes Allergies: Coded Allergies: PENICILLINS (Verified Allergy, Severe, 03/10/14) SKIN RASH AMOXICILLIN (Verified Allergy, Mild, 03/09/14) ERYTHROMYCIN BASE (Verified Allergy, Mild, 03/09/14) Uncoded Allergies: ERYTHROMYCIN (Allergy, Unknown, 05/15/18) PENICILLIN (Allergy, Unknown, 05/15/18) ZITHROMYCIN (Allergy, Unknown, 05/15/18) Objective Last 24 Hour Vital Signs Date Time Temp Pulse Resp B/P (MAP) Pulse Ox O2 Delivery O2 Flow Rate FiO2 05/22/18 15:00 80 18 110/48 (68) 100 05/22/18 14:00 85 18 115/50 (71) 99 05/22/18 13:00 82 18 112/46 (68) 99 05/22/18 12:51 86 16 40 05/22/18 12:00 Endotracheal Tube 05/22/18 12:00 40 05/22/18 12:00 92 05/22/18 12:00 98.8 89 18 116/44 (68) 100 98.8 05/22/18 11:12 94 17 40 05/22/18 11:00 80 18 110/44 (66) 99 05/22/18 10:00 85 18 103/49 (67) 99 05/22/18 09:21 98 05/22/18 09:04 87 20 40 05/22/18 09:00 82 18 125/52 (76) 99 05/22/18 08:00 87 05/22/18 08:00 98.7 88 18 128/55 (79) 99 98.7 05/22/18 08:00 Endotracheal Tube 05/22/18 08:00 40 05/22/18 07:05 94 17 40 05/22/18 07:00 90 19 122/50 (74) 99 05/22/18 06:00 92 19 120/45 (70) 98 05/22/18 05:15 92 19 40 05/22/18 05:00 92 18 121/45 (70) 98 05/22/18 04:00 Endotracheal Tube 05/22/18 04:00 98.8 91 18 100/45 (63) 98 98.8 05/22/18 04:00 40 05/22/18 04:00 88 05/22/18 03:10 93 18 40 05/22/18 03:00 91 18 104/40 (61) 98 05/22/18 02:00 88 18 110/42 (64) 98 05/22/18 01:20 87 18 40 05/22/18 01:00 89 18 112/42 (65) 98 05/22/18 00:00 89 05/22/18 00:00 98.6 89 18 106/32 (56) 98 98.6 05/22/18 00:00 Endotracheal Tube 05/22/18 00:00 40 05/21/18 23:00 80 16 98/29 (52) 99 05/21/18 22:58 74 16 40 05/21/18 22:00 84 16 110/49 (69) 99 05/21/18 21:16 85 16 40 05/21/18 21:00 84 16 117/40 (65) 99 05/21/18 20:00 Endotracheal Tube 05/21/18 20:00 40 05/21/18 20:00 98.2 84 16 132/35 (67) 99 98.2 05/21/18 20:00 84 05/21/18 19:30 84 16 99 Mechanical Ventilator 40 05/21/18 19:20 82 16 98 Mechanical Ventilator 40 05/21/18 19:18 82 16 40 05/21/18 18:00 98.4 85 16 96/35 (55) 99 98.4 05/21/18 17:00 87 16 130/32 (64) 98 05/21/18 16:53 85 17 40 05/21/18 16:00 98.4 81 19 119/37 (64) 97 98.4 05/21/18 16:00 Endotracheal Tube 05/21/18 16:00 89 05/21/18 16:00 40 Intake and Output 05/21/18 05/22/18 19:00 07:00 Intake Total 260 ml 500 ml Output Total 1360 ml 2310 ml Balance -1100 ml -1810 ml Free Water 200 ml 60 ml Tube Feeding 60 ml 440 ml Output Urine Total 1360 ml 1520 ml Stool Total 790 ml # Bowel Movements 3 3 Laboratory Tests 05/22/18 04:30: White Blood Count 18.8H, Red Blood Count 3.05L, Hemoglobin 8.9L, Hematocrit 28.4L, Mean Corpuscular Volume 93, Mean Corpuscular Hemoglobin 29.2, Mean Corpuscular Hemoglobin Concent 31.4L, Red Cell Distribution Width 20.0H, Platelet Count 81L, Mean Platelet Volume 8.7, Neutrophils (%) (Auto) , Lymphocytes (%) (Auto) , Monocytes (%) (Auto) , Eosinophils (%) (Auto) , Basophils (%) (Auto) , Differential Total Cells Counted 100, Neutrophils % ( Manual) 63, Lymphocytes % (Manual) 8L, Monocytes % (Manual) 4, Eosinophils % ( Manual) 2, Basophils % (Manual) 0, Band Neutrophils 23H, Nucleated Red Blood Cells 1, Platelet Estimate DecreasedL, Platelet Morphology Normal, Hypochromasia 1+, Anisocytosis 2+, Sodium Level 150H, Potassium Level 3.3L, Chloride Level 119H, Carbon Dioxide Level 19L, Anion Gap 12, Blood Urea Nitrogen 50H, Creatinine 2.3H, Estimat Glomerular Filtration Rate , Glucose Level 133H, Calcium Level 9.3, Total Bilirubin 0.4, Aspartate Amino Transf (AST/ SGOT) 49H, Alanine Aminotransferase (ALT/SGPT) 11L, Alkaline Phosphatase 230H, Total Protein 5.4L, Albumin 0.6L, Globulin 4.8, Albumin/Globulin Ratio 0.1L Height (Feet): 5 Height (Inches): 3.00 Weight (Pounds): 176 General Appearance: obese, other - intubated Neck: normal alignment Cardiovascular: regular rhythm Respiratory/Chest: rhonchi - bilaterally Abdomen: non tender Edema: 1+ Arm (L), 1+ Arm (R), 1+ Leg (L), 1+ Leg (R), 1+ Pedal (L), 1+ Pedal ( R), 1+ Generalized Neurologic: unresponsive EZEQUIEL BAÑUELOS May 22, 2018 15:23
--- NOTE | 2018-05-22 15:55 | Pulmonolgy Critical Care Note ---
Critical Care - Asmt/Plan Assessment/Plan: 1. Acute respiratory failure status post bradycardic arrest. 2. Acute diabetic ketoacidosis. 3. Dysphagia with G-tube feeding. 4. Encephalopathy superimposed on severe dementia. 5. Severe diabetes with diabetic ketoacidosis. 6. Chronic kidney disease stage 4. 7. Anemia. 8. Pneumonia with sepsis, MRSA + BC diarrhea - c diff neg continue rectal tube cannot wean unresponsive CXR bilateral infiltrates nebs and suction wound care iv abx prognosis grave Critical Care - Objective Last 24 Hour Vital Signs Date Time Temp Pulse Resp B/P (MAP) Pulse Ox O2 Delivery O2 Flow Rate FiO2 05/22/18 15:00 80 18 110/48 (68) 100 05/22/18 14:00 85 18 115/50 (71) 99 05/22/18 13:00 82 18 112/46 (68) 99 05/22/18 12:51 86 16 40 05/22/18 12:00 Endotracheal Tube 05/22/18 12:00 40 05/22/18 12:00 92 05/22/18 12:00 98.8 89 18 116/44 (68) 100 98.8 05/22/18 11:12 94 17 40 05/22/18 11:00 80 18 110/44 (66) 99 05/22/18 10:00 85 18 103/49 (67) 99 05/22/18 09:21 98 05/22/18 09:04 87 20 40 05/22/18 09:00 82 18 125/52 (76) 99 05/22/18 08:00 87 05/22/18 08:00 98.7 88 18 128/55 (79) 99 98.7 05/22/18 08:00 Endotracheal Tube 05/22/18 08:00 40 05/22/18 07:05 94 17 40 05/22/18 07:00 90 19 122/50 (74) 99 05/22/18 06:00 92 19 120/45 (70) 98 05/22/18 05:15 92 19 40 05/22/18 05:00 92 18 121/45 (70) 98 05/22/18 04:00 Endotracheal Tube 05/22/18 04:00 98.8 91 18 100/45 (63) 98 98.8 05/22/18 04:00 40 05/22/18 04:00 88 05/22/18 03:10 93 18 40 05/22/18 03:00 91 18 104/40 (61) 98 05/22/18 02:00 88 18 110/42 (64) 98 05/22/18 01:20 87 18 40 05/22/18 01:00 89 18 112/42 (65) 98 05/22/18 00:00 89 05/22/18 00:00 98.6 89 18 106/32 (56) 98 98.6 05/22/18 00:00 Endotracheal Tube 05/22/18 00:00 40 05/21/18 23:00 80 16 98/29 (52) 99 05/21/18 22:58 74 16 40 05/21/18 22:00 84 16 110/49 (69) 99 05/21/18 21:16 85 16 40 05/21/18 21:00 84 16 117/40 (65) 99 05/21/18 20:00 Endotracheal Tube 05/21/18 20:00 40 05/21/18 20:00 98.2 84 16 132/35 (67) 99 98.2 05/21/18 20:00 84 05/21/18 19:30 84 16 99 Mechanical Ventilator 40 05/21/18 19:20 82 16 98 Mechanical Ventilator 40 05/21/18 19:18 82 16 40 05/21/18 18:00 98.4 85 16 96/35 (55) 99 98.4 05/21/18 17:00 87 16 130/32 (64) 98 05/21/18 16:53 85 17 40 05/21/18 16:00 98.4 81 19 119/37 (64) 97 98.4 05/21/18 16:00 Endotracheal Tube 05/21/18 16:00 89 05/21/18 16:00 40 Status: obtunded Condition: critical HEENT: atraumatic Lungs: rhonchi Heart: HR/BP stable Abdomen: soft, non-tender Extremities: edema - ++ Micro: Microbiology Date/Time Source Procedure Growth Status 05/21/18 05:30 Stool Clostridium difficile Toxin Assay - Final Complete Accucheck: 190 Critical Care - Subjective ROS Limited/Unobtainable: Yes FI02: 40 Vent Support Breath Rate: 16 Vent Support Mode: AC Vent Tidal Volume: 600 Sputum Amount: Moderate PEEP: 5.0 PIP: 31 Tube Feeding Amount: 40 I&O: Intake and Output 05/21/18 05/22/18 19:00 07:00 Intake Total 260 ml 500 ml Output Total 1360 ml 2310 ml Balance -1100 ml -1810 ml Free Water 200 ml 60 ml Tube Feeding 60 ml 440 ml Output Urine Total 1360 ml 1520 ml Stool Total 790 ml # Bowel Movements 3 3 Subjective: diarrhea ET-Tube: 7.5 ET Position: 23 Adam Willis MD May 22, 2018 15:55
[2018-05-22] MEDS: Dyna-Hex 2% Top Sol 2oz TOPIC SCH (19:46)
[2018-05-22] MEDS ORDERED: NS 275ml ONE (20:08)
[2018-05-22] MEDS: Levemir Flexpen SUBQ SCH (20:22)
[2018-05-23] VITALS (24 sets, daily range): BP systolic 106–131; BP diastolic 28–91
--- NOTE | 2018-05-23 00:45 | Progress Note ---
DATE: 05/22/2018 CARDIOLOGY PROGRESS NOTE SUBJECTIVE: The patient remains in the intensive care unit. Condition remains critical. Prognosis is guarded. She remains on ventilator support. She is not responding to wean. She is unresponsive. Monitored rhythm is sinus. OBJECTIVE: VITAL SIGNS: Blood pressure 110/48, pulse 80, and respirations 18. LUNGS: Bilateral breath sounds. Scattered rhonchi. HEART: Regular rhythm and rate. Normal S1, S2. ABDOMEN: Soft. EXTREMITIES: Trace edema. DIAGNOSTIC DATA: EEG reveals slowing and left frontocentral temporal focal dysfunction. Chest x-ray today is notable for pulmonary edema. White count 18.8, hemoglobin 8.9. Sodium 150, potassium 3.3, BUN 50, and creatinine 2.3. Albumin is only 0.6. Troponin was 0.344 yesterday. IMPRESSION: 1. Condition critical, prognosis grave. 2. Multiorgan system failure. Problems also include, 3. Respiratory failure. 4. Encephalopathy. 5. Possible acute cerebrovascular insult. 6. Acute myocardial infarction. 7. Sinus node disease. 8. Acute on chronic diastolic congestive heart failure. 9. Severe protein-calorie malnutrition. 10. Hypokalemia. 11. Dehydration. 12. Hypernatremia. 13. Metabolic acidosis. 14. Acute on chronic renal failure. 15. Healthcare-acquired pneumonia. 16. Status post cardiopulmonary arrest. PLAN: 1. Ventilatory support not weaned. 2. Free water replacement by IV route. 3. No diuresis presently. 4. Nutrition by feeding tube. 5. Antihypertensive and antianginal therapy with anti-platelet drugs aspirin and Plavix. 6. Observe for secondary bleeding complications. 7. May require tracheostomy. Hitesh Zeng JOB#: [id number] CC:
[2018-05-23 05:26] LABS: HEMATOCRIT 28.1 % (37.0-47.0); HEMOGLOBIN 9.1 G/DL (12.0-16.0); MEAN CORPUSCULAR VOLUME 93 FL (80-99); PLATELET COUNT 79 K/UL (150-450); RED BLOOD COUNT 3.01 M/UL (4.20-5.40); RED CELL DISTRIBUTION WIDTH 19.8 % (11.6-14.8); WHITE BLOOD COUNT 15.6 K/UL (4.8-10.8)
[2018-05-23 05:49] LABS: ALANINE AMINOTRANSFERASE 11 U/L (12-78); ALBUMIN 0.6 G/DL (3.4-5.0); ALBUMIN/GLOBULIN RATIO 0.1 (1.0-2.7); ALKALINE PHOSPHATASE 213 U/L (46-116); ANION GAP 9 mmol/L (5-15); ASPARTATE AMINO TRANSFERASE 42 U/L (15-37); BILIRUBIN,TOTAL 0.4 MG/DL (0.2-1.0); BLOOD UREA NITROGEN 53 mg/dL (7-18); CARBON DIOXIDE 21 MMOL/L (21-32); CHLORIDE 119 MMOL/L (98-107); CREATININE 2.4 MG/DL (0.55-1.30); POTASSIUM 3.6 MMOL/L (3.5-5.1); SODIUM 149 MMOL/L (136-145)
[2018-05-23] MEDS: Sucralfate 1gm tab GT SCH ×4 (06:04→23:41)
[2018-05-23] MEDS: Pantoprazole Inj IVP SCH ×2 (09:00→20:38)
[2018-05-23] MEDS: NovoLOG Insulin Flexpen SUBQ SCH ×3 (09:00→17:47)
--- NOTE | 2018-05-23 12:32 | General Progress Note ---
Assessment/Plan Problem List: (1) Respiratory failure ICD Codes: J96.90 - Respiratory failure, unspecified, unspecified whether with hypoxia or hypercapnia SNOMED: 067477151 (2) Hypotension ICD Codes: I95.9 - Hypotension, unspecified SNOMED: 20917540 (3) GI bleed ICD Codes: K92.2 - Gastrointestinal hemorrhage, unspecified SNOMED: 84309076 (4) DKA (diabetic ketoacidoses) ICD Codes: E13.10 - Other specified diabetes mellitus with ketoacidosis without coma SNOMED: 855475960, 63211563 (5) CKD (chronic kidney disease) stage 4, GFR 15-29 ml/min ICD Codes: N18.4 - Chronic kidney disease, stage 4 (severe) SNOMED: 856671633 (6) Hyperkalemia ICD Codes: E87.5 - Hyperkalemia SNOMED: 79042391, 23575916 (7) Altered mental status ICD Codes: R41.82 - Altered mental status, unspecified SNOMED: 814634316 (8) Elevated troponin ICD Codes: R74.8 - Abnormal levels of other serum enzymes SNOMED: 229897693, 358875571, 030793324 (9) Toxic metabolic encephalopathy ICD Codes: G92 - Toxic encephalopathy SNOMED: 159510506 (10) MRSA (methicillin resistant staph aureus) culture positive ICD Codes: Z22.322 - Carrier or suspected carrier of Methicillin resistant Staphylococcus aureus SNOMED: 137248228 (11) VRE (vancomycin resistant enterococcus) culture positive ICD Codes: Z22.39 - Carrier of other specified bacterial diseases SNOMED: 907930984 (12) Bacteremia ICD Codes: R78.81 - Bacteremia SNOMED: 3626210 (13) Sepsis ICD Codes: A41.9 - Sepsis, unspecified organism SNOMED: 73765607 Qualifiers: Qualified Codes: A41.9 - Sepsis, unspecified organism (14) Shock ICD Codes: R57.9 - Shock, unspecified SNOMED: 81802952 (15) Diarrhea ICD Codes: R19.7 - Diarrhea, unspecified SNOMED: 41879361 (16) Coma ICD Codes: R40.20 - Unspecified coma SNOMED: 098414516 (17) CHF exacerbation ICD Codes: I50.9 - Heart failure, unspecified SNOMED: 62197002 (18) Aspiration pneumonia ICD Codes: J69.0 - Pneumonitis due to inhalation of food and vomit SNOMED: 232885507 Assessment/Plan icu care, 35 min now intubated, adjust meds, insulin, dc iv fluids, increase feeding, vanco as G+ cocci in blood --mrsa, start diuresis for chf, check c diff ,neg eeg , not weanable now discuss GOC with family-daughter aware of grave condition, not weanable, she is discussing with sibs palliative care. hypernatremia and hypokalemia rx given, lasix stopped, suctioning and rxx for pneumonia Subjective ROS Limited/Unobtainable: Yes Allergies: Coded Allergies: PENICILLINS (Verified Allergy, Severe, 03/10/14) SKIN RASH AMOXICILLIN (Verified Allergy, Mild, 03/09/14) ERYTHROMYCIN BASE (Verified Allergy, Mild, 03/09/14) Uncoded Allergies: ERYTHROMYCIN (Allergy, Unknown, 05/15/18) PENICILLIN (Allergy, Unknown, 05/15/18) ZITHROMYCIN (Allergy, Unknown, 05/15/18) Objective Last 24 Hour Vital Signs Date Time Temp Pulse Resp B/P (MAP) Pulse Ox O2 Delivery O2 Flow Rate FiO2 05/23/18 11:00 80 17 110/45 (66) 98 05/23/18 10:45 91 22 35 05/23/18 10:00 87 17 118/46 (70) 98 05/23/18 09:18 83 16 35 05/23/18 09:00 81 17 115/45 (68) 98 05/23/18 08:00 98.9 85 17 112/33 (59) 99 98.9 05/23/18 08:00 40 05/23/18 08:00 86 05/23/18 08:00 Mechanical Ventilator Mechanical Ventilator 05/23/18 07:22 91 16 35 05/23/18 07:00 90 17 111/35 (60) 98 05/23/18 06:00 86 17 114/35 (61) 98 05/23/18 05:18 75 18 35 05/23/18 05:00 112 16 106/45 (65) 97 05/23/18 04:00 98.3 131 17 110/47 (68) 96 98.3 05/23/18 04:00 40 05/23/18 04:00 122 05/23/18 04:00 Mechanical Ventilator Mechanical Ventilator 05/23/18 03:21 110 18 35 05/23/18 03:00 119 16 119/91 (100) 98 05/23/18 02:00 89 16 107/35 (59) 98 05/23/18 01:20 99 18 35 05/23/18 01:00 107 17 111/48 (69) 98 05/23/18 00:00 Mechanical Ventilator Mechanical Ventilator 05/23/18 00:00 98.9 92 17 110/47 (68) 97 98.9 05/23/18 00:00 89 05/22/18 23:00 96 19 115/43 (67) 100 05/22/18 22:56 96 18 35 05/22/18 22:00 125 21 113/42 (65) 97 05/22/18 21:29 98 20 35 05/22/18 21:00 97 21 117/32 (60) 96 05/22/18 20:00 Mechanical Ventilator Mechanical Ventilator 05/22/18 20:00 99.3 91 19 113/42 (65) 98 99.3 05/22/18 20:00 40 05/22/18 20:00 98 05/22/18 19:15 94 18 35 05/22/18 19:00 90 20 120/44 (69) 98 05/22/18 18:00 94 20 123/33 (63) 98 05/22/18 17:00 91 20 123/48 (73) 98 05/22/18 16:53 89 18 40 05/22/18 16:00 98.6 93 18 113/36 (61) 100 98.6 05/22/18 16:00 40 05/22/18 16:00 94 05/22/18 16:00 Endotracheal Tube 05/22/18 15:05 97 17 40 05/22/18 15:00 80 18 110/48 (68) 100 05/22/18 14:00 85 18 115/50 (71) 99 05/22/18 13:00 82 18 112/46 (68) 99 05/22/18 12:51 86 16 40 Intake and Output 05/22/18 05/23/18 19:00 07:00 Intake Total 807.416 ml 1420 ml Output Total 900 ml 485 ml Balance -92.584 ml 935 ml Free Water 600 ml IV Total 367.416 ml Tube Feeding 440 ml 720 ml Other 100 ml Output Urine Total 900 ml 485 ml # Bowel Movements 3 103 Laboratory Tests 05/23/18 03:30: White Blood Count 15.6H, Red Blood Count 3.01L, Hemoglobin 9.1L, Hematocrit 28.1L, Mean Corpuscular Volume 93, Mean Corpuscular Hemoglobin 30.3, Mean Corpuscular Hemoglobin Concent 32.4, Red Cell Distribution Width 19.8H, Platelet Count 79L, Mean Platelet Volume 8.4, Neutrophils (%) (Auto) , Lymphocytes (%) (Auto) , Monocytes (%) (Auto) , Eosinophils (%) (Auto) , Basophils (%) (Auto) , Differential Total Cells Counted 100, Neutrophils % ( Manual) 76H, Lymphocytes % (Manual) 18L, Monocytes % (Manual) 3, Eosinophils % ( Manual) 2, Basophils % (Manual) 0, Band Neutrophils 1, Nucleated Red Blood Cells 1, Platelet Estimate DecreasedL, Platelet Morphology Normal, Hypochromasia 2+, Anisocytosis 2+, Sodium Level 149H, Potassium Level 3.6, Chloride Level 119H, Carbon Dioxide Level 21, Anion Gap 9, Blood Urea Nitrogen 53H, Creatinine 2.4H, Estimat Glomerular Filtration Rate , Glucose Level 332#H, Calcium Level 9.0, Magnesium Level 1.9, Total Bilirubin 0.4, Aspartate Amino Transf (AST/SGOT) 42H, Alanine Aminotransferase (ALT/SGPT) 11L, Alkaline Phosphatase 213H, Troponin I 0.717H, Pro-B-Type Natriuretic Peptide 17175T, Total Protein 5.8L, Albumin 0.6L, Globulin 5.2, Albumin/Globulin Ratio 0.1L Height (Feet): 5 Height (Inches): 3.00 Weight (Pounds): 176 General Appearance: other - intubated EENT: normal ENT inspection Neck: normal alignment Cardiovascular: normal rate, regular rhythm Respiratory/Chest: rhonchi - bilaterally Abdomen: non tender Edema: 1+ Arm (L), 1+ Arm (R), 1+ Leg (L), 1+ Leg (R), 1+ Pedal (L), 1+ Pedal ( R), 1+ Generalized Neurologic: unresponsive EZEQUIEL BAÑUELOS May 23, 2018 12:32
--- NOTE | 2018-05-23 15:23 | Pulmonolgy Critical Care Note ---
Critical Care - Asmt/Plan Assessment/Plan: 1. Acute respiratory failure status post bradycardic arrest. 2. Acute diabetic ketoacidosis. 3. Dysphagia with G-tube feeding. 4. Encephalopathy superimposed on severe dementia. 5. Severe diabetes with diabetic ketoacidosis. 6. Chronic kidney disease stage 4. 7. Anemia. 8. Pneumonia with sepsis, MRSA + BC diarrhea continue rectal tube cannot wean unresponsive CXR bilateral infiltrates nebs and suction wound care iv abx prognosis grave Cardiac: continue to monitor HR/BP Gastrointestinal: continue feedings/current rate Disposition: keep in ICU Critical Care - Objective Last 24 Hour Vital Signs Date Time Temp Pulse Resp B/P (MAP) Pulse Ox O2 Delivery O2 Flow Rate FiO2 05/23/18 14:56 87 17 35 05/23/18 14:00 78 17 122/44 (70) 99 05/23/18 13:00 80 17 112/47 (68) 98 05/23/18 12:46 92 16 35 05/23/18 12:00 98.8 78 17 115/50 (71) 98 98.8 05/23/18 12:00 Mechanical Ventilator Mechanical Ventilator 05/23/18 12:00 40 05/23/18 12:00 92 05/23/18 11:00 80 17 110/45 (66) 98 05/23/18 10:45 91 22 35 05/23/18 10:00 87 17 118/46 (70) 98 05/23/18 09:18 83 16 35 05/23/18 09:00 81 17 115/45 (68) 98 05/23/18 08:00 98.9 85 17 112/33 (59) 99 98.9 05/23/18 08:00 40 05/23/18 08:00 86 05/23/18 08:00 Mechanical Ventilator Mechanical Ventilator 05/23/18 07:22 91 16 35 05/23/18 07:00 90 17 111/35 (60) 98 05/23/18 06:00 86 17 114/35 (61) 98 05/23/18 05:18 75 18 35 05/23/18 05:00 112 16 106/45 (65) 97 05/23/18 04:00 98.3 131 17 110/47 (68) 96 98.3 05/23/18 04:00 40 05/23/18 04:00 122 05/23/18 04:00 Mechanical Ventilator Mechanical Ventilator 05/23/18 03:21 110 18 35 05/23/18 03:00 119 16 119/91 (100) 98 05/23/18 02:00 89 16 107/35 (59) 98 05/23/18 01:20 99 18 35 05/23/18 01:00 107 17 111/48 (69) 98 05/23/18 00:00 Mechanical Ventilator Mechanical Ventilator 05/23/18 00:00 98.9 92 17 110/47 (68) 97 98.9 05/23/18 00:00 89 05/22/18 23:00 96 19 115/43 (67) 100 05/22/18 22:56 96 18 35 05/22/18 22:00 125 21 113/42 (65) 97 05/22/18 21:29 98 20 35 05/22/18 21:00 97 21 117/32 (60) 96 05/22/18 20:00 Mechanical Ventilator Mechanical Ventilator 05/22/18 20:00 99.3 91 19 113/42 (65) 98 99.3 05/22/18 20:00 40 05/22/18 20:00 98 05/22/18 19:15 94 18 35 05/22/18 19:00 90 20 120/44 (69) 98 05/22/18 18:00 94 20 123/33 (63) 98 05/22/18 17:00 91 20 123/48 (73) 98 05/22/18 16:53 89 18 40 05/22/18 16:00 98.6 93 18 113/36 (61) 100 98.6 05/22/18 16:00 40 05/22/18 16:00 94 05/22/18 16:00 Endotracheal Tube Status: obtunded Condition: critical Lungs: clear Micro: Microbiology Date/Time Source Procedure Growth Status 05/21/18 05:30 Stool Clostridium difficile Toxin Assay - Final Complete Accucheck: 333 Critical Care - Subjective ROS Limited/Unobtainable: Yes Condition: critical FI02: 35 Vent Support Breath Rate: 16 Vent Support Mode: AC Vent Tidal Volume: 600 Sputum Amount: Small PEEP: 5.0 PIP: 32 Tube Feeding Amount: 60 I&O: Intake and Output 05/22/18 05/23/18 19:00 07:00 Intake Total 807.416 ml 1420 ml Output Total 900 ml 485 ml Balance -92.584 ml 935 ml Free Water 600 ml IV Total 367.416 ml Tube Feeding 440 ml 720 ml Other 100 ml Output Urine Total 900 ml 485 ml # Bowel Movements 3 103 Subjective: diarrhea ET-Tube: 7.5 ET Position: 23 Adam Willis MD May 23, 2018 15:23
[2018-05-23] MEDS: Dyna-Hex 2% Top Sol 2oz TOPIC SCH (19:37)
[2018-05-23] MEDS: Epogen (for ESRD on dialysis) SUBQ SCH (20:38)
[2018-05-23] MEDS: Levemir Flexpen SUBQ SCH (20:39)
--- NOTE | 2018-05-23 20:45 | Progress Note ---
DATE: 05/23/2018 CARDIOLOGY PROGRESS NOTE SUBJECTIVE: The patient remains poorly responsive, on ventilator support. Orally intubated. Mechanically ventilated. Monitored sinus with frequent atrial and rare ventricular ectopics. OBJECTIVE: VITAL SIGNS: Blood pressure 110/45, pulse 80, respiratory rate 17, and afebrile. LUNGS: Coarse breath sounds. Scattered rhonchi. HEART: Regular rhythm and rate. Normal S1, S2. ABDOMEN: Soft. EXTREMITIES: Distended with 1+ dependent edema. LABORATORY DATA: White count 15.6 and hemoglobin 9.1. Sodium 149, potassium 3.6, bicarbonate 21, BUN 53, and creatinine 2.4. Troponin 0.717. Pro-natriuretic peptide 10,000. Albumin 0.6. Magnesium 1.9. IMPRESSION: 1. Respiratory failure. 2. Healthcare-acquired pneumonia. 3. Dehydration. 4. Hypernatremia. 5. . 6. Acute on chronic renal failure. 7. Acute myocardial infarction. 8. Ischemic cardiomyopathy with chronic ischemic heart disease. 9. Acute on chronic diastolic congestive heart failure. 10. Severe protein-calorie malnutrition. 11. Insulin-requiring diabetes mellitus with neuropathy, nephropathy, and microangiopathy. 12. Bacteremia with increased risk for endocarditis. 13. Critical and guarded. PLAN: 1. Antimicrobials. 2. Ventilator support. 3. Diuresis with caution. 4. Free water replacement. 5. DVT and stress ulcer prophylaxis. 6. Cardiac monitoring. 7. Insulin coverage by sliding scale. 8. Consideration for DNR by family members . Amando Blanco M.D. DR: BRITTANIE JOB#: [id number] CC:
[2018-05-24] VITALS (24 sets, daily range): BP systolic 114–138; BP diastolic 33–80
[2018-05-24] MEDS: Sucralfate 1gm tab GT SCH ×4 (05:30→23:21)
[2018-05-24] MEDS: Pantoprazole Inj IVP SCH ×2 (08:16→20:30)
[2018-05-24] MEDS: NovoLOG Insulin Flexpen SUBQ SCH ×5 (08:21→17:17)
[2018-05-24] MEDS ORDERED: NS 275ml ONE (10:53)
[2018-05-24] MEDS ORDERED: Tubing IV Secondary IV ONE (10:53)
[2018-05-24] MEDS: Lomotil 2.5mg tab ORAL PRN (12:09)
[2018-05-24] MEDS: Vancomycin 1gm/D5W 275ml IVPB SCH ×2 (13:37)
--- NOTE | 2018-05-24 15:09 | General Progress Note ---
Assessment/Plan Problem List: (1) Respiratory failure ICD Codes: J96.90 - Respiratory failure, unspecified, unspecified whether with hypoxia or hypercapnia SNOMED: 523592898 (2) Hypotension ICD Codes: I95.9 - Hypotension, unspecified SNOMED: 58927823 (3) GI bleed ICD Codes: K92.2 - Gastrointestinal hemorrhage, unspecified SNOMED: 75886124 (4) DKA (diabetic ketoacidoses) ICD Codes: E13.10 - Other specified diabetes mellitus with ketoacidosis without coma SNOMED: 884584535, 93429485 (5) CKD (chronic kidney disease) stage 4, GFR 15-29 ml/min ICD Codes: N18.4 - Chronic kidney disease, stage 4 (severe) SNOMED: 600036573 (6) Hyperkalemia ICD Codes: E87.5 - Hyperkalemia SNOMED: 29479248, 62872386 (7) Altered mental status ICD Codes: R41.82 - Altered mental status, unspecified SNOMED: 725532196 (8) Elevated troponin ICD Codes: R74.8 - Abnormal levels of other serum enzymes SNOMED: 408520993, 554313888, 780185411 (9) Toxic metabolic encephalopathy ICD Codes: G92 - Toxic encephalopathy SNOMED: 916547397 (10) MRSA (methicillin resistant staph aureus) culture positive ICD Codes: Z22.322 - Carrier or suspected carrier of Methicillin resistant Staphylococcus aureus SNOMED: 834535780 (11) VRE (vancomycin resistant enterococcus) culture positive ICD Codes: Z22.39 - Carrier of other specified bacterial diseases SNOMED: 140922918 (12) Bacteremia ICD Codes: R78.81 - Bacteremia SNOMED: 7546721 (13) Sepsis ICD Codes: A41.9 - Sepsis, unspecified organism SNOMED: 37060746 Qualifiers: Qualified Codes: A41.9 - Sepsis, unspecified organism (14) Shock ICD Codes: R57.9 - Shock, unspecified SNOMED: 27160840 (15) Diarrhea ICD Codes: R19.7 - Diarrhea, unspecified SNOMED: 39206957 (16) Coma ICD Codes: R40.20 - Unspecified coma SNOMED: 117250254 (17) CHF exacerbation ICD Codes: I50.9 - Heart failure, unspecified SNOMED: 83625567 (18) Aspiration pneumonia ICD Codes: J69.0 - Pneumonitis due to inhalation of food and vomit SNOMED: 605322462 Assessment/Plan icu care, 40 min now intubated, adjust meds, insulin, dc iv fluids, increase feeding, vanco as G+ cocci in blood --mrsa, start diuresis for chf, check c diff ,neg eeg , not weanable now discuss GOC with family-daughter aware of grave condition, not weanable, she is discussing with sibs palliative care. hypernatremia and hypokalemia rx given, lasix stopped, suctioning and rxx for pneumonia, glucose 300+ adjust insulin Subjective ROS Limited/Unobtainable: Yes Allergies: Coded Allergies: PENICILLINS (Verified Allergy, Severe, 03/10/14) SKIN RASH AMOXICILLIN (Verified Allergy, Mild, 03/09/14) ERYTHROMYCIN BASE (Verified Allergy, Mild, 03/09/14) Uncoded Allergies: ERYTHROMYCIN (Allergy, Unknown, 05/15/18) PENICILLIN (Allergy, Unknown, 05/15/18) ZITHROMYCIN (Allergy, Unknown, 05/15/18) Objective Last 24 Hour Vital Signs Date Time Temp Pulse Resp B/P (MAP) Pulse Ox O2 Delivery O2 Flow Rate FiO2 05/24/18 14:52 76 16 35 05/24/18 14:00 82 16 130/37 (68) 100 05/24/18 13:00 86 16 35 05/24/18 13:00 80 16 136/46 (76) 100 05/24/18 12:00 84 05/24/18 12:00 35 05/24/18 12:00 82 16 124/43 (70) 99 05/24/18 12:00 Mechanical Ventilator Mechanical Ventilator 05/24/18 11:08 88 17 35 05/24/18 11:00 87 18 122/41 (68) 98 05/24/18 10:00 86 18 128/41 (70) 99 05/24/18 09:36 86 18 35 05/24/18 09:00 84 17 129/40 (69) 97 05/24/18 08:00 98.4 84 16 123/36 (65) 99 98.4 05/24/18 08:00 83 05/24/18 08:00 35 05/24/18 08:00 Mechanical Ventilator Mechanical Ventilator 9/29/18 07:41 85 16 35 05/24/18 07:00 79 16 128/43 (71) 99 05/24/18 06:00 84 16 125/57 (79) 98 05/24/18 05:10 87 16 35 05/24/18 05:00 86 16 132/42 (72) 98 05/24/18 04:00 Mechanical Ventilator Mechanical Ventilator 05/24/18 04:00 86 16 131/45 (73) 98 05/24/18 04:00 35 05/24/18 03:38 85 05/24/18 03:15 85 16 35 05/24/18 03:00 98.3 86 16 131/45 (73) 98 98.3 05/24/18 02:00 88 16 124/48 (73) 98 05/24/18 01:00 87 16 127/40 (69) 98 05/24/18 00:54 83 16 35 05/24/18 00:00 84 16 114/46 (68) 97 05/24/18 00:00 Mechanical Ventilator Mechanical Ventilator 05/24/18 00:00 35 05/24/18 00:00 80 05/23/18 23:10 88 16 35 05/23/18 23:00 98.1 90 17 127/41 (69) 99 98.1 05/23/18 22:00 85 17 131/68 (89) 99 05/23/18 21:10 80 16 35 05/23/18 21:00 82 16 122/48 (72) 100 05/23/18 20:00 Mechanical Ventilator Mechanical Ventilator 05/23/18 20:00 35 05/23/18 20:00 90 05/23/18 20:00 82 16 122/48 (72) 100 05/23/18 19:22 88 18 35 05/23/18 19:00 84 16 122/42 (68) 100 05/23/18 18:00 97.6 83 16 118/28 (58) 100 97.6 05/23/18 18:00 98.7 88 16 122/38 (66) 100 98.7 05/23/18 17:00 85 16 117/37 (63) 100 05/23/18 16:51 90 16 35 05/23/18 16:00 40 05/23/18 16:00 Mechanical Ventilator Mechanical Ventilator 05/23/18 16:00 84 05/23/18 16:00 83 16 115/36 (62) 100 Intake and Output 05/23/18 05/24/18 19:00 07:00 Intake Total 690 ml 1400 ml Output Total 350 ml 235 ml Balance 340 ml 1165 ml Free Water 600 ml Tube Feeding 690 ml 540 ml Other 260 ml Output Urine Total 350 ml 235 ml # Bowel Movements 3 Height (Feet): 5 Height (Inches): 3.00 Weight (Pounds): 177 General Appearance: other - intubated Neck: normal alignment Cardiovascular: normal rate, regular rhythm Respiratory/Chest: rhonchi - bilaterally Abdomen: non tender Edema: 1+ Arm (L), 1+ Arm (R), 1+ Leg (L), 1+ Leg (R), 1+ Pedal (L), 1+ Pedal ( R), 1+ Generalized Neurologic: unresponsive EZEQUIEL BAÑUELOS May 24, 2018 15:09
[2018-05-24] MEDS: Dyna-Hex 2% Top Sol 2oz TOPIC SCH (19:29)
--- NOTE | 2018-05-24 20:30 | Progress Note ---
DATE: 05/24/2018 CARDIOLOGY PROGRESS NOTE SUBJECTIVE: The patient's family members at bedside, her daughters and sons mainly. Today, status was reviewed in detail with them. They are conflicted regarding intensity of care and decision for tracheostomy versus withdrawal of support. OBJECTIVE: VITAL SIGNS: Blood pressure 134/73, pulse 99, respiratory rate 16, and afebrile. Sinus rhythm. LUNGS: Coarse breath sounds. Thin secretions from endotracheal tube. Scattered rhonchi. HEART: Regular rhythm and rate. Normal S1 and S2. ABDOMEN: Soft. 1+ dependent edema. LABORATORY DATA: No new labs today. IMPRESSION: 1. Respiratory failure, sepsis with recovered shock. 2. Healthcare-acquired pneumonia. 3. Dehydration. 4. Hyponatremia. 5. Acute myocardial infarction. 6. Acute on chronic diastolic congestive heart failure. 7. Severe protein-calorie malnutrition. 8. Acute on chronic renal failure. 9. Toxic and metabolic encephalopathy. 10. 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 PLAN: Encourage family members to discuss quality of life issues before proceeding with trach. Continue free water replacement and potassium replacement. Recheck lab studies including potassium and magnesium. Repeat troponin level. Maintain antianginal and anti-failure regimen with titration based on clinical parameters. Not weanable at this time. Antimicrobials per Infectious Disease healthcare market consultant. Amando Blanco M.D. : DEBRA JOB#: [id number] CC:
[2018-05-24] MEDS: Levemir Flexpen SUBQ SCH (20:31)
--- NOTE | 2018-05-24 21:37 | Pulmonolgy Critical Care Note ---
Critical Care - Asmt/Plan Assessment/Plan: 1. Acute respiratory failure status post bradycardic arrest. 2. Acute diabetic ketoacidosis. 3. Dysphagia with G-tube feeding. 4. Encephalopathy superimposed on severe dementia. 5. Severe diabetes with diabetic ketoacidosis. 6. Chronic kidney disease stage 4. 7. Anemia. 8. Pneumonia with sepsis, MRSA + BC pt is unweanable replace lytes nebs adn suction cxr saturday prn abg unresponsive CXR bilateral infiltrates nebs and suction wound care iv abx prognosis grave critically ill continue ICU level of care greater than 35 minutes of crtical care time spent with the pt, reviewing the records, images, labs,cultures and dw nursing. orders given. 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 Critical Care - Objective Last 24 Hour Vital Signs Date Time Temp Pulse Resp B/P (MAP) Pulse Ox O2 Delivery O2 Flow Rate FiO2 05/24/18 21:00 83 17 125/39 (67) 99 05/24/18 20:38 82 16 35 05/24/18 20:00 85 17 122/44 (70) 96 05/24/18 20:00 Mechanical Ventilator Mechanical Ventilator 05/24/18 20:00 35 05/24/18 19:00 98.3 85 16 115/34 (61) 95 98.3 05/24/18 18:45 89 22 35 05/24/18 18:00 99 16 134/73 (93) 98 05/24/18 17:37 84 18 35 05/24/18 17:00 98.3 82 16 127/41 (69) 98 98.3 05/24/18 16:00 35 05/24/18 16:00 92 25 132/79 (96) 98 05/24/18 16:00 Mechanical Ventilator Mechanical Ventilator 05/24/18 16:00 81 05/24/18 15:00 87 23 138/80 (99) 98 05/24/18 14:52 76 16 35 05/24/18 14:00 82 16 130/37 (68) 100 05/24/18 13:00 86 16 35 05/24/18 13:00 80 16 136/46 (76) 100 05/24/18 12:00 84 05/24/18 12:00 35 05/24/18 12:00 82 16 124/43 (70) 99 05/24/18 12:00 Mechanical Ventilator Mechanical Ventilator 05/24/18 11:08 88 17 35 05/24/18 11:00 87 18 122/41 (68) 98 05/24/18 10:00 86 18 128/41 (70) 99 05/24/18 09:36 86 18 35 05/24/18 09:00 84 17 129/40 (69) 97 05/24/18 08:00 98.4 84 16 123/36 (65) 99 98.4 05/24/18 08:00 83 05/24/18 08:00 35 05/24/18 08:00 Mechanical Ventilator Mechanical Ventilator 05/24/18 07:41 85 16 35 05/24/18 07:00 79 16 128/43 (71) 99 05/24/18 06:00 84 16 125/57 (79) 98 05/24/18 05:10 87 16 35 05/24/18 05:00 86 16 132/42 (72) 98 05/24/18 04:00 Mechanical Ventilator Mechanical Ventilator 05/24/18 04:00 86 16 131/45 (73) 98 05/24/18 04:00 35 05/24/18 03:38 85 05/24/18 03:15 85 16 35 05/24/18 03:00 98.3 86 16 131/45 (73) 98 98.3 05/24/18 02:00 88 16 124/48 (73) 98 05/24/18 01:00 87 16 127/40 (69) 98 05/24/18 00:54 83 16 35 05/24/18 00:00 84 16 114/46 (68) 97 05/24/18 00:00 Mechanical Ventilator Mechanical Ventilator 05/24/18 00:00 35 05/24/18 00:00 80 05/23/18 23:10 88 16 35 05/23/18 23:00 98.1 90 17 127/41 (69) 99 98.1 05/23/18 22:00 85 17 131/68 (89) 99 Status: obtunded Condition: critical Lungs: rhonchi Heart: HR/BP unstable Abdomen: soft, non-tender Extremities: edema Accucheck: 332 Blood Sugars: BS not controlled Critical Care - Subjective ROS Limited/Unobtainable: Yes Condition: critical FI02: 35 Vent Support Breath Rate: 16 Vent Support Mode: AC Vent Tidal Volume: 600 Sputum Amount: Small PEEP: 5.0 PIP: 32 Tube Feeding Amount: 45 I&O: Intake and Output 05/23/18 05/24/18 19:00 07:00 Intake Total 690 ml 1400 ml Output Total 350 ml 235 ml Balance 340 ml 1165 ml Free Water 600 ml Tube Feeding 690 ml 540 ml Other 260 ml Output Urine Total 350 ml 235 ml # Bowel Movements 3 Subjective: no events noted obtunded on the vent sync set rate 16 no dsitress no fever no reports of cp nv or bleeding secretions noted positive uop on pressors on hypotension CXR: no new cxr ET-Tube: 7.5 ET Position: 23 Labs: Current Medications Medications (Trade) Dose Ordered Sig/Adelia Route PRN Reason Start Time Stop Time Status Last Admin Dose Admin Acetaminophen (Tylenol) 650 mg Q6H PRN NG Fever/Headache/Mild Pain 05/17/18 03:45 06/16/18 03:44 05/17/18 03:57 Chlorhexidine Gluconate (Khadijah-Hex 2%) 1 applic DAILY@1999 TOPIC 05/16/18 20:00 06/15/18 19:59 05/24/18 19:29 Clopidogrel Bisulfate (Plavix) 75 mg DAILY GT 05/16/18 09:00 06/15/18 08:59 05/24/18 08:16 Dextrose (Dextrose 50%) 25 ml Q1H PRN IV Hypoglycemia 05/20/18 21:30 06/19/18 21:29 Dextrose (Dextrose 50%) 50 ml Q1H PRN IV Hypoglycemia 05/15/18 21:15 Diphenoxylate HCl/ Atropine (Lomotil) 2.5 mg Q4H PRN ORAL Diarrhea 05/20/18 20:00 06/19/18 19:59 05/24/18 12:09 Epoetin Jarocho (Procrit (for ESRD on dialysis)) 10,000 units SAT-WED-SAT SUBQ 05/16/18 21:00 06/15/18 20:59 05/23/18 20:38 Insulin Aspart (NovoLOG) TID SUBQ 05/22/18 09:00 06/21/18 08:59 05/24/18 17:17 Insulin Aspart (NovoLOG) 8 units NOVOTIAC SUBQ 05/24/18 16:50 06/23/18 16:49 05/24/18 17:14 Insulin Detemir (Levemir) 6 units BEDTIME SUBQ 05/21/18 21:00 06/20/18 20:59 05/24/18 20:31 Metoclopramide HCl (Reglan) 10 mg Q6H PRN IVP Nausea & Vomiting 05/16/18 09:30 06/15/18 09:29 05/21/18 15:54 Ondansetron HCl (Zofran) 4 mg Q6H PRN IVP Nausea & Vomiting 05/15/18 21:45 06/14/18 21:44 Pantoprazole (Protonix) 40 mg EVERY 12 HOURS IVP 05/16/18 10:00 06/15/18 09:59 05/24/18 20:30 Sucralfate (Carafate) 1 gm EVERY 6 HOURS GT 05/16/18 00:00 06/15/18 00:00 05/24/18 17:12 Vancomycin HCl (Vanco rx to dose) 1 ea DAILY PRN MISC . 05/22/18 11:30 06/18/18 12:14 Vancomycin HCl 1 gm/Dextrose 275 ml @ 183.708 mls/hr Q48H IVPB 05/22/18 14:00 05/27/18 13:59 05/24/18 13:37 Omayra Patiño DO May 24, 2018 21:36
[2018-05-25] VITALS (24 sets, daily range): BP systolic 119–168; BP diastolic 38–81
[2018-05-25] MEDS: Sucralfate 1gm tab GT SCH ×4 (05:32→23:17)
[2018-05-25 05:40] LABS: HEMATOCRIT 28.3 % (37.0-47.0); HEMOGLOBIN 8.8 G/DL (12.0-16.0); MEAN CORPUSCULAR VOLUME 94 FL (80-99); PLATELET COUNT 65 K/UL (150-450); RED CELL DISTRIBUTION WIDTH 20.4 % (11.6-14.8); WHITE BLOOD COUNT 9.8 K/UL (4.8-10.8)
[2018-05-25 06:00] LABS: ALANINE AMINOTRANSFERASE 13 U/L (12-78); ALBUMIN 0.6 G/DL (3.4-5.0); ALBUMIN/GLOBULIN RATIO 0.1 (1.0-2.7); ALKALINE PHOSPHATASE 284 U/L (46-116); ANION GAP 7 mmol/L (5-15); ASPARTATE AMINO TRANSFERASE 42 U/L (15-37); BILIRUBIN,TOTAL 0.3 MG/DL (0.2-1.0); BLOOD UREA NITROGEN 59 mg/dL (7-18); CALCIUM 9.1 MG/DL (8.5-10.1); CARBON DIOXIDE 23 MMOL/L (21-32); CHLORIDE 118 MMOL/L (98-107); CREATININE 2.1 MG/DL (0.55-1.30); POTASSIUM 4.4 MMOL/L (3.5-5.1); SODIUM 148 MMOL/L (136-145)
[2018-05-25] MEDS ORDERED: Tubing IV Secondary IV ONE (08:45)
[2018-05-25] MEDS ORDERED: NS 275ml ONE ×2 (08:45→15:21)
[2018-05-25] MEDS: Pantoprazole Inj IVP SCH ×2 (09:02→20:35)
[2018-05-25] MEDS: NovoLOG Insulin Flexpen SUBQ SCH ×4 (09:09→17:25)
--- NOTE | 2018-05-25 11:56 | General Progress Note ---
Assessment/Plan Problem List: (1) Respiratory failure ICD Codes: J96.90 - Respiratory failure, unspecified, unspecified whether with hypoxia or hypercapnia SNOMED: 125409964 (2) Hypotension ICD Codes: I95.9 - Hypotension, unspecified SNOMED: 40633207 (3) GI bleed ICD Codes: K92.2 - Gastrointestinal hemorrhage, unspecified SNOMED: 91126891 (4) DKA (diabetic ketoacidoses) ICD Codes: E13.10 - Other specified diabetes mellitus with ketoacidosis without coma SNOMED: 398986655, 12451770 (5) CKD (chronic kidney disease) stage 4, GFR 15-29 ml/min ICD Codes: N18.4 - Chronic kidney disease, stage 4 (severe) SNOMED: 512692114 (6) Hyperkalemia ICD Codes: E87.5 - Hyperkalemia SNOMED: 50967633, 94775686 (7) Altered mental status ICD Codes: R41.82 - Altered mental status, unspecified SNOMED: 633895958 (8) Elevated troponin ICD Codes: R74.8 - Abnormal levels of other serum enzymes SNOMED: 708902065, 264213098, 412406226 (9) Toxic metabolic encephalopathy ICD Codes: G92 - Toxic encephalopathy SNOMED: 268223651 (10) MRSA (methicillin resistant staph aureus) culture positive ICD Codes: Z22.322 - Carrier or suspected carrier of Methicillin resistant Staphylococcus aureus SNOMED: 220026520 (11) VRE (vancomycin resistant enterococcus) culture positive ICD Codes: Z22.39 - Carrier of other specified bacterial diseases SNOMED: 021967453 (12) Bacteremia ICD Codes: R78.81 - Bacteremia SNOMED: 3976318 (13) Sepsis ICD Codes: A41.9 - Sepsis, unspecified organism SNOMED: 64800249 Qualifiers: Qualified Codes: A41.9 - Sepsis, unspecified organism (14) Shock ICD Codes: R57.9 - Shock, unspecified SNOMED: 06292638 (15) Diarrhea ICD Codes: R19.7 - Diarrhea, unspecified SNOMED: 89559074 (16) Coma ICD Codes: R40.20 - Unspecified coma SNOMED: 821158010 (17) CHF exacerbation ICD Codes: I50.9 - Heart failure, unspecified SNOMED: 43224864 (18) Aspiration pneumonia ICD Codes: J69.0 - Pneumonitis due to inhalation of food and vomit SNOMED: 025506449 Assessment/Plan icu care, 35 min now intubated, adjust meds, insulin, dc iv fluids, increase feeding, vanco as G+ cocci in blood --mrsa, start diuresis for chf, check c diff ,neg eeg , not weanable now discuss GOC with family-daughter aware of grave condition, not weanable, she is discussing with sibs palliative care. hypernatremia and hypokalemia rx given, lasix stopped, suctioning and rx for pneumonia, glucose 300+ adjust insulin again Subjective ROS Limited/Unobtainable: Yes Allergies: Coded Allergies: PENICILLINS (Verified Allergy, Severe, 03/10/14) SKIN RASH AMOXICILLIN (Verified Allergy, Mild, 03/09/14) ERYTHROMYCIN BASE (Verified Allergy, Mild, 03/09/14) Uncoded Allergies: ERYTHROMYCIN (Allergy, Unknown, 05/15/18) PENICILLIN (Allergy, Unknown, 05/15/18) ZITHROMYCIN (Allergy, Unknown, 05/15/18) Objective Last 24 Hour Vital Signs Date Time Temp Pulse Resp B/P (MAP) Pulse Ox O2 Delivery O2 Flow Rate FiO2 05/25/18 09:00 90 17 143/41 (75) 99 05/25/18 08:44 87 19 35 05/25/18 08:00 90 05/25/18 08:00 35 05/25/18 08:00 98.2 88 16 142/76 (98) 99 98.2 05/25/18 08:00 Mechanical Ventilator Mechanical Ventilator 05/25/18 07:00 87 17 144/45 (78) 100 05/25/18 06:55 91 17 35 05/25/18 06:00 86 16 128/50 (76) 99 05/25/18 05:00 85 16 139/41 (73) 96 05/25/18 04:51 83 16 35 05/25/18 04:00 98.3 89 16 168/45 (86) 95 98.3 05/25/18 04:00 88 05/25/18 04:00 Mechanical Ventilator Mechanical Ventilator 05/25/18 04:00 35 05/25/18 03:29 92 17 35 05/25/18 03:00 85 16 126/43 (70) 94 05/25/18 02:00 88 17 132/75 (94) 94 05/25/18 01:00 89 16 124/40 (68) 92 05/25/18 00:47 83 16 35 05/25/18 00:00 87 16 120/38 (65) 93 05/25/18 00:00 78 05/25/18 00:00 35 05/25/18 00:00 Mechanical Ventilator Mechanical Ventilator 05/24/18 23:00 98.1 82 16 115/49 (71) 93 98.1 05/24/18 22:55 81 16 35 05/24/18 22:00 82 17 117/33 (61) 98 05/24/18 21:00 83 17 125/39 (67) 99 05/24/18 20:38 82 16 35 05/24/18 20:00 85 17 122/44 (70) 96 05/24/18 20:00 83 05/24/18 20:00 Mechanical Ventilator Mechanical Ventilator 05/24/18 20:00 35 05/24/18 19:00 98.3 85 16 115/34 (61) 95 98.3 05/24/18 18:45 89 22 35 05/24/18 18:00 99 16 134/73 (93) 98 05/24/18 17:37 84 18 35 05/24/18 17:00 98.3 82 16 127/41 (69) 98 98.3 05/24/18 16:00 35 05/24/18 16:00 92 25 132/79 (96) 98 05/24/18 16:00 Mechanical Ventilator Mechanical Ventilator 05/24/18 16:00 81 05/24/18 15:00 87 23 138/80 (99) 98 05/24/18 14:52 76 16 35 05/24/18 14:00 82 16 130/37 (68) 100 05/24/18 13:00 86 16 35 05/24/18 13:00 80 16 136/46 (76) 100 05/24/18 12:00 84 05/24/18 12:00 35 05/24/18 12:00 82 16 124/43 (70) 99 05/24/18 12:00 Mechanical Ventilator Mechanical Ventilator Intake and Output 05/24/18 05/25/18 19:00 07:00 Intake Total 1691.124 ml 1200 ml Output Total 300 ml 245 ml Balance 1391.124 ml 955 ml Free Water 520 ml 600 ml IV Total 551.124 ml Tube Feeding 540 ml 540 ml Other 80 ml 60 ml Output Urine Total 300 ml 245 ml # Bowel Movements 4 2 Laboratory Tests 05/25/18 04:50: White Blood Count 9.8, Red Blood Count 3.00L, Hemoglobin 8.8L, Hematocrit 28.3L , Mean Corpuscular Volume 94, Mean Corpuscular Hemoglobin 29.3, Mean Corpuscular Hemoglobin Concent 31.1L, Red Cell Distribution Width 20.4H, Platelet Count 65L, Mean Platelet Volume 8.2, Neutrophils (%) (Auto) , Lymphocytes (%) (Auto) , Monocytes (%) (Auto) , Eosinophils (%) (Auto) , Basophils (%) (Auto) , Differential Total Cells Counted 100, Neutrophils % ( Manual) 69, Lymphocytes % (Manual) 18L, Monocytes % (Manual) 5, Eosinophils % ( Manual) 1, Basophils % (Manual) 0, Band Neutrophils 7, Platelet Estimate DecreasedL, Platelet Morphology Normal, Polychromasia 1+, Hypochromasia 1+, Anisocytosis 2+, Sodium Level 148H, Potassium Level 4.4, Chloride Level 118H, Carbon Dioxide Level 23, Anion Gap 7, Blood Urea Nitrogen 59H, Creatinine 2.1H, Estimat Glomerular Filtration Rate , Glucose Level 360H, Calcium Level 9.1, Magnesium Level 1.8, Total Bilirubin 0.3, Aspartate Amino Transf (AST/SGOT) 42H , Alanine Aminotransferase (ALT/SGPT) 13, Alkaline Phosphatase 284H, Troponin I 0.949H, Pro-B-Type Natriuretic Peptide 30226T, Total Protein 6.0L, Albumin 0.6L , Globulin 5.4, Albumin/Globulin Ratio 0.1L Height (Feet): 5 Height (Inches): 3.00 Weight (Pounds): 177 General Appearance: other EENT: normal ENT inspection Neck: normal alignment Cardiovascular: normal rate, regular rhythm Respiratory/Chest: rhonchi - bilaterally Abdomen: non tender, soft Neurologic: unresponsive EZEQUIEL BAÑUELOS May 25, 2018 11:56
[2018-05-25] MEDS: Lomotil 2.5mg tab ORAL PRN (12:04)
--- NOTE | 2018-05-25 17:50 | Pulmonolgy Critical Care Note ---
Critical Care - Asmt/Plan Assessment/Plan: 1. Acute respiratory failure status post bradycardic arrest. 2. Acute diabetic ketoacidosis. 3. Dysphagia with G-tube feeding. 4. Encephalopathy superimposed on severe dementia. 5. Severe diabetes with diabetic ketoacidosis. 6. Chronic kidney disease stage 4. 7. Anemia. 8. Pneumonia with sepsis, MRSA + BC pt is unweanable replace lytes nebs adn suction cxr saturday prn abg unresponsive CXR bilateral infiltrates nebs and suction wound care iv abx prognosis grave critically ill continue ICU level of care greater than 35 minutes of crtical care time spent with the pt, reviewing the records, images, labs,cultures and dw nursing. orders given. 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 Critical Care - Objective Last 24 Hour Vital Signs Date Time Temp Pulse Resp B/P (MAP) Pulse Ox O2 Delivery O2 Flow Rate FiO2 05/25/18 16:53 78 16 35 05/25/18 16:00 Mechanical Ventilator Mechanical Ventilator 05/25/18 16:00 79 05/25/18 16:00 78 16 144/48 (80) 99 05/25/18 16:00 35 05/25/18 15:00 80 16 136/44 (74) 99 05/25/18 14:49 80 17 35 05/25/18 14:00 97.7 85 17 137/44 (75) 99 97.7 05/25/18 13:00 85 18 134/56 (82) 98 05/25/18 12:48 87 18 35 05/25/18 12:00 Mechanical Ventilator Mechanical Ventilator 05/25/18 12:00 85 20 133/43 (73) 99 05/25/18 12:00 35 05/25/18 12:00 85 05/25/18 11:00 88 20 119/42 (67) 99 05/25/18 10:39 88 20 35 05/25/18 10:00 91 19 142/46 (78) 98 05/25/18 09:00 90 17 143/41 (75) 99 05/25/18 08:44 87 19 35 05/25/18 08:00 90 05/25/18 08:00 35 05/25/18 08:00 98.2 88 16 142/76 (98) 99 98.2 05/25/18 08:00 Mechanical Ventilator Mechanical Ventilator 05/25/18 07:00 87 17 144/45 (78) 100 05/25/18 06:55 91 17 35 05/25/18 06:00 86 16 128/50 (76) 99 05/25/18 05:00 85 16 139/41 (73) 96 05/25/18 04:51 83 16 35 05/25/18 04:00 98.3 89 16 168/45 (86) 95 98.3 05/25/18 04:00 88 05/25/18 04:00 Mechanical Ventilator Mechanical Ventilator 05/25/18 04:00 35 05/25/18 03:29 92 17 35 05/25/18 03:00 85 16 126/43 (70) 94 05/25/18 02:00 88 17 132/75 (94) 94 05/25/18 01:00 89 16 124/40 (68) 92 05/25/18 00:47 83 16 35 05/25/18 00:00 87 16 120/38 (65) 93 05/25/18 00:00 78 05/25/18 00:00 35 05/25/18 00:00 Mechanical Ventilator Mechanical Ventilator 05/24/18 23:00 98.1 82 16 115/49 (71) 93 98.1 05/24/18 22:55 81 16 35 05/24/18 22:00 82 17 117/33 (61) 98 05/24/18 21:00 83 17 125/39 (67) 99 05/24/18 20:38 82 16 35 05/24/18 20:00 85 17 122/44 (70) 96 05/24/18 20:00 83 05/24/18 20:00 Mechanical Ventilator Mechanical Ventilator 05/24/18 20:00 35 05/24/18 19:00 98.3 85 16 115/34 (61) 95 98.3 05/24/18 18:45 89 22 35 05/24/18 18:00 99 16 134/73 (93) 98 Status: obtunded Lungs: rhonchi Heart: HR/BP unstable Abdomen: non-tender, active bowel sounds Extremities: edema Decubiti: location Accucheck: 288 Critical Care - Subjective ROS Limited/Unobtainable: Yes Condition: critical FI02: 35 Vent Support Breath Rate: 16 Vent Support Mode: AC Vent Tidal Volume: 600 Sputum Amount: Small PEEP: 5.0 PIP: 30 Tube Feeding Amount: 45 I&O: Intake and Output 05/24/18 05/25/18 19:00 07:00 Intake Total 1691.124 ml 1200 ml Output Total 300 ml 245 ml Balance 1391.124 ml 955 ml Free Water 520 ml 600 ml IV Total 551.124 ml Tube Feeding 540 ml 540 ml Other 80 ml 60 ml Output Urine Total 300 ml 245 ml # Bowel Movements 4 2 Subjective: no events noted breathign above the vent today unresponsive no distress no reports of cp nv or bleeding secretions noted positive uop, diarrhea too no pressors on hypotension ET-Tube: 7.5 ET Position: 23 Labs: Laboratory Tests Test 05/25/18 04:50 White Blood Count 9.8 K/UL (4.8-10.8) Red Blood Count 3.00 M/UL (4.20-5.40) L Hemoglobin 8.8 G/DL (12.0-16.0) L Hematocrit 28.3 % (37.0-47.0) L Mean Corpuscular Volume 94 FL (80-99) Mean Corpuscular Hemoglobin 29.3 PG (27.0-31.0) Mean Corpuscular Hemoglobin Concent 31.1 G/DL (32.0-36.0) L Red Cell Distribution Width 20.4 % (11.6-14.8) H Platelet Count 65 K/UL (150-450) L Mean Platelet Volume 8.2 FL (6.5-10.1) Neutrophils (%) (Auto) % (45.0-75.0) Lymphocytes (%) (Auto) % (20.0-45.0) Monocytes (%) (Auto) % (1.0-10.0) Eosinophils (%) (Auto) % (0.0-3.0) Basophils (%) (Auto) % (0.0-2.0) Differential Total Cells Counted 100 Neutrophils % (Manual) 69 % (45-75) Lymphocytes % (Manual) 18 % (20-45) L Monocytes % (Manual) 5 % (1-10) Eosinophils % (Manual) 1 % (0-3) Basophils % (Manual) 0 % (0-2) Band Neutrophils 7 % (0-8) Platelet Estimate Decreased L Platelet Morphology Normal Polychromasia 1+ Hypochromasia 1+ Anisocytosis 2+ Sodium Level 148 MMOL/L (136-145) H Potassium Level 4.4 MMOL/L (3.5-5.1) Chloride Level 118 MMOL/L (98-107) H Carbon Dioxide Level 23 MMOL/L (21-32) Anion Gap 7 mmol/L (5-15) Blood Urea Nitrogen 59 mg/dL (7-18) H Creatinine 2.1 MG/DL (0.55-1.30) H Estimat Glomerular Filtration Rate mL/min (>60) Glucose Level 360 MG/DL (74-106) H Calcium Level 9.1 MG/DL (8.5-10.1) Magnesium Level 1.8 MG/DL (1.8-2.4) Total Bilirubin 0.3 MG/DL (0.2-1.0) Aspartate Amino Transf (AST/SGOT) 42 U/L (15-37) H Alanine Aminotransferase (ALT/SGPT) 13 U/L (12-78) Alkaline Phosphatase 284 U/L (46-116) H Troponin I 0.949 ng/mL (0.000-0.056) Pro-B-Type Natriuretic Peptide 12222 pg/mL (0-125) H Total Protein 6.0 G/DL (6.4-8.2) L Albumin 0.6 G/DL (3.4-5.0) L Globulin 5.4 g/dL Albumin/Globulin Ratio 0.1 (1.0-2.7) L Omayra Patiño DO May 25, 2018 17:50
[2018-05-25] MEDS: Dyna-Hex 2% Top Sol 2oz TOPIC SCH (19:50)
[2018-05-25] MEDS: Levemir Flexpen SUBQ SCH (20:35)
--- NOTE | 2018-05-25 21:00 | Progress Note ---
DATE: 05/25/2018 CARDIOLOGY PROGRESS NOTE SUBJECTIVE: The patient remains in the intensive care unit. Condition remains critical. Prognosis guarded. She is on full ventilator support and not weanable at this time. OBJECTIVE: VITAL SIGNS: Blood pressure 144/48, pulse 78, respiratory rate 16, and afebrile. Monitor, sinus rhythm with frequent atrial ectopics and sinus arrhythmia. EXTREMITIES: She has 1+ dependent edema. LUNGS: Bilateral breath sounds with rhonchi. HEART: Regular rhythm and rate. Normal S1, S2 with a fourth heart sound. ABDOMEN: Distended, but soft. G-tube intact. VASCULAR: Distal pulses palpable. No ischemic changes. LABORATORY DATA: White count is 9.8, hemoglobin 8.8. Sodium 148, potassium 4.4, bicarbonate 23, chloride 118, BUN 59, creatinine 2.1. Troponin 0.949. Pro-natriuretic peptide is 12,000. Albumin is 0.6. IMPRESSION: 1. Multiorgan system failure. 2. Respiratory failure. 3. Sepsis with recovered shock. 4. Acute myocardial infarction. 5. Ischemic cardiomyopathy. 6. Paroxysmal atrial ectopy. 7. Acute on chronic renal failure. 8. Status post GI bleeding. 9. Toxic and metabolic encephalopathy. 10. Bacteremia with increased risk for endocarditis. 11. Diabetic ketoacidosis, improving. PLAN: 1. Ventilator support presently not weanable. 2. Antimicrobials per Infectious Disease network pricing consultant. 3. Repeat chest radiograph. 4. Continue current cardiovascular regimen. 5. Antiplatelet therapy. 6. Nutrition by feeding tube. I discussed with family members yesterday her poor prognosis. Her children are discussing whether they want to continue current level of support and proceed with trach versus palliative care. Amando Blanco M.D. DR: Stephon JOB#: [id number] CC:
[2018-05-26] VITALS (24 sets, daily range): BP systolic 84–134; BP diastolic 26–64
[2018-05-26 04:58] LABS: HEMATOCRIT 29.1 % (37.0-47.0); HEMOGLOBIN 9.3 G/DL (12.0-16.0); MEAN CORPUSCULAR VOLUME 95 FL (80-99); PLATELET COUNT 92 K/UL (150-450); RED BLOOD COUNT 3.06 M/UL (4.20-5.40); RED CELL DISTRIBUTION WIDTH 20.6 % (11.6-14.8)
[2018-05-26 05:02] LABS: ANION GAP 7 mmol/L (5-15); BLOOD UREA NITROGEN 56 mg/dL (7-18); CALCIUM 9.4 MG/DL (8.5-10.1); CARBON DIOXIDE 22 MMOL/L (21-32); CHLORIDE 120 MMOL/L (98-107); CREATININE 1.8 MG/DL (0.55-1.30); POTASSIUM 4.1 MMOL/L (3.5-5.1); SODIUM 149 MMOL/L (136-145)
[2018-05-26] MEDS: Sucralfate 1gm tab GT SCH ×4 (05:50→23:38)
[2018-05-26] MEDS: NovoLOG Insulin Flexpen SUBQ SCH ×6 (05:55→17:53)
[2018-05-26] MEDS: Pantoprazole Inj IVP SCH ×2 (09:24→20:47)
[2018-05-26 10:09] LABS: INR 1.5 (0.9-1.1)
--- NOTE | 2018-05-26 10:57 | Diagnostic Imaging Report ---
Indication: Dyspnea Technique: One view of the chest Comparison: 05/22/2018 Findings: Bilateral extensive diffuse interstitial and airspace disease appears minimally improved but still extensive. Left jugular central venous catheter, endotracheal tube remain. The heart is upper limits normal in size. There are surgical clips in the right side of the abdomen. Impression: Minimally improved but still extensive bilateral diffuse interstitial and airspace infiltrates versus edema Other stable findings as described
--- NOTE | 2018-05-26 12:48 | General Progress Note ---
Assessment/Plan Problem List: (1) Respiratory failure ICD Codes: J96.90 - Respiratory failure, unspecified, unspecified whether with hypoxia or hypercapnia SNOMED: 351322274 (2) Hypotension ICD Codes: I95.9 - Hypotension, unspecified SNOMED: 14531660 (3) GI bleed ICD Codes: K92.2 - Gastrointestinal hemorrhage, unspecified SNOMED: 51866346 (4) DKA (diabetic ketoacidoses) ICD Codes: E13.10 - Other specified diabetes mellitus with ketoacidosis without coma SNOMED: 033236927, 93199553 (5) CKD (chronic kidney disease) stage 4, GFR 15-29 ml/min ICD Codes: N18.4 - Chronic kidney disease, stage 4 (severe) SNOMED: 666661558 (6) Hyperkalemia ICD Codes: E87.5 - Hyperkalemia SNOMED: 48454219, 51457829 (7) Altered mental status ICD Codes: R41.82 - Altered mental status, unspecified SNOMED: 518093268 (8) Elevated troponin ICD Codes: R74.8 - Abnormal levels of other serum enzymes SNOMED: 141541076, 961897533, 364148745 (9) Toxic metabolic encephalopathy ICD Codes: G92 - Toxic encephalopathy SNOMED: 157999186 (10) MRSA (methicillin resistant staph aureus) culture positive ICD Codes: Z22.322 - Carrier or suspected carrier of Methicillin resistant Staphylococcus aureus SNOMED: 081338858 (11) VRE (vancomycin resistant enterococcus) culture positive ICD Codes: Z22.39 - Carrier of other specified bacterial diseases SNOMED: 033831931 (12) Bacteremia ICD Codes: R78.81 - Bacteremia SNOMED: 4114366 (13) Sepsis ICD Codes: A41.9 - Sepsis, unspecified organism SNOMED: 98971505 Qualifiers: Qualified Codes: A41.9 - Sepsis, unspecified organism (14) Shock ICD Codes: R57.9 - Shock, unspecified SNOMED: 37708137 (15) Diarrhea ICD Codes: R19.7 - Diarrhea, unspecified SNOMED: 69467479 (16) Coma ICD Codes: R40.20 - Unspecified coma SNOMED: 732292924 (17) CHF exacerbation ICD Codes: I50.9 - Heart failure, unspecified SNOMED: 39827279 (18) Aspiration pneumonia ICD Codes: J69.0 - Pneumonitis due to inhalation of food and vomit SNOMED: 072926558 Assessment/Plan icu care, 35 min now intubated, adjust meds, insulin, dc iv fluids, increase feeding, vanco as G+ cocci in blood --mrsa, start diuresis for chf, check c diff ,neg eeg , not weanable now discuss GOC with family-daughter aware of grave condition, not weanable, she is discussing with sibs palliative care. hypernatremia and hypokalemia rx given, lasix stopped, suctioning and rx for pneumonia, glucose 300+ adjust insulin again--glucose trend better. I spoke to 2 of 3 children 05/26 awaiting final decisions, discussed coma, grave prognosis, possible extubation Subjective ROS Limited/Unobtainable: Yes Allergies: Coded Allergies: PENICILLINS (Verified Allergy, Severe, 03/10/14) SKIN RASH AMOXICILLIN (Verified Allergy, Mild, 03/09/14) ERYTHROMYCIN BASE (Verified Allergy, Mild, 03/09/14) Uncoded Allergies: ERYTHROMYCIN (Allergy, Unknown, 05/15/18) PENICILLIN (Allergy, Unknown, 05/15/18) ZITHROMYCIN (Allergy, Unknown, 05/15/18) Objective Last 24 Hour Vital Signs Date Time Temp Pulse Resp B/P (MAP) Pulse Ox O2 Delivery O2 Flow Rate FiO2 05/26/18 12:00 40 05/26/18 12:00 Mechanical Ventilator Mechanical Ventilator 05/26/18 11:00 77 16 102/42 (62) 100 05/26/18 10:58 71 16 35 05/26/18 10:00 70 16 113/42 (65) 100 05/26/18 09:01 72 16 35 05/26/18 09:00 71 16 110/37 (61) 100 05/26/18 08:18 75 05/26/18 08:00 97.6 74 18 123/44 (70) 100 97.6 05/26/18 08:00 Mechanical Ventilator Mechanical Ventilator 05/26/18 08:00 40 05/26/18 07:00 73 17 116/36 (62) 100 05/26/18 06:38 75 18 35 05/26/18 06:00 73 16 127/44 (71) 99 05/26/18 05:35 69 16 35 05/26/18 05:00 77 16 132/44 (73) 99 05/26/18 04:00 35 05/26/18 04:00 Mechanical Ventilator Mechanical Ventilator 05/26/18 04:00 98.9 76 15 127/33 (64) 100 98.9 05/26/18 04:00 74 05/26/18 03:20 72 16 35 05/26/18 03:00 73 16 124/35 (64) 94 05/26/18 02:00 72 16 119/33 (61) 96 05/26/18 01:00 73 16 119/26 (57) 96 05/26/18 00:51 75 16 35 05/26/18 00:00 35 05/26/18 00:00 Mechanical Ventilator Mechanical Ventilator 05/26/18 00:00 74 05/26/18 00:00 99.1 73 16 131/43 (72) 100 99.1 05/25/18 23:03 74 16 35 05/25/18 23:00 75 17 127/45 (72) 100 05/25/18 22:00 77 16 143/47 (79) 100 05/25/18 21:30 81 17 35 05/25/18 21:00 75 16 131/47 (75) 100 05/25/18 20:00 Mechanical Ventilator Mechanical Ventilator 05/25/18 20:00 35 05/25/18 20:00 98.3 78 16 139/51 (80) 99 98.3 05/25/18 20:00 79 05/25/18 19:24 79 16 35 05/25/18 19:00 78 19 138/49 (78) 98 05/25/18 18:00 78 19 130/47 (74) 98 05/25/18 17:00 98.4 78 16 137/38 (71) 99 98.4 05/25/18 16:53 78 16 35 05/25/18 16:00 Mechanical Ventilator Mechanical Ventilator 05/25/18 16:00 79 05/25/18 16:00 78 16 144/48 (80) 99 05/25/18 16:00 35 05/25/18 15:00 80 16 136/44 (74) 99 05/25/18 14:49 80 17 35 05/25/18 14:00 97.7 85 17 137/44 (75) 99 97.7 05/25/18 13:00 85 18 134/56 (82) 98 05/25/18 12:48 87 18 35 Intake and Output 05/25/18 05/26/18 19:00 07:00 Intake Total 1340 ml 1240 ml Output Total 310 ml 305 ml Balance 1030 ml 935 ml Free Water 800 ml 600 ml Tube Feeding 540 ml 540 ml Other 100 ml Output Urine Total 310 ml 305 ml # Bowel Movements 1 6 Laboratory Tests 05/26/18 04:20: White Blood Count 10.0, Red Blood Count 3.06L, Hemoglobin 9.3L, Hematocrit 29.1L , Mean Corpuscular Volume 95, Mean Corpuscular Hemoglobin 30.3, Mean Corpuscular Hemoglobin Concent 31.9L, Red Cell Distribution Width 20.6H, Platelet Count 92L, Mean Platelet Volume 9.0, Neutrophils (%) (Auto) , Lymphocytes (%) (Auto) , Monocytes (%) (Auto) , Eosinophils (%) (Auto) , Basophils (%) (Auto) , Differential Total Cells Counted 100, Neutrophils % ( Manual) 72, Lymphocytes % (Manual) 20, Monocytes % (Manual) 7, Eosinophils % ( Manual) 1, Basophils % (Manual) 0, Band Neutrophils 0, Platelet Estimate DecreasedL, Platelet Morphology Normal, Polychromasia 1+, Hypochromasia , Anisocytosis 2+, Sodium Level 149H, Potassium Level 4.1, Chloride Level 120H, Carbon Dioxide Level 22, Anion Gap 7, Blood Urea Nitrogen 56H, Creatinine 1.8H, Estimat Glomerular Filtration Rate , Glucose Level 215#H, Calcium Level 9.4 05/26/18 09:10: Prothrombin Time 15.5H, Prothromb Time International Ratio 1.5H, Activated Partial Thromboplast Time 47H Height (Feet): 5 Height (Inches): 3.00 Weight (Pounds): 179 General Appearance: other - on vent, comatose Neck: normal alignment Cardiovascular: normal rate, regular rhythm Respiratory/Chest: rhonchi - bilaterally Abdomen: non tender, soft Edema: 1+ Arm (L), 1+ Arm (R), 1+ Leg (L), 1+ Leg (R), 1+ Pedal (L), 1+ Pedal ( R), 1+ Generalized Neurologic: unresponsive EZEQUIEL BAÑUELOS May 26, 2018 12:48
[2018-05-26] MEDS: Vancomycin 1gm/D5W 275ml IVPB SCH ×2 (14:15)
[2018-05-26] MEDS ORDERED: NS 275ml ONE (17:00)
--- NOTE | 2018-05-26 19:00 | Pulmonolgy Critical Care Note ---
Critical Care - Asmt/Plan Assessment/Plan: 1. Acute respiratory failure status post bradycardic arrest. 2. Acute diabetic ketoacidosis. 3. Dysphagia with G-tube feeding. 4. Encephalopathy superimposed on severe dementia. 5. Severe diabetes with diabetic ketoacidosis. 6. Chronic kidney disease stage 4. 7. Anemia. 8. Pneumonia with sepsis, MRSA + BC cannot wean unresponsive CXR bilateral infiltrates nebs and suction wound care iv abx prognosis grave Dr Acuña discussing options with family trach and LTC vs terminal extubation Critical Care - Objective Last 24 Hour Vital Signs Date Time Temp Pulse Resp B/P (MAP) Pulse Ox O2 Delivery O2 Flow Rate FiO2 05/26/18 17:04 70 16 35 05/26/18 17:00 68 16 122/41 (68) 100 05/26/18 16:00 40 05/26/18 16:00 Mechanical Ventilator Mechanical Ventilator 05/26/18 16:00 71 16 133/45 (74) 100 05/26/18 16:00 70 16 119/34 (62) 100 05/26/18 15:48 70 05/26/18 15:03 72 16 35 05/26/18 15:00 70 16 119/34 (62) 100 05/26/18 14:00 67 17 114/36 (62) 100 05/26/18 13:21 74 16 35 05/26/18 13:00 97.7 71 16 113/33 (59) 100 97.7 05/26/18 12:00 70 16 106/37 (60) 100 05/26/18 12:00 40 05/26/18 12:00 Mechanical Ventilator Mechanical Ventilator 05/26/18 11:58 70 05/26/18 11:00 77 16 102/42 (62) 100 05/26/18 10:58 71 16 35 05/26/18 10:00 70 16 113/42 (65) 100 05/26/18 09:01 72 16 35 05/26/18 09:00 71 16 110/37 (61) 100 05/26/18 08:18 75 05/26/18 08:00 97.6 74 18 123/44 (70) 100 97.6 05/26/18 08:00 Mechanical Ventilator Mechanical Ventilator 05/26/18 08:00 40 05/26/18 07:00 73 17 116/36 (62) 100 05/26/18 06:38 75 18 35 05/26/18 06:00 73 16 127/44 (71) 99 05/26/18 05:35 69 16 35 05/26/18 05:00 77 16 132/44 (73) 99 05/26/18 04:00 35 05/26/18 04:00 Mechanical Ventilator Mechanical Ventilator 05/26/18 04:00 98.9 76 15 127/33 (64) 100 98.9 05/26/18 04:00 74 05/26/18 03:20 72 16 35 05/26/18 03:00 73 16 124/35 (64) 94 05/26/18 02:00 72 16 119/33 (61) 96 05/26/18 01:00 73 16 119/26 (57) 96 05/26/18 00:51 75 16 35 05/26/18 00:00 35 05/26/18 00:00 Mechanical Ventilator Mechanical Ventilator 05/26/18 00:00 74 05/26/18 00:00 99.1 73 16 131/43 (72) 100 99.1 05/25/18 23:03 74 16 35 05/25/18 23:00 75 17 127/45 (72) 100 05/25/18 22:00 77 16 143/47 (79) 100 05/25/18 21:30 81 17 35 05/25/18 21:00 75 16 131/47 (75) 100 05/25/18 20:00 Mechanical Ventilator Mechanical Ventilator 05/25/18 20:00 35 05/25/18 20:00 98.3 78 16 139/51 (80) 99 98.3 05/25/18 20:00 79 05/25/18 19:24 79 16 35 05/25/18 19:00 78 19 138/49 (78) 98 Status: obtunded Condition: critical Lungs: rhonchi Heart: HR/BP stable Abdomen: non-tender Accucheck: 115 Critical Care - Subjective ROS Limited/Unobtainable: Yes Condition: critical FI02: 35 Vent Support Breath Rate: 16 Vent Support Mode: AC Vent Tidal Volume: 600 Sputum Amount: Small PEEP: 5.0 PIP: 31 Tube Feeding Amount: 45 I&O: Intake and Output 05/25/18 05/26/18 19:00 07:00 Intake Total 1340 ml 1240 ml Output Total 310 ml 305 ml Balance 1030 ml 935 ml Free Water 800 ml 600 ml Tube Feeding 540 ml 540 ml Other 100 ml Output Urine Total 310 ml 305 ml # Bowel Movements 1 6 Subjective: diarrhea ET-Tube: 7.5 ET Position: 23 Adam Willis MD May 26, 2018 18:59
[2018-05-26] MEDS: Dyna-Hex 2% Top Sol 2oz TOPIC SCH (19:39)
[2018-05-26] MEDS: Levemir Flexpen SUBQ SCH (20:47)
[2018-05-26] MEDS: Epogen (for ESRD on dialysis) SUBQ SCH (20:47)
[2018-05-27] VITALS (24 sets, daily range): BP systolic 102–139; BP diastolic 29–56
--- NOTE | 2018-05-27 05:00 | Progress Note ---
DATE: 05/26/2018 CARDIOLOGY PROGRESS NOTE SUBJECTIVE: The patient remains on ventilator support, unresponsive, and unweanable. Monitored rhythm sinus with atrial ectopics and rare ventricular ectopics. OBJECTIVE: VITAL SIGNS: Blood pressure 122/41, heart rate 68, respiratory rate 16. LUNGS: Coarse breath sounds. HEART: Regular rhythm rate. Normal S1, S2. Thin endotracheal tube secretions. ABDOMEN: Soft, but distended. EXTREMITIES: 1+ dependent edema. LABORATORY DATA: White count 10, hemoglobin 9.3, sodium 149, potassium 4.1, chloride 125, bicarb 22, BUN 56, creatinine 1.8. Troponin yesterday was 0.949. IMPRESSION: 1. Acute myocardial infarction. 2. Acute respiratory failure. 3. Dehydration. 4. Hypernatremia. 5. Toxic and metabolic encephalopathies. 6. Acute on chronic renal failure. 7. Ischemic cardiomyopathy. 8. Healthcare-acquired pneumonia. 9. Acute on chronic diastolic congestive heart failure. PLAN: 1. Not weanable. Continue vent support. Considering tracheostomy versus comfort care. 2. Free water replacement added by IV route. 3. Insulin titration. 4. Continue anti-platelet therapy. 5. Hold diuresis. 6. Antimicrobials and respiratory hygiene. Amando Blanco M.D. DR: CAITLYN JOB#: [id number] CC:
[2018-05-27] MEDS: Sucralfate 1gm tab GT SCH ×4 (05:37→23:25)
[2018-05-27] MEDS: NovoLOG Insulin Flexpen SUBQ SCH ×6 (05:37→17:17)
[2018-05-27] MEDS: Pantoprazole Inj IVP SCH ×2 (08:33→20:55)
--- NOTE | 2018-05-27 11:23 | Pulmonolgy Critical Care Note ---
Critical Care - Asmt/Plan Assessment/Plan: 1. Acute respiratory failure status post bradycardic arrest. 2. Acute diabetic ketoacidosis. 3. Dysphagia with G-tube feeding. 4. Encephalopathy superimposed on severe dementia. 5. Severe diabetes with diabetic ketoacidosis. 6. Chronic kidney disease stage 4. 7. Anemia. 8. Pneumonia with sepsis, MRSA + BC cannot wean unresponsive CXR bilateral infiltrates nebs and suction wound care iv abx prognosis grave Dr Acuña discussing options with family trach and LTC vs terminal extubation family reluctant to decide per medical reception - Objective Last 24 Hour Vital Signs Date Time Temp Pulse Resp B/P (MAP) Pulse Ox O2 Delivery O2 Flow Rate FiO2 05/27/18 11:05 77 19 30 05/27/18 11:00 77 15 112/36 (61) 100 05/27/18 10:00 72 15 115/35 (61) 100 05/27/18 09:25 74 17 30 05/27/18 09:00 70 15 115/36 (62) 100 05/27/18 08:00 72 05/27/18 08:00 30 05/27/18 08:00 Mechanical Ventilator Mechanical Ventilator 05/27/18 08:00 98.0 72 20 121/35 (63) 100 98.0 05/27/18 07:20 75 17 30 05/27/18 07:00 69 15 111/31 (57) 100 05/27/18 06:00 69 16 104/50 (68) 100 05/27/18 05:10 66 16 35 05/27/18 05:00 68 16 111/38 (62) 100 05/27/18 04:00 30 05/27/18 04:00 Mechanical Ventilator Mechanical Ventilator 05/27/18 04:00 67 05/27/18 04:00 97.9 72 17 139/43 (75) 100 97.9 05/27/18 03:00 64 16 131/33 (65) 100 05/27/18 02:45 68 16 35 05/27/18 02:00 67 16 110/39 (62) 100 05/27/18 01:11 65 16 35 05/27/18 01:00 65 16 118/42 (67) 100 05/27/18 00:00 Mechanical Ventilator Mechanical Ventilator 05/27/18 00:00 97.6 62 16 111/40 (63) 100 97.6 05/27/18 00:00 67 05/27/18 00:00 40 05/26/18 23:00 64 16 115/43 (67) 100 05/26/18 22:40 70 20 35 05/26/18 22:00 70 16 120/45 (70) 100 05/26/18 21:00 65 16 109/38 (61) 100 05/26/18 21:00 75 21 35 05/26/18 20:00 97.9 66 17 108/32 (57) 100 97.9 05/26/18 20:00 40 05/26/18 20:00 Mechanical Ventilator Mechanical Ventilator 05/26/18 20:00 70 05/26/18 19:45 71 16 35 05/26/18 19:00 65 16 108/33 (58) 100 05/26/18 18:00 97.6 76 17 134/45 (74) 100 97.6 05/26/18 17:04 70 16 35 05/26/18 17:00 68 16 122/41 (68) 100 05/26/18 16:00 40 05/26/18 16:00 Mechanical Ventilator Mechanical Ventilator 05/26/18 16:00 71 16 133/45 (74) 100 05/26/18 16:00 70 16 119/34 (62) 100 05/26/18 15:48 70 05/26/18 15:03 72 16 35 05/26/18 15:00 70 16 119/34 (62) 100 05/26/18 14:00 67 17 114/36 (62) 100 05/26/18 13:21 74 16 35 05/26/18 13:00 97.7 71 16 113/33 (59) 100 97.7 05/26/18 12:00 70 16 106/37 (60) 100 05/26/18 12:00 40 05/26/18 12:00 Mechanical Ventilator Mechanical Ventilator 05/26/18 11:58 70 Status: obtunded Condition: critical Lungs: rhonchi Heart: HR/BP stable, edema Accucheck: 172 Critical Care - Subjective ROS Limited/Unobtainable: Yes Condition: critical EKG Rhythm: Sinus Rhythm FI02: 30 Vent Support Breath Rate: 16 Vent Support Mode: AC Vent Tidal Volume: 600 Sputum Amount: Small PEEP: 5.0 PIP: 32 Tube Feeding Amount: 45 I&O: Intake and Output 05/26/18 05/27/18 19:00 07:00 Intake Total 1938.00 ml 2100 ml Output Total 585 ml 420 ml Balance 1353.00 ml 1680 ml Free Water 550 ml 600 ml IV Total 848.00 ml 900 ml Tube Feeding 540 ml 540 ml Other 60 ml Output Urine Total 585 ml 420 ml # Bowel Movements 5 1 Subjective: diarrhea ET-Tube: 7.5 ET Position: 23 Adma Willis MD May 27, 2018 11:22
--- NOTE | 2018-05-27 13:01 | General Progress Note ---
Assessment/Plan Problem List: (1) Respiratory failure ICD Codes: J96.90 - Respiratory failure, unspecified, unspecified whether with hypoxia or hypercapnia SNOMED: 699117544 (2) Hypotension ICD Codes: I95.9 - Hypotension, unspecified SNOMED: 08692740 (3) GI bleed ICD Codes: K92.2 - Gastrointestinal hemorrhage, unspecified SNOMED: 83382430 (4) DKA (diabetic ketoacidoses) ICD Codes: E13.10 - Other specified diabetes mellitus with ketoacidosis without coma SNOMED: 678779195, 24230902 (5) CKD (chronic kidney disease) stage 4, GFR 15-29 ml/min ICD Codes: N18.4 - Chronic kidney disease, stage 4 (severe) SNOMED: 011756470 (6) Hyperkalemia ICD Codes: E87.5 - Hyperkalemia SNOMED: 63830961, 73288860 (7) Altered mental status ICD Codes: R41.82 - Altered mental status, unspecified SNOMED: 454800579 (8) Elevated troponin ICD Codes: R74.8 - Abnormal levels of other serum enzymes SNOMED: 493498234, 085780126, 350385003 (9) Toxic metabolic encephalopathy ICD Codes: G92 - Toxic encephalopathy SNOMED: 023839565 (10) MRSA (methicillin resistant staph aureus) culture positive ICD Codes: Z22.322 - Carrier or suspected carrier of Methicillin resistant Staphylococcus aureus SNOMED: 211377773 (11) VRE (vancomycin resistant enterococcus) culture positive ICD Codes: Z22.39 - Carrier of other specified bacterial diseases SNOMED: 866400445 (12) Bacteremia ICD Codes: R78.81 - Bacteremia SNOMED: 1136961 (13) Sepsis ICD Codes: A41.9 - Sepsis, unspecified organism SNOMED: 21068299 Qualifiers: Qualified Codes: A41.9 - Sepsis, unspecified organism (14) Shock ICD Codes: R57.9 - Shock, unspecified SNOMED: 74468375 (15) Diarrhea ICD Codes: R19.7 - Diarrhea, unspecified SNOMED: 16472817 (16) Coma ICD Codes: R40.20 - Unspecified coma SNOMED: 863292047 (17) CHF exacerbation ICD Codes: I50.9 - Heart failure, unspecified SNOMED: 62360632 (18) Aspiration pneumonia ICD Codes: J69.0 - Pneumonitis due to inhalation of food and vomit SNOMED: 618582629 Assessment/Plan icu care, 32 min now intubated, adjust meds, insulin, dc iv fluids, increase feeding, vanco as G+ cocci in blood --mrsa, start diuresis for chf, check c diff ,neg eeg , not weanable now discuss GOC with family-daughter aware of grave condition, not weanable, she is discussing with sibs palliative care. hypernatremia and hypokalemia rx given, lasix stopped, suctioning and rx for pneumonia, glucose 300+ adjust insulin again--glucose trend better. I spoke to 3 of 3 children 05/26 awaiting final decisions,await family from [place] to arrive discussed coma, grave prognosis, possible extubation Subjective ROS Limited/Unobtainable: Yes Allergies: Coded Allergies: PENICILLINS (Verified Allergy, Severe, 03/10/14) SKIN RASH AMOXICILLIN (Verified Allergy, Mild, 03/09/14) ERYTHROMYCIN BASE (Verified Allergy, Mild, 03/09/14) Uncoded Allergies: ERYTHROMYCIN (Allergy, Unknown, 05/15/18) PENICILLIN (Allergy, Unknown, 05/15/18) ZITHROMYCIN (Allergy, Unknown, 05/15/18) Objective Last 24 Hour Vital Signs Date Time Temp Pulse Resp B/P (MAP) Pulse Ox O2 Delivery O2 Flow Rate FiO2 05/27/18 11:05 77 19 30 05/27/18 11:00 77 15 112/36 (61) 100 05/27/18 10:00 72 15 115/35 (61) 100 05/27/18 09:25 74 17 30 05/27/18 09:00 70 15 115/36 (62) 100 05/27/18 08:00 72 05/27/18 08:00 30 05/27/18 08:00 Mechanical Ventilator Mechanical Ventilator 05/27/18 08:00 98.0 72 20 121/35 (63) 100 98.0 05/27/18 07:20 75 17 30 05/27/18 07:00 69 15 111/31 (57) 100 05/27/18 06:00 69 16 104/50 (68) 100 05/27/18 05:10 66 16 35 05/27/18 05:00 68 16 111/38 (62) 100 05/27/18 04:00 30 05/27/18 04:00 Mechanical Ventilator Mechanical Ventilator 05/27/18 04:00 67 05/27/18 04:00 97.9 72 17 139/43 (75) 100 97.9 05/27/18 03:00 64 16 131/33 (65) 100 05/27/18 02:45 68 16 35 05/27/18 02:00 67 16 110/39 (62) 100 05/27/18 01:11 65 16 35 05/27/18 01:00 65 16 118/42 (67) 100 05/27/18 00:00 Mechanical Ventilator Mechanical Ventilator 05/27/18 00:00 97.6 62 16 111/40 (63) 100 97.6 05/27/18 00:00 67 05/27/18 00:00 40 05/26/18 23:00 64 16 115/43 (67) 100 05/26/18 22:40 70 20 35 05/26/18 22:00 70 16 120/45 (70) 100 05/26/18 21:00 65 16 109/38 (61) 100 05/26/18 21:00 75 21 35 05/26/18 20:00 97.9 66 17 108/32 (57) 100 97.9 05/26/18 20:00 40 05/26/18 20:00 Mechanical Ventilator Mechanical Ventilator 05/26/18 20:00 70 05/26/18 19:45 71 16 35 05/26/18 19:00 65 16 108/33 (58) 100 05/26/18 18:00 97.6 76 17 134/45 (74) 100 97.6 05/26/18 17:04 70 16 35 05/26/18 17:00 68 16 122/41 (68) 100 05/26/18 16:00 40 05/26/18 16:00 Mechanical Ventilator Mechanical Ventilator 05/26/18 16:00 71 16 133/45 (74) 100 05/26/18 16:00 70 16 119/34 (62) 100 05/26/18 15:48 70 05/26/18 15:03 72 16 35 05/26/18 15:00 70 16 119/34 (62) 100 05/26/18 14:00 67 17 114/36 (62) 100 05/26/18 13:21 74 16 35 Intake and Output 05/26/18 05/27/18 19:00 07:00 Intake Total 1938.00 ml 2100 ml Output Total 585 ml 420 ml Balance 1353.00 ml 1680 ml Free Water 550 ml 600 ml IV Total 848.00 ml 900 ml Tube Feeding 540 ml 540 ml Other 60 ml Output Urine Total 585 ml 420 ml # Bowel Movements 5 1 Height (Feet): 5 Height (Inches): 3.00 Weight (Pounds): 178 General Appearance: other - coma intubated Neck: normal alignment Cardiovascular: normal rate Respiratory/Chest: rhonchi - bilaterally Abdomen: non tender, soft Edema: 1+ Arm (L), 1+ Arm (R), 1+ Leg (L), 1+ Leg (R), 1+ Pedal (L), 1+ Pedal ( R), 1+ Generalized Neurologic: unresponsive EZEQUIEL BAÑUELOS May 27, 2018 13:01
[2018-05-27] MEDS: Dyna-Hex 2% Top Sol 2oz TOPIC SCH (19:19)
[2018-05-27] MEDS: Levemir Flexpen SUBQ SCH (20:57)
[2018-05-28] VITALS (23 sets, daily range): BP systolic 98–154; BP diastolic 29–68
--- NOTE | 2018-05-28 04:30 | Progress Note ---
DATE: 05/27/2018 CARDIOLOGY PROGRESS NOTE SUBJECTIVE: The patient remains in the intensive care unit. Condition remains critical with guarded prognosis. The patient is unweanable on ventilator support. Poorly responsive. Monitored sinus rhythm with atrial and ventricular ectopics. OBJECTIVE: VITAL SIGNS: Blood pressure 102/41, pulse 79, and respiratory rate 16. HEENT: Endotracheal tube in place. LUNGS: Coarse breath sounds. HEART: Regular rhythm and rate. Normal S1 and S2. ABDOMEN: Soft. EXTREMITIES: Trace edema. IMPRESSION: 1. Multiorgan system failure. 2. Encephalopathy, multifactorial. 3. Acute myocardial infarction. 4. Chronic ischemic heart disease. 5. Paroxysmal atrial fibrillation. 6. Acute on chronic diastolic congestive heart failure. PLAN: Plan of care will include weaning efforts. Titration of cardiovascular regimen, antimicrobials, and likely need tracheostomy unless family members proceed with palliative care. Amando Blanco M.D. DR: TINY JOB#: [id number] CC:
[2018-05-28] MEDS: Sucralfate 1gm tab GT SCH ×3 (05:44→18:20)
[2018-05-28] MEDS: NovoLOG Insulin Flexpen SUBQ SCH ×6 (05:46→18:22)
[2018-05-28 06:49] LABS: BASOPHILS % (AUTO) 0.7 % (0.0-2.0); EOSINOPHILS % (AUTO) 2.1 % (0.0-3.0); HEMATOCRIT 29.4 % (37.0-47.0); HEMOGLOBIN 8.9 G/DL (12.0-16.0); LYMPHOCYTES % (AUTO) 21.3 % (20.0-45.0); MEAN CORPUSCULAR VOLUME 96 FL (80-99); MONOCYTES % (AUTO) 6.2 % (1.0-10.0); NEUTROPHILS % (AUTO) 69.8 % (45.0-75.0); PLATELET COUNT 197 K/UL (150-450); RED BLOOD COUNT 3.08 M/UL (4.20-5.40); RED CELL DISTRIBUTION WIDTH 20.4 % (11.6-14.8); WHITE BLOOD COUNT 9.7 K/UL (4.8-10.8)
[2018-05-28 07:12] LABS: ALANINE AMINOTRANSFERASE 8 U/L (12-78); ALBUMIN 0.6 G/DL (3.4-5.0); ALBUMIN/GLOBULIN RATIO 0.1 (1.0-2.7); ALKALINE PHOSPHATASE 203 U/L (46-116); ANION GAP 10 mmol/L (5-15); ASPARTATE AMINO TRANSFERASE 42 U/L (15-37); BILIRUBIN,TOTAL 0.2 MG/DL (0.2-1.0); BLOOD UREA NITROGEN 52 mg/dL (7-18); CALCIUM 9.3 MG/DL (8.5-10.1); CARBON DIOXIDE 18 MMOL/L (21-32); CHLORIDE 117 MMOL/L (98-107); CREATININE 1.6 MG/DL (0.55-1.30); POTASSIUM 4.2 MMOL/L (3.5-5.1); SODIUM 145 MMOL/L (136-145)
[2018-05-28] MEDS: Pantoprazole Inj IVP SCH ×2 (09:15→20:53)
--- NOTE | 2018-05-28 12:47 | Pulmonolgy Critical Care Note ---
Critical Care - Asmt/Plan Assessment/Plan: 1. Acute respiratory failure status post bradycardic arrest. 2. Acute diabetic ketoacidosis. 3. Dysphagia with G-tube feeding. 4. Encephalopathy superimposed on severe dementia. 5. Severe diabetes with diabetic ketoacidosis. 6. Chronic kidney disease stage 4. 7. Anemia. 8. Pneumonia with sepsis, MRSA + BC cannot wean, not improving unresponsive CXR bilateral infiltrates nebs and suction wound care iv abx prognosis grave Dr Acuña discussing options with family trach and LTC vs terminal extubation Bioethics meeting planned per social work job titles - Objective Last 24 Hour Vital Signs Date Time Temp Pulse Resp B/P (MAP) Pulse Ox O2 Delivery O2 Flow Rate FiO2 05/28/18 12:00 97.2 77 16 104/33 (56) 100 97.2 05/28/18 12:00 Mechanical Ventilator Mechanical Ventilator 05/28/18 12:00 30 05/28/18 11:05 70 17 30 05/28/18 11:00 77 18 102/48 (66) 100 05/28/18 10:00 77 17 102/48 (66) 100 05/28/18 09:00 76 17 103/33 (56) 100 05/28/18 08:47 79 16 30 05/28/18 08:00 Mechanical Ventilator Mechanical Ventilator 05/28/18 08:00 30 05/28/18 08:00 79 05/28/18 08:00 97.5 78 17 103/44 (63) 100 97.5 05/28/18 07:15 76 17 30 05/28/18 07:00 74 16 108/32 (57) 100 05/28/18 06:00 81 16 101/31 (54) 100 05/28/18 05:00 84 16 104/29 (54) 99 05/28/18 04:47 86 16 30 05/28/18 04:00 Mechanical Ventilator Mechanical Ventilator 05/28/18 04:00 30 05/28/18 04:00 82 05/28/18 04:00 97.9 91 18 118/68 (85) 100 97.9 05/28/18 03:23 84 17 30 05/28/18 03:00 85 17 111/45 (67) 99 05/28/18 02:00 70 22 131/63 (85) 99 05/28/18 01:05 83 19 30 05/28/18 00:00 98.1 84 22 107/58 (74) 99 98.1 05/28/18 00:00 Mechanical Ventilator Mechanical Ventilator 05/28/18 00:00 80 05/28/18 00:00 30 05/27/18 23:06 80 18 30 05/27/18 23:00 71 20 119/34 (62) 100 05/27/18 22:00 79 16 117/36 (63) 100 05/27/18 21:12 77 17 30 05/27/18 21:00 79 16 102/41 (61) 99 05/27/18 20:00 30 05/27/18 20:00 97.9 84 22 108/29 (55) 100 97.9 05/27/18 20:00 88 05/27/18 20:00 Mechanical Ventilator Mechanical Ventilator 05/27/18 19:29 81 17 30 05/27/18 19:00 70 22 122/56 (78) 99 05/27/18 18:00 66 22 125/50 (75) 99 05/27/18 17:01 84 17 30 05/27/18 17:00 68 22 110/45 (66) 99 05/27/18 16:00 98.6 73 20 116/30 (58) 99 98.6 05/27/18 16:00 30 05/27/18 16:00 74 05/27/18 16:00 Mechanical Ventilator Mechanical Ventilator 05/27/18 15:20 76 16 30 05/27/18 15:00 71 20 115/45 (68) 99 05/27/18 14:00 74 20 118/42 (67) 99 05/27/18 13:15 71 16 30 05/27/18 13:00 75 18 119/32 (61) 100 Status: obtunded Condition: critical HEENT: normocephalic Lungs: rhonchi Heart: HR/BP stable, edema Extremities: edema Accucheck: 208 Critical Care - Subjective ROS Limited/Unobtainable: Yes EKG Rhythm: Sinus Rhythm FI02: 30 Vent Support Breath Rate: 16 Vent Support Mode: AC Vent Tidal Volume: 600 Sputum Amount: Small PEEP: 5.0 PIP: 31 Tube Feeding Amount: 45 I&O: Intake and Output 05/27/18 05/28/18 19:00 07:00 Intake Total 1965 ml 2025 ml Output Total 400 ml 570 ml Balance 1565 ml 1455 ml Free Water 600 ml 600 ml IV Total 825 ml 825 ml Tube Feeding 540 ml 540 ml Other 60 ml Output Urine Total 400 ml 570 ml Subjective: diarrhea ET-Tube: 7.5 ET Position: 23 Adam Willis MD May 28, 2018 12:47
[2018-05-28] MEDS: Vancomycin 1gm/D5W 275ml IVPB SCH ×2 (15:30)
--- NOTE | 2018-05-28 15:50 | General Progress Note ---
Assessment/Plan Problem List: (1) Respiratory failure ICD Codes: J96.90 - Respiratory failure, unspecified, unspecified whether with hypoxia or hypercapnia SNOMED: 732173195 (2) Hypotension ICD Codes: I95.9 - Hypotension, unspecified SNOMED: 40341037 (3) GI bleed ICD Codes: K92.2 - Gastrointestinal hemorrhage, unspecified SNOMED: 47203896 (4) DKA (diabetic ketoacidoses) ICD Codes: E13.10 - Other specified diabetes mellitus with ketoacidosis without coma SNOMED: 984223145, 42512397 (5) CKD (chronic kidney disease) stage 4, GFR 15-29 ml/min ICD Codes: N18.4 - Chronic kidney disease, stage 4 (severe) SNOMED: 382908093 (6) Hyperkalemia ICD Codes: E87.5 - Hyperkalemia SNOMED: 86927694, 95683014 (7) Altered mental status ICD Codes: R41.82 - Altered mental status, unspecified SNOMED: 209846727 (8) Elevated troponin ICD Codes: R74.8 - Abnormal levels of other serum enzymes SNOMED: 787842745, 526872523, 890012675 (9) Toxic metabolic encephalopathy ICD Codes: G92 - Toxic encephalopathy SNOMED: 444317821 (10) MRSA (methicillin resistant staph aureus) culture positive ICD Codes: Z22.322 - Carrier or suspected carrier of Methicillin resistant Staphylococcus aureus SNOMED: 039375329 (11) VRE (vancomycin resistant enterococcus) culture positive ICD Codes: Z22.39 - Carrier of other specified bacterial diseases SNOMED: 024842447 (12) Bacteremia ICD Codes: R78.81 - Bacteremia SNOMED: 1142263 (13) Sepsis ICD Codes: A41.9 - Sepsis, unspecified organism SNOMED: 04846304 Qualifiers: Qualified Codes: A41.9 - Sepsis, unspecified organism (14) Shock ICD Codes: R57.9 - Shock, unspecified SNOMED: 98086033 (15) Diarrhea ICD Codes: R19.7 - Diarrhea, unspecified SNOMED: 70244218 (16) Coma ICD Codes: R40.20 - Unspecified coma SNOMED: 159802289 (17) CHF exacerbation ICD Codes: I50.9 - Heart failure, unspecified SNOMED: 08653637 (18) Aspiration pneumonia ICD Codes: J69.0 - Pneumonitis due to inhalation of food and vomit SNOMED: 493708327 Assessment/Plan icu care, 32 min now intubated, adjust meds, insulin, dc iv fluids, increase feeding, vanco as G+ cocci in blood --mrsa, start diuresis for chf, check c diff ,neg eeg , not weanable now discuss GOC with family-daughter aware of grave condition, not weanable, she is discussing with sibs palliative care. hypernatremia and hypokalemia rx given, lasix stopped, suctioning and rx for pneumonia, glucose 300+ adjust insulin again--glucose trend better. I spoke to 3 of 3 children 05/26 awaiting final decisions,await family from [place] to arrive discussed coma, grave prognosis, possible extubation, coma unchanged, abnormal eeg, Called family again 10/26 awaiting return calls Subjective ROS Limited/Unobtainable: Yes Allergies: Coded Allergies: PENICILLINS (Verified Allergy, Severe, 03/10/14) SKIN RASH AMOXICILLIN (Verified Allergy, Mild, 03/09/14) ERYTHROMYCIN BASE (Verified Allergy, Mild, 03/09/14) Uncoded Allergies: ERYTHROMYCIN (Allergy, Unknown, 05/15/18) PENICILLIN (Allergy, Unknown, 05/15/18) ZITHROMYCIN (Allergy, Unknown, 05/15/18) Objective Last 24 Hour Vital Signs Date Time Temp Pulse Resp B/P (MAP) Pulse Ox O2 Delivery O2 Flow Rate FiO2 05/28/18 14:00 82 16 118/38 (64) 100 05/28/18 13:10 76 17 30 05/28/18 13:00 81 18 117/39 (65) 100 05/28/18 12:00 97.2 77 16 104/33 (56) 100 97.2 05/28/18 12:00 Mechanical Ventilator Mechanical Ventilator 05/28/18 12:00 30 05/28/18 11:05 70 17 30 05/28/18 11:00 77 18 102/48 (66) 100 05/28/18 10:00 77 17 102/48 (66) 100 05/28/18 09:00 76 17 103/33 (56) 100 05/28/18 08:47 79 16 30 05/28/18 08:00 Mechanical Ventilator Mechanical Ventilator 05/28/18 08:00 30 05/28/18 08:00 79 05/28/18 08:00 97.5 78 17 103/44 (63) 100 97.5 05/28/18 07:15 76 17 30 05/28/18 07:00 74 16 108/32 (57) 100 05/28/18 06:00 81 16 101/31 (54) 100 05/28/18 05:00 84 16 104/29 (54) 99 05/28/18 04:47 86 16 30 05/28/18 04:00 Mechanical Ventilator Mechanical Ventilator 05/28/18 04:00 30 05/28/18 04:00 82 05/28/18 04:00 97.9 91 18 118/68 (85) 100 97.9 05/28/18 03:23 84 17 30 05/28/18 03:00 85 17 111/45 (67) 99 05/28/18 02:00 70 22 131/63 (85) 99 05/28/18 01:05 83 19 30 05/28/18 00:00 98.1 84 22 107/58 (74) 99 98.1 05/28/18 00:00 Mechanical Ventilator Mechanical Ventilator 05/28/18 00:00 80 05/28/18 00:00 30 05/27/18 23:06 80 18 30 05/27/18 23:00 71 20 119/34 (62) 100 05/27/18 22:00 79 16 117/36 (63) 100 05/27/18 21:12 77 17 30 05/27/18 21:00 79 16 102/41 (61) 99 05/27/18 20:00 30 05/27/18 20:00 97.9 84 22 108/29 (55) 100 97.9 05/27/18 20:00 88 05/27/18 20:00 Mechanical Ventilator Mechanical Ventilator 05/27/18 19:29 81 17 30 05/27/18 19:00 70 22 122/56 (78) 99 05/27/18 18:00 66 22 125/50 (75) 99 05/27/18 17:01 84 17 30 05/27/18 17:00 68 22 110/45 (66) 99 05/27/18 16:00 98.6 73 20 116/30 (58) 99 98.6 10/2/18 16:00 30 05/27/18 16:00 74 05/27/18 16:00 Mechanical Ventilator Mechanical Ventilator Intake and Output 05/27/18 05/28/18 19:00 07:00 Intake Total 1965 ml 2100 ml Output Total 400 ml 570 ml Balance 1565 ml 1530 ml Free Water 600 ml 600 ml IV Total 825 ml 900 ml Tube Feeding 540 ml 540 ml Other 60 ml Output Urine Total 400 ml 570 ml Laboratory Tests 05/28/18 04:30: White Blood Count 9.7, Red Blood Count 3.08L, Hemoglobin 8.9L, Hematocrit 29.4L , Mean Corpuscular Volume 96, Mean Corpuscular Hemoglobin 28.9, Mean Corpuscular Hemoglobin Concent 30.2L, Red Cell Distribution Width 20.4H, Platelet Count 197, Mean Platelet Volume 9.5, Neutrophils (%) (Auto) 69.8, Lymphocytes (%) (Auto) 21.3, Monocytes (%) (Auto) 6.2, Eosinophils (%) (Auto) 2.1, Basophils (%) (Auto) 0.7, Sodium Level 145, Potassium Level 4.2, Chloride Level 117H, Carbon Dioxide Level 18L, Anion Gap 10, Blood Urea Nitrogen 52H, Creatinine 1.6H, Estimat Glomerular Filtration Rate , Glucose Level 286H, Calcium Level 9.3, Magnesium Level 1.8, Total Bilirubin 0.2, Aspartate Amino Transf (AST/SGOT) 42H, Alanine Aminotransferase (ALT/SGPT) 8L, Alkaline Phosphatase 203H, Pro-B-Type Natriuretic Peptide 23611F, Total Protein 6.1L, Albumin 0.6L, Globulin 5.5, Albumin/Globulin Ratio 0.1L Height (Feet): 5 Height (Inches): 3.00 Weight (Pounds): 178 General Appearance: other - on vent, comatose EENT: other - tongue protrudes Neck: normal alignment Cardiovascular: regular rhythm Respiratory/Chest: rhonchi - bilaterally Abdomen: non tender Edema: 2+ Arm (L), 2+ Arm (R), 2+ Leg (L), 2+ Leg (R), 2+ Pedal (L), 2+ Pedal ( R), 2+ Generalized Neurologic: unresponsive EZEQUIEL BAÑUELOS May 28, 2018 15:50
[2018-05-28] MEDS: Dyna-Hex 2% Top Sol 2oz TOPIC SCH (20:53)
[2018-05-28] MEDS: Levemir Flexpen SUBQ SCH (20:56)
[2018-05-28] MEDS: Epogen (for ESRD on dialysis) SUBQ SCH (20:57)
[2018-05-29] VITALS (24 sets, daily range): BP systolic 100–134; BP diastolic 26–77
[2018-05-29] MEDS: Sucralfate 1gm tab GT SCH ×5 (05:39→23:24)
[2018-05-29] MEDS: NovoLOG Insulin Flexpen SUBQ SCH ×6 (05:41→17:36)
[2018-05-29] MEDS: Pantoprazole Inj IVP SCH ×2 (09:24→20:32)
--- NOTE | 2018-05-29 09:30 | Progress Note ---
DATE: 05/28/2018 CARDIOLOGY PROGRESS NOTE SUBJECTIVE: The patient's condition remains critical. Prognosis guarded. She is in the intensive care unit. She is orally intubated and mechanically ventilated. OBJECTIVE: VITAL SIGNS: Blood pressure 119/57, pulse 75, respiratory rate 20, sinus rhythm, afebrile. GENERAL: Unresponsive. Bilateral breath sounds with rhonchi. HEART: Regular rhythm and rate. Normal S1, S2. ABDOMEN: Soft. EXTREMITIES: She has 1+ dependent edema. IMPRESSION: 1. Not weanable. 2. Healthcare-acquired pneumonia. 3. Respiratory failure. 4. Ischemic cardiomyopathy. 5. Acute myocardial infarction. 6. Acute on chronic diastolic congestive heart failure. 7. Dehydration. 8. Hypernatremia. 9. Insulin-requiring diabetes mellitus with nephropathy. PLAN: 1. Antimicrobials. 2. Ventilator support. 3. Replace free water. 4. Diuresis based on clinical parameters once metabolic derangements corrected. 5. DVT and stress ulcer prophylaxis. 6. Cautious use of antiplatelet therapy. 7. regarding tracheostomy versus palliative care. Amando Blanco M.D. DR: Stephon JOB#: [id number] CC:
--- NOTE | 2018-05-29 16:39 | Pulmonolgy Critical Care Note ---
Critical Care - Asmt/Plan Assessment/Plan: 1. Acute respiratory failure status post bradycardic arrest. 2. Acute diabetic ketoacidosis. 3. Dysphagia with G-tube feeding. 4. Encephalopathy superimposed on severe dementia. 5. Severe diabetes with diabetic ketoacidosis. 6. Chronic kidney disease stage 4. 7. Anemia. 8. Pneumonia with sepsis, MRSA + BC cannot wean, not improving unresponsive nebs and suction wound care no labs or CXR prognosis grave Dr Acuña discussing options with family trach and LTC vs terminal extubation Bioethics meeting planned per battery tester field - Objective Last 24 Hour Vital Signs Date Time Temp Pulse Resp B/P (MAP) Pulse Ox O2 Delivery O2 Flow Rate FiO2 05/29/18 16:00 88 17 117/76 (90) 99 05/29/18 16:00 87 17 110/44 (66) 100 05/29/18 16:00 Mechanical Ventilator Mechanical Ventilator 05/29/18 16:00 30 05/29/18 15:55 92 05/29/18 15:06 87 16 30 05/29/18 15:00 87 17 110/44 (66) 100 05/29/18 14:00 84 17 108/36 (60) 100 05/29/18 13:00 83 18 114/39 (64) 100 05/29/18 12:54 82 17 30 05/29/18 12:00 Mechanical Ventilator Mechanical Ventilator 05/29/18 12:00 30 05/29/18 12:00 97.2 85 18 119/47 (71) 100 97.2 05/29/18 11:48 86 05/29/18 11:00 85 18 119/47 (71) 100 05/29/18 10:54 81 18 30 05/29/18 10:00 81 17 112/57 (75) 100 05/29/18 09:00 81 17 115/39 (64) 100 05/29/18 09:00 80 16 112/38 (62) 100 05/29/18 08:53 82 17 30 05/29/18 08:00 30 05/29/18 08:00 Mechanical Ventilator Mechanical Ventilator 05/29/18 08:00 97.3 80 18 108/36 (60) 100 97.3 05/29/18 07:57 84 05/29/18 07:25 74 20 30 05/29/18 07:00 80 16 112/38 (62) 100 05/29/18 06:00 79 16 115/55 (75) 100 05/29/18 05:21 81 16 30 05/29/18 05:00 78 16 100/26 (50) 100 05/29/18 04:00 79 05/29/18 04:00 96.0 79 16 111/38 (62) 100 96.0 05/29/18 04:00 Mechanical Ventilator Mechanical Ventilator 05/29/18 04:00 30 05/29/18 03:15 77 16 30 05/29/18 03:00 76 16 126/49 (74) 100 05/29/18 02:00 70 16 130/45 (73) 100 05/29/18 01:13 74 16 30 05/29/18 01:00 78 15 107/37 (60) 100 05/29/18 00:00 97.8 67 17 109/37 (61) 100 97.8 05/29/18 00:00 Mechanical Ventilator Mechanical Ventilator 05/29/18 00:00 30 05/29/18 00:00 75 05/28/18 23:00 80 18 100/63 (75) 100 05/28/18 22:58 75 16 30 05/28/18 22:00 80 18 132/58 (82) 100 05/28/18 21:06 73 17 30 05/28/18 21:00 77 17 131/61 (84) 100 05/28/18 20:00 98.5 79 17 120/65 (83) 100 98.5 05/28/18 20:00 30 05/28/18 20:00 79 05/28/18 20:00 Mechanical Ventilator Mechanical Ventilator 05/28/18 19:12 78 16 30 05/28/18 19:00 75 20 119/57 (77) 100 05/28/18 18:00 79 17 131/48 (75) 100 05/28/18 17:07 69 16 30 05/28/18 17:00 73 17 115/57 (76) 100 Status: obtunded Lungs: rhonchi Accucheck: 88 Critical Care - Subjective ROS Limited/Unobtainable: Yes Condition: critical EKG Rhythm: Sinus Rhythm FI02: 30 Vent Support Breath Rate: 16 Vent Support Mode: AC Vent Tidal Volume: 600 Sputum Amount: Small PEEP: 5.0 PIP: 36 Tube Feeding Amount: 45 I&O: Intake and Output 05/28/18 05/29/18 19:00 07:00 Intake Total 1982.416 ml 1465 ml Output Total 665 ml Balance 1317.416 ml 1465 ml IV Total 1192.416 ml 775 ml Tube Feeding 540 ml 540 ml Other 250 ml 150 ml Output Urine Total 665 ml # Voids 135 610 # Bowel Movements 4 Subjective: diarrhea ET-Tube: 7.5 ET Position: 23 Adam Willis MD May 29, 2018 16:39
--- NOTE | 2018-05-29 17:05 | General Progress Note ---
Assessment/Plan Problem List: (1) Respiratory failure ICD Codes: J96.90 - Respiratory failure, unspecified, unspecified whether with hypoxia or hypercapnia SNOMED: 517937627 (2) Hypotension ICD Codes: I95.9 - Hypotension, unspecified SNOMED: 59669587 (3) GI bleed ICD Codes: K92.2 - Gastrointestinal hemorrhage, unspecified SNOMED: 45424051 (4) DKA (diabetic ketoacidoses) ICD Codes: E13.10 - Other specified diabetes mellitus with ketoacidosis without coma SNOMED: 834817659, 76247339 (5) CKD (chronic kidney disease) stage 4, GFR 15-29 ml/min ICD Codes: N18.4 - Chronic kidney disease, stage 4 (severe) SNOMED: 017501976 (6) Hyperkalemia ICD Codes: E87.5 - Hyperkalemia SNOMED: 91508239, 64005672 (7) Altered mental status ICD Codes: R41.82 - Altered mental status, unspecified SNOMED: 214825407 (8) Elevated troponin ICD Codes: R74.8 - Abnormal levels of other serum enzymes SNOMED: 091192872, 505710310, 391440404 (9) Toxic metabolic encephalopathy ICD Codes: G92 - Toxic encephalopathy SNOMED: 758841120 (10) MRSA (methicillin resistant staph aureus) culture positive ICD Codes: Z22.322 - Carrier or suspected carrier of Methicillin resistant Staphylococcus aureus SNOMED: 912223068 (11) VRE (vancomycin resistant enterococcus) culture positive ICD Codes: Z22.39 - Carrier of other specified bacterial diseases SNOMED: 391808788 (12) Bacteremia ICD Codes: R78.81 - Bacteremia SNOMED: 5038154 (13) Sepsis ICD Codes: A41.9 - Sepsis, unspecified organism SNOMED: 94546359 Qualifiers: Qualified Codes: A41.9 - Sepsis, unspecified organism (14) Shock ICD Codes: R57.9 - Shock, unspecified SNOMED: 77411747 (15) Diarrhea ICD Codes: R19.7 - Diarrhea, unspecified SNOMED: 57405578 (16) Coma ICD Codes: R40.20 - Unspecified coma SNOMED: 737266854 (17) CHF exacerbation ICD Codes: I50.9 - Heart failure, unspecified SNOMED: 35320045 (18) Aspiration pneumonia ICD Codes: J69.0 - Pneumonitis due to inhalation of food and vomit SNOMED: 529037242 Assessment/Plan icu care, 35 min now intubated, adjust meds, insulin, dc iv fluids, increase feeding, vanco as G+ cocci in blood --mrsa, start diuresis for chf, check c diff ,neg eeg , not weanable now discuss GOC with family-daughter aware of grave condition, not weanable, she is discussing with sibs palliative care. hypernatremia and hypokalemia rx given, lasix stopped, suctioning and rx for pneumonia, glucose 300+ adjust insulin again--glucose trend better. I spoke to 3 of 3 children 05/26 awaiting final decisions,await family from [place] to arrive discussed coma, grave prognosis, possible extubation, coma unchanged, abnormal eeg, Called family again 10/26 +10/27 awaiting return calls, daughter Laxmi agreeable to extubation but others not yet returning calls. no visitors Subjective ROS Limited/Unobtainable: Yes Allergies: Coded Allergies: PENICILLINS (Verified Allergy, Severe, 03/10/14) SKIN RASH AMOXICILLIN (Verified Allergy, Mild, 03/09/14) ERYTHROMYCIN BASE (Verified Allergy, Mild, 03/09/14) Uncoded Allergies: ERYTHROMYCIN (Allergy, Unknown, 05/15/18) PENICILLIN (Allergy, Unknown, 05/15/18) ZITHROMYCIN (Allergy, Unknown, 05/15/18) Objective Last 24 Hour Vital Signs Date Time Temp Pulse Resp B/P (MAP) Pulse Ox O2 Delivery O2 Flow Rate FiO2 05/29/18 16:00 88 17 117/76 (90) 99 05/29/18 16:00 87 17 110/44 (66) 100 05/29/18 16:00 Mechanical Ventilator Mechanical Ventilator 05/29/18 16:00 30 05/29/18 15:55 92 05/29/18 15:06 87 16 30 05/29/18 15:00 87 17 110/44 (66) 100 05/29/18 14:00 84 17 108/36 (60) 100 05/29/18 13:00 83 18 114/39 (64) 100 05/29/18 12:54 82 17 30 05/29/18 12:00 Mechanical Ventilator Mechanical Ventilator 10/4/18 12:00 30 05/29/18 12:00 97.2 85 18 119/47 (71) 100 97.2 05/29/18 11:48 86 05/29/18 11:00 85 18 119/47 (71) 100 05/29/18 10:54 81 18 30 05/29/18 10:00 81 17 112/57 (75) 100 05/29/18 09:00 81 17 115/39 (64) 100 05/29/18 09:00 80 16 112/38 (62) 100 05/29/18 08:53 82 17 30 05/29/18 08:00 30 05/29/18 08:00 Mechanical Ventilator Mechanical Ventilator 05/29/18 08:00 97.3 80 18 108/36 (60) 100 97.3 05/29/18 07:57 84 05/29/18 07:25 74 20 30 05/29/18 07:00 80 16 112/38 (62) 100 05/29/18 06:00 79 16 115/55 (75) 100 05/29/18 05:21 81 16 30 05/29/18 05:00 78 16 100/26 (50) 100 05/29/18 04:00 79 05/29/18 04:00 96.0 79 16 111/38 (62) 100 96.0 05/29/18 04:00 Mechanical Ventilator Mechanical Ventilator 05/29/18 04:00 30 05/29/18 03:15 77 16 30 05/29/18 03:00 76 16 126/49 (74) 100 05/29/18 02:00 70 16 130/45 (73) 100 05/29/18 01:13 74 16 30 05/29/18 01:00 78 15 107/37 (60) 100 05/29/18 00:00 97.8 67 17 109/37 (61) 100 97.8 05/29/18 00:00 Mechanical Ventilator Mechanical Ventilator 05/29/18 00:00 30 05/29/18 00:00 75 05/28/18 23:00 80 18 100/63 (75) 100 05/28/18 22:58 75 16 30 05/28/18 22:00 80 18 132/58 (82) 100 05/28/18 21:06 73 17 30 05/28/18 21:00 77 17 131/61 (84) 100 05/28/18 20:00 98.5 79 17 120/65 (83) 100 98.5 05/28/18 20:00 30 05/28/18 20:00 79 05/28/18 20:00 Mechanical Ventilator Mechanical Ventilator 05/28/18 19:12 78 16 30 05/28/18 19:00 75 20 119/57 (77) 100 05/28/18 18:00 79 17 131/48 (75) 100 05/28/18 17:07 69 16 30 Intake and Output 05/28/18 05/29/18 19:00 07:00 Intake Total 1982.416 ml 1465 ml Output Total 665 ml Balance 1317.416 ml 1465 ml IV Total 1192.416 ml 775 ml Tube Feeding 540 ml 540 ml Other 250 ml 150 ml Output Urine Total 665 ml # Voids 135 610 # Bowel Movements 4 Height (Feet): 5 Height (Inches): 3.00 Weight (Pounds): 172 General Appearance: other - on vent, deep coma Neck: normal alignment Cardiovascular: regular rhythm Respiratory/Chest: rhonchi - bilaterally Abdomen: non tender Edema: 2+ Arm (L), 2+ Arm (R), 2+ Leg (L), 2+ Leg (R), 2+ Pedal (L), 2+ Pedal ( R), 2+ Generalized Neurologic: unresponsive EZEQUIEL BAÑUELOS May 29, 2018 17:05
[2018-05-29] MEDS: Dyna-Hex 2% Top Sol 2oz TOPIC SCH (19:54)
[2018-05-29] MEDS: Levemir Flexpen SUBQ SCH (20:33)
[2018-05-30] VITALS (23 sets, daily range): BP systolic 106–138; BP diastolic 31–88
--- NOTE | 2018-05-30 05:15 | Progress Note ---
DATE: 05/29/2018 CARDIOLOGY PROGRESS NOTE SUBJECTIVE: The patient remains in the intensive care unit. Condition is critical. Prognosis is guarded. She remains unresponsive to verbal stimuli. Orally intubated. Mechanically ventilated. Monitored rhythm, sinus arrhythmia, frequent PACs, and short episodes of atrial fibrillation. PHYSICAL EXAMINATION: VITAL SIGNS: Blood pressure 117/76, pulse 88, and respiratory rate 17. LUNGS: Coarse breath sounds. Scattered rhonchi. HEART: Regular rhythm and rate. Normal S1, S2. ABDOMEN: Soft. EXTREMITIES: With trace edema. LABORATORY DATA: No new labs today. IMPRESSION: 1. Respiratory failure. 2. Hypoxia. 3. Healthcare-acquired pneumonia. 4. Encephalopathy. 5. Dehydration. 6. Hypernatremia. 7. Acute myocardial infarction. 8. Acute on chronic diastolic congestive heart failure. 9. Paroxysmal atrial fibrillation. 10. Paroxysmal atrial ectopy. 11. . 12. Sinus arrhythmia. 13. Insulin-requiring diabetes with complications, recovered. 14. Shock due to sepsis. PLAN: 1. Antimicrobials. 2. Continue beta-kade therapy, anti-platelet drugs, and statin. 3. Periodic diuresis based on clinical parameters. 4. Weaning efforts as able. 5. Nutrition by G-tube. 6. Will need tracheostomy. 7. I am going to proceed with palliative care plan. Amando Blanco M.D. DR: PHUONG JOB#: [id number] CC:
[2018-05-30] MEDS: Sucralfate 1gm tab GT SCH ×3 (06:02→17:36)
[2018-05-30] MEDS: NovoLOG Insulin Flexpen SUBQ SCH ×6 (06:04→17:37)
--- NOTE | 2018-05-30 07:45 | General Progress Note ---
Assessment/Plan Problem List: (1) Respiratory failure ICD Codes: J96.90 - Respiratory failure, unspecified, unspecified whether with hypoxia or hypercapnia SNOMED: 514994468 (2) Hypotension ICD Codes: I95.9 - Hypotension, unspecified SNOMED: 93241648 (3) GI bleed ICD Codes: K92.2 - Gastrointestinal hemorrhage, unspecified SNOMED: 68672564 (4) DKA (diabetic ketoacidoses) ICD Codes: E13.10 - Other specified diabetes mellitus with ketoacidosis without coma SNOMED: 972880315, 11312688 (5) CKD (chronic kidney disease) stage 4, GFR 15-29 ml/min ICD Codes: N18.4 - Chronic kidney disease, stage 4 (severe) SNOMED: 818763858 (6) Hyperkalemia ICD Codes: E87.5 - Hyperkalemia SNOMED: 82703683, 16363308 (7) Altered mental status ICD Codes: R41.82 - Altered mental status, unspecified SNOMED: 694555845 (8) Elevated troponin ICD Codes: R74.8 - Abnormal levels of other serum enzymes SNOMED: 368903395, 647124703, 242105724 (9) Toxic metabolic encephalopathy ICD Codes: G92 - Toxic encephalopathy SNOMED: 119381177 (10) MRSA (methicillin resistant staph aureus) culture positive ICD Codes: Z22.322 - Carrier or suspected carrier of Methicillin resistant Staphylococcus aureus SNOMED: 424543315 (11) VRE (vancomycin resistant enterococcus) culture positive ICD Codes: Z22.39 - Carrier of other specified bacterial diseases SNOMED: 725132059 (12) Bacteremia ICD Codes: R78.81 - Bacteremia SNOMED: 6193205 (13) Sepsis ICD Codes: A41.9 - Sepsis, unspecified organism SNOMED: 93178948 Qualifiers: Qualified Codes: A41.9 - Sepsis, unspecified organism (14) Shock ICD Codes: R57.9 - Shock, unspecified SNOMED: 77030959 (15) Diarrhea ICD Codes: R19.7 - Diarrhea, unspecified SNOMED: 99999499 (16) Coma ICD Codes: R40.20 - Unspecified coma SNOMED: 120868426 (17) CHF exacerbation ICD Codes: I50.9 - Heart failure, unspecified SNOMED: 82670993 (18) Aspiration pneumonia ICD Codes: J69.0 - Pneumonitis due to inhalation of food and vomit SNOMED: 176678209 Assessment/Plan icu care, 35 min now intubated, adjust meds, insulin, vanco as G+ cocci in blood --mrsa, can stop completed course, hf, check c diff,neg eeg , not weanable now discuss GOC with family-daughter aware of grave condition, not weanable, she is discussing with sibs palliative care. hypernatremia and hypokalemia rx given, lasix stopped, suctioning and rx for pneumonia, glucose 300+ adjust insulin again--glucose trend better, avoid hypoglycemia. I spoke to 3 of 3 children 05/26 awaiting final decisions,await family from [place] to arrive discussed coma, grave prognosis, possible extubation, coma unchanged, abnormal eeg, Called family again 10/26 +10/27+10/28 awaiting return calls from 2 of 3 children, daughter Laxmi agreeable to extubation but others not yet returning calls. no visitors Subjective ROS Limited/Unobtainable: Yes Allergies: Coded Allergies: PENICILLINS (Verified Allergy, Severe, 03/10/14) SKIN RASH AMOXICILLIN (Verified Allergy, Mild, 03/09/14) ERYTHROMYCIN BASE (Verified Allergy, Mild, 03/09/14) Uncoded Allergies: ERYTHROMYCIN (Allergy, Unknown, 05/15/18) PENICILLIN (Allergy, Unknown, 05/15/18) ZITHROMYCIN (Allergy, Unknown, 05/15/18) Objective Last 24 Hour Vital Signs Date Time Temp Pulse Resp B/P (MAP) Pulse Ox O2 Delivery O2 Flow Rate FiO2 05/30/18 07:00 85 18 30 05/30/18 07:00 85 20 124/37 (66) 100 05/30/18 06:00 82 20 123/88 (100) 100 05/30/18 05:29 81 16 30 05/30/18 05:00 82 20 110/35 (60) 100 05/30/18 04:00 Mechanical Ventilator Mechanical Ventilator 05/30/18 04:00 98.9 95 22 130/57 (81) 99 98.9 05/30/18 04:00 30 05/30/18 04:00 89 05/30/18 03:00 89 17 115/53 (73) 99 10/5/18 02:35 94 19 30 05/30/18 02:00 99 18 111/42 (65) 99 05/30/18 01:11 98 20 30 05/30/18 01:00 100 16 138/45 (76) 100 05/30/18 00:00 Mechanical Ventilator Mechanical Ventilator 05/30/18 00:00 96 05/30/18 00:00 30 05/29/18 23:06 91 19 30 05/29/18 23:00 98.3 92 12 111/77 (88) 100 98.3 05/29/18 22:00 93 16 118/44 (68) 100 05/29/18 21:00 95 16 105/45 (65) 100 05/29/18 20:44 99 16 30 05/29/18 20:00 98.4 100 17 134/38 (70) 100 98.4 05/29/18 20:00 30 05/29/18 20:00 97 05/29/18 20:00 Mechanical Ventilator Mechanical Ventilator 05/29/18 19:17 89 19 30 05/29/18 19:00 94 17 124/51 (75) 100 05/29/18 18:00 94 17 124/58 (80) 100 05/29/18 17:06 98 19 30 05/29/18 17:00 98.3 92 18 123/37 (65) 100 98.3 05/29/18 16:00 88 17 117/76 (90) 99 05/29/18 16:00 87 17 110/44 (66) 100 05/29/18 16:00 Mechanical Ventilator Mechanical Ventilator 05/29/18 16:00 30 05/29/18 15:55 92 05/29/18 15:06 87 16 30 05/29/18 15:00 87 17 110/44 (66) 100 05/29/18 14:00 84 17 108/36 (60) 100 05/29/18 13:00 83 18 114/39 (64) 100 05/29/18 12:54 82 17 30 05/29/18 12:00 Mechanical Ventilator Mechanical Ventilator 05/29/18 12:00 30 05/29/18 12:00 97.2 85 18 119/47 (71) 100 97.2 05/29/18 11:48 86 05/29/18 11:00 85 18 119/47 (71) 100 05/29/18 10:54 81 18 30 05/29/18 10:00 81 17 112/57 (75) 100 05/29/18 09:00 81 17 115/39 (64) 100 05/29/18 09:00 80 16 112/38 (62) 100 05/29/18 08:53 82 17 30 05/29/18 08:00 30 05/29/18 08:00 Mechanical Ventilator Mechanical Ventilator 05/29/18 08:00 97.3 80 18 108/36 (60) 100 97.3 05/29/18 07:57 84 Intake and Output 05/29/18 05/30/18 19:00 07:00 Intake Total 2190 ml 2040 ml Output Total 765 ml 920 ml Balance 1425 ml 1120 ml Free Water 650 ml 600 ml IV Total 900 ml 900 ml Tube Feeding 540 ml 540 ml Other 100 ml Output Urine Total 765 ml 920 ml Height (Feet): 5 Height (Inches): 3.00 Weight (Pounds): 174 General Appearance: other - deep coma on vent Neck: normal alignment Respiratory/Chest: rhonchi - bilaterally Abdomen: non tender Edema: 2+ Arm (L), 2+ Arm (R), 2+ Leg (L), 2+ Leg (R), 2+ Pedal (L), 2+ Pedal ( R), 2+ Generalized Neurologic: unresponsive EZEQUIEL BAÑUELOS May 30, 2018 07:44
--- NOTE | 2018-05-30 10:19 | Diagnostic Imaging Report ---
Indication: Dyspnea Technique: One view of the chest Comparison: 05/26/2018 Findings: Stable satisfactory position of endotracheal tube, left jugular central venous catheter. Bilateral interstitial and airspace edema versus infiltrates appears slightly worse. There is probably a small amount of pleural fluid bilaterally. Impression: Slight worsening of bilateral interstitial and airspace disease, over 4 days. Other stable findings as described
--- NOTE | 2018-05-30 10:31 | Pulmonology Progress Note ---
Assessment/Plan Assessment/Plan 1. Acute respiratory failure status post bradycardic arrest. 2. Acute diabetic ketoacidosis. 3. Dysphagia with G-tube feeding. 4. Encephalopathy superimposed on severe dementia. 5. Severe diabetes with diabetic ketoacidosis. 6. Chronic kidney disease stage 4. 7. Anemia. 8. Pneumonia with sepsis, MRSA + BC cannot wean, not improving unresponsive nebs and suction wound care no labs or CXR prognosis grave Dr Acuña discussing options with family trach and LTC vs terminal extubation Bioethics meeting planned per RN Subjective Interval Events: No new events Constitutional: Reports: no symptoms HEENT: Repors: no symptoms Respiratory: Reports: no symptoms Cardiovascular: Reports: no symptoms Gastrointestinal/Abdominal: Reports: no symptoms Genitourinary: Reports: no symptoms Allergies: Coded Allergies: PENICILLINS (Verified Allergy, Severe, 03/10/14) SKIN RASH AMOXICILLIN (Verified Allergy, Mild, 03/09/14) ERYTHROMYCIN BASE (Verified Allergy, Mild, 03/09/14) Uncoded Allergies: ERYTHROMYCIN (Allergy, Unknown, 05/15/18) PENICILLIN (Allergy, Unknown, 05/15/18) ZITHROMYCIN (Allergy, Unknown, 05/15/18) Objective Last 24 Hour Vital Signs Date Time Temp Pulse Resp B/P (MAP) Pulse Ox O2 Delivery O2 Flow Rate FiO2 05/30/18 10:00 82 17 114/73 (87) 100 05/30/18 09:00 81 18 112/53 (72) 100 05/30/18 08:54 78 18 30 05/30/18 08:00 30 05/30/18 08:00 97.1 82 18 112/37 (62) 100 97.1 05/30/18 08:00 Mechanical Ventilator Mechanical Ventilator 05/30/18 07:26 88 05/30/18 07:00 85 18 30 05/30/18 07:00 85 20 124/37 (66) 100 05/30/18 06:00 82 20 123/88 (100) 100 05/30/18 05:29 81 16 30 05/30/18 05:00 82 20 110/35 (60) 100 05/30/18 04:00 Mechanical Ventilator Mechanical Ventilator 05/30/18 04:00 98.9 95 22 130/57 (81) 99 98.9 05/30/18 04:00 30 05/30/18 04:00 89 05/30/18 03:00 89 17 115/53 (73) 99 05/30/18 02:35 94 19 30 05/30/18 02:00 99 18 111/42 (65) 99 05/30/18 01:11 98 20 30 05/30/18 01:00 100 16 138/45 (76) 100 05/30/18 00:00 Mechanical Ventilator Mechanical Ventilator 05/30/18 00:00 96 05/30/18 00:00 30 05/29/18 23:06 91 19 30 05/29/18 23:00 98.3 92 12 111/77 (88) 100 98.3 05/29/18 22:00 93 16 118/44 (68) 100 05/29/18 21:00 95 16 105/45 (65) 100 05/29/18 20:44 99 16 30 05/29/18 20:00 98.4 100 17 134/38 (70) 100 98.4 05/29/18 20:00 30 05/29/18 20:00 97 05/29/18 20:00 Mechanical Ventilator Mechanical Ventilator 05/29/18 19:17 89 19 30 05/29/18 19:00 94 17 124/51 (75) 100 05/29/18 18:00 94 17 124/58 (80) 100 05/29/18 17:06 98 19 30 05/29/18 17:00 98.3 92 18 123/37 (65) 100 98.3 05/29/18 16:00 88 17 117/76 (90) 99 05/29/18 16:00 87 17 110/44 (66) 100 05/29/18 16:00 Mechanical Ventilator Mechanical Ventilator 05/29/18 16:00 30 05/29/18 15:55 92 05/29/18 15:06 87 16 30 05/29/18 15:00 87 17 110/44 (66) 100 05/29/18 14:00 84 17 108/36 (60) 100 05/29/18 13:00 83 18 114/39 (64) 100 05/29/18 12:54 82 17 30 05/29/18 12:00 Mechanical Ventilator Mechanical Ventilator 05/29/18 12:00 30 05/29/18 12:00 97.2 85 18 119/47 (71) 100 97.2 05/29/18 11:48 86 05/29/18 11:00 85 18 119/47 (71) 100 05/29/18 10:54 81 18 30 Intake and Output 05/29/18 05/30/18 19:00 07:00 Intake Total 2190 ml 2040 ml Output Total 765 ml 920 ml Balance 1425 ml 1120 ml Free Water 650 ml 600 ml IV Total 900 ml 900 ml Tube Feeding 540 ml 540 ml Other 100 ml Output Urine Total 765 ml 920 ml General Appearance: no acute distress HEENT: normocephalic Respiratory/Chest: chest wall non-tender, decreased breath sounds Cardiovascular: normal peripheral pulses, normal rate Abdomen: soft, non tender, no organomegaly Current Medications Medications (Trade) Dose Ordered Sig/Adelia Route PRN Reason Start Time Stop Time Status Last Admin Dose Admin Acetaminophen (Tylenol) 650 mg Q6H PRN NG Fever/Headache/Mild Pain 05/17/18 03:45 06/16/18 03:44 05/17/18 03:57 Chlorhexidine Gluconate (Khadijah-Hex 2%) 1 applic DAILY@1999 TOPIC 05/16/18 20:00 06/15/18 19:59 05/29/18 19:54 Clopidogrel Bisulfate (Plavix) 75 mg DAILY GT 05/16/18 09:00 06/15/18 08:59 05/30/18 09:06 Dextrose (Dextrose 50%) 25 ml Q1H PRN IV Hypoglycemia 05/20/18 21:30 06/19/18 21:29 Dextrose (Dextrose 50%) 50 ml Q1H PRN IV Hypoglycemia 05/15/18 21:15 Diphenoxylate HCl/ Atropine (Lomotil) 2.5 mg Q4H PRN ORAL Diarrhea 05/20/18 20:00 06/19/18 19:59 05/25/18 12:04 Insulin Aspart (NovoLOG) TID SUBQ 05/22/18 09:00 06/21/18 08:59 05/30/18 09:07 Insulin Aspart (NovoLOG) 10 units NOVOTIAC SUBQ 05/30/18 11:50 06/29/18 11:49 Insulin Detemir (Levemir) 6 units BEDTIME SUBQ 05/21/18 21:00 06/20/18 20:59 05/29/18 20:33 Ondansetron HCl (Zofran) 4 mg Q6H PRN IVP Nausea & Vomiting 05/15/18 21:45 06/14/18 21:44 Sucralfate (Carafate) 1 gm EVERY 6 HOURS GT 05/16/18 00:00 06/15/18 00:00 05/30/18 06:02 Amado Short MD May 30, 2018 10:31
[2018-05-30] MEDS: Dyna-Hex 2% Top Sol 2oz TOPIC SCH (19:37)
[2018-05-30] MEDS: Levemir Flexpen SUBQ SCH (20:31)
[2018-05-31] VITALS (24 sets, daily range): BP systolic 93–145; BP diastolic 27–67
[2018-05-31] MEDS: Sucralfate 1gm tab GT SCH ×4 (00:16→17:27)
[2018-05-31] MEDS: NovoLOG Insulin Flexpen SUBQ SCH ×6 (06:09→17:28)
[2018-05-31] MEDS ORDERED: NS 275ml ONE (15:12)
[2018-05-31] MEDS ORDERED: 1/2 NS 1000ml IV ONE (15:12)
--- NOTE | 2018-05-31 19:19 | General Progress Note ---
Assessment/Plan Assessment/Plan 1) AMS with coma 2) Evidence of new Stroke 3) Fluid overload/CHF 4) MONICO improved 5) DM with DKA resolved 6) CKD IV Plan: Will give her Bumex 2 mg IV Q8 x2 Subjective Allergies: Coded Allergies: PENICILLINS (Verified Allergy, Severe, 03/10/14) SKIN RASH AMOXICILLIN (Verified Allergy, Mild, 03/09/14) ERYTHROMYCIN BASE (Verified Allergy, Mild, 03/09/14) Uncoded Allergies: ERYTHROMYCIN (Allergy, Unknown, 05/15/18) PENICILLIN (Allergy, Unknown, 05/15/18) ZITHROMYCIN (Allergy, Unknown, 05/15/18) Subjective She is on the vent, unresponsive, the family has not made their mind as far as comfort measures only, creat was 1.6, CXR shows some interstitial edema Objective Last 24 Hour Vital Signs Date Time Temp Pulse Resp B/P (MAP) Pulse Ox O2 Delivery O2 Flow Rate FiO2 05/31/18 18:00 98.1 89 19 133/44 (73) 100 98.1 05/31/18 17:10 94 20 30 05/31/18 17:00 95 19 100/47 (64) 100 05/31/18 16:00 30 05/31/18 16:00 92 18 120/55 (76) 100 05/31/18 16:00 Mechanical Ventilator Mechanical Ventilator 05/31/18 15:38 93 05/31/18 15:00 95 18 122/50 (74) 100 05/31/18 14:30 98 19 30 05/31/18 14:00 92 18 118/47 (70) 100 05/31/18 13:00 96 19 123/34 (63) 100 05/31/18 12:30 93 20 30 05/31/18 12:00 Mechanical Ventilator Mechanical Ventilator 05/31/18 12:00 30 05/31/18 12:00 99 19 93/55 (68) 100 05/31/18 11:38 103 05/31/18 11:00 95 19 139/56 (83) 100 05/31/18 10:50 95 18 30 05/31/18 10:00 94 19 134/41 (72) 100 05/31/18 09:00 97 19 145/67 (93) 100 05/31/18 08:40 92 21 30 05/31/18 08:00 99.4 94 18 118/38 (64) 100 99.4 05/31/18 08:00 Mechanical Ventilator Mechanical Ventilator 05/31/18 08:00 99 05/31/18 08:00 30 05/31/18 07:00 92 19 121/41 (67) 100 05/31/18 06:51 99 20 30 05/31/18 06:00 99 17 135/62 (86) 100 05/31/18 05:00 97 18 125/65 (85) 100 05/31/18 04:30 96 19 30 05/31/18 04:00 30 05/31/18 04:00 Mechanical Ventilator Mechanical Ventilator 05/31/18 04:00 99.1 106 21 134/45 (74) 100 99.1 05/31/18 04:00 106 05/31/18 03:00 104 20 124/42 (69) 100 05/31/18 02:40 110 20 30 05/31/18 02:00 105 19 132/37 (68) 100 05/31/18 01:00 102 19 140/49 (79) 100 05/31/18 00:52 115 21 30 05/31/18 00:00 99 05/31/18 00:00 30 05/31/18 00:00 98.9 99 18 129/27 (61) 100 98.9 05/31/18 00:00 Mechanical Ventilator Mechanical Ventilator 05/30/18 23:05 99 18 30 05/30/18 23:00 99 18 112/35 (60) 100 05/30/18 22:00 94 18 125/31 (62) 100 05/30/18 21:00 92 17 118/34 (62) 100 05/30/18 20:45 94 17 30 05/30/18 20:00 88 05/30/18 20:00 88 16 106/44 (64) 100 05/30/18 20:00 Mechanical Ventilator Mechanical Ventilator 05/30/18 20:00 30 Intake and Output 05/30/18 05/31/18 19:00 07:00 Intake Total 1246 ml 1140 ml Output Total 825 ml 830 ml Balance 421 ml 310 ml Free Water 650 ml 600 ml IV Total 56 ml Tube Feeding 540 ml 540 ml Output Urine Total 825 ml 830 ml # Bowel Movements 4 4 Laboratory Tests 05/31/18 04:00: Pro-B-Type Natriuretic Peptide [id number] Height (Feet): 5 Height (Inches): 3.00 Weight (Pounds): 179 General Appearance: WD/WN, morbidly obese, other - on the vent EENT: PERRL/EOMI Neck: non-tender, normal alignment, supple Cardiovascular: JVD - high Respiratory/Chest: decreased breath sounds, crackles/rales Abdomen: normal bowel sounds, non tender Neurologic: unresponsive Collin Hsu MD May 31, 2018 19:19
[2018-05-31] MEDS ORDERED: Bumetanide 2.5mg/10ml Inj IVP SCH (20:00)
[2018-05-31] MEDS: Dyna-Hex 2% Top Sol 2oz TOPIC SCH (20:08)
[2018-05-31] MEDS: Levemir Flexpen SUBQ SCH (21:48)
[2018-06-01] VITALS (24 sets, daily range): BP systolic 48–144; BP diastolic 39–88
[2018-06-01] MEDS: Sucralfate 1gm tab GT SCH ×4 (00:11→18:38)
--- NOTE | 2018-06-01 03:00 | Progress Note ---
DATE: 05/31/2018 CARDIOLOGY PROGRESS NOTE SUBJECTIVE: Condition remains critical. Prognosis guarded. The patient in the intensive care unit. The patient remains unresponsive. OBJECTIVE: VITAL SIGNS: Blood pressure 133/44, pulse 89, and respiratory rate 19. GENERAL: Monitored rhythm sinus with paroxysms of atrial fibrillation. HEENT: Orally intubated. LUNGS: Bilateral rhonchi. CARDIAC: Regular rhythm and rate. Frequent ectopic beats. ABDOMEN: Soft. EXTREMITIES: ____ dependent edema. LABORATORY DATA: Pronatriuretic peptide essay remains above 13,000. IMPRESSION: 1. Critical condition, but guarded prognosis. 2. Encephalopathy, multifactorial. 3. Possible acute cerebrovascular insult. 4. Acute respiratory failure. 5. Acute myocardial infarction. 6. Ischemic cardiomyopathy. 7. Acute on chronic kidney injury. 8. Healthcare acquired pneumonia. 9. Insulin-requiring diabetes with multiple complications. PLAN: 1. Antimicrobials. 2. Ventilator support. 3. Consideration for trach versus palliative care. 4. Diuresis efforts. 5. Titrate anti-failure regimen. 6. Maintain anti-platelet therapy. 7. Transfuse for hemoglobin below 8 g. 8. DVT and stress ulcer prophylaxis. 9. Imaging studies of the brain once ____ stable. Amando Blanco M.D. DR: MICHEAL JOB#: [id number] CC:
--- NOTE | 2018-06-01 03:00 | Progress Note ---
DATE: 05/30/2018 CARDIOLOGY PROGRESS NOTE SUBJECTIVE: The patient remains on ventilator support. Orally intubated in critical condition with guarded prognosis. Monitored rhythm, sinus with episodes of atrial ectopy and paroxysms of atrial fibrillation. Blood pressure parameters remain tenuous. OBJECTIVE: VITAL SIGNS: Blood pressure 110/35, pulse 82, respiratory rate 20, afebrile, and orally intubated. LUNGS: Bilateral rhonchi. HEART: Regular rhythm and rate. Normal S1 and S2. ABDOMEN: Soft. EXTREMITIES: Trace dependent edema. LABORATORY DATA: Labs are pending. Chest x-ray reveals worsening interstitial airspace disease. IMPRESSION: 1. Critical condition with guarded prognosis. 2. Multiorgan system failure. PLAN: 1. Ventilator support not weanable, trach versus terminal extubation. 2. Antimicrobials. 3. Continue current cardiovascular regimen. 4. Diuresis efforts if blood pressure can tolerate. 5. DVT and stress ulcer prophylaxis. 6. Nutritional support by G-tube. 7. Insulin titration. 8. Maintain anti-platelet therapy. 9. Transfuse for hemoglobin below 8 g. Amando Blanco M.D. DR: TINY JOB#: [id number] CC:
[2018-06-01 04:45] LABS: BASOPHILS % (AUTO) 1.4 % (0.0-2.0); EOSINOPHILS % (AUTO) 2.1 % (0.0-3.0); HEMATOCRIT 29.7 % (37.0-47.0); HEMOGLOBIN 9.3 G/DL (12.0-16.0); LYMPHOCYTES % (AUTO) 23.4 % (20.0-45.0); MEAN CORPUSCULAR VOLUME 94 FL (80-99); MONOCYTES % (AUTO) 16.5 % (1.0-10.0); NEUTROPHILS % (AUTO) 56.5 % (45.0-75.0); PLATELET COUNT 347 K/UL (150-450); RED BLOOD COUNT 3.17 M/UL (4.20-5.40); RED CELL DISTRIBUTION WIDTH 19.7 % (11.6-14.8); WHITE BLOOD COUNT 13.3 K/UL (4.8-10.8)
[2018-06-01 05:03] LABS: ALANINE AMINOTRANSFERASE 13 U/L (12-78); ALBUMIN 0.6 G/DL (3.4-5.0); ALKALINE PHOSPHATASE 182 U/L (46-116); ANION GAP 9 mmol/L (5-15); ASPARTATE AMINO TRANSFERASE 46 U/L (15-37); BILIRUBIN,TOTAL 0.2 MG/DL (0.2-1.0); BLOOD UREA NITROGEN 51 mg/dL (7-18); CALCIUM 9.4 MG/DL (8.5-10.1); CARBON DIOXIDE 18 MMOL/L (21-32); CHLORIDE 124 MMOL/L (98-107); CREATININE 1.8 MG/DL (0.55-1.30); POTASSIUM 4.3 MMOL/L (3.5-5.1); SODIUM 151 MMOL/L (136-145)
[2018-06-01 05:23] LABS: AMMONIA < 10 umol/L (11-32)
[2018-06-01] MEDS: NovoLOG Insulin Flexpen SUBQ SCH ×6 (05:49→18:00)
[2018-06-01] MEDS ORDERED: Bumetanide 2.5mg/10ml Inj IVP SCH ×2 (06:00→17:00)
[2018-06-01] MEDS ORDERED: NS 275ml ONE (15:45)
[2018-06-01] MEDS ORDERED: Tubing IV Secondary IV ONE (15:45)
--- NOTE | 2018-06-01 16:08 | Pulmonolgy Critical Care Note ---
Critical Care - Asmt/Plan Assessment/Plan: 1. Acute respiratory failure status post bradycardic arrest. 2. Acute diabetic ketoacidosis. 3. Dysphagia with G-tube feeding. 4. Encephalopathy superimposed on severe dementia. 5. Severe diabetes with diabetic ketoacidosis. 6. Chronic kidney disease stage 4. 7. Anemia. 8. Pneumonia with sepsis, MRSA + BC Plan for terminal extubation tomorrow pt is unweanable comfort measures prognosis grave critically ill continue ICU level of care greater than 35 minutes of crtical care time spent with the pt, reviewing the records, images, labs,cultures and dw nursing. orders given. no new recommendations at this time. Cardiac: continue to monitor HR/BP Renal: keep IV fluid Infectious Disease: continue antibiotics Gastrointestinal: continue feedings/current rate Disposition: keep in ICU Time Spent (Minutes): 40 Notes Reviewed: signals analyst Discussed with: nurses Critical Care - Objective Last 24 Hour Vital Signs Date Time Temp Pulse Resp B/P (MAP) Pulse Ox O2 Delivery O2 Flow Rate FiO2 06/01/18 14:58 94 16 30 06/01/18 13:12 92 16 30 06/01/18 11:00 94 16 122/45 (70) 100 06/01/18 10:36 99 16 30 06/01/18 10:00 83 17 136/43 (74) 100 06/01/18 09:17 98 16 30 06/01/18 09:00 77 20 136/43 (74) 100 06/01/18 08:00 80 06/01/18 08:00 Mechanical Ventilator Mechanical Ventilator 06/01/18 08:00 97.9 82 17 120/65 (83) 100 97.9 06/01/18 08:00 30 06/01/18 07:00 84 16 103/46 (65) 100 06/01/18 06:35 102 16 30 06/01/18 06:00 85 16 144/43 (76) 100 06/01/18 05:00 108 16 139/46 (77) 100 06/01/18 04:56 87 16 30 06/01/18 04:00 98.6 97 16 136/54 (81) 100 98.6 06/01/18 04:00 Mechanical Ventilator Mechanical Ventilator 06/01/18 04:00 30 06/01/18 04:00 83 06/01/18 03:06 97 18 30 06/01/18 03:00 86 16 124/39 (67) 100 06/01/18 02:00 91 16 142/39 (73) 100 06/01/18 01:13 93 16 30 06/01/18 01:00 91 20 142/45 (77) 100 06/01/18 00:00 98.4 97 20 136/54 (81) 100 98.4 06/01/18 00:00 Mechanical Ventilator Mechanical Ventilator 05/31/18 23:00 89 16 135/41 (72) 100 05/31/18 22:54 94 16 30 05/31/18 22:00 90 19 122/65 (84) 100 05/31/18 21:06 94 16 30 05/31/18 21:00 90 19 130/56 (80) 100 05/31/18 20:00 98.4 90 19 136/49 (78) 100 98.4 05/31/18 20:00 30 05/31/18 20:00 Mechanical Ventilator Mechanical Ventilator 05/31/18 20:00 90 05/31/18 19:40 85 16 30 05/31/18 19:00 83 19 129/48 (75) 100 05/31/18 18:00 98.1 89 19 133/44 (73) 100 98.1 05/31/18 17:10 94 20 30 05/31/18 17:00 95 19 100/47 (64) 100 Status: obtunded Condition: critical Lungs: rhonchi Heart: HR/BP stable Abdomen: soft, non-tender Accucheck: 130 Blood Sugars: BS controlled Critical Care - Subjective ROS Limited/Unobtainable: Yes Condition: critical EKG Rhythm: Sinus Rhythm FI02: 30 Vent Support Breath Rate: 16 Vent Support Mode: AC Vent Tidal Volume: 600 Sputum Amount: Moderate PEEP: 5.0 PIP: 26 Tube Feeding Amount: 45 I&O: Intake and Output 05/31/18 06/01/18 19:00 07:00 Intake Total 660 ml 950 ml Output Total 715 ml 2130 ml Balance -55 ml -1180 ml Free Water 350 ml Tube Feeding 540 ml 540 ml Other 120 ml 60 ml Output Urine Total 715 ml 2130 ml # Bowel Movements 3 Subjective: no events noted breathign above the vent today unresponsive no distress no reports of cp nv or bleeding secretions noted positive uop, diarrhea too no pressors on hypotension CXR: Impression: Slight worsening of bilateral interstitial and airspace disease, over 4 days. Other stable findings as described ET-Tube: 7.5 ET Position: 23 Labs: Current Medications Medications (Trade) Dose Ordered Sig/Adelia Route PRN Reason Start Time Stop Time Status Last Admin Dose Admin Acetaminophen (Tylenol) 650 mg Q6H PRN NG Fever/Headache/Mild Pain 05/17/18 03:45 06/16/18 03:44 05/17/18 03:57 Chlorhexidine Gluconate (Khadijah-Hex 2%) 1 applic DAILY@1999 TOPIC 05/16/18 20:00 06/15/18 19:59 05/31/18 20:08 Clopidogrel Bisulfate (Plavix) 75 mg DAILY GT 05/16/18 09:00 06/15/18 08:59 06/01/18 09:08 Dextrose (Dextrose 50%) 25 ml Q1H PRN IV Hypoglycemia 05/20/18 21:30 06/19/18 21:29 Dextrose (Dextrose 50%) 50 ml Q1H PRN IV Hypoglycemia 05/15/18 21:15 05/31/18 16:13 Diphenoxylate HCl/ Atropine (Lomotil) 2.5 mg Q4H PRN ORAL Diarrhea 05/20/18 20:00 06/19/18 19:59 05/25/18 12:04 Insulin Aspart (NovoLOG) TID SUBQ 05/22/18 09:00 06/21/18 08:59 05/31/18 17:28 Insulin Aspart (NovoLOG) 10 units NOVOTIAC SUBQ 05/30/18 11:50 06/29/18 11:49 06/01/18 13:26 Insulin Detemir (Levemir) 6 units BEDTIME SUBQ 05/21/18 21:00 06/20/18 20:59 05/31/18 21:48 Ondansetron HCl (Zofran) 4 mg Q6H PRN IVP Nausea & Vomiting 05/15/18 21:45 06/14/18 21:44 Sucralfate (Carafate) 1 gm EVERY 6 HOURS GT 05/16/18 00:00 06/15/18 00:00 06/01/18 13:20 Laboratory Tests Test 06/01/18 03:55 White Blood Count 13.3 K/UL (4.8-10.8) H Red Blood Count 3.17 M/UL (4.20-5.40) L Hemoglobin 9.3 G/DL (12.0-16.0) L Hematocrit 29.7 % (37.0-47.0) L Mean Corpuscular Volume 94 FL (80-99) Mean Corpuscular Hemoglobin 29.5 PG (27.0-31.0) Mean Corpuscular Hemoglobin Concent 31.4 G/DL (32.0-36.0) L Red Cell Distribution Width 19.7 % (11.6-14.8) H Platelet Count 347 K/UL (150-450) Mean Platelet Volume 6.2 FL (6.5-10.1) L Neutrophils (%) (Auto) 56.5 % (45.0-75.0) Lymphocytes (%) (Auto) 23.4 % (20.0-45.0) Monocytes (%) (Auto) 16.5 % (1.0-10.0) H Eosinophils (%) (Auto) 2.1 % (0.0-3.0) Basophils (%) (Auto) 1.4 % (0.0-2.0) Sodium Level 151 MMOL/L (136-145) H Potassium Level 4.3 MMOL/L (3.5-5.1) Chloride Level 124 MMOL/L (98-107) H Carbon Dioxide Level 18 MMOL/L (21-32) L Anion Gap 9 mmol/L (5-15) Blood Urea Nitrogen 51 mg/dL (7-18) H Creatinine 1.8 MG/DL (0.55-1.30) H Estimat Glomerular Filtration Rate mL/min (>60) Glucose Level 168 MG/DL (74-106) H Calcium Level 9.4 MG/DL (8.5-10.1) Magnesium Level 1.7 MG/DL (1.8-2.4) L Total Bilirubin 0.2 MG/DL (0.2-1.0) Aspartate Amino Transf (AST/SGOT) 46 U/L (15-37) H Alanine Aminotransferase (ALT/SGPT) 13 U/L (12-78) Alkaline Phosphatase 182 U/L (46-116) H Ammonia < 10 umol/L (11-32) L Total Protein 6.7 G/DL (6.4-8.2) Albumin 0.6 G/DL (3.4-5.0) L Globulin 6.1 g/dL Omayra Patiño DO Jun 01, 2018 16:08
--- NOTE | 2018-06-01 16:40 | General Progress Note ---
Assessment/Plan Assessment/Plan 1) AMS with coma 2) Evidence of new Stroke 3) Fluid overload/CHF 4) MONICO improved 5) DM with DKA resolved 6) CKD IV 7) Hypernatremia with water deficit of 3.14 L Plan: Will give her Bumex 2 mg IV Q8 x3 Replete Magnesium D5W at 75 cc/hr Subjective Allergies: Coded Allergies: PENICILLINS (Verified Allergy, Severe, 03/10/14) SKIN RASH AMOXICILLIN (Verified Allergy, Mild, 03/09/14) ERYTHROMYCIN BASE (Verified Allergy, Mild, 03/09/14) Uncoded Allergies: ERYTHROMYCIN (Allergy, Unknown, 05/15/18) PENICILLIN (Allergy, Unknown, 05/15/18) ZITHROMYCIN (Allergy, Unknown, 05/15/18) Subjective She is on the vent, She is more alert, she had good diuresis Objective Last 24 Hour Vital Signs Date Time Temp Pulse Resp B/P (MAP) Pulse Ox O2 Delivery O2 Flow Rate FiO2 06/01/18 16:00 88 06/01/18 14:58 94 16 30 06/01/18 13:12 92 16 30 06/01/18 12:00 30 06/01/18 12:00 87 06/01/18 11:00 94 16 122/45 (70) 100 06/01/18 10:36 99 16 30 06/01/18 10:00 83 17 136/43 (74) 100 06/01/18 09:17 98 16 30 06/01/18 09:00 77 20 136/43 (74) 100 06/01/18 08:00 80 06/01/18 08:00 Mechanical Ventilator Mechanical Ventilator 06/01/18 08:00 97.9 82 17 120/65 (83) 100 97.9 06/01/18 08:00 30 06/01/18 07:00 84 16 103/46 (65) 100 06/01/18 06:35 102 16 30 06/01/18 06:00 85 16 144/43 (76) 100 06/01/18 05:00 108 16 139/46 (77) 100 06/01/18 04:56 87 16 30 06/01/18 04:00 98.6 97 16 136/54 (81) 100 98.6 06/01/18 04:00 Mechanical Ventilator Mechanical Ventilator 06/01/18 04:00 30 06/01/18 04:00 83 06/01/18 03:06 97 18 30 06/01/18 03:00 86 16 124/39 (67) 100 06/01/18 02:00 91 16 142/39 (73) 100 06/01/18 01:13 93 16 30 06/01/18 01:00 91 20 142/45 (77) 100 06/01/18 00:00 98.4 97 20 136/54 (81) 100 98.4 06/01/18 00:00 Mechanical Ventilator Mechanical Ventilator 05/31/18 23:00 89 16 135/41 (72) 100 05/31/18 22:54 94 16 30 05/31/18 22:00 90 19 122/65 (84) 100 05/31/18 21:06 94 16 30 05/31/18 21:00 90 19 130/56 (80) 100 05/31/18 20:00 98.4 90 19 136/49 (78) 100 98.4 05/31/18 20:00 30 05/31/18 20:00 Mechanical Ventilator Mechanical Ventilator 05/31/18 20:00 90 05/31/18 19:40 85 16 30 05/31/18 19:00 83 19 129/48 (75) 100 05/31/18 18:00 98.1 89 19 133/44 (73) 100 98.1 05/31/18 17:10 94 20 30 05/31/18 17:00 95 19 100/47 (64) 100 Intake and Output 05/31/18 06/01/18 19:00 07:00 Intake Total 660 ml 950 ml Output Total 715 ml 2130 ml Balance -55 ml -1180 ml Free Water 350 ml Tube Feeding 540 ml 540 ml Other 120 ml 60 ml Output Urine Total 715 ml 2130 ml # Bowel Movements 3 Laboratory Tests 06/01/18 03:55: White Blood Count 13.3H, Red Blood Count 3.17L, Hemoglobin 9.3L, Hematocrit 29.7L, Mean Corpuscular Volume 94, Mean Corpuscular Hemoglobin 29.5, Mean Corpuscular Hemoglobin Concent 31.4L, Red Cell Distribution Width 19.7H, Platelet Count 347, Mean Platelet Volume 6.2L, Neutrophils (%) (Auto) 56.5, Lymphocytes (%) (Auto) 23.4, Monocytes (%) (Auto) 16.5H, Eosinophils (%) (Auto) 2.1, Basophils (%) (Auto) 1.4, Sodium Level 151H, Potassium Level 4.3, Chloride Level 124H, Carbon Dioxide Level 18L, Anion Gap 9, Blood Urea Nitrogen 51H, Creatinine 1.8H, Estimat Glomerular Filtration Rate , Glucose Level 168H, Calcium Level 9.4, Magnesium Level 1.7L, Total Bilirubin 0.2, Aspartate Amino Transf (AST/SGOT) 46H, Alanine Aminotransferase (ALT/SGPT) 13, Alkaline Phosphatase 182H, Ammonia < 10L, Total Protein 6.7, Albumin 0.6L, Globulin 6.1 Height (Feet): 5 Height (Inches): 3.00 Weight (Pounds): 177 General Appearance: WD/WN, other EENT: TMs normal Neck: non-tender, normal alignment Cardiovascular: normal rate, other - JVD high Respiratory/Chest: decreased breath sounds, crackles/rales Abdomen: normal bowel sounds, non tender Neurologic: unresponsive, other - But alert Collin Hsu MD Jun 01, 2018 16:40
[2018-06-01] MEDS: Dyna-Hex 2% Top Sol 2oz TOPIC SCH (20:41)
[2018-06-01] MEDS ORDERED: Levemir Flexpen SUBQ SCH (21:00)
[2018-06-02] VITALS (22 sets, daily range): BP systolic 0–129; BP diastolic 0–86
[2018-06-02] MEDS: Sucralfate 1gm tab GT SCH ×2 (00:30→05:52)
--- NOTE | 2018-06-02 00:30 | Progress Note ---
DATE: 06/01/2018 CARDIOLOGY PROGRESS NOTE SUBJECTIVE: The patient's condition remains critical. Prognosis guarded. She remains in the intensive care unit. She is unresponsive to verbal stimuli. Her monitored rhythm is sinus with paroxysms of atrial fibrillation and frequent atrial ectopic. OBJECTIVE: VITAL SIGNS: Blood pressure 122/45, pulse 94, respiratory rate 16. LUNGS: Bilateral breath sounds. HEART: Regular rhythm and rate. Normal S1, S2 with frequent ectopics. ABDOMEN: Soft. EXTREMITIES: Trace edema. LABORATORY DATA: White count 13, hemoglobin 9.3. Magnesium 1.7. Sodium 151, BUN 51, creatinine 1.8. IMPRESSION: 1. Dehydration. 2. Hypernatremia. 3. Acute on chronic diastolic congestive heart failure. 4. Acute myocardial infraction. 5. Ischemic cardiomyopathy. 6. Respiratory failure. 7. Healthcare-acquired pneumonia. 8. Dysphagia with G-tube. 9. Insulin-requiring diabetes mellitus. PLAN: 1. Free water replacement. 2. Hold diuresis. 3. Insulin coverage. 4. Magnesium replacement. 5. Antimicrobials. 6. Ventilator support. 7. Possible tracheostomy versus palliative care. Amando Blanco M.D. DR: Stephon JOB#: [id number] CC:
[2018-06-02] MEDS: NovoLOG Insulin Flexpen SUBQ SCH (05:55)
[2018-06-02 06:27] LABS: BASOPHILS % (AUTO) 1.3 % (0.0-2.0); EOSINOPHILS % (AUTO) 2.5 % (0.0-3.0); HEMATOCRIT 28.3 % (37.0-47.0); HEMOGLOBIN 9.1 G/DL (12.0-16.0); LYMPHOCYTES % (AUTO) 16.8 % (20.0-45.0); MEAN CORPUSCULAR VOLUME 92 FL (80-99); MONOCYTES % (AUTO) 15.4 % (1.0-10.0); NEUTROPHILS % (AUTO) 64.1 % (45.0-75.0); PLATELET COUNT 361 K/UL (150-450); RED BLOOD COUNT 3.06 M/UL (4.20-5.40); RED CELL DISTRIBUTION WIDTH 19.3 % (11.6-14.8); WHITE BLOOD COUNT 13.8 K/UL (4.8-10.8)
[2018-06-02 06:32] LABS: ANION GAP 8 mmol/L (5-15); BLOOD UREA NITROGEN 47 mg/dL (7-18); CALCIUM 9.7 MG/DL (8.5-10.1); CARBON DIOXIDE 20 MMOL/L (21-32); CHLORIDE 123 MMOL/L (98-107); CREATININE 1.8 MG/DL (0.55-1.30); POTASSIUM 4.1 MMOL/L (3.5-5.1); SODIUM 151 MMOL/L (136-145)
--- NOTE | 2018-06-02 09:27 | Pulmonology Progress Note ---
Assessment/Plan Assessment/Plan 1. Acute respiratory failure status post bradycardic arrest. 2. Acute diabetic ketoacidosis. 3. Dysphagia with G-tube feeding. 4. Encephalopathy superimposed on severe dementia. 5. Severe diabetes with diabetic ketoacidosis. 6. Chronic kidney disease stage 4. 7. Anemia. 8. Pneumonia with sepsis, MRSA + BC cannot wean, not improving unresponsive nebs and suction wound care no labs or CXR prognosis grave Dr Acuña discussing options with family Terminal extubation today Subjective Interval Events: For terminal extubation today Constitutional: Reports: no symptoms HEENT: Repors: no symptoms Respiratory: Reports: no symptoms Cardiovascular: Reports: no symptoms Gastrointestinal/Abdominal: Reports: no symptoms Genitourinary: Reports: no symptoms Neurologic: Reports: no symptoms Allergies: Coded Allergies: PENICILLINS (Verified Allergy, Severe, 03/10/14) SKIN RASH AMOXICILLIN (Verified Allergy, Mild, 03/09/14) ERYTHROMYCIN BASE (Verified Allergy, Mild, 03/09/14) Uncoded Allergies: ERYTHROMYCIN (Allergy, Unknown, 05/15/18) PENICILLIN (Allergy, Unknown, 05/15/18) ZITHROMYCIN (Allergy, Unknown, 05/15/18) Objective Last 24 Hour Vital Signs Date Time Temp Pulse Resp B/P (MAP) Pulse Ox O2 Delivery O2 Flow Rate FiO2 06/02/18 09:07 86 16 30 06/02/18 09:00 85 16 117/35 (62) 100 06/02/18 08:00 96.8 83 16 118/39 (65) 100 96.8 06/02/18 08:00 Mechanical Ventilator Mechanical Ventilator Mechanical Ventilator 06/02/18 08:00 30 06/02/18 07:05 88 17 30 06/02/18 07:00 82 17 106/68 (81) 100 06/02/18 06:00 81 16 129/49 (75) 100 06/02/18 05:11 85 16 30 06/02/18 05:00 83 16 100/86 (91) 100 06/02/18 04:00 Mechanical Ventilator Mechanical Ventilator Mechanical Ventilator 06/02/18 04:00 89 06/02/18 04:00 30 06/02/18 04:00 96.5 89 18 100/86 (91) 100 96.5 06/02/18 03:07 74 16 30 06/02/18 03:00 80 16 118/83 (95) 100 06/02/18 02:00 81 16 119/39 (65) 100 06/02/18 01:00 87 16 120/53 (75) 100 06/02/18 00:50 78 16 30 06/02/18 00:00 96.9 81 16 125/44 (71) 100 96.9 06/02/18 00:00 30 06/02/18 00:00 Mechanical Ventilator Mechanical Ventilator Mechanical Ventilator 06/02/18 00:00 81 06/01/18 23:00 82 16 133/49 (77) 100 06/01/18 22:40 79 16 30 06/01/18 22:00 81 16 114/50 (71) 100 06/01/18 21:00 87 16 120/43 (68) 100 06/01/18 20:47 76 16 30 06/01/18 20:00 Mechanical Ventilator Mechanical Ventilator Mechanical Ventilator 06/01/18 20:00 90 06/01/18 20:00 30 06/01/18 20:00 97.7 92 16 137/61 (86) 100 97.7 06/01/18 19:13 81 16 30 06/01/18 19:00 84 16 133/53 (79) 100 06/01/18 18:00 79 16 131/67 (88) 100 06/01/18 17:09 91 16 30 06/01/18 17:00 97.6 89 16 123/60 (81) 100 97.6 06/01/18 16:00 Mechanical Ventilator Mechanical Ventilator 06/01/18 16:00 30 06/01/18 16:00 79 16 48/70 (63) 100 06/01/18 16:00 88 06/01/18 15:00 94 16 124/70 (88) 100 06/01/18 14:58 94 16 30 06/01/18 14:00 97 16 131/51 (77) 100 06/01/18 13:12 92 16 30 06/01/18 13:00 84 16 118/42 (67) 100 06/01/18 12:00 30 06/01/18 12:00 87 06/01/18 12:00 87 16 105/49 (67) 100 06/01/18 12:00 Mechanical Ventilator Mechanical Ventilator 06/01/18 11:00 94 16 122/45 (70) 100 06/01/18 10:36 99 16 30 06/01/18 10:00 83 17 136/43 (74) 100 Intake and Output 06/01/18 06/02/18 19:00 07:00 Intake Total 1040 ml 1090 ml Output Total 1387 ml 610 ml Balance -347 ml 480 ml Free Water 500 ml 350 ml IV Total 200 ml Tube Feeding 540 ml 540 ml Output Urine Total 1387 ml 610 ml # Bowel Movements 2 6 General Appearance: no acute distress HEENT: normocephalic Respiratory/Chest: chest wall non-tender, lungs clear Cardiovascular: normal peripheral pulses Abdomen: normal bowel sounds Laboratory Tests 06/02/18 04:50: White Blood Count 13.8H, Red Blood Count 3.06L, Hemoglobin 9.1L, Hematocrit 28.3L, Mean Corpuscular Volume 92, Mean Corpuscular Hemoglobin 29.8, Mean Corpuscular Hemoglobin Concent 32.3, Red Cell Distribution Width 19.3H, Platelet Count 361, Mean Platelet Volume 6.5, Neutrophils (%) (Auto) 64.1, Lymphocytes (%) (Auto) 16.8L, Monocytes (%) (Auto) 15.4H, Eosinophils (%) (Auto ) 2.5, Basophils (%) (Auto) 1.3, Sodium Level 151H, Potassium Level 4.1, Chloride Level 123H, Carbon Dioxide Level 20L, Anion Gap 8, Blood Urea Nitrogen 47H, Creatinine 1.8H, Estimat Glomerular Filtration Rate , Glucose Level 190H, Calcium Level 9.7, Magnesium Level 2.3 Current Medications Medications (Trade) Dose Ordered Sig/Adelia Route PRN Reason Start Time Stop Time Status Last Admin Dose Admin Morphine Sulfate (Morphine Sulfate) 2 mg Q1H PRN IVP Agonal breathing/Pain 4-10 06/02/18 08:30 06/09/18 08:29 Amado Short MD Jun 02, 2018 09:27
[2018-06-02] MEDS ORDERED: NS 275ml ONE ×2 (10:56→20:32)
[2018-06-02] MEDS ORDERED: Tubing IV Secondary IV ONE ×2 (10:56→20:32)
[2018-06-02] MEDS ORDERED: 1/2 NS 1000ml IV ONE (10:56)
[2018-06-02] MEDS: Morphine Sulfate 2mg/ml Inj IVP PRN ×2 (11:59→12:43)
--- NOTE | 2018-06-02 17:02 | General Progress Note ---
Assessment/Plan Assessment/Plan 1) AMS with coma 2) Evidence of new Stroke 3) Fluid overload/CHF 4) MONICO improved 5) DM with DKA resolved 6) CKD IV 7) Hypernatremia with water deficit of 3.14 L Plan: Comfort measures only Subjective Allergies: Coded Allergies: PENICILLINS (Verified Allergy, Severe, 03/10/14) SKIN RASH AMOXICILLIN (Verified Allergy, Mild, 03/09/14) ERYTHROMYCIN BASE (Verified Allergy, Mild, 03/09/14) Uncoded Allergies: ERYTHROMYCIN (Allergy, Unknown, 05/15/18) PENICILLIN (Allergy, Unknown, 05/15/18) ZITHROMYCIN (Allergy, Unknown, 05/15/18) Subjective She is extubated, still hanging in the there, not very responsive Objective Last 24 Hour Vital Signs Date Time Temp Pulse Resp B/P (MAP) Pulse Ox O2 Delivery O2 Flow Rate FiO2 06/02/18 16:12 Nasal Cannula 2.0 28 06/02/18 16:00 101 36 82/27 (45) 93 06/02/18 16:00 Mechanical Ventilator Mechanical Ventilator Mechanical Ventilator 06/02/18 16:00 2.0 06/02/18 16:00 103 06/02/18 15:00 104 32 99/28 (51) 93 06/02/18 14:00 113 35 100/40 (60) 90 06/02/18 13:00 122 33 100/35 (56) 97 06/02/18 12:00 2.0 06/02/18 12:00 111 36 119/58 (78) 100 06/02/18 12:00 Mechanical Ventilator Mechanical Ventilator Mechanical Ventilator 06/02/18 12:00 69 06/02/18 11:00 79 17 81/63 (69) 100 06/02/18 10:51 75 17 30 06/02/18 10:00 74 16 101/45 (63) 100 06/02/18 09:07 86 16 30 06/02/18 09:00 85 16 117/35 (62) 100 06/02/18 08:00 80 06/02/18 08:00 96.8 83 16 118/39 (65) 100 96.8 06/02/18 08:00 Mechanical Ventilator Mechanical Ventilator Mechanical Ventilator 06/02/18 08:00 30 06/02/18 07:05 88 17 30 06/02/18 07:00 82 17 106/68 (81) 100 06/02/18 06:00 81 16 129/49 (75) 100 06/02/18 05:11 85 16 30 06/02/18 05:00 83 16 100/86 (91) 100 06/02/18 04:00 Mechanical Ventilator Mechanical Ventilator Mechanical Ventilator 06/02/18 04:00 89 06/02/18 04:00 30 06/02/18 04:00 96.5 89 18 100/86 (91) 100 96.5 06/02/18 03:07 74 16 30 06/02/18 03:00 80 16 118/83 (95) 100 06/02/18 02:00 81 16 119/39 (65) 100 06/02/18 01:00 87 16 120/53 (75) 100 06/02/18 00:50 78 16 30 06/02/18 00:00 96.9 81 16 125/44 (71) 100 96.9 06/02/18 00:00 30 06/02/18 00:00 Mechanical Ventilator Mechanical Ventilator Mechanical Ventilator 06/02/18 00:00 81 06/01/18 23:00 82 16 133/49 (77) 100 06/01/18 22:40 79 16 30 06/01/18 22:00 81 16 114/50 (71) 100 06/01/18 21:00 87 16 120/43 (68) 100 06/01/18 20:47 76 16 30 06/01/18 20:00 Mechanical Ventilator Mechanical Ventilator Mechanical Ventilator 06/01/18 20:00 90 06/01/18 20:00 30 06/01/18 20:00 97.7 92 16 137/61 (86) 100 97.7 06/01/18 19:13 81 16 30 06/01/18 19:00 84 16 133/53 (79) 100 06/01/18 18:00 79 16 131/67 (88) 100 06/01/18 17:09 91 16 30 06/01/18 17:00 97.6 89 16 123/60 (81) 100 97.6 Intake and Output 06/01/18 06/02/18 19:00 07:00 Intake Total 1040 ml 1090 ml Output Total 1387 ml 610 ml Balance -347 ml 480 ml Free Water 500 ml 350 ml IV Total 200 ml Tube Feeding 540 ml 540 ml Output Urine Total 1387 ml 610 ml # Bowel Movements 2 6 Laboratory Tests 06/02/18 04:50: White Blood Count 13.8H, Red Blood Count 3.06L, Hemoglobin 9.1L, Hematocrit 28.3L, Mean Corpuscular Volume 92, Mean Corpuscular Hemoglobin 29.8, Mean Corpuscular Hemoglobin Concent 32.3, Red Cell Distribution Width 19.3H, Platelet Count 361, Mean Platelet Volume 6.5, Neutrophils (%) (Auto) 64.1, Lymphocytes (%) (Auto) 16.8L, Monocytes (%) (Auto) 15.4H, Eosinophils (%) (Auto ) 2.5, Basophils (%) (Auto) 1.3, Sodium Level 151H, Potassium Level 4.1, Chloride Level 123H, Carbon Dioxide Level 20L, Anion Gap 8, Blood Urea Nitrogen 47H, Creatinine 1.8H, Estimat Glomerular Filtration Rate , Glucose Level 190H, Calcium Level 9.7, Magnesium Level 2.3 Height (Feet): 5 Height (Inches): 3.00 Weight (Pounds): 187 General Appearance: WD/WN, lethargic EENT: PERRL/EOMI Neck: normal alignment Cardiovascular: normal rate, JVD - high Respiratory/Chest: crackles/rales Abdomen: normal bowel sounds, soft Neurologic: no Babinski, unresponsive Collin Hsu MD Jun 02, 2018 17:02
--- NOTE | 2018-06-03 06:00 | Progress Note ---
DATE: 06/02/2018 CARDIOLOGY PROGRESS NOTE SUBJECTIVE: Condition has deteriorated. The patient remains unresponsive. Terminal extubation is planned. OBJECTIVE: VITAL SIGNS: Blood pressure 117/35, pulse 85, respiratory rate 16, and orally intubated. LUNGS: Bilateral breath sounds with rhonchi. CARDIOVASCULAR: Regular rhythm and rate. Normal S1 and S2 with frequent ectopic beats on the monitor. ABDOMEN: Soft. G-tube intact. EXTREMITIES: Trace edema. NEUROLOGIC: The patient remains unresponsive. IMPRESSION: Multiorgan system failure, possibly suspected acute cerebrovascular event. PLAN: Terminal extubation planned with comfort care only. Family members are aware and have participated in plan of care, will be available for further cardiovascular consultation should there be a change in course. Amando Blanco M.D. DR: BRITTANIE JOB#: [id number] CC:
--- NOTE | 2018-06-06 01:30 | Discharge Summary ---
DATE OF ADMISSION: 05/15/2018 DATE OF EXPIRATION: 06/02/2018 PERTINENT HISTORY: The patient was admitted with uncontrolled diabetes and multiple medical problems. There was progressive dementia, insulin-dependent diabetes, history of CVAs, coronary artery disease, and gastritis. 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 She apparently presented with a glucose of 727 and mild elevation of ketones, but no definite acidosis. PERTINENT PHYSICAL FINDINGS: HEENT: Ocular motion intact in all directions. Oral mucosa dry. NECK: No adenopathy. LUNGS: She was using abdominal muscles of respirations, was tachypneic. HEART: Regular rhythm. ABDOMEN: Soft without organomegaly. EXTREMITIES: No edema. SKIN: Stage III sacral and also heel irritation on the left. NEUROLOGIC: She opened her eyes, but is disoriented and does not follow. COURSE IN THE HOSPITAL: The patient was treated for diabetic ketoacidosis and hyperglycemia with improvement of her glucose, acidosis corrected. She developed progressive respiratory insufficiency requiring intubation. She subsequently became comatose, unresponsive and remained on a ventilator in nonresponsive state. She required adjustment of tube feedings due to diarrhea and intolerance. She developed pneumonia and bacteremia with Staphylococcus aureus MRSA. She was stabilized. Her blood pressure and vital signs remained comatose and did not improve. The patient's family was contacted in detail throughout her whole hospital course, multiorgan failure. After detailed discussion with family, terminal extubation was done and the patient . FINAL DIAGNOSES: 1. Multiorgan failure. 2. Diabetic ketoacidosis. 3. Insulin dependent diabetes or hyperglycemia. 4. MRSA sepsis. 5. Pneumonia MRSA. 6. Acute on chronic respiratory failure. 7. Chronic kidney disease, stage 4. 8. Progressive dementia. 9. Coma likely anoxic encephalopathy.. 10. Failure to thrive. 11. Dysphagia. DISCHARGE DISPOSITION: The patient . All of above was discussed with the family. Pa Acuña M.D. DR: PB JOB#: [id number] CC: SOLOMON
== END 2018-06-02 20:33 | disposition expired | DRG 637 ==
LOC: EDBD 16:35 → EMR 17:51 → ICU 18:00 → EDBEDREQ 18:13
PROC: 05HN33Z Insertion of Infusion Device into Left Internal Jugular Vein, Percutaneous Approach (ICD-10-PCS; principal; 2018-05-15)
PROC: 5A1955Z Respiratory Ventilation, Greater than 96 Consecutive Hours (ICD-10-PCS; 2018-05-16)
PROC: 0BH17EZ Insertion of Endotracheal Airway into Trachea, Via Natural or Artificial Opening (ICD-10-PCS; 2018-05-16)
DX: E11.10 Type 2 diabetes mellitus with ketoacidosis without coma (principal); I50.33 Acute on chronic diastolic (congestive) heart failure; I63.9 Cerebral infarction, unspecified; J96.20 Acute and chronic respiratory failure, unspecified whether with hypoxia or hypercapnia; G92 Toxic encephalopathy; J69.0 Pneumonitis due to inhalation of food and vomit; I21.9 Acute myocardial infarction, unspecified; A41.02 Sepsis due to Methicillin resistant Staphylococcus aureus; J15.212 Pneumonia due to Methicillin resistant Staphylococcus aureus; R65.21 Severe sepsis with septic shock; E43 Unspecified severe protein-calorie malnutrition; N18.4 Chronic kidney disease, stage 4 (severe); I13.0 Hypertensive heart and chronic kidney disease with heart failure and stage 1 through stage 4 chronic kidney disease, or unspecified chronic kidney disease; K92.0 Hematemesis; N17.9 Acute kidney failure, unspecified; E87.0 Hyperosmolality and hypernatremia; G93.1 Anoxic brain damage, not elsewhere classified; E87.5 Hyperkalemia; E11.22 Type 2 diabetes mellitus with diabetic chronic kidney disease; E11.65 Type 2 diabetes mellitus with hyperglycemia; I46.2 Cardiac arrest due to underlying cardiac condition; F03.90 Unspecified dementia, unspecified severity, without behavioral disturbance, psychotic disturbance, mood disturbance, and anxiety; E11.21 Type 2 diabetes mellitus with diabetic nephropathy; E11.40 Type 2 diabetes mellitus with diabetic neuropathy, unspecified; E11.319 Type 2 diabetes mellitus with unspecified diabetic retinopathy without macular edema; I25.10 Atherosclerotic heart disease of native coronary artery without angina pectoris; Z95.5 Presence of coronary angioplasty implant and graft; Z86.73 Personal history of transient ischemic attack (TIA), and cerebral infarction without residual deficits; Z93.1 Gastrostomy status; R13.10 Dysphagia, unspecified; D63.1 Anemia in chronic kidney disease; R62.7 Adult failure to thrive; I25.5 Ischemic cardiomyopathy; Z96.653 Presence of artificial knee joint, bilateral; J44.9 Chronic obstructive pulmonary disease, unspecified; Z51.5 Encounter for palliative care; Z68.33 Body mass index [BMI] 33.0-33.9, adult; R19.7 Diarrhea, unspecified
CPT/HCPCS: 36415; 36600; 70450; 71045; 80048; 80053; 80202; 81003; 82009; 82140; 82270; 82728; 82803; 82962; 83540; 83550; 83605; 83690; 83735; 83880; 84484; 85007; 85025; 85060; 85610; 85730; 86850; 86900; 86901; 86920; 87040; 87070; 87081; 87181; 87205; 87324; 88104; 92950; 93005; 94002; 94003; 94640; 94760; 96361; 96374; 96375; 99291; J0171; J1815; J2765; J7620; J8499; S5561